=== PATIENT | male | born 1965 | race Caucasian/White ===

== ENCOUNTER → 2017-08-08 12:08 | Outpatient (CLI) | payer MEDICARE, SELFPAY ==
[2017-08-08 13:57] LABS: Absolute Lymphocyte Count 1.13 X10^3/ul (0.83-4.51); Absolute Neutrophil Count 6.6 X10^3/uL (2.0-7.7); Basophil# 0.04 X10^3/uL; Basophil% 0.5 % (0-1); Eosinophil# 0.15 X10^3/uL; Eosinophils% 1.8 % (0-5); Hematocrit 41.2 % (40-54); Hemoglobin 14.3 g/dl (13.0-16.5); Lymphocyte # 1.13 X10^3/ul (4.0); Lymphocyte % 13.3 % (19-41); Mean Corp Hgb Conc 34.7 g/gl (32-36); Mean Corpuscular Hgb 32.6 pg (27.0-32.0); Mean Corpuscular Volume 94.1 fL (80-94); Monocyte# 0.59 X10^3/uL; Monocyte% 6.9 % (0-10); Neutrophil # 6.56 X10^3/uL (2.7-7.7); Neutrophil % 76.9 % (47-70); Platelet Count 251 K/mm3 (150-450); RBC Distribution Width CV 11.9 % (11.6-14.6); RBC Distribution Width SD 40.1 fl (35.1-43.9); Red Blood Count 4.38 M/mm3 (4.6-6.2); White Blood Count 8.5 K/mm3 (4.4-11.0)
[2017-08-08 13:58] LABS: POSITIVE COUNT NO; POSITIVE DIFFERENTIAL NO; POSITIVE MORPHOLOGY NO
[2017-08-08 14:27] LABS: ALB/GLOB Ratio 1.2 RATIO (0.9-2.4); AST(SGOT) 48 U/L (15-37); Alanine Aminotransfer ALT/SGPT 87 U/L (16-61); Albumin, Serum 3.6 g/dL (3.2-5.0); Alkaline Phosphatase 108 U/L (45-117); Anion Gap 8 (5-15); BUN 13 mg/dL (7-18); BUN/Creat Ratio 10.7 RATIO (10-20); Calcium,Total 8.6 mg/dL (8.5-10.1); Chloride 107 mmol/L (98-107); Creatinine, Serum 1.22 mg/dL (0.70-1.30); EST Glomerular Filtration Rate 67 mL/min (>60); Est Glom Filt Rate - Afr Amer 81 mL/min (>60); Glucose 99 mg/dL (74-106); Potassium 3.8 mmol/L (3.5-5.1); Protein, Total 6.6 g/dL (6.4-8.2); Sodium Level 142 mmol/L (136-145); Thyroid Stim Hormone (TSH) 1.78 uIU/mL (0.358-3.74)
== END ==
PROVIDERS: Family Provider Family Medicine Geriatric Medicine; PCP Family Medicine Geriatric Medicine; Visit Provider Family Medicine Geriatric Medicine
DX: I10 Essential (primary) hypertension (principal); E23.6 Other disorders of pituitary gland; R53.83 Other fatigue
CPT/HCPCS: 36415; 80053; 84403; 84443; 85025

== ENCOUNTER → 2017-08-21 15:36 | Outpatient (CLI) | payer BC, SELFPAY ==
[2017-08-21 17:31] LABS: D-Dimer Quantitative (DVT/PE) 0.55 FEU/ug/m (0.27-0.49)
== END ==
PROVIDERS: Family Provider Family Medicine Geriatric Medicine; PCP Family Medicine Geriatric Medicine; Visit Provider Family Medicine Geriatric Medicine
DX: R60.9 Edema, unspecified (principal)
CPT/HCPCS: 36415; 85379

== ENCOUNTER → 2017-11-07 09:23 | Outpatient (CLI) | payer BC, SELFPAY ==
[2017-11-07 12:53] LABS: Absolute Lymphocyte Count 1.27 X10^3/ul (0.83-4.51); Absolute Neutrophil Count 4.7 X10^3/uL (2.0-7.7); Basophil# 0.03 X10^3/uL; Basophil% 0.5 % (0-1); Eosinophil# 0.07 X10^3/uL; Eosinophils% 1.1 % (0-5); Hematocrit 44.2 % (40-54); Hemoglobin 15.2 g/dl (13.0-16.5); Lymphocyte # 1.27 X10^3/ul (4.0); Lymphocyte % 19.4 % (19-41); Mean Corp Hgb Conc 34.4 g/gl (32-36); Mean Corpuscular Volume 93.1 fL (80-94); Mean Platelet Vol. 9.9 fl (6.2-12.0); Monocyte# 0.41 X10^3/uL; Monocyte% 6.3 % (0-10); Neutrophil # 4.73 X10^3/uL (2.7-7.7); Neutrophil % 72.2 % (47-70); POSITIVE COUNT NO; POSITIVE DIFFERENTIAL NO; POSITIVE MORPHOLOGY NO; Platelet Count 274 K/mm3 (150-450); RBC Distribution Width CV 12.1 % (11.6-14.6); RBC Distribution Width SD 40.8 fl (35.1-43.9); Red Blood Count 4.75 M/mm3 (4.6-6.2); White Blood Count 6.5 K/mm3 (4.4-11.0)
[2017-11-07 13:34] LABS: ALB/GLOB Ratio 1.3 RATIO (0.9-2.4); AST(SGOT) 35 U/L (15-37); Alanine Aminotransfer ALT/SGPT 72 U/L (16-61); Albumin, Serum 4.3 g/dL (3.2-5.0); Alkaline Phosphatase 123 U/L (45-117); Anion Gap 7 (5-15); BUN 10 mg/dL (7-18); BUN/Creat Ratio 6.8 RATIO (10-20); Calcium,Total 9.2 mg/dL (8.5-10.1); Chloride 105 mmol/L (98-107); Creatinine, Serum 1.48 mg/dL (0.70-1.30); EST Glomerular Filtration Rate 53 mL/min (>60); Est Glom Filt Rate - Afr Amer 65 mL/min (>60); Globulin 3.2 g/dL (2.2-4.2); Glucose 97 mg/dL (74-106); Protein, Total 7.5 g/dL (6.4-8.2); Sodium Level 138 mmol/L (136-145)
== END ==
PROVIDERS: Family Provider Family Medicine Geriatric Medicine; PCP Family Medicine Geriatric Medicine; Visit Provider Family Medicine Geriatric Medicine
DX: E23.6 Other disorders of pituitary gland (principal); R53.83 Other fatigue
CPT/HCPCS: 36415; 80053; 84403; 84443; 85025

== ENCOUNTER → 2017-11-13 06:34 | Outpatient (CLI) | payer MEDICARE, SELFPAY ==
--- NOTE | 2017-11-13 10:35 | NEURO ---
NCS and/or EMG Patient Report Ordering Doctor: Jim Martinez Chi DATE OF SERVICE: 11/13/17 This is a left upper extremity EMG and nerve conduction study performed on this 52-year-old male with a history of left elbow surgery. 1 week ago he twisted his left elbow and experienced numbness and tingling in his left fingers which has improved. He denies neck pain. Left upper extremity sensory and motor nerve conduction study is performed. The median motor and sensory, ulnar motor and sensory and radial sensory responses are normal. The median and ulnar F-wave latencies are normal. He does have mild reduction in ulnar amplitude across the elbow. Although this falls within the normal range. Left upper extremity needle electromyography is performed. Muscles evaluated included the first dorsal interosseous, abductor pollicis brevis, brachioradialis, biceps, triceps and deltoid muscles. All muscles demonstrated normal insertional activity with absence of pathologic spontaneous activity. Motor unit potential recruitment pattern and amplitude was normal in all muscles tested. Impression: This is a normal EMG and nerve conduction study of the left upper extremity. There is evidence of a very mild ulnar neuropathy at the elbow although this is likely a chronic finding.
== END ==
PROVIDERS: Family Provider Family Medicine Geriatric Medicine; PCP Family Medicine Geriatric Medicine; Visit Provider Family Medicine Geriatric Medicine
DX: R20.0 Anesthesia of skin (principal)
CPT/HCPCS: 95886; 95909

== ENCOUNTER 2017-12-06 08:30 | Outpatient (RCR) | payer MEDICARE, SELFPAY ==
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
--- NOTE | 2018-02-06 12:58 | HP.PT.NRP ---
HP - Discharge Summary (1) - Patient Information DONG JACKSON was seen in my office for initial evaluation on 11/15/17. The following Plan of Care was established for this patient: Initial Frequency: 3x /Week Initial Duration: 4 Weeks - Anticipated Interventions Patient/Client Instruction: Educate patient on: Condition, Plan of Care, Risk Factors, Benefits of Fitness Program For the Purpose of:: To improve self management Therapeutic Exercise to Include: Strength training, Body mechanics, Postural training, Flexibilty training, Active ROM, Scapular Strength/Stabilization For the Purpose of:: To decrease pain, To increase ROM, To improve muscle performance and motor function, To improve ability to perform ADL's, To increase tolerance to activity/condition/position, To improve ability of physical actions for home/community/work/leisure Manual Therapy Techniques to Include: Soft tissue mobilization For the Purpose of:: To decrease pain, To decrease swelling/inflammation, To increase ROM, To improve nutrient delivery to tissue TENS: Yes Cryotherapy (ice pack, ice massage): Yes Thermo therapy (hot pack): Yes Ultrasound (thermal/non thermal): Yes For the Purpose of:: To decrease pain, To increase ROM This patient was last seen in our office . Pertinent comments regarding their Physical therapy will appear below: This patient has not returned to Physical Therapy and is appropriate to return to MD for further follow-up as needed. At this point I will be discontinuing this patient from physical therapy. I would be happy to see this patient again in the future if found appropriate by the physician. Thank you! Alexus Arevalo
== END 2017-12-06 19:00 | disposition home or self-care (01) ==
LOC: PT 08:30
PROVIDERS: Family Provider Family Medicine Geriatric Medicine; PCP Family Medicine Geriatric Medicine; Visit Provider Family Medicine Geriatric Medicine
DX: M77.9 Enthesopathy, unspecified (principal)
CPT/HCPCS: 97110; 97162; 97164

== ENCOUNTER 2017-12-08 11:30 | Emergency (ER) | payer MEDICARE, SELFPAY ==
[2017-12-08 11:31] VITALS: BP 155/62; PULSE 98; RESP 19; TEMP 36.8; O2SAT 99; BMI 26.6
[2017-12-08 11:41] VITALS: BP 145/89; PULSE 81; RESP 18; O2SAT 100
[2017-12-08] MEDS: Ketorolac 30 MG/ML Syringe IV (12:24)
[2017-12-08] MEDS: Ondansetron 4 MG/2 ML Vial IV (12:24)
[2017-12-08] MEDS: 0.9% Normal Saline 1,000 ML 999 ML IV (12:24)
[2017-12-08 12:26] LABS: Absolute Lymphocyte Count 1.16 X10^3/ul (0.83-4.51); Basophil# 0.03 X10^3/uL; Basophil% 0.2 % (0-1); Eosinophil# 0.01 X10^3/uL; Eosinophils% 0.1 % (0-5); Hematocrit 44.7 % (40-54); Hemoglobin 15.9 g/dl (13.0-16.5); Lymphocyte # 1.16 X10^3/ul (4.0); Lymphocyte % 8.8 % (19-41); Mean Corp Hgb Conc 35.6 g/gl (32-36); Mean Corpuscular Hgb 32.6 pg (27.0-32.0); Mean Corpuscular Volume 91.6 fL (80-94); Mean Platelet Vol. 9.7 fl (6.2-12.0); Monocyte# 0.93 X10^3/uL; Neutrophil % 83.2 % (47-70); POSITIVE COUNT NO; POSITIVE DIFFERENTIAL NO; POSITIVE MORPHOLOGY NO; Platelet Count 249 K/mm3 (150-450); RBC Distribution Width SD 39.9 fl (35.1-43.9); Red Blood Count 4.88 M/mm3 (4.6-6.2); White Blood Count 13.2 K/mm3 (4.4-11.0)
[2017-12-08 12:39] LABS: AST(SGOT) 30 U/L (15-37); Alanine Aminotransfer ALT/SGPT 64 U/L (16-61); Albumin, Serum 4.3 g/dL (3.2-5.0); Alkaline Phosphatase 99 U/L (45-117); Anion Gap 10 (5-15); BUN 18 mg/dL (7-18); BUN/Creat Ratio 10.8 RATIO (10-20); Bilirubin, Direct 0.16 mg/dL (0.00-0.30); Calcium,Total 9.8 mg/dL (8.5-10.1); Chloride 103 mmol/L (98-107); Creatinine, Serum 1.67 mg/dL (0.70-1.30); EST Glomerular Filtration Rate 46 mL/min (>60); Est Glom Filt Rate - Afr Amer 56 mL/min (>60); Estimated Creatinine Clearance 47.75 ml/min; Globulin 3.5 g/dL (2.2-4.2); Glucose 100 mg/dL (74-106); Lipase 95 U/L (73-393); Potassium 3.6 mmol/L (3.5-5.1); Protein, Total 7.8 g/dL (6.4-8.2); Sodium Level 137 mmol/L (136-145)
[2017-12-08] MEDS: 0.9% Normal Saline 1,000 ML 250 ML IV (13:00)
[2017-12-08 13:12] LABS: Bacteria 0 SEEN /hpf (None Seen); Mucous, Urine 0 SEEN /hpf (<or=2+)
[2017-12-08 13:17] LABS: Color, Urine Yellow (Yellow); Glucose, Dipstick Normal (Normal); Ketone-Dipstick 5 mg/dl (Negative); Leukocyte Esterase-Dipstick Negative /ul (Negative); Nitrite-Dipstick Negative (Negative); Occult Blood-Urine 250 /ul (Negative); Protein-Dipstick 30 mg/dl (Negative); Specific Gravity, Urine 1.015 (1.002-1.030); Urine Bilirubin Dipstick Negative (Negative); Urine Clarity Clear (Clear); Urine Urobilinogen Normal (Normal)
[2017-12-08 13:22] LABS: Red Blood Cells-Urine 5-10 SEEN /hpf (0-5); White Blood Cells 0-5 SEEN /hpf (0-5)
[2017-12-08 13:23] LABS: Squamous Epithelial Cells - UA 0-5 SEEN /hpf (0-5)
--- NOTE | 2017-12-08 14:11 | ED.VISSUMM ---
- ER Visit Summary Date of Service: 12/08/17 Chief Complaint: Abdominal pain History of Present Illness: The patient is a 52 M who states that around 630 today he developed a left lower abdominal pain. States feels like there is a big ball inside of his abdomen. He states he had a very small bowel movement took a laxative because he felt constipated. He notes decreased urination. He does note some nausea. He states he does not wish to have any narcotics. He states he has had a prior kidney stone that had to have surgery that was with Dr. Pruett. He states that he ended up having urosepsis. Denies any fevers. Physical Examination: Afebrile vital signs are stable Gen: Well-nourished well-developed Head: Normocephalic atraumatic Eyes: Perrl EOMI ENT: TMs clear no rhinorrhea moist mucous membranes Neck: Supple no lymphadenopathy no JVD nontender CVS: Regular rate rhythm no murmurs normal S1-S2 Respiratory: No distress clear to auscultation bilaterally chest nontender Abdomen: Soft nontender nondistended normal bowel sounds no masses Back: Nontender Extremity: Nontender no edema Skin: Normal color no rash Neuro: alert orientated ?3 CN II-XII intact normal strength sensation reflexes gait cerebellar Psych: Normal affect normal mood Test Results: Urinalysis 5-10 red cells. White count 13.[address] of the abdomen pelvis without contrast demonstrated a distal ureteral stone at the level of the pelvic inlet at 5 mm there was associated hydronephrosis Emergency Department Course and Treatment: Patient received Toradol IV fluids and Zofran. He does not wish to have narcotics at home. I will write for Toradol but we did discuss his mild acute kidney injury and the need to monitor that closely. I spoke with Dr. Paulino to help arrange follow-up. He agrees with our plan. Patient to return if worsening or concerns. Impression: 1. Left ureterolithiasis 5 mm with colic 2. Acute kidney injury This note was generated with [employer] dictation software. It may contain incorrect words, spelling, and punctuation that were not noted in review of the chart prior to signing ED Disposition - Plan for ED Patient: Disposition: Home or Assisted Living Chief Complaint: Abd Pain Instructions: ED Stone Renal W Colic Prescriptions: Ketorolac [Toradol] 10 mg PO Q6H 3 Days #12 tab Referrals: Cholo Paulino MD [STAFF PHYSICIAN] - (call to arrange follow up)
== END 2017-12-08 14:29 | disposition home or self-care (01) ==
PROVIDERS: Emergency Provider Emergency Medicine; Family Provider Family Medicine Geriatric Medicine; PCP Family Medicine Geriatric Medicine
DX: N13.2 Hydronephrosis with renal and ureteral calculous obstruction (principal); N17.9 Acute kidney failure, unspecified; K59.00 Constipation, unspecified; F41.9 Anxiety disorder, unspecified; Z79.899 Other long term (current) drug therapy; Z87.442 Personal history of urinary calculi
CPT/HCPCS: 74176; 80048; 80076; 81001; 83690; 85025; 96361; 96374; 96375; 99284; J7030; A4216; J2405

== ENCOUNTER → 2017-12-09 10:58 | Outpatient (CLI) | payer MEDICARE, SELFPAY | PROVIDERS: Family Provider Family Medicine Geriatric Medicine; PCP Family Medicine Geriatric Medicine; Visit Provider Nurse Practitioner Adult Health | DX: Z01.812 Encounter for preprocedural laboratory examination (principal); N20.1 Calculus of ureter | CPT/HCPCS: 74018; 93005 ==

== ENCOUNTER → 2018-02-20 14:26 | Outpatient (CLI) | payer MEDICARE, SELFPAY ==
[2018-02-20 16:43] LABS: Absolute Lymphocyte Count 1.55 X10^3/ul (0.83-4.51); Absolute Neutrophil Count 6.1 X10^3/uL (2.0-7.7); Basophil# 0.03 X10^3/uL; Basophil% 0.4 % (0-1); Eosinophil# 0.08 X10^3/uL; Hematocrit 45.4 % (40-54); Hemoglobin 15.4 g/dl (13.0-16.5); Lymphocyte # 1.55 X10^3/ul (4.0); Lymphocyte % 18.6 % (19-41); Mean Corp Hgb Conc 33.9 g/gl (32-36); Mean Corpuscular Hgb 32.4 pg (27.0-32.0); Mean Corpuscular Volume 95.4 fL (80-94); Mean Platelet Vol. 11.6 fl (6.2-12.0); Monocyte# 0.59 X10^3/uL; Monocyte% 7.1 % (0-10); Neutrophil # 6.06 X10^3/uL (2.7-7.7); Neutrophil % 72.5 % (47-70); Platelet Count 261 K/mm3 (150-450); RBC Distribution Width CV 12.7 % (11.6-14.6); RBC Distribution Width SD 43.1 fl (35.1-43.9); Red Blood Count 4.76 M/mm3 (4.6-6.2); White Blood Count 8.3 K/mm3 (4.4-11.0)
[2018-02-20 16:47] LABS: POSITIVE COUNT NO; POSITIVE DIFFERENTIAL NO; POSITIVE MORPHOLOGY NO
[2018-02-20 17:13] LABS: ALB/GLOB Ratio 1.3 RATIO (0.9-2.4); AST(SGOT) 33 U/L (15-37); Alanine Aminotransfer ALT/SGPT 71 U/L (16-61); Albumin, Serum 4.2 g/dL (3.2-5.0); Alkaline Phosphatase 101 U/L (45-117); Anion Gap 10 (5-15); BUN 11 mg/dL (7-18); BUN/Creat Ratio 7.5 RATIO (10-20); Calcium,Total 9.2 mg/dL (8.5-10.1); Chloride 99 mmol/L (98-107); Creatinine, Serum 1.46 mg/dL (0.70-1.30); EST Glomerular Filtration Rate 54 mL/min (>60); Est Glom Filt Rate - Afr Amer 66 mL/min (>60); Globulin 3.2 g/dL (2.2-4.2); Glucose 91 mg/dL (74-106); Potassium 3.9 mmol/L (3.5-5.1); Protein, Total 7.4 g/dL (6.4-8.2); Sodium Level 136 mmol/L (136-145)
== END ==
PROVIDERS: Family Provider Family Medicine Geriatric Medicine; PCP Family Medicine Geriatric Medicine; Visit Provider Family Medicine Geriatric Medicine
DX: E23.6 Other disorders of pituitary gland (principal)
CPT/HCPCS: 36415; 80053; 84403; 84443; 85025

== ENCOUNTER 2018-07-19 14:59 | Emergency (ER) | payer MEDICARE, SELFPAY ==
[2018-07-19 15:02] VITALS: BP 112/87; PULSE 97; RESP 18; TEMP 36.4; O2SAT 99; BMI 27.3
--- NOTE | 2018-07-19 16:57 | EKG12_ITS ---
Test Reason : EDEMA Blood Pressure : / mmHG Vent. Rate : 083 BPM Atrial Rate : 083 BPM P-R Int : 188 ms QRS Dur : 082 ms QT Int : 358 ms P-R-T Axes : 016 -07 023 degrees QTc Int : 420 ms Normal sinus rhythm Normal ECG Confirmed by BIRGIT VERGARA MD ([id number]), design editor TATIANA PUCKETT ([id number]) on 07/22/2018 1:19:32 PM Referred By: TAE Confirmed By:BIRGIT VERGARA MD
--- NOTE | 2018-07-19 17:01 | ED.DCSUM_ITS ---
- ER Visit Summary Date of Service: 07/19/18 Chief Complaint: Leg and hand swelling History of Present Illness: The patient is a 53 M presents for swelling of his lower legs and his hand, worse since yesterday. Patient states over the last week he has gained 20 pounds and is having uncomfortable swelling of his lower legs and his hands. He says he cannot close his fist because of the swelling. It hurts to stand because his feet are so swollen. Patient denies any chest pain, shortness of breath, fever, abdominal pain, or any other complaints. He does drink alcohol. He denies any medical history other than history of psychotic episodes, for which she is on Lamictal, divalproex and doxepin. Ragini ent denies any recent medication changes. Also states he has eczema chronically on his lower legs. Physical Examination: Vital signs: afebrile, hemodynamically stable, no hypoxia on room air General: well nourished, well developed, in no distress Skin: warm, dry, multiple small areas of excoriation and scratches on the bilateral lower extremities, no pallor HEENT: normocephalic and atraumatic; PERRL, EOMI, moist mucous membranes Cardiovascular: regular rate and rhythm without murmurs, 2+ pitting edema below the knees, 2+ pulses all distal extremities Respiratory: No increased work of breathing, lungs have mild rales in the bases Abdominal: Abdomen is soft, nontender with normoactive bowel sounds, no guarding or rebound, no masses MSK: Moves all extremities, no deformities, normal strength, mild edema of the hands noted when patient tries to make a fist Neuro: Awake and alert, oriented ?4. No facial droop, sensation and motor function intact and symmetric Test Results: Abnormal Lab Results 07/19/18 07/19/18 07/19/18 17:00 17:00 17:00 WBC 5.3 RBC 4.22 L Hgb 13.6 Hct 40.4 MCV 95.7 H MCH 32.2 H MCHC 33.7 RDW 12.7 RDW Differential 43.7 Plt Count 182 MPV 8.8 Immature Gran % (Auto) 0.400 Neut % (Auto) 66.7 Lymph % (Auto) 18.3 L [place] % (Auto) 11.4 H Eos % (Auto) 3.0 Baso % (Auto) 0.2 Absolute Neuts (auto) 3.5 Absolute Lymphs (auto) 0.96 Total Counted Not Reportable Magnesium 2.4 Total Bilirubin 0.30 Direct Bilirubin 0.09 AST 34 ALT 46 Alkaline Phosphatase 95 Troponin I < 0.015 B-Natriuretic Peptide 15.7 Total Protein 6.4 Albumin 3.5 Globulin 2.9 TSH 1.94 Ethyl Alcohol 07/19/18 17:00 WBC RBC Hgb Hct MCV MCH MCHC RDW RDW Differential Plt Count MPV Immature Gran % (Auto) Neut % (Auto) Lymph % (Auto) [place] % (Auto) Eos % (Auto) Baso % (Auto) Absolute Neuts (auto) Absolute Lymphs (auto) Total Counted Magnesium Total Bilirubin Direct Bilirubin AST ALT Alkaline Phosphatase Troponin I B-Natriuretic Peptide Total Protein Albumin Globulin TSH Ethyl Alcohol 6.0 Clinical Impression(s) from Imaging Studies Chest X-Ray 07/19/18 17:10 IMPRESSION: Stable, nonacute x-ray examination of the chest. Electronically Signed: Kendell Tejeda MD at 17:27 EDT , Service support , Medications Given Discontinued Medications Furosemide (Lasix) 20 mg IV X1 ONE Stop: 07/19/18 18:27 Last Admin: 07/19/18 18:35 Dose: 20 mg Emergency Department Course and Treatment: Patient presents for evaluation of 1 week of worsening swelling of the lower legs and his hands. Patient also states he has gained 20 pounds in the last week. He has no shortness of breath, chest pain, dyspnea on exertion, paroxysmal nocturnal dyspnea or other symptoms that would be concerning for acute congestive heart failure with lung involvement. Because patient has the lower extremity edema and the swelling in his hands, this is less likely to be a DVT, and his history and exam is not consistent with the same. He has no risk factors for DVT. Labs were performed showing no significant anemia or leukocytosis, no electrolyte derangements, no hepatic dysfunction. Troponin negative. BNP was normal. Chest x-ray showed no sign of pulmonary edema or other acute process. Alcohol was checked and was negative. EKG showed a sinus rhythm with no ischemic changes. Patient does have the excoriations on his lower extremities and one area that looks concerning for cellulitis. He was started on Keflex for the concern for infection. No obvious underlying cause of patient's edema was found on workup. He was given 1 dose of IV Lasix. He was instructed to follow-up with his primary care doctor as soon as possible for further evaluation if he continues to have the edema. Patient was discharged home. Treatment Plan: [] Disposition: [] Impression: Peripheral edema of all extremities, cellulitis of the right lower extremity This note was generated with [employer] dictation software. It may contain incorrect words, spelling, and punctuation that were not noted in review of the chart prior to signing ED Disposition - Plan for ED Patient: Disposition: Home or Assisted Living Instructions: ED Infec Skin Cellulitis, ED Leg Swelling Bilateral Prescriptions: Cephalexin [Keflex] 500 mg PO Q6 7 Days #28 cap Referrals: Jmi Martinez Chi, MD [Primary Care Provider] - As soon as possible Additional Instructions: Your workup did not show any specific reason why you are having swelling in your legs in your hands. You were given a single dose of Lasix to help make you P off some of the fluid. Please follow-up with your doctor as soon as possible for another evaluation, especially if you continue to have the swelling. Take the antibiotic for the small areas of skin infection on your right lower leg at the ankle. Please apply antibiotic ointment to your legs over the multiple scratches, and use moisturizing cream to help keep the skin healthy. Return immediately to the emergency department if you develop any dizziness, lightheadedness, chest pain, shortness of breath, fever, or any other concerning symptoms.
[2018-07-19 17:10] VITALS: O2SAT 97
--- NOTE | 2018-07-19 17:10 | RAD_ITS ---
STUDY: X-RAY CHEST REASON FOR EXAM: Male, 53 years old. Leg edema for 3 days TECHNIQUE: PA and lateral views of the chest. COMPARISON: August 02, 2014 FINDINGS: EKG leads project over the chest. The lungs are clear and expanded. There is no demonstrated pleural abnormality. Normal size heart. Normal mediastinum and isabel. Normal visualized pulmonary arteries. Normal visualized aortic arch and descending thoracic aorta. Normal visualized thoracic spine. Normal visualized ribs, clavicles, and shoulders. There is no demonstrated abnormality of the visualized soft tissue structures of the upper abdomen. RAD/Chest PA and Lateral IMPRESSION: Stable, nonacute x-ray examination of the chest. Electronically Signed: Kendell Tejeda MD at 17:27 EDT , Service support ,
[2018-07-19 17:19] LABS: Absolute Lymphocyte Count 0.96 X10^3/ul (0.83-4.51); Absolute Neutrophil Count 3.5 X10^3/uL (2.0-7.7); Basophil# 0.01 X10^3/uL; Basophil% 0.2 % (0-1); Eosinophil# 0.16 X10^3/uL; Hematocrit 40.4 % (40-54); Hemoglobin 13.6 g/dl (13.0-16.5); Lymphocyte # 0.96 X10^3/ul (4.0); Lymphocyte % 18.3 % (19-41); Mean Corp Hgb Conc 33.7 g/gl (32-36); Mean Corpuscular Hgb 32.2 pg (27.0-32.0); Mean Corpuscular Volume 95.7 fL (80-94); Mean Platelet Vol. 8.8 fl (6.2-12.0); Monocyte% 11.4 % (0-10); Neutrophil # 3.51 X10^3/uL (2.7-7.7); Neutrophil % 66.7 % (47-70); Platelet Count 182 K/mm3 (150-450); RBC Distribution Width CV 12.7 % (11.6-14.6); RBC Distribution Width SD 43.7 fl (35.1-43.9); Red Blood Count 4.22 M/mm3 (4.6-6.2); White Blood Count 5.3 K/mm3 (4.4-11.0)
[2018-07-19 17:27] LABS: POSITIVE COUNT NO; POSITIVE DIFFERENTIAL NO; POSITIVE MORPHOLOGY NO
[2018-07-19 17:35] LABS: BNP,B-Type NATRIURETIC PEPTIDE 15.7 pg/mL (0-100)
[2018-07-19 17:37] LABS: AST(SGOT) 34 U/L (15-37); Alanine Aminotransfer ALT/SGPT 46 U/L (16-61); Albumin, Serum 3.5 g/dL (3.2-5.0); Alkaline Phosphatase 95 U/L (45-117); Bilirubin, Direct 0.09 mg/dL (0.00-0.30); Globulin 2.9 g/dL (2.2-4.2); Magnesium 2.4 mg/dL (1.6-2.6); Protein, Total 6.4 g/dL (6.4-8.2); Thyroid Stim Hormone (TSH) 1.94 uIU/mL (0.358-3.74)
[2018-07-19] MEDS: Furosemide 20 MG/2 ML VIAL IV (18:35)
[2018-07-19 18:39] VITALS: BP 112/77; PULSE 78; RESP 16; TEMP 36.6; O2SAT 98
[2018-07-19 19:18] VITALS: BP 110/83; PULSE 80; RESP 16; O2SAT 97
== END 2018-07-19 19:19 | disposition home or self-care (01) ==
PROVIDERS: Emergency Provider Emergency Medicine; Family Provider Family Medicine Geriatric Medicine; PCP Family Medicine Geriatric Medicine
DX: M79.89 Other specified soft tissue disorders (principal); L03.115 Cellulitis of right lower limb; R60.0 Localized edema; R63.5 Abnormal weight gain; Z79.899 Other long term (current) drug therapy
CPT/HCPCS: 71046; 80076; 80320; 83735; 83880; 84443; 84484; 85025; 93005; 96374; 99284; A4216; G0480; J1940

== ENCOUNTER → 2018-08-11 10:42 | Outpatient (CLI) | payer MEDICARE, SELFPAY ==
[2018-07-19 15:02] VITALS: BMI 27.3
[2018-08-11 13:32] LABS: HIV - WCH Non-Reactive (Nonreactive)
[2018-08-12 17:16] LABS: Hep C Antibodies <0.1 s/co ratio (0.0-0.9)
== END ==
PROVIDERS: Family Provider Family Medicine Geriatric Medicine; PCP Family Medicine Geriatric Medicine; Visit Provider Family Medicine Geriatric Medicine
DX: Z13.89 Encounter for screening for other disorder (principal)
CPT/HCPCS: 36415; 86703; 86803

== ENCOUNTER → 2018-08-21 16:04 | Outpatient (CLI) | payer MEDICARE, SELFPAY ==
[2018-08-21 17:44] LABS: Absolute Lymphocyte Count 1.35 X10^3/ul (0.83-4.51); Absolute Neutrophil Count 2.8 X10^3/uL (2.0-7.7); Basophil# 0.02 X10^3/uL; Basophil% 0.4 % (0-1); Eosinophil# 0.11 X10^3/uL; Eosinophils% 2.3 % (0-5); Hematocrit 41.1 % (40-54); Hemoglobin 13.8 g/dl (13.0-16.5); Lymphocyte # 1.35 X10^3/ul (4.0); Lymphocyte % 28.1 % (19-41); Mean Corp Hgb Conc 33.6 g/gl (32-36); Mean Corpuscular Hgb 31.8 pg (27.0-32.0); Mean Corpuscular Volume 94.7 fL (80-94); Mean Platelet Vol. 9.5 fl (6.2-12.0); Monocyte# 0.48 X10^3/uL; Neutrophil # 2.81 X10^3/uL (2.7-7.7); Neutrophil % 58.4 % (47-70); Platelet Count 223 K/mm3 (150-450); RBC Distribution Width CV 12.4 % (11.6-14.6); RBC Distribution Width SD 42.5 fl (35.1-43.9); Red Blood Count 4.34 M/mm3 (4.6-6.2); White Blood Count 4.8 K/mm3 (4.4-11.0)
[2018-08-21 18:02] LABS: POSITIVE COUNT NO; POSITIVE DIFFERENTIAL NO; POSITIVE MORPHOLOGY NO
[2018-08-21 18:50] LABS: ALB/GLOB Ratio 1.2 RATIO (0.9-2.4); AST(SGOT) 62 U/L (15-37); Alanine Aminotransfer ALT/SGPT 107 U/L (16-61); Albumin, Serum 3.6 g/dL (3.2-5.0); Alkaline Phosphatase 105 U/L (45-117); Anion Gap 10 (5-15); BUN 17 mg/dL (7-18); BUN/Creat Ratio 13.3 RATIO (10-20); Calcium,Total 8.9 mg/dL (8.5-10.1); Chloride 106 mmol/L (98-107); Cholesterol 246 mg/dL (200); Creatinine, Serum 1.28 mg/dL (0.70-1.30); EST Glomerular Filtration Rate 63 mL/min (>60); Est Glom Filt Rate - Afr Amer 76 mL/min (>60); Glucose 104 mg/dL (74-106); High Density Lipoprotein 51 mg/dL; Protein, Total 6.6 g/dL (6.4-8.2); Sodium Level 140 mmol/L (136-145); Thyroid Stim Hormone (TSH) 2.78 uIU/mL (0.358-3.74); Triglycerides 437 mg/dL
== END ==
LOC: POLAB3 16:05
PROVIDERS: Family Provider Family Medicine Geriatric Medicine; PCP Family Medicine Geriatric Medicine; Visit Provider Family Medicine Geriatric Medicine
DX: E23.6 Other disorders of pituitary gland (principal); E78.5 Hyperlipidemia, unspecified; R53.83 Other fatigue
CPT/HCPCS: 36415; 80053; 80061; 84403; 84443; 85025

== ENCOUNTER 2019-02-09 13:14 | Emergency (ER) | payer MEDICARE, SELFPAY ==
[2019-02-09 13:15] VITALS: BP 130/82; PULSE 107; RESP 16; TEMP 36.6; O2SAT 97; BMI 28.7
[2019-02-09 13:29] VITALS: BP 119/91; PULSE 99; RESP 13; O2SAT 99
--- NOTE | 2019-02-09 15:22 | EKG12_ITS ---
Test Reason : CP/SOB Blood Pressure : / mmHG Vent. Rate : 102 BPM Atrial Rate : 102 BPM P-R Int : 176 ms QRS Dur : 076 ms QT Int : 324 ms P-R-T Axes : 050 -06 029 degrees QTc Int : 422 ms Sinus tachycardia Septal infarct , age undetermined Abnormal ECG Confirmed by JAI VIRK, BIRGIT ([id number]), editor & co founder YISSEL BLAIR ([id number]) on 02/13/2019 10:34:52 AM Referred By: CAMMIE/EDY Confirmed By:BIRGIT VERGARA MD
--- NOTE | 2019-02-09 15:22 | ED.VIS.GEN ---
History of Present Illness Chief Complaint: Chest Pain Informant: Patient, Significant Other Onset: Today Context: Sudden Onset Timing: Continuous Quality: Dull pain Location: Clavicle and neck superior anterior left chest Current Severity: Mild Maximum Severity: Moderate Worsened by: Nothing Relieved by: Nothing Associated Symptoms: No associated symptoms Narrative: Patient is a 53-year-old male presents with chest discomfort upper anterior left chest and neck. This started 8 hours prior to presentation. He denies fever, chills night sweats. Denies runny nose, congestion postnasal drainage. Denies sore throat, difficulty swallowing or breathing. He denies change in voice. He denies history of blood clot in his leg or lung. He denies leg pain, swelling discoloration. He has no known history of coronary disease. He has no risk factors for coronary disease. He does have history anxiety. He is not certain if this is or is not his anxiety. He denies black or maroon stool. He denies history of hiatal hernia or reflux. Prior similar symptoms: No Recent Illness/Hospitalization: No - Past Medical History (1) History of anxiety disorder Status: Acute Past Medical History - Allergies and Home Meds Allergies/Adverse Reactions: Allergies No Known Allergies Allergy (Verified 02/09/19 13:17) Primary Care Physician: Jim Martinez Chi, MD [Primary Care Provider] - Prior records reviewed: Yes Lives: Spouse/ Significant Other Smoking Status: Former smoker - Patient quit smoking at the age of 22 Alcohol: None Drugs: None Review of Systems General: Denies: Chills, Fever, Sweats Eyes: Denies: Visual changes - bilaterally, Diplopia ENT: Denies: Bilateral ear pain, Rhinorrhea, Sore throat Cardiovascular: Reports: Chest pain. Denies: Palpitations, Heart racing Respiratory: Denies: Dyspnea, Cough, Dyspnea on exertion Gastrointestinal: Denies: Abdominal pain, Nausea, Vomiting, Diarrhea, Melena, Hematochezia Genitourinary: Denies: Dysuria, Hematuria, Frequency Musculoskeletal: Denies: Myalgias, Arthralgias, Neck pain, Back pain, Swelling, Extremity Pain, -, - Skin: Denies: Rash, Wounds Neurological: Denies: Headache, Weakness, Numbness Hematologic: Denies: Easy bruising, Easy bleeding Physical Exam Vital Signs/Narrative: Vital Signs Temp Pulse Resp BP Pulse Ox 02/09/19 13:29 99 13 119/91 H 99 02/09/19 13:15 97.8 F 107 H 16 130/82 H 97 Inital Vital Signs reviewed: Yes General: Well nourished, Well developed, No Acute Distress Head: Normocephalic, Atraumatic Eyes: Perrl, EOMI ENT: Moist mucous membranes, No rhinorrhea Neck: Supple, Nontender, No lymphadenopathy, No JVD Cardiovascular: Regular rate, Regular rhythm, No murmurs, Normal S1, Normal S2 Respiratory: No distress, CTA bilaterally, Chest nontender Abdomen: Soft, Nontender, Nondistended, Normal bowel sounds Back: Nontender, Normal Inspection Extremities: Nontender, No edema Skin: Normal color, No rash, No Trauma. Negative for: Cyanosis, Diaphoresis, Jaundice Neurological: Alert, Oriented x3, Cranial nerves II-XII grossly intact, Normal Strength, Normal Sensation Psychological: Normal affect, Normal Mood Diagnostic/Tx/Re-eval Chest X-Ray - ED: 2 View, Read by ED Physician, Normal, Heart, Lungs, Mediastinum, Bony Structures, No Acute Disease Impressions Chest X-Ray 02/09/19 15:30 IMPRESSION: Normal x-ray examination of the chest. Electronically Signed: Sawyer Dorothy, at 15:46 EDT , Service support , 02/09/19 15:30 Chest PA and Lateral [RAD] Stat Laboratory Results 02/09/19 02/09/19 13:40 13:40 WBC 7.0 RBC 4.69 Hgb 15.0 Hct 43.5 MCV 92.8 MCH 32.0 MCHC 34.5 RDW Std Deviation 40.8 RDW Coeff of Igor 12.0 Plt Count 249 MPV 10.4 Sodium 137 Potassium 4.1 Chloride 103 Carbon Dioxide 28.0 Anion Gap 6 BUN 20 H Creatinine 1.42 H Estim Creat Clear Calc 57.54 Est GFR (MDRD) Af Amer 67 Est GFR (MDRD) Non-Af 56 L BUN/Creatinine Ratio 14.1 Glucose 117 H Calcium 9.3 Troponin I < 0.015 - Medical Decision Making Atypical chest pain. EKG, troponin and chest x-ray obtained to evaluate for cardiac versus noncardiac etiology. Chest x-ray, EKG, troponin are normal. This is with greater than 8 hours of pain. Patient was informed the cause of his pain is unknown. ED Disposition - Plan for ED Patient: Disposition: Home or Assisted Living Diagnosis: Left-sided chest pain Instructions: CHEST PAIN, NonCardiac Referrals: Jim Martinez Chi, MD [Primary Care Provider] - 3-5 Days
--- NOTE | 2019-02-09 15:30 | RAD_ITS ---
STUDY: X-RAY CHEST REASON FOR EXAM: Male, 53 years old. Dyspnea. Left upper chest pain. History of anxiety. TECHNIQUE: PA and lateral views of the chest. COMPARISON: Comparison is made with prior examination dated July 19, 2018. FINDINGS: EKG electrodes are seen. The lungs are clear and expanded. There is no demonstrated pleural abnormality. Normal size heart. Normal mediastinum and isabel. Normal visualized pulmonary arteries. Normal visualized aortic arch and descending thoracic aorta. Normal visualized thoracic spine. Normal visualized ribs, clavicles, and shoulders. There is no demonstrated abnormality of the visualized soft tissue structures of the upper abdomen. RAD/Chest PA and Lateral IMPRESSION: Normal x-ray examination of the chest. Electronically Signed: Sawyer De La Cruz, at 15:46 EDT , Service support ,
[2019-02-09 15:31] VITALS: BP 125/75; PULSE 90; RESP 14; O2SAT 95
[2019-02-09 15:33] LABS: Hematocrit 43.5 % (40-54); Mean Corp Hgb Conc 34.5 g/dL (32-36); Mean Corpuscular Volume 92.8 fL (80-94); Mean Platelet Vol. 10.4 fl (6.2-12.0); Platelet Count 249 K/mm3 (150-450); RBC Distribution Width SD 40.8 fl (35.1-43.9); Red Blood Count 4.69 M/mm3 (4.6-6.2)
[2019-02-09 15:51] LABS: Anion Gap 6 (5-15); BUN 20 mg/dL (7-18); BUN/Creat Ratio 14.1 RATIO (10-20); Calcium,Total 9.3 mg/dL (8.5-10.1); Chloride 103 mmol/L (98-107); Creatinine, Serum 1.42 mg/dL (0.70-1.30); EST Glomerular Filtration Rate 56 mL/min (>60); Est Glom Filt Rate - Afr Amer 67 mL/min (>60); Estimated Creatinine Clearance 57.54 ml/min; Glucose 117 mg/dL (74-106); Potassium 4.1 mmol/L (3.5-5.1); Sodium Level 137 mmol/L (136-145)
[2019-02-09 16:06] VITALS: BP 130/78; PULSE 95; RESP 14; O2SAT 98
== END 2019-02-09 16:09 | disposition home or self-care (01) ==
PROVIDERS: Emergency Provider Emergency Medicine; Family Provider Family Medicine Geriatric Medicine; PCP Family Medicine Geriatric Medicine
DX: R07.89 Other chest pain (principal); F41.9 Anxiety disorder, unspecified; Z87.891 Personal history of nicotine dependence; Z79.899 Other long term (current) drug therapy
CPT/HCPCS: 71046; 80048; 84484; 85027; 93005; 99283; A4216

== ENCOUNTER → 2019-02-23 09:38 | Outpatient (CLI) | payer MEDICARE, SELFPAY ==
[2019-02-09 13:15] VITALS: BMI 28.7
[2019-02-23 12:44] LABS: Absolute Neutrophil Count 3.8 X10^3/uL (2.0-7.7); Basophil# 0.05 X10^3/uL; Basophil% 0.8 % (0-1); Eosinophil# 0.21 X10^3/uL; Eosinophils% 3.3 % (0-5); Hematocrit 43.8 % (40-54); Hemoglobin 14.7 g/dL (13.0-16.5); Lymphocyte % 26.7 % (19-41); Mean Corp Hgb Conc 33.6 g/dL (32-36); Mean Corpuscular Hgb 31.7 pg (27.0-32.0); Mean Corpuscular Volume 94.4 fL (80-94); Monocyte# 0.53 X10^3/uL; Monocyte% 8.3 % (0-10); NRBC Flagged by Analyzer 0 % (0-5); Neutrophil # 3.83 X10^3/uL (2.7-7.7); Neutrophil % 60.3 % (47-70); Platelet Count 210 K/mm3 (150-450); RBC Distribution Width CV 11.6 % (11.6-14.6); RBC Distribution Width SD 39.6 fl (35.1-43.9); Red Blood Count 4.64 M/mm3 (4.6-6.2); White Blood Count 6.4 K/mm3 (4.4-11.0)
[2019-02-23 13:08] LABS: ALB/GLOB Ratio 1.2 RATIO (0.9-2.4); AST(SGOT) 34 U/L (15-37); Alanine Aminotransfer ALT/SGPT 99 U/L (16-61); Albumin, Serum 3.8 g/dL (3.2-5.0); Alkaline Phosphatase 98 U/L (45-117); Anion Gap 9 (5-15); BUN 16 mg/dL (7-18); BUN/Creat Ratio 11.3 RATIO (10-20); Chloride 102 mmol/L (98-107); Cholesterol 219 mg/dL (200); Creatinine, Serum 1.42 mg/dL (0.70-1.30); EST Glomerular Filtration Rate 56 mL/min (>60); Est Glom Filt Rate - Afr Amer 67 mL/min (>60); Globulin 3.2 g/dL (2.2-4.2); Glucose 137 mg/dL (74-106); High Density Lipoprotein 35 mg/dL; Sodium Level 138 mmol/L (136-145); Thyroid Stim Hormone (TSH) 3.68 uIU/mL (0.358-3.74); Triglycerides 477 mg/dL
== END ==
LOC: POLAB3 09:39
PROVIDERS: Family Provider Family Medicine Geriatric Medicine; PCP Family Medicine Geriatric Medicine; Visit Provider Family Medicine Geriatric Medicine
DX: E78.5 Hyperlipidemia, unspecified (principal); E23.6 Other disorders of pituitary gland; R53.83 Other fatigue
CPT/HCPCS: 36415; 80053; 80061; 84403; 84443; 85025

== ENCOUNTER 2019-03-25 14:11 | Emergency (ER) | payer MEDICARE, SELFPAY ==
[2019-03-25 14:12] VITALS: BP 130/92; PULSE 81; RESP 25; TEMP 36.9; O2SAT 98; BMI 28.5
[2019-03-25 14:20] LABS: Bedside Glucose 109 mg/dL (70-110)
--- NOTE | 2019-03-25 14:21 | RAD_ITS ---
STUDY: X-RAY CHEST REASON FOR EXAM: Male, 53 years old. Syncopal episode. TECHNIQUE: Single AP portable view of the chest. COMPARISON: Comparison is made with prior examination dated February 09, 2019. FINDINGS: EKG electrodes are seen. The lungs are clear and expanded. There is no demonstrated pleural abnormality. Normal size heart. Normal mediastinum and isabel. Normal visualized pulmonary arteries. Normal visualized aortic arch and descending thoracic aorta. Normal visualized thoracic spine. Normal visualized ribs, clavicles, and shoulders. There is no demonstrated abnormality of the visualized soft tissue structures of the upper abdomen. RAD/Chest 1 View (Portable) IMPRESSION: Normal x-ray examination of the chest. Electronically Signed: Sawyer De La Cruz, at 15:06 EST , Service support ,
--- NOTE | 2019-03-25 14:21 | RAD_ITS ---
STUDY: X-RAY - RIGHT KNEE REASON FOR EXAM: Male, 53 years old. Right knee pain TECHNIQUE: 4 view(s) of the knee. COMPARISON: None. FINDINGS: Normal visualized distal femur. Normal visualized proximal tibia and fibula. Normal proximal tibiofibular articulation. There is no demonstrated fracture. Normal medial femorotibial compartment. Normal lateral femorotibial compartment. Normal patellofemoral articulation. There is no demonstrated joint effusion. The soft tissue structures are unremarkable. RAD/Knee 4 or More Views IMPRESSION: Normal x-ray examination of the knee. Electronically Signed: Chandan Monroy MD at 15:59 EST , Service support ,
--- NOTE | 2019-03-25 14:21 | EKG12_ITS ---
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 Rate : 079 BPM Atrial Rate : 079 BPM P-R Int : 176 ms QRS Dur : 084 ms QT Int : 378 ms P-R-T Axes : 056 019 043 degrees QTc Int : 433 ms Normal sinus rhythm Normal ECG Confirmed by MANUEL VIRK, PATRICIA ([id number]), newspaper managing editor YISSEL BLAIR ([id number]) on 03/29/2019 9:48:10 AM Referred By: BEAN
--- NOTE | 2019-03-25 14:24 | ED.VIS.GEN ---
History of Present Illness Chief Complaint: Syncope Informant: Patient, Family Onset: Today Current Severity: Mild Narrative: The patient did not have syncope Patient reports he basically had an injury to his right knee when his dog jumped on him he has persistent pain he was seen in his doctor's office and had an injection of Kenalog and 1% lidocaine per his physician, he felt that the pain pain was improved but he felt a tingling sensation over his body that persisted. He then felt well enough to be discharged home to come to the hospital for outpatient x-ray while he was waiting to get the x-ray done he felt that again the hot flash sensation he felt slight weakness and he basically was assisted to the ground he did not have syncope he had no premonitory symptoms of any kind no fever no cough chest pain palpitations numbness weakness Rapid response team was called he had normal vital signs he was brought to the emergency department in the ED he has normal vital signs he is awake and alert moving all 4 extremities his right knee pain is better but he feels a sense of tingling that is diffuse Past Medical History - Allergies and Home Meds Allergies/Adverse Reactions: Allergies No Known Allergies Allergy (Verified 03/25/19 14:15) Primary Care Physician: Jim Martinez Chi, MD [Primary Care Provider] - Past Medical History: - - Bipolar disease anxiety and as above Smoking Status: Former smoker Review of Systems General: Reports: - - Sense of generalized tingling otherwise negative. Denies: Chills, Fever, Sweats Eyes: Denies: Visual changes - bilaterally, Diplopia ENT: Denies: Rhinorrhea, Sore throat Cardiovascular: Denies: Chest pain, Palpitations Respiratory: Denies: Dyspnea, Cough, Dyspnea on exertion Gastrointestinal: Denies: Abdominal pain, Nausea, Vomiting, Diarrhea, Melena, Hematochezia Genitourinary: Denies: Dysuria, Hematuria, Frequency Musculoskeletal: Denies: Back pain, Extremity Pain Skin: Denies: Rash, Wounds Neurological: Denies: Headache, Weakness, Numbness Allergy: Denies: Uticaria Physical Exam Vital Signs/Narrative: Vital Signs Temp Pulse Resp BP Pulse Ox 03/25/19 14:12 98.5 F 81 25 H 130/92 H 98 General: Well nourished, Well developed, No Acute Distress, - - He is awake and alert answering questions appropriately moving all 4 extremities cranial nerves motor or sensory cerebellar abdominal exam all negative his NIH is 0 his EKG shows a sinus rhythm no acute injury pattern rate is 79 intervals normal Head: Normocephalic, Atraumatic Eyes: Perrl, EOMI ENT: Moist mucous membranes, No rhinorrhea Neck: Supple, Nontender Cardiovascular: Regular rate, Regular rhythm, No murmurs Respiratory: No distress, CTA bilaterally, Chest nontender Abdomen: Soft, Nontender, Nondistended, Normal bowel sounds Back: Nontender, Normal Inspection Extremities: Nontender, No edema Skin: Normal color, No rash Neurological: Alert, Oriented x3, Cranial nerves II-XII grossly intact, Normal Strength, Normal Sensation Psychological: Normal affect, Normal Mood Diagnostic/Tx/Re-eval - Medical Decision Making Given all of the above screening labs were obtained again his EKG shows a sinus rhythm rate of 79 no injury pattern intervals normal Spoke with his primary care physician reports he injected him with 40 of Kenalog and 1% lidocaine with no difficulties Patient's screening work-up including labs EKG troponin and x-rays of chest and knee were unremarkable he is resting comfortably bed is maintained with normal vital signs indicates his right knee discomfort after the injection is actually better the sense of diffuse tingling sensation is resolved at this time at this time is no signs of acute stroke cardiovascular disturbance, there is no signs of any obvious complication from the knee injection he had, again we did speak with his physicians there, with his discharge home as is the patient will follow up with them return for change in symptoms as a precaution we have asked him to use a walking device such as a cane he will do so Home stable Final impression Weakness and body tingling after right knee injection resolved ED Disposition - Plan for ED Patient: Diagnosis: Paresthesias Instructions: SYNCOPE, Vasovagal, SYNCOPE, Unk Cause Referrals: Jim Martinez Chi, MD [Primary Care Provider] - Additional Instructions: Use a cane or crutches to help you walk
[2019-03-25 14:36] LABS: Absolute Lymphocyte Count 1.66 X10^3/uL (0.83-4.51); Absolute Neutrophil Count 4.1 X10^3/uL (2.0-7.7); Basophil# 0.05 X10^3/uL; Basophil% 0.8 % (0-1); Eosinophil# 0.19 X10^3/uL; Eosinophils% 2.9 % (0-5); Hemoglobin 14.6 g/dL (13.0-16.5); Lymphocyte # 1.66 X10^3/ul (4.0); Lymphocyte % 25.3 % (19-41); Mean Corp Hgb Conc 34.8 g/dL (32-36); Mean Corpuscular Hgb 32.4 pg (27.0-32.0); Mean Corpuscular Volume 93.3 fL (80-94); Mean Platelet Vol. 9.4 fl (6.2-12.0); Monocyte# 0.53 X10^3/uL; Monocyte% 8.1 % (0-10); NRBC Flagged by Analyzer 0 % (0-5); Neutrophil # 4.05 X10^3/uL (2.7-7.7); Neutrophil % 61.8 % (47-70); Platelet Count 184 K/mm3 (150-450); RBC Distribution Width CV 11.8 % (11.6-14.6); RBC Distribution Width SD 40.2 fl (35.1-43.9); White Blood Count 6.6 K/mm3 (4.4-11.0)
[2019-03-25] MEDS: 0.9% Normal Saline 1,000 ML 1000 ML IV (14:36)
[2019-03-25 14:49] LABS: Anion Gap 5 (5-15); BUN 16 mg/dL (7-18); BUN/Creat Ratio 12.3 RATIO (10-20); Calcium,Total 9.1 mg/dL (8.5-10.1); Chloride 104 mmol/L (98-107); EST Glomerular Filtration Rate 62 mL/min (>60); Est Glom Filt Rate - Afr Amer 75 mL/min (>60); Estimated Creatinine Clearance 62.85 ml/min; Glucose 116 mg/dL (74-106); Potassium 4.2 mmol/L (3.5-5.1); Sodium Level 137 mmol/L (136-145)
[2019-03-25 15:11] VITALS: BP 129/96; PULSE 87; RESP 16; O2SAT 98
--- NOTE | 2019-03-25 16:01 | ED.RN ---
pt refusing crutches because he states he has some at home
== END 2019-03-25 16:12 | disposition home or self-care (01) ==
PROVIDERS: Emergency Provider Emergency Medicine; Family Provider Family Medicine Geriatric Medicine; PCP Family Medicine Geriatric Medicine
DX: R20.2 Paresthesia of skin (principal); R53.1 Weakness; R23.2 Flushing; M25.561 Pain in right knee; F31.9 Bipolar disorder, unspecified; F41.9 Anxiety disorder, unspecified; Z79.899 Other long term (current) drug therapy; Z87.891 Personal history of nicotine dependence
CPT/HCPCS: 71045; 73564; 80048; 82962; 84484; 85025; 93005; 96360; 99284; J7030; A4216

== ENCOUNTER 2019-07-11 18:44 | Inpatient (IN) | payer MEDICARE, SELFPAY ==
[2019-07-11 18:45] VITALS: BP 130/70; PULSE 123; RESP 20; TEMP 37.8; O2SAT 98; BMI 28.8
--- NOTE | 2019-07-11 18:54 | CT_ITS ---
STUDY: CT ABDOMEN AND PELVIS WITHOUT CONTRAST REASON FOR EXAM: Male, 54 years old. LLQ PAIN X 2 DAYS,ABDOMINAL BLOATING -- HX:KIDNEY STONES WITH LITHOTRIPSY AND STONE RETRIVAL RADIATION DOSAGE (If Supplied By Facility): CTDIvol = ( 11.83 ) mGy, DLP = ( 614.60 ) mGycm TECHNIQUE: Transaxial images were obtained from the dome of the diaphragm to the symphysis pubis without oral contrast, and without intravenous contrast. Sagittal and coronal images were reconstructed. Individualized dose optimization techniques were used for this CT. COMPARISON: CT abdomen and pelvis 12/08/2017. FINDINGS: The visualized lung bases are unremarkable. The visualized portions of the heart are within normal limits. Normal liver. Normal gallbladder and extrahepatic biliary system. Normal spleen. Normal pancreas. Normal bilateral adrenal glands. Normal right kidney. Normal left kidney. There are no renal or ureteral calculi or hydronephrosis Normal visualized stomach there are a scattered colonic diverticula. There is stranding adjacent to the proximal sigmoid colon with extraluminal air within the adjacent mesenteric fat. The appendix is visualized and appears normal. . There are mild distention of loops of small bowel within the lower abdomen and upper pelvis. There is no transition point. Normal abdominal aorta. Normal inferior vena cava. Normal retroperitoneum. There is mild bladder distention. Normal abdominal wall. Normal osseous structures. CT/Abdomen/Pelvis without Cont IMPRESSION: Limited non-IV and nonoral contrast study Likely acute sigmoid colon diverticulitis with perforation with extraluminal air within the mesenteric fat, the possibility of ischemic bowel is less likely. No renal or ureteral calculi, no hydronephrosis Mild distended bladder Stable multilevel degenerative changes of the lumbar spine Mild distended loops of small bowel without transition point most likely ileus Electronically Signed: Cristobal Ordonez, at 19:59 EDT Tel , Service support ,
--- NOTE | 2019-07-11 18:56 | ED.DCSUM_ITS ---
- ER Visit Summary Date of Service: 07/11/19 Chief Complaint: Left side abdominal pain History of Present Illness: The patient is a 54 M who has left-sided abdominal pain. Started yesterday when he woke up. He is sharp stabbing pains on the left lower quadrant. It does not radiate. Nothing makes it better or worse. He has felt nauseous but denies any vomiting. No diarrhea or constipation. No urinary symptoms. He does a history of kidney stones and he states that this feels similar. He took ibuprofen and Tums at home without any relief. He denies any fevers. He has had lithotripsy but no other abdominal surgeries. Physical Examination: Vital signs reviewed. HEENT exam unremarkable. Heart is tachycardic and regular rhythm without murmurs. Lungs are clear to auscultation. Abdomen is soft with left-sided tenderness to palpation. No guarding or rebound tenderness. he is mildly distended. Extremities reveal no edema. Skin exam normal. Neurologic exam normal. Test Results: White blood cell count normal. Creatinine 1.36. ALT 71. Urina lysis negative for infection or blood. CAT scan of the abdomen and pelvis without contrast reveals sigmoid diverticulitis with perforation. There is extraluminal air in the mesenteric fat Emergency Department Course and Treatment: Patient was given morphine, Zofran and normal saline. I did discuss with Dr. Gupta with surgery. She will follow along with the patient and will monitor the extraluminal air. She does not feel he needs any urgent surgical intervention. I gave the patient IV Zosyn. He will be admitted to the medical service. Treatment Plan: [] Disposition: Admit Impression: Diverticulitis with perforation This note was generated with [employer] dictation software. It may contain incorrect words, spelling, and punctuation that were not noted in review of the chart prior to signing ED Disposition - Plan for ED Patient: Referrals: Jim Martinez Chi, MD [Primary Care Provider] -
[2019-07-11] MEDS: Morphine 4 MG/ML Syringe IV (19:22)
[2019-07-11] MEDS: Ondansetron 4 MG/2 ML Vial IV (19:22)
[2019-07-11] MEDS: 0.9% Normal Saline 1,000 ML 1000 ML IV (19:22)
[2019-07-11 19:38] LABS: Absolute Lymphocyte Count 1.34 X10^3/uL (0.83-4.51); Absolute Neutrophil Count 6.6 X10^3/uL (2.0-7.7); Basophil# 0.03 X10^3/uL; Basophil% 0.3 % (0-1); Eosinophil# 0.12 X10^3/uL; Eosinophils% 1.4 % (0-5); Hematocrit 43.1 % (40-54); Hemoglobin 14.7 g/dL (13.0-16.5); Lymphocyte # 1.34 X10^3/ul (4.0); Lymphocyte % 15.3 % (19-41); Mean Corp Hgb Conc 34.1 g/dL (32-36); Mean Corpuscular Hgb 32.7 pg (27.0-32.0); Mean Corpuscular Volume 95.8 fL (80-94); Monocyte# 0.61 X10^3/uL; NRBC Flagged by Analyzer 0 % (0-5); Neutrophil # 6.58 X10^3/uL (2.7-7.7); Neutrophil % 75.4 % (47-70); Platelet Count 174 K/mm3 (150-450); RBC Distribution Width CV 11.9 % (11.6-14.6); RBC Distribution Width SD 41.6 fl (35.1-43.9); White Blood Count 8.7 K/mm3 (4.4-11.0)
[2019-07-11 19:51] LABS: AST(SGOT) 32 U/L (15-37); Alanine Aminotransfer ALT/SGPT 71 U/L (16-61); Albumin, Serum 3.7 g/dL (3.2-5.0); Alkaline Phosphatase 102 U/L (45-117); Anion Gap 9 (5-15); BUN 7 mg/dL (7-18); BUN/Creat Ratio 5.1 RATIO (10-20); Calcium,Total 9.7 mg/dL (8.5-10.1); Chloride 102 mmol/L (98-107); Creatinine, Serum 1.36 mg/dL (0.70-1.30); EST Glomerular Filtration Rate 58 mL/min (>60); Est Glom Filt Rate - Afr Amer 71 mL/min (>60); Globulin 3.6 g/dL (2.2-4.2); Glucose 121 mg/dL (74-106); Lipase 103 U/L (73-393); Potassium 3.9 mmol/L (3.5-5.1); Protein, Total 7.3 g/dL (6.4-8.2); Sodium Level 138 mmol/L (136-145)
[2019-07-11 19:55] LABS: Bacteria 0 SEEN /hpf (None Seen); Mucous, Urine 0 SEEN /hpf (<or=2+); White Blood Cells 0 SEEN /hpf (0-5)
[2019-07-11 19:57] LABS: Color, Urine Straw (Yellow); Glucose, Dipstick Normal (Normal); Ketone-Dipstick 5 mg/dl (Negative); Leukocyte Esterase-Dipstick Negative /ul (Negative); Nitrite-Dipstick Negative (Negative); Occult Blood-Urine 25 /ul (Negative); Protein-Dipstick Negative (Negative); Urine Bilirubin Dipstick Negative (Negative); Urine Clarity Clear (Clear); Urine Urobilinogen Normal (Normal)
[2019-07-11 20:08] LABS: Squamous Epithelial Cells - UA 0-5 SEEN /hpf (0-5); Transitional Epithelial - Ur 0 SEEN /hpf (0-5)
[2019-07-11 20:10] LABS: Red Blood Cells-Urine 0-5 SEEN /hpf (0-5)
--- NOTE | 2019-07-11 20:24 | HP.PCM_ITS ---
Problem List (1) Diverticulitis of colon with perforation Status: Acute (2) Ileus Status: Acute (3) PTSD (post-traumatic stress disorder) Status: Chronic History of Present Illness Date of Admission: 07/11/19 Chief Complaint: Abdominal pain The patient is a 54 year old M with a significant history of psychosis and PTSD who presented emergency department with severe left lower quadrant abdominal pain that he thought might be due to kidney stones as he has had kidney stones in the past. His symptoms started a day before presentation. His pain is nonradiating. His pain is aggravated with movement of his left leg. His pain was improved with morphine that he received at the emergency department. Associated with his symptoms is nausea with dry heaving and without vomiting. At emergent department patient was found to have a temperature of 100 ?F. The last time his bowels move was on the same day of presentation. CT of the abdomen and pelvis showed likely acute sigmoid diverticulitis with perforation and probable ileus. Patient was seen by General Surgery was at emergency department and conservative therapy with bowel rest was recommended. Past Medical History Past Medical History (Chronic Problems): Chronic Problems (Last Reviewed 07/11/19 @ 22:[address] Carlton Frias MD) PTSD (post-traumatic stress disorder) (Chronic) Medical History: Medical History (Last Reviewed 07/11/19 @ 22:[address] Carlton Frias MD) PTSD (post-traumatic stress disorder) F43.10 Allergies No Known Allergies Allergy (Verified 07/11/19 18:45) Home Medications: Ambulatory Orders Medication Instructions Recorded Divalproex Sodium 500 mg PO BID 07/19/18 Docusate Sodium [Stool Softener] 50 mg PO DAILY PRN 07/19/18 traZODone [Desyrel] 200 mg PO QHS 03/25/19 Surgical History: - - Extraction of kidney stone Lives: Spouse/ Significant Other Smoking Status: Former smoker Tobacco Use: Chew - *Family History Maternal History Items: - - Patient was adopted and does not know biological maternal or paternal medical history. Paternal History Items: - - Patient was adopted and does not know biological maternal or paternal medical history. Review of Systems Constitutional: Denies: Chills, Fever, Weight Change HEENT: Denies: Head Aches, Sinus Congestion, Sinus Drainage Cardiovascular: Denies: Chest Pain, Palpitations Respiratory: Denies: Cough, Shortness of breath at rest, Sputum production Gastrointestinal: Reports: Abdominal Pain, Nausea. Denies: Vomiting Genitourinary: Denies: Dysuria Musculoskeletal: Denies: Joint Pain, Joint Tenderness Skin: Denies: Rash, Wounds Neurological: Denies: Numbness, Tingling, Focal weakness Psychiatric: Reports: Anxiety. Denies: Depression, Homicidal Ideations, Suicidal Ideations Hematologic/ Lymphatic: Denies: Easy Bruising, Easy Bleeding VTE Information - Inpt Only VTE Present on Admission: No VTE Mechan Device Prophylaxis: SCD's VTE Pharm Prophylaxis ordered?: No Patient Problems: Active and Suspected Problems (Last Reviewed 07/11/19 @ 22:[address] Carlton Frias MD) Diverticulitis of colon with perforation (Acute) Ileus (Acute) - Physical Exam Vitals/I&O's: Vital Signs Temp Pulse Resp BP Pulse Ox 100.0 F H 123 H 20 H 130/70 H 98 07/11/19 18:45 07/11/19 18:45 07/11/19 18:45 07/11/19 18:45 07/11/19 18:45 Oxygen Delivery Method Room Air Weight: 83.5 kg Body Mass Index (BMI) 28.8 General: Alert, Oriented x3, Cooperative HEENT: Atraumatic, PERRLA, EOMI, Normocephalic Neck: Supple, No JVD, Negative Carotid Bruits Lungs: Clear to auscultation, Normal air movement, No rhonchi, No wheeze, No rales Cardiovascular: Regular rate, Normal S1, Normal S2, No murmurs, Tachycardic Abdomen: Bowel Sounds Present, Hypoactive Bowel Sounds, Distended - Mild, Tender - Left lower quadrant Extremities: No edema, Capillary Refill Less than 3 Seconds Skin: No rashes, No breakdown Musculoskeletal: No Tenderness to Palpation of Joints or Extremities Neurological: Cranial nerves II-XII grossly intact, - - Patient with tremors (chronic) Psych/Mental Status: Anxious Laboratory Results 07/11/19 19:11: WBC 8.7, RBC 4.50 L, Hgb 14.7, Hct 43.1, MCV 95.8 H, MCH 32.7 H, MCHC 34.1, RDW Std Deviation 41.6, RDW Coeff of Igor 11.9, Plt Count 174, MPV 10.0, Immature Gran % (Auto) 0.600, Neut % (Auto) 75.4 H, Lymph % (Auto) 15.3 L, [place] % (Auto) 7.0, Eos % (Auto) 1.4, Baso % (Auto) 0.3, Absolute Neuts (auto) 6.6, Absolute Lymphs (auto) 1.34, Nucleated RBC % 0 07/11/19 19:11: Sodium 138, Potassium 3.9, Chloride 102, Carbon Dioxide 27.0, Anion Gap 9, BUN 7, Creatinine 1.36 H, Estim Creat Clear Calc 59.40, Est GFR (MDRD) Af Amer 71, Est GFR (MDRD) Non-Af 58 L, BUN/Creatinine Ratio 5.1 L, Glucose 121 H, Calcium 9.7, Total Bilirubin 0.50, AST 32, ALT 71 H, Alkaline Phosphatase 102, Total Protein 7.3, Albumin 3.7, Globulin 3.6, Albumin/Globulin Ratio 1.0, Lipase 103 07/11/19 19:50: Urine Color Straw, Urine Clarity Clear, Urine pH 8.0, Ur Specific [place] 1.010, Urine Protein Negative, Urine Glucose (UA) Normal, Urine Ketones 5 H, Urine Occult Blood 25 H, Urine Nitrite Negative, Urine Bilirubin Negative, Urine Urobilinogen Normal, Ur Leukocyte Esterase Negative, Urine RBC 0-5 SEEN, Urine WBC 0 SEEN, Ur Squamous Epith Cells 0-5 SEEN, Ur Transition Epith Cell 0 SEEN, Urine Bacteria 0 SEEN, Urine Mucus 0 SEEN Assessment/Plan All Active Problems (Last Reviewed 07/11/19 @ 22:[address] Carlton Frias MD) History of anxiety disorder (Acute) Diverticulitis of colon with perforation (Acute) Ileus (Acute) The patient is a 54 year old M with a significant history of psychosis and PTSD who presented emergency department with severe left lower quadrant abdominal pain and found to have a fever and with radiographic evidence of likely acute sigmoid diverticulitis with perforation and probable ileus. Acute sigmoid diverticulitis with perforation and probable ileus. Patient received Zosyn in the emergency department. Will start patient on scheduled ciprofloxacin and Flagyl. Tylenol for fever. Supportive treatment with IV fluids. Antiemetics PRN of Zofran. Trend CBC and BMP. Per general surgery recommendations will do bowel rest. Consult general surgery. History of psychosis and PTSD On home valproic acid p.o. and trazodone po nightly. While n.p.o. we will put patient on IV valproic acid and nightly Ativan. Tobacco abuse Patient chews tobacco. Counseled. Nicotine patch prescribed. DVT prophylaxis SCD ordered. Inpatient E&M: [id number] Init Hosp L3
--- NOTE | 2019-07-11 20:33 | PCM.CONS.B ---
- Consult Date of Consult: 07/11/19 - Reason for Consult Chief Complaint: left lower quadrant abdominal pain History of Present Illness: 54 y/o WM presents with left lower quadrant abdominal pain. He thought at first it was kidney stones, as he has had this in the past. The pain was sudden onset and started about a day ag. He denies nausea/emesis. In the ED, he was noted to have normal WBC with left shift of differential. Temp of 100F CT scan revealed localized perforation of sigmoid colon from diverticulitis. Patient states that he did not known he had diverticulitis. He did have a colonoscopy several years ago Past Medical History: PTSD Past Surgical History: kidney stone extraction Medications: divalproex docusate doxepin lamictal desyrel trintellix Allergies: Has no known drug allergies Social history: TOB use denies Review of Systems: General - has no appetite, has fever - low grade Cardiovascular denies chest pain, denies history of heart attack Pulmonary denies shortness of breath, denies coughing up blood Gastrointestinal as per HPI Neurological has tremors due to medications - patient states, denies seizures Genitourinary history of kidney stones Hematological denies spontaneous/prolonged bleeding Skin denies open non healing wounds Musculoskeletal no major muscle pains Endocrine denies diabetes Psychological has psychoses - treated with medications Physical examination: Vital signs Temp 200F HR 123 BP 130/70 RR 20 General WD/WN WM in no apparent distress, alert and oriented, not septic appearing HEENT Normocephalic. EOM intact with sclera clear and no icterus noted. Neck is supple with no jugular venous distention noted. Trachea is midline. Lungs normal breath sounds in all lung dupree. No rales/rhonchi/wheezing noted. No labored breathing noted, such as retractions. No cough heard. Heart normal S1 and S2 auscultated. No rubs/clicks/murmurs noted. Regular. Abdomen protuberant/rounded, soft but tender in left lower quadrant - but no right sided tenderness to palpation Extremities no calf tenderness noted. No pitting edema noted. Genitourinary/Rectal deferred Skin normal skin integrity. Neurological non focal, intermittent tremors noted. Psychological normal affect, patient is calm and appropriate Impression: perforated diverticulitis - localized Discussion/Plan: I have discussed the above with the patient. I have reviewed the CT scan. This appears as a localized perforation and patient does not exhibit generalized signs of peritonitis. Therefore will plan to treat with IV antibiotics and bowel rest and continued careful observation. If patient's clinical picture deteriorates, will then proceed to surgery. I have answered all questions to the patient?s satisfaction and the patient has no further questions. Patient is admitted to internal medicine service Will follow patient during hospitalization
[2019-07-11] MEDS: LORazepam 2 MG/ML Syringe 1 MG IV (20:38)
[2019-07-11 21:05] VITALS: BP 130/70; PULSE 123; RESP 20; TEMP 37.8; O2SAT 98
[2019-07-11 21:18] VITALS: BP 130/83; PULSE 116; RESP 18; TEMP 37.6; O2SAT 98
[2019-07-11 21:33] VITALS: BMI 30.1
[2019-07-11] MEDS: Morphine 2 MG/ML Syringe IV (21:49)
[2019-07-11] MEDS: 0.9% Normal Saline 1,000 ML 100 ML IV (21:49)
[2019-07-11] MEDS: 0.9% Saline Lock 10 ML Syringe IV (21:49)
[2019-07-12] MEDS: Ciprofloxacin 400 MG/200 ML BAG 200 MG IV ×3 (00:30→23:55)
[2019-07-12] MEDS: Ondansetron 4 MG/2 ML Vial IV ×2 (00:36→11:19)
[2019-07-12] MEDS: 0.9% Saline Lock 10 ML Syringe IV ×5 (00:37→11:19)
[2019-07-12] MEDS: Morphine 2 MG/ML Syringe IV ×5 (00:40→22:55)
[2019-07-12] MEDS: Acetaminophen 650 MG/20 ML UDC PO ×2 (01:20→21:53)
[2019-07-12] MEDS: metroNIDAZOLE 500 MG/100 ML BAG 100 MG IV ×4 (01:38→22:49)
[2019-07-12 03:45] VITALS: BP 112/65; PULSE 123; RESP 18; TEMP 38.3; O2SAT 94
[2019-07-12] MEDS: proCHLORPERazine 10 MG/2 ML Vial 5 MG IV (04:38)
[2019-07-12 06:19] LABS: Absolute Lymphocyte Count 0.88 X10^3/uL (0.83-4.51); Basophil# 0.02 X10^3/uL; Basophil% 0.2 % (0-1); Eosinophil# 0.03 X10^3/uL; Eosinophils% 0.3 % (0-5); Hematocrit 35.7 % (40-54); Hemoglobin 12.3 g/dL (13.0-16.5); Lymphocyte # 0.88 X10^3/ul (4.0); Lymphocyte % 10.1 % (19-41); Mean Corp Hgb Conc 34.5 g/dL (32-36); Mean Corpuscular Hgb 33.3 pg (27.0-32.0); Mean Corpuscular Volume 96.7 fL (80-94); Mean Platelet Vol. 10.2 fl (6.2-12.0); Monocyte# 0.71 X10^3/uL; Monocyte% 8.1 % (0-10); NRBC Flagged by Analyzer 0 % (0-5); Neutrophil # 7.04 X10^3/uL (2.7-7.7); Neutrophil % 80.8 % (47-70); Platelet Count 145 K/mm3 (150-450); RBC Distribution Width CV 12.1 % (11.6-14.6); RBC Distribution Width SD 42.7 fl (35.1-43.9); Red Blood Count 3.69 M/mm3 (4.6-6.2); White Blood Count 8.7 K/mm3 (4.4-11.0)
[2019-07-12 06:54] LABS: Anion Gap 9 (5-15); BUN 7 mg/dL (7-18); BUN/Creat Ratio 5.1 RATIO (10-20); Calcium,Total 8.7 mg/dL (8.5-10.1); Chloride 103 mmol/L (98-107); Creatinine, Serum 1.38 mg/dL (0.70-1.30); EST Glomerular Filtration Rate 57 mL/min (>60); Est Glom Filt Rate - Afr Amer 70 mL/min (>60); Estimated Creatinine Clearance 58.54 ml/min; Glucose 122 mg/dL (74-106); Potassium 3.9 mmol/L (3.5-5.1); Sodium Level 136 mmol/L (136-145)
--- NOTE | 2019-07-12 10:43 | PN.SURG_ITS ---
Patient Problems: Active and Suspected Problems (Last Reviewed 07/11/19 @ 22:[address] Carlton Frias MD) Diverticulitis of colon with perforation (Acute) Ileus (Acute) Subjective: Patient passing flatus, feels slightly improved, but still with pain and guarding - Physical Exam Vitals/I&O's: Vital Signs Temp Pulse Resp BP Pulse Ox 100.9 F H 123 H 18 112/65 94 07/12/19 03:45 07/12/19 03:45 07/12/19 03:45 07/12/19 03:45 07/12/19 03:45 Oxygen Delivery Method Room Air Weight: 87.1 kg Body Mass Index (BMI) 30.0 Intake and Output for Last 24 Hours 07/10/19 07/11/19 07/12/19 23:59 23:59 23:59 Intake Total 1000 / 1000 1193.34 / 1193.34 Output Total 500 / 500 Balance 1000 / 800 693.34 / 693.34 General: Alert, Oriented x3 HEENT: Atraumatic Oral: Moist Mucosa Neck: Supple Lungs: Normal air movement Abdomen: Soft - on right side, however, still with guarding on left side Laboratory Results 07/11/19 19:11: WBC 8.7, RBC 4.50 L, Hgb 14.7, Hct 43.1, MCV 95.8 H, MCH 32.7 H, MCHC 34.1, RDW Std Deviation 41.6, RDW Coeff of Igor 11.9, Plt Count 174, MPV 10.0, Immature Gran % (Auto) 0.600, Neut % (Auto) 75.4 H, Lymph % (Auto) 15.3 L, [place] % (Auto) 7.0, Eos % (Auto) 1.4, Baso % (Auto) 0.3, Absolute Neuts (auto) 6.6, Absolute Lymphs (auto) 1.34, Nucleated RBC % 0 07/11/19 19:11: Sodium 138, Potassium 3.9, Chloride 102, Carbon Dioxide 27.0, Anion Gap 9, BUN 7, Creatinine 1.36 H, Estim Creat Clear Calc 59.40, Est GFR (MDRD) Af Amer 71, Est GFR (MDRD) Non-Af 58 L, BUN/Creatinine Ratio 5.1 L, Glucose 121 H, Calcium 9.7, Total Bilirubin 0.50, AST 32, ALT 71 H, Alkaline Phosphatase 102, Total Protein 7.3, Albumin 3.7, Globulin 3.6, Albumin/Globulin Ratio 1.0, Lipase 103 07/11/19 19:50: Urine Color Straw, Urine Clarity Clear, Urine pH 8.0, Ur Specific [place] 1.010, Urine Protein Negative, Urine Glucose (UA) Normal, Urine Ketones 5 H, Urine Occult Blood 25 H, Urine Nitrite Negative, Urine Bilirubin Negative, Urine Urobilinogen Normal, Ur Leukocyte Esterase Negative, Urine RBC 0-5 SEEN, Urine WBC 0 SEEN, Ur Squamous Epith Cells 0-5 SEEN, Ur Transition Epith Cell 0 SEEN, Urine Bacteria 0 SEEN, Urine Mucus 0 SEEN 07/12/19 05:28: WBC 8.7, RBC 3.69 L, Hgb 12.3 L, Hct 35.7 L, MCV 96.7 H, MCH 33.3 H, MCHC 34.5, RDW Std Deviation 42.7, RDW Coeff of Igor 12.1, Plt Count 145 L, MPV 10.2, Immature Gran % (Auto) 0.500, Neut % (Auto) 80.8 H, Lymph % (Auto) 10.1 L, [place] % (Auto) 8.1, Eos % (Auto) 0.3, Baso % (Auto) 0.2, Absolute Neuts (auto) 7.0, Absolute Lymphs (auto) 0.88, Nucleated RBC % 0 07/12/19 05:28: Sodium 136, Potassium 3.9, Chloride 103, Carbon Dioxide 24.0, Anion Gap 9, BUN 7, Creatinine 1.38 H, Estim Creat Clear Calc 58.54, Est GFR (MDRD) Af Amer 70, Est GFR (MDRD) Non-Af 57 L, BUN/Creatinine Ratio 5.1 L, Glucose 122 H, Calcium 8.7 Current Medications Acetaminophen (Tylenol Liquid) 650 mg PO Q6H PRN PRN PRN Reason: FEVER OF > 100.4F Last Admin: 07/12/19 01:20 Dose: 650 mg Documented by: Glucagon () 1 mg IM .X1 PRN PRN Reason: Hypoglycemia Sodium Chloride () 1,000 mls @ 100 mls/hr IV .Q10H GET Last Infusion: 07/12/19 08:01 Dose: 0 mls/hr Documented by: Valproic Acid 500 mg/ Dextrose 55 mls @ 50 mls/hr IV BID [facility] Last Infusion: 07/12/19 06:59 Dose: Infused Documented by: Dextrose (Dextrose 10%-Water) 250 mls @ 999 mls/hr IV .Q16M PRN; Protocol PRN Reason: HYPOGLYCEMIA Sodium Chloride () 250 mls @ 15 mls/hr IV .[id number] PRN PRN Reason: Saline Flush Sodium Chloride () 250 mls @ 15 mls/hr IV .[id number] PRN PRN Reason: Additional IVPB Infusion Ciprofloxacin (Cipro) 400 mg in 200 mls @ 200 mls/hr IV Q12 [facility] Last Infusion: 07/12/19 01:31 Dose: Infused Documented by: Metronidazole (Flagyl) 500 mg in 100 mls @ 100 mls/hr IV Q8 [facility] Last Admin: 07/12/19 07:58 Dose: 100 mls/hr Documented by: Lorazepam (Ativan) 1 mg IV QHS [facility] Morphine Sulfate () 2 mg IV Q3H PRN PRN PRN Reason: Pain Score 6-10/10 Last Admin: 07/12/19 03:54 Dose: 2 mg Documented by: Nicotine (Nicoderm Cq (Pbkc)) 21 mg TRANSDERM. DAILY [facility] Last Admin: 07/11/19 21:49 Dose: 21 mg Documented by: Ondansetron HCl (Zofran) 4 mg IV Q6H PRN PRN PRN Reason: NAUSEA/VOMITING Last Admin: 07/12/19 00:36 Dose: 4 mg Documented by: Prochlorperazine Edisylate (Compazine Iv) 5 mg IV Q6H PRN PRN PRN Reason: NAUSEA/VOMITING Last Admin: 07/12/19 04:38 Dose: 5 mg Documented by: Sodium Chloride () 10 - 40 ml IV UD PRN PRN Reason: SALINE FLUSH Last Admin: 07/12/19 04:38 Dose: 10 ml Documented by: Medical Necessity - Tobacco Use Smoking Status: Former smoker Tobacco Use: Chew Assessment/Plan All Active Problems (Last Reviewed 07/11/19 @ 22:[address] Carlton Frias MD) History of anxiety disorder (Acute) Diverticulitis of colon with perforation (Acute) Ileus (Acute) Impression: localized perforated sigmoid diverticulitis Plan: continue IV antibiotics will start on sips of water Encouraged ambulation
[2019-07-12 11:15] VITALS: BP 141/78; PULSE 125; RESP 18; TEMP 37; O2SAT 93
[2019-07-12] MEDS: 0.9% Normal Saline 1,000 ML 100 ML IV (11:19)
--- NOTE | 2019-07-12 13:13 | PN_ITS ---
Patient Problems: Active and Suspected Problems (Last Reviewed 07/11/19 @ 22:[address] Carlton Frias MD) Diverticulitis of colon with perforation (Acute) Ileus (Acute) Reason for Visit: Follow-up on perforated sigmoid diverticulitis Subjective: Patient seen and examined. He feels better. Still having abdominal pain. Denies fever or chills. Objective: Physical exam: General: Alert, Oriented x3, Cooperative HEENT: Atraumatic, PERRLA, EOMI, Normocephalic Neck: Supple, No JVD, Negative Carotid Bruits Lungs: Clear to auscultation, Normal air movement, No rhonchi, No wheeze, No rales Cardiovascular: Regular rate, Normal S1, Normal S2, No murmurs, Tachycardic Abdomen: Bowel Sounds Present, Hypoactive Bowel Sounds, Distended - Mild, Tender - Left lower quadrant Extremities: No edema, Capillary Refill Less than 3 Seconds Skin: No rashes, No breakdown Musculoskeletal: No Tenderness to Palpation of Joints or Extremities Neurological: Cranial nerves II-XII grossly intact, - - Patient with tremors (chronic) Psych/Mental Status: Anxious Vitals/I&O's: Vital Signs Temp Pulse Resp BP Pulse Ox 98.6 F 125 H 18 141/78 H 93 07/12/19 11:15 07/12/19 11:15 07/12/19 11:15 07/12/19 11:15 07/12/19 11:15 Oxygen Delivery Method Room Air Weight: 87.1 kg Body Mass Index (BMI) 30.0 Intake and Output for Last 24 Hours 07/10/19 07/11/19 07/12/19 23:59 23:59 23:59 Intake Total 1000 / 1000 1676.67 / 1676.67 Output Total 500 / 500 Balance 1000 / 800 1176.67 / 1176.67 Laboratory Results 07/11/19 19:11: WBC 8.7, RBC 4.50 L, Hgb 14.7, Hct 43.1, MCV 95.8 H, MCH 32.7 H, MCHC 34.1, RDW Std Deviation 41.6, RDW Coeff of Igor 11.9, Plt Count 174, MPV 10.0, Immature Gran % (Auto) 0.600, Neut % (Auto) 75.4 H, Lymph % (Auto) 15.3 L, [place] % (Auto) 7.0, Eos % (Auto) 1.4, Baso % (Auto) 0.3, Absolute Neuts (auto) 6.6, Absolute Lymphs (auto) 1.34, Nucleated RBC % 0 07/11/19 19:11: Sodium 138, Potassium 3.9, Chloride 102, Carbon Dioxide 27.0, Anion Gap 9, BUN 7, Creatinine 1.36 H, Estim Creat Clear Calc 59.40, Est GFR (MDRD) Af Amer 71, Est GFR (MDRD) Non-Af 58 L, BUN/Creatinine Ratio 5.1 L, Glucose 121 H, Calcium 9.7, Total Bilirubin 0.50, AST 32, ALT 71 H, Alkaline Phosphatase 102, Total Protein 7.3, Albumin 3.7, Globulin 3.6, Albumin/Globulin Ratio 1.0, Lipase 103 07/11/19 19:50: Urine Color Straw, Urine Clarity Clear, Urine pH 8.0, Ur Specific [place] 1.010, Urine Protein Negative, Urine Glucose (UA) Normal, Urine Ketones 5 H, Urine Occult Blood 25 H, Urine Nitrite Negative, Urine Bilirubin Negative, Urine Urobilinogen Normal, Ur Leukocyte Esterase Negative, Urine RBC 0-5 SEEN, Urine WBC 0 SEEN, Ur Squamous Epith Cells 0-5 SEEN, Ur Transition Epith Cell 0 SEEN, Urine Bacteria 0 SEEN, Urine Mucus 0 SEEN 07/12/19 05:28: WBC 8.7, RBC 3.69 L, Hgb 12.3 L, Hct 35.7 L, MCV 96.7 H, MCH 33.3 H, MCHC 34.5, RDW Std Deviation 42.7, RDW Coeff of Igor 12.1, Plt Count 145 L, MPV 10.2, Immature Gran % (Auto) 0.500, Neut % (Auto) 80.8 H, Lymph % (Auto) 10.1 L, [place] % (Auto) 8.1, Eos % (Auto) 0.3, Baso % (Auto) 0.2, Absolute Neuts (auto) 7.0, Absolute Lymphs (auto) 0.88, Nucleated RBC % 0 07/12/19 05:28: Sodium 136, Potassium 3.9, Chloride 103, Carbon Dioxide 24.0, Anion Gap 9, BUN 7, Creatinine 1.38 H, Estim Creat Clear Calc 58.54, Est GFR (MDRD) Af Amer 70, Est GFR (MDRD) Non-Af 57 L, BUN/Creatinine Ratio 5.1 L, Glucose 122 H, Calcium 8.7 Current Medications Acetaminophen (Tylenol Liquid) 650 mg PO Q6H PRN PRN PRN Reason: FEVER OF > 100.4F Last Admin: 07/12/19 01:20 Dose: 650 mg Documented by: Glucagon () 1 mg IM .X1 PRN PRN Reason: Hypoglycemia Sodium Chloride () 1,000 mls @ 100 mls/hr IV .Q10H [facility] Last Infusion: 07/12/19 12:20 Dose: 100 mls/hr Documented by: Valproic Acid 500 mg/ Dextrose 55 mls @ 50 mls/hr IV BID [facility] Last Infusion: 07/12/19 06:59 Dose: Infused Documented by: Dextrose (Dextrose 10%-Water) 250 mls @ 999 mls/hr IV .Q16M PRN; Protocol PRN Reason: HYPOGLYCEMIA Sodium Chloride () 250 mls @ 15 mls/hr IV .[id number] PRN PRN Reason: Saline Flush Sodium Chloride () 250 mls @ 15 mls/hr IV .[id number] PRN PRN Reason: Additional IVPB Infusion Ciprofloxacin (Cipro) 400 mg in 200 mls @ 200 mls/hr IV Q12 [facility] Last Infusion: 07/12/19 12:20 Dose: Infused Documented by: Metronidazole (Flagyl) 500 mg in 100 mls @ 100 mls/hr IV Q8 [facility] Last Admin: 07/12/19 13:06 Dose: 100 mls/hr Documented by: Lorazepam (Ativan) 1 mg IV QHS [facility] Morphine Sulfate () 2 mg IV Q3H PRN PRN PRN Reason: Pain Score 6-10/10 Last Admin: 07/12/19 11:19 Dose: 2 mg Documented by: Nicotine (Nicoderm Cq (Pbkc)) 21 mg TRANSDERM. DAILY [facility] Last Admin: 07/12/19 11:18 Dose: 21 mg Documented by: Ondansetron HCl (Zofran) 4 mg IV Q6H PRN PRN PRN Reason: NAUSEA/VOMITING Last Admin: 07/12/19 11:19 Dose: 4 mg Documented by: Prochlorperazine Edisylate (Compazine Iv) 5 mg IV Q6H PRN PRN PRN Reason: NAUSEA/VOMITING Last Admin: 07/12/19 04:38 Dose: 5 mg Documented by: Sodium Chloride () 10 - 40 ml IV UD PRN PRN Reason: SALINE FLUSH Last Admin: 07/12/19 11:19 Dose: 10 ml Documented by: STROKE Vital Signs/Narrative: Vital Signs Temp Pulse Resp BP Pulse Ox 07/12/19 11:15 98.6 F 125 H 18 141/78 H 93 Medical Necessity - Tobacco Use Smoking Status: Former smoker Tobacco Use: Chew Assessment/Plan All Active Problems (Last Reviewed 07/11/19 @ 22:[address] Carlton Frias MD) History of anxiety disorder (Acute) Diverticulitis of colon with perforation (Acute) Ileus (Acute) 1. Acute sigmoid diverticulitis with perforation, stable vitals, Patient has low-grade fever, no leukocytosis Continue on IV Cipro and metronidazole Managed conservatively by general surgery Continue on IV fluids, IV antibiotics, follow-up on general surgery recommendations 2. Nicotine dependence, on replacement 3. PTSD, on valproic acid and trazodone 4. CKD stage III, creatinine stable 5. DVT PPx- Heparin SC Inpatient E&M: 41268 Subs Hosp L2
[2019-07-12 14:09] LABS: Valproic Acid (Depakene) Level 54 ug/mL (50-100)
[2019-07-12] MEDS: Heparin Injection (Vial) 5,000 UNIT/ML VIAL 5000 UNIT SC ×2 (14:39→21:53)
[2019-07-12 17:15] VITALS: BP 130/72; PULSE 118; RESP 16; TEMP 37.7; O2SAT 96
[2019-07-12] MEDS: LORazepam 2 MG/ML Syringe 1 MG IV (21:43)
[2019-07-12 21:57] VITALS: BP 135/69; PULSE 114; RESP 18; TEMP 38.7; O2SAT 97
[2019-07-12 22:50] VITALS: TEMP 37.1
[2019-07-13] VITALS (21 sets, daily range): BP systolic 101–133; BP diastolic 62–91; PULSE 109–134; RESP 10–24; TEMP 37.2–40.1; O2SAT 93–99
--- NOTE | 2019-07-13 | COLBX_PTH ---
PATIENT: DONG JACKSON LOC: [facility] U#:[id number] AGE/SX: 54/M ROOM: [facility] RE07/11/[address]: Dr. Isra Roca MD : 1965 BED: 1 DIS: 07/18/2019 SPEC #: [id number] RECD: 07/13/19 12:41 STATUS: ALVA REQ #: [id number] JORDY: 07/13/19 00:[address]: Doug Soto DEPT: SURGICAL PATHOLOGY RECD BY: Candy Gallegos ENTERED: 07/13/19 13:14 SP TYPE: COLON BX OTHR DR: MD Dr. Carlton Beatty MD Dr. Linda Wang, MD Dr. Tai Chi Kwok, MD Tissues: A - Sigmoid colon biopsy B - Appendix, NOS Procedures: Surgery Specimen Level III Surgery Specimen Level V Comments: @ Ordering doctor for SUIV edited from to @ anne SINGLETON at 07/13/19 1518 @ Submitting doctor edited from to @ by ARELI at 07/13/19 1518 HEADER OPERATION: Sigmoid colectomy, incidental appendectomy PRE-OP DIAGNOSIS: Diverticulitis of colon with perforation TISSUE SUBMITTED: A - Sigmoid colon, sent to path for gross at 1230, B - Appendix MICROSCOPIC DIAGNOSIS A. Sigmoid colon, segmental colectomy: Nonruptured diverticular disease of colon. Focal pericolic abscess and associated acute serositis. B. Appendix, appendectomy: Fecal impaction. No evidence of appendicitis. Fibrofatty obliteration of distal appendiceal lumen. AM:yakelin 07/15/19 MICROSCOPIC DESCRIPTION Slides are reviewed. GROSS DESCRIPTION A - Received fresh for intraoperative consultation labeled with the patient's name is a specimen designated sigmoid colon. The specimen consists of a segment of colon with attached pericolonic adipose tissue measuring 10.5 cm in length. Both resection margins are stapled. The lumen is filled with fecal material. No mucosal lesion is identified. No diverticula are noted. The pericolonic adipose tissue shows focal area of fibrinopurulent exudate. This information is conveyed to the surgeon intraoperatively. Sectioning reveals an area of pericolonic adipose tissue with fibrinopurulent exudate, possible diverticula with rupture. Further sectioning also reveals a few diverticula. Sections of pericolonic adipose tissue do not reveal any obviously enlarged lymph node. Panel Raiser Operator sections are submitted in eight cassettes as follows: 1 - resection margin, 2 & 3 - diverticula, 4-6 - diverticula with possible area of rupture, 7 & 8 - pericolonic adipose tissue. B - Received is one container labeled with the patient's name and designated appendix. The specimen consists of an appendix measuring 7 cm in length and up to 0.7 cm in diameter. The attached periappendiceal adipose tissue measures up to 2 cm in width. No obvious perforation is identified. The lumen is filled with fecal material. No fecalith is identified. The periappendiceal adipose tissue at the tip shows an open, congested and hemorrhagic area. Panel Raiser Operator sections are submitted in one cassette. / SJ:yakelin 07/14/19 TC:2 CPT: 23317, 09539
[2019-07-13] MEDS: 0.9% Normal Saline 1,000 ML 100 ML IV (04:57)
[2019-07-13] MEDS: Heparin Injection (Vial) 5,000 UNIT/ML VIAL 5000 UNIT SC (04:57)
[2019-07-13] MEDS: Acetaminophen 650 MG/20 ML UDC PO ×2 (04:57→14:48)
[2019-07-13] MEDS: metroNIDAZOLE 500 MG/100 ML BAG 100 MG IV ×3 (04:58→21:28)
[2019-07-13] MEDS: Morphine 2 MG/ML Syringe IV ×4 (05:07→17:40)
--- NOTE | 2019-07-13 07:45 | PCM.PN.SRG ---
Patient Problems: Active and Suspected Problems (Last Reviewed 07/11/19 @ 22:[address] Carlton Frias MD) Diverticulitis of colon with perforation (Acute) Ileus (Acute) Subjective: Patient states that he has more pain and he appears clinically worsened - Physical Exam Vitals/I&O's: Vital Signs Temp Pulse Resp BP Pulse Ox 100 F H 116 H 18 133/75 H 96 07/13/19 05:52 07/13/19 05:09 07/13/19 05:09 07/13/19 05:09 07/13/19 05:09 Oxygen Delivery Method Room Air Weight: 87.1 kg Body Mass Index (BMI) 30.0 Intake and Output for Last 24 Hours 07/11/19 07/12/19 07/13/19 23:59 23:59 23:59 Intake Total 1000 / 1000 2791.67 / 2791.67 441.66 / 441.66 Output Total 500 / 500 450 / 450 Balance 1000 / 800 2291.67 / 2291.67 -8.34 / -8.34 General: Alert, Oriented x3 Oral: Moist Mucosa Neck: Supple Lungs: Normal air movement Abdomen: - - now with pain and guarding on both sides of abdmen Laboratory Results 07/12/19 13:35: Valproic Acid 54 Current Medications Acetaminophen (Tylenol Liquid) 650 mg PO Q6H PRN PRN PRN Reason: FEVER OF > 100.4F Last Admin: 07/13/19 04:57 Dose: 650 mg Documented by: Glucagon () 1 mg IM .X1 PRN PRN Reason: Hypoglycemia Heparin Sodium (Porcine) (Heparin Na) 5,000 unit SC Q8 GET Last Admin: 07/13/19 04:57 Dose: 5,000 unit Documented by: Sodium Chloride () 1,000 mls @ 100 mls/hr IV .Q10H [facility] Last Infusion: 07/13/19 06:29 Dose: 100 mls/hr Documented by: Valproic Acid 500 mg/ Dextrose 55 mls @ 50 mls/hr IV BID [facility] Last Infusion: 07/12/19 22:50 Dose: Infused Documented by: Dextrose (Dextrose 10%-Water) 250 mls @ 999 mls/hr IV .Q16M PRN; Protocol PRN Reason: HYPOGLYCEMIA Sodium Chloride () 250 mls @ 15 mls/hr IV .[id number] PRN PRN Reason: Saline Flush Sodium Chloride () 250 mls @ 15 mls/hr IV .[id number] PRN PRN Reason: Additional IVPB Infusion Ciprofloxacin (Cipro) 400 mg in 200 mls @ 200 mls/hr IV Q12 [facility] Last Infusion: 07/13/19 01:01 Dose: Infused Documented by: Metronidazole (Flagyl) 500 mg in 100 mls @ 100 mls/hr IV Q8 [facility] Last Infusion: 07/13/19 06:28 Dose: Infused Documented by: Lorazepam (Ativan) 1 mg IV QHS [facility] Last Admin: 07/12/19 21:43 Dose: 1 mg Documented by: Morphine Sulfate () 2 mg IV Q3H PRN PRN PRN Reason: Pain Score 6-10/10 Last Admin: 07/13/19 05:07 Dose: 2 mg Documented by: Nicotine (Nicoderm Cq (Pbkc)) 21 mg TRANSDERM. DAILY [facility] Last Admin: 07/12/19 11:18 Dose: 21 mg Documented by: Nutritional Formula (Lactose Free) (Ensure Clear) 120 ml PO 4X/DAY [facility] Ondansetron HCl (Zofran) 4 mg IV Q6H PRN PRN PRN Reason: NAUSEA/VOMITING Last Admin: 07/12/19 11:19 Dose: 4 mg Documented by: Prochlorperazine Edisylate (Compazine Iv) 5 mg IV Q6H PRN PRN PRN Reason: NAUSEA/VOMITING Last Admin: 07/12/19 04:38 Dose: 5 mg Documented by: Sodium Chloride () 10 - 40 ml IV UD PRN PRN Reason: SALINE FLUSH Last Admin: 07/12/19 11:19 Dose: 10 ml Documented by: Medical Necessity - Tobacco Use Smoking Status: Former smoker Tobacco Use: Chew Assessment/Plan All Active Problems (Last Reviewed 07/11/19 @ 22:[address] Carlton Frias MD) History of anxiety disorder (Acute) Diverticulitis of colon with perforation (Acute) Ileus (Acute) Impression: localized perforated sigmoid diverticulitis - clinically worsened Plan: Proceed to surgery - sigmoid resection, creation of colostomy I have explained risks of surgery to patient, including but not limited to: infection, bleeding, injury to any blood vessels/nerves, injury to any intraabdominal organs such as liver/spleen/etc, injury to bowel/bladder, scar tissue, intraabdominal bleeding/abscess, complications of anesthesia, etc - he understands and agrees to proceed. continue IV antibiotics make NPO
[2019-07-13 08:42] LABS: Absolute Neutrophil Count 9.5 X10^3/uL (2.0-7.7); Basophil# 0.03 X10^3/uL; Basophil% 0.2 % (0-1); Eosinophil# 0.07 X10^3/uL; Eosinophils% 0.6 % (0-5); Hematocrit 37.6 % (40-54); Hemoglobin 12.6 g/dL (13.0-16.5); Lymphocyte % 12.4 % (19-41); Mean Corp Hgb Conc 33.5 g/dL (32-36); Mean Corpuscular Hgb 32.8 pg (27.0-32.0); Mean Corpuscular Volume 97.9 fL (80-94); Monocyte% 8.2 % (0-10); NRBC Flagged by Analyzer 0 % (0-5); Neutrophil # 9.46 X10^3/uL (2.7-7.7); Neutrophil % 77.9 % (47-70); Platelet Count 145 K/mm3 (150-450); RBC Distribution Width CV 12.1 % (11.6-14.6); RBC Distribution Width SD 43.8 fl (35.1-43.9); Red Blood Count 3.84 M/mm3 (4.6-6.2); White Blood Count 12.1 K/mm3 (4.4-11.0)
[2019-07-13] MEDS: 0.9% Saline Lock 10 ML Syringe IV ×3 (08:58→22:54)
--- NOTE | 2019-07-13 09:15 | RAD_ITS ---
STUDY: X-RAY CHEST REASON FOR EXAM: Male, 54 years old. PRE OP, NO CHEST COMPLAINTS, HX ASTHMA AND COPD TECHNIQUE: Single AP portable view of the chest. COMPARISON: Comparison is made with prior study dated March 25, 2019. FINDINGS: Questionable density overlying the right first costochondral junction. Otherwise, the lungs are clear. There is no demonstrated pleural abnormality. Normal size heart. Normal mediastinum and isabel. Normal visualized pulmonary arteries. Normal visualized aortic arch and descending thoracic aorta. Normal visualized thoracic spine. Normal visualized ribs, clavicles, and shoulders. There is no demonstrated abnormality of the visualized soft tissue structures of the upper abdomen. RAD/Chest 1 View (Portable) IMPRESSION: Questionable density overlying the right first costochondral junction. A lordotic view is recommended for further evaluation. Electronically Signed: Sawyer De La Cruz, at 9:36 EDT , Service support ,
--- NOTE | 2019-07-13 09:50 | CASEMGMT ---
RN JOB Face to Face with patient for initial transition planning/care coordination assessment. RN CM introduced self and role at [facility]. Patient lying in bed, alert and oriented. Patient willing to participate in assessment and is able to answer all questions appropriately. Care providers, pharmacy, and demographics verified. Patient wishes to discharge home, denies need for home health at this time. Patient states he has no further needs or concerns at this time. CM to follow for discharge planning needs that may arise. PCP: Juan Specialists: none Preferred Pharmacy: [facility] Insurance: [employer] [facility] Prescription Benefit: yes Living Will/HPOA: none LNOK: Living Arrangements: Patient lives with in 2 story home with bed and bath on first floor. Patient is independent at home. Transportation: self, DME/HHC: Patient denies any DME or any previous HHC Disposition Plan: Patient to discharge home with family support and follow-up plans in place. Sarah ANGELES, RN, CM
[2019-07-13] MEDS: Ciprofloxacin 400 MG/200 ML BAG 200 MG IV (10:00)
[2019-07-13] MEDS: Lactated Ringers 1,000 ML 100 ML IV ×2 (10:30→19:18)
--- NOTE | 2019-07-13 10:58 | PN_ITS ---
Patient Problems: Active and Suspected Problems (Last Reviewed 07/11/19 @ 22:[address] Carlton Frias MD) Diverticulitis of colon with perforation (Acute) Ileus (Acute) Reason for Visit: Acute sigmoid diverticulitis with perforation Subjective: Patient is a 55-year-old gentleman admitted with abdominal pain diagnosed with acute sigmoid diverticulitis with perforation Objective: GENERAL: cooperative HEENT: Atraumatic; EYES; Anicteric, Normal Conjunctiva NECK; supple, normal thyroid, RESPIRATORY: Diminished to auscultation CARDIOVASCULAR: Regular S1 S2, GI: Left lower quadrant abdominal tenderness : No Renal angle tenderness; EXTREMITIES: No edema, no clubbing, MUSCULOSKELETAL: no muscle waisting NEURO: Awake; no lateralizing signs. SKIN: No Rash PSYCH; Flat affect Vitals/I&O's: Vital Signs Temp Pulse Resp BP Pulse Ox 99.0 F 109 H 18 113/76 94 07/13/19 08:59 07/13/19 08:59 07/13/19 08:59 07/13/19 08:59 07/13/19 08:59 Oxygen Delivery Method Room Air Weight: 87.1 kg Body Mass Index (BMI) 30.0 Intake and Output for Last 24 Hours 07/11/19 07/12/19 07/13/19 23:59 23:59 23:59 Intake Total 1000 / 1000 2791.67 / 2791.67 441.66 / 441.66 Output Total 500 / 500 450 / 450 Balance 1000 / 800 2291.67 / 2291.67 -8.34 / -8.34 Laboratory Results 07/12/19 13:35: Valproic Acid 54 07/13/19 08:10: WBC 12.1 H, RBC 3.84 L, Hgb 12.6 L, Hct 37.6 L, MCV 97.9 H, MCH 32.8 H, MCHC 33.5, RDW Std Deviation 43.8, RDW Coeff of Igor 12.1, Plt Count 145 L, MPV 10.0, Immature Gran % (Auto) 0.700, Neut % (Auto) 77.9 H, Lymph % (Auto) 12.4 L, [place] % (Auto) 8.2, Eos % (Auto) 0.6, Baso % (Auto) 0.2, Absolute Neuts (auto) 9.5 H, Absolute Lymphs (auto) 1.50, Nucleated RBC % 0 Current Medications Acetaminophen (Tylenol Liquid) 650 mg PO Q6H PRN PRN PRN Reason: FEVER OF > 100.4F Last Admin: 07/13/19 04:57 Dose: 650 mg Documented by: Glucagon () 1 mg IM .X1 PRN PRN Reason: Hypoglycemia Heparin Sodium (Porcine) (Heparin Na) 5,000 unit SC Q8 [facility] Last Admin: 07/13/19 04:57 Dose: 5,000 unit Documented by: Sodium Chloride () 1,000 mls @ 100 mls/hr IV .Q10H [facility] Last Infusion: 07/13/19 06:29 Dose: 100 mls/hr Documented by: Valproic Acid 500 mg/ Dextrose 55 mls @ 50 mls/hr IV BID [facility] Last Admin: 07/13/19 10:05 Dose: 50 mls/hr Documented by: Dextrose (Dextrose 10%-Water) 250 mls @ 999 mls/hr IV .Q16M PRN; Protocol PRN Reason: HYPOGLYCEMIA Sodium Chloride () 250 mls @ 15 mls/hr IV .[id number] PRN PRN Reason: Saline Flush Sodium Chloride () 250 mls @ 15 mls/hr IV .[id number] PRN PRN Reason: Additional IVPB Infusion Ciprofloxacin (Cipro) 400 mg in 200 mls @ 200 mls/hr IV Q12 [facility] Last Admin: 07/13/19 10:00 Dose: 200 mls/hr Documented by: Metronidazole (Flagyl) 500 mg in 100 mls @ 100 mls/hr IV Q8 [facility] Last Infusion: 07/13/19 06:28 Dose: Infused Documented by: Lactated Ringer's () 1,000 mls @ 100 mls/hr IV .Q10H [facility] Last Admin: 07/13/19 10:30 Dose: 100 mls/hr Documented by: Lorazepam (Ativan) 1 mg IV QHS [facility] Last Admin: 07/12/19 21:43 Dose: 1 mg Documented by: Morphine Sulfate () 2 mg IV Q3H PRN PRN PRN Reason: Pain Score 6-10/10 Last Admin: 07/13/19 08:58 Dose: 2 mg Documented by: Nicotine (Nicoderm Cq (Pbkc)) 21 mg TRANSDERM. DAILY [facility] Last Admin: 07/12/19 11:18 Dose: 21 mg Documented by: Nutritional Formula (Lactose Free) (Ensure Clear) 120 ml PO 4X/DAY GET Ondansetron HCl (Zofran) 4 mg IV Q6H PRN PRN PRN Reason: NAUSEA/VOMITING Last Admin: 07/12/19 11:19 Dose: 4 mg Documented by: Prochlorperazine Edisylate (Compazine Iv) 5 mg IV Q6H PRN PRN PRN Reason: NAUSEA/VOMITING Last Admin: 07/12/19 04:38 Dose: 5 mg Documented by: Sodium Chloride () 10 - 40 ml IV UD PRN PRN Reason: SALINE FLUSH Last Admin: 07/13/19 08:58 Dose: 10 ml Documented by: STROKE Vital Signs/Narrative: Vital Signs Temp Pulse Resp BP Pulse Ox 07/13/19 08:59 99.0 F 109 H 18 113/76 94 Medical Necessity - Tobacco Use Smoking Status: Former smoker Tobacco Use: Chew Assessment/Plan All Active Problems (Last Reviewed 07/11/19 @ 22:[address] Carlton Frias MD) History of anxiety disorder (Acute) Diverticulitis of colon with perforation (Acute) Ileus (Acute) Patient is a 55-year-old gentleman admitted with abdominal pain diagnosed with acute sigmoid diverticulitis with perforation 1. Acute sigmoid diverticulitis with perforation, ?Patient admitted to regular nursing floor managed conservatively with consultation placed to general surgery. Patient has so far been on ciprofloxacin as well as metronidazole however condition is not improving. Plan therefore is for patient to undergo sigmoid resection, creation of colostomy on 07/13/[address] Atkins 2. PTSD ?Treated with valproic acid as well as trazodone 3. Tobacco dependence counseled on cessation, offered nicotine patch for tobacco cravings 4. Chronic kidney disease stage III ?Kidney function at baseline 5. DVT prophylaxis ?SC heparin Inpatient E&M: 19685 Subs Hosp L2
[2019-07-13] MEDS: Lubricating Jelly 60 GM Tube 30 GM TOPICAL (13:00)
--- NOTE | 2019-07-13 13:23 | OP.PCM_ITS ---
Problem List (1) Diverticulitis of colon with perforation Status: Acute Qualifiers: Diverticulitis bleeding: without bleeding Qualified Code(s): K57.20 - Diverticulitis of large intestine with perforation and abscess without bleeding Report of Operation Date of Procedure: 07/13/19 Pre-Operative Diagnosis: Perforated sigmoid diverticulitis Post-Operative Diagnosis: Same Surgery/Procedure Performed:: 1. Sigmoid colectomy. 2. Incidental appendectomy Anesthesiologist: Kuldip Pulido Specimen's removed: 1. Sigmoid colon. 2. Appendix Drains: 15 round Niranjan-Burgos Estimated Blood Loss (mL): 150 cc Fluids Replaced: 1500 cc LR Description of Procedure: Patient was brought into the operating room. Placed in the supine position. Under excellent general trach intubation De La Rosa catheter was placed the abdomen was sterilely prepped draped in usual fashion. Midline incision was made going around the right side of the umbilicus. I entered the abdominal cavity without difficulty or injury to underlying structures. Immediately found purulent fluid which I obtained cultures and sensitivity on for both aerobic and anaerobic. I put a large wound protector into the wound. I palpated the sigmoid colon it was significantly swollen and edematous and was clearly the source of the perforation and rupture. I went distal to this transected the juncture of the sigmoid colon and rectum. This was done with a 75 linear cutter. I went proximal to this and transected it as well with a 75 linear cutter I then came through the mesentery with the Enseal device and got good hemostasis. I then mobilized the white line of Toldt going up to the splenic flexure so that I could get extra distance in my remaining descending and partial sigmoid colon I made a determination since there was not gross purulence in the abdomen and both my ends looked viable the cyst was a candidate that I could do a handsewn anastomosis. I transected both staple lines. I used 3-0 GI silks on corner stitches and did a 2 layer closure of 3-0 GI silk seromuscular on the posterior then intraluminal in between this. And then on the anterior layer doing seromuscular and then going through this again with 3-0 GI silks interrupted once this was completed my group fitness assistant department head placed a sigmoidoscope into the rectum and insufflated air I had water in the pelvis and I had a airtight anastomosis. I then went in and found the appendix and transected the base the appendix with a 75 linear cutter came across the mesentery with the Enseal device. The appendix was sent to pathology. I got an accurate needle and sponge count. I irrigated the abdomen with over a liter of irrigation. I placed a 15 round Niranjan-Burgos drain through a stab wound laterally going down the lateral gutter into the pelvis. I sutured to the skin with a 3-0 nylon. After an accurate needle sponge count fascia was closed with #1 PDS. Subcu was irrigated local was injected deep dermal stitches of 3-0 Vicryl then a running 4-0 Monocryl in the skin Steri-Strips were applied sterile dressings were applied. The patient tolerated the procedure well. - Admit VTE Documentation VTE Present on Admission: No VTE Mechan Device Prophylaxis: SCD's VTE Pharm Prophylaxis ordered?: No Reason prophylaxis not ordered:: Treatment Not Indicated
[2019-07-13] MEDS: Bupivacaine Mpf 0.5% 30 ML VIAL (13:30)
[2019-07-13] MEDS: proCHLORPERazine 10 MG/2 ML Vial 5 MG IV ×2 (14:43→22:54)
--- NOTE | 2019-07-13 16:34 | NURSING ---
Joann's home phone number [phone]
[2019-07-13] MEDS: Acetaminophen 650 MG Suppository RECTAL (19:34)
[2019-07-13] MEDS: HYDROmorphone PCA 0.2 MG/ML 100 ML BAG 20 MG IV (20:03)
--- NOTE | 2019-07-13 20:35 | PCM.RX.CS ---
Consult Pharmacy has been consulted to manage selected antiobiotic: Vancomycin Type of Consult: New start Labs: Sodium 136 mmol/L (136-145) 07/12/19 05:28 Potassium 3.9 mmol/L (3.5-5.1) 07/12/19 05:28 Chloride 103 mmol/L (98-107) 07/12/19 05:28 Carbon Dioxide 24.0 mmol/L (21.0-32.0) 07/12/19 05:28 Anion Gap 9 (5-15) 07/12/19 05:28 BUN 7 mg/dL (7-18) 07/12/19 05:28 Creatinine 1.38 mg/dL (0.70-1.30) H 07/12/19 05:28 Est GFR (MDRD) Af Amer 70 mL/min (>60) 07/12/19 05:28 Est GFR (MDRD) Non-Af 57 mL/min (>60) L 07/12/19 05:28 BUN/Creatinine Ratio 5.1 RATIO (10-20) L 07/12/19 05:28 Glucose 122 mg/dL (74-106) H 07/12/19 05:28 Microbiology: Microbiology 07/13/19 13:48 Incision/Surgical Site Gram Stain - Final Weight used for dosin kg Estimated Creatinine Clearance: 60 ml/min Goal Trough: 15-20 mcg/mL Pharmacy Plan for Drug Dosinmg IV x1, 1000mg IV q12h after with trough prior to 4th dose. Pharmacy Service will continue to monitor and adjust dosing as required. Follow-Up Labs: Trough Vancomycin - 07/14 @ 0730
[2019-07-13 21:20] LABS: M R Staph aureus DNA By PCR Negative (Negative); Probe Check PASS; Specimen Processing Control PASS
[2019-07-13] MEDS: HYDROmorphone 1 MG/ML Syringe IV (23:20)
[2019-07-13] MEDS: Ondansetron 4 MG/2 ML Vial IV (23:57)
[2019-07-14] VITALS (31 sets, daily range): BP systolic 102–144; BP diastolic 56–104; PULSE 107–132; RESP 11–22; TEMP 37.8–40.2; O2SAT 92–100
--- NOTE | 2019-07-14 00:10 | NURSING ---
Upon entering room pt holding emesis bag and spitting into bag, pt states his stomach is upset and states he has vomited. No emesis in bag however chewing tobacco observed in emesis bag. Pt states he was chewing. Pt's belonging bags were tobacco is, is placed in closet. Zofran given and pt instructed to remove all tobacco from mouth and not to do that again.
[2019-07-14] MEDS: Acetaminophen 650 MG Suppository RECTAL ×2 (02:11→08:21)
[2019-07-14 04:47] LABS: Absolute Lymphocyte Count 0.74 X10^3/uL (0.83-4.51); Absolute Neutrophil Count 9.1 X10^3/uL (2.0-7.7); Basophil# 0.02 X10^3/uL; Basophil% 0.2 % (0-1); Eosinophil# 0.18 X10^3/uL; Eosinophils% 1.6 % (0-5); Hematocrit 35.4 % (40-54); Hemoglobin 11.9 g/dL (13.0-16.5); Lymphocyte # 0.74 X10^3/ul (4.0); Lymphocyte % 6.6 % (19-41); Mean Corp Hgb Conc 33.6 g/dL (32-36); Mean Corpuscular Hgb 33.1 pg (27.0-32.0); Mean Corpuscular Volume 98.3 fL (80-94); Mean Platelet Vol. 9.7 fl (6.2-12.0); Monocyte# 1.14 X10^3/uL; Monocyte% 10.2 % (0-10); NRBC Flagged by Analyzer 0 % (0-5); Neutrophil # 9.07 X10^3/uL (2.7-7.7); Neutrophil % 80.7 % (47-70); POSITIVE MORPHOLOGY YES; Platelet Count 132 K/mm3 (150-450); RBC Distribution Width CV 12.1 % (11.6-14.6); RBC Distribution Width SD 43.8 fl (35.1-43.9); White Blood Count 11.2 K/mm3 (4.4-11.0)
[2019-07-14 04:48] LABS: Differential Indicated SCAN CRITERIA MET
[2019-07-14 04:55] LABS: International Normalized Ratio 1.2; Prothrombin Time (Protime)PT. 14.6 SECONDS (11.7-14.9)
[2019-07-14 04:56] LABS: Partial Thromboplast Time 23.4 Seconds (24.1-36.2)
--- NOTE | 2019-07-14 04:58 | CON.PCM_ITS ---
Reason for Consult Date of Consultation: 07/14/19 Reason for Consultation: Intra-abdominal sepsis History of Present Illness: The patient is a 54-year-old male, with a history as outlined below, who initially presented to the emergency department on July 10 with complaints of left-sided abdominal pain. Work-up including CT scan of the abdomen revealed a localized perforation of the sigmoid colon secondary to diverticulitis. The patient was initially treated conservatively with IV antibiotics, bowel rest and supplemental IV fluids. Despite the aforementioned management, the patient did not improve clinically. Therefore, on July 12, the patient was taken to the OR where he underwent a sigmoid colectomy and incidental appendectomy. There was 150 cc of estimated blood loss with 1.5 L of LR given intraoperatively. The patient did have intra-abdominal purulent fluid noted. Cultures were obtained. Postoperatively, the patient was transferred to the medical intensive care unit for further management. Due to the presence of a persistent high-grade fever, tachycardia and tachypnea, the patient was transitioned to Zosyn, vancomycin and Flagyl. This morning, the patient does report the continued presence of abdominal pain. He has been experiencing a great deal of rigors and remains on a cooling blanket. Despite this, the patient does have a high-grade fever of 103.3 ?F this morning. He does also report the presence of indigestion and is requesting in an acid. Past Medical History Past Medical History (Chronic Problems): Chronic Problems (Last Reviewed 07/11/19 @ 22:[address] Carlton Frias MD) PTSD (post-traumatic stress disorder) (Chronic) Medical History: Medical History (Last Reviewed 07/11/19 @ 22:[address] Carlton Frias MD) PTSD (post-traumatic stress disorder) F43.10 Allergies No Known Allergies Allergy (Verified 07/11/19 18:45) Home Medications: Ambulatory Orders Medication Instructions Recorded Divalproex Sodium 500 mg PO BID 07/19/18 Docusate Sodium [Stool Softener] 50 mg PO DAILY PRN 07/19/18 traZODone [Desyrel] 200 mg PO QHS 03/25/19 Surgical History: - - Extraction of kidney stone Lives: Spouse/ Significant Other Smoking Status: Former smoker Tobacco Use: Chew - *Family History Maternal History Items: - - Patient was adopted and does not know biological maternal or paternal medical history. Paternal History Items: - - Patient was adopted and does not know biological maternal or paternal medical history. Review of Systems Constitutional: Reports: Chills, Fever Eyes: Denies: Blurred vision, Double vision HEENT: Denies: Head Aches, Sinus Congestion, Sinus Drainage Cardiovascular: Denies: Chest Pain, Palpitations Respiratory: Denies: Cough, Shortness of Breath Gastrointestinal: Reports: Abdominal Pain, Dyspepsia. Denies: Nausea, Vomiting Genitourinary: Denies: Dysuria Musculoskeletal: Denies: Joint Pain, Joint Tenderness Skin: Denies: Rash, Wounds Neurological: Denies: Numbness, Tingling, Focal weakness Psychiatric: Reports: - - PTSD Hematologic/ Lymphatic: Denies: Easy Bruising, Easy Bleeding Patient Problems: Active and Suspected Problems (Last Reviewed 07/11/19 @ 22:[address] Carlton Frias MD) Diverticulitis of colon with perforation (Acute) Ileus (Acute) Objective: The patient's most recent lab work, culture data and imaging studies have all been personally reviewed. - Physical Exam Vitals/I&O's: Vital Signs Temp Pulse Resp BP Pulse Ox 102.3 F H 118 H 16 130/101 H 96 07/14/19 04:00 07/14/19 04:00 07/14/19 04:00 07/14/19 04:00 07/14/19 04:00 Oxygen Flow Rate (L/min) 2 Oxygen Delivery Method Nasal Cannula Weight: 192 lb 0.362 oz Body Mass Index (BMI) 30.0 Intake and Output for Last 24 Hours 07/12/19 07/13/19 07/14/19 23:59 23:59 23:59 Intake Total 2791.67 / 2791.67 3688.33 / 3688.33 Output Total 500 / 500 2185 / 2185 Balance 2291.67 / 2291.67 1503.33 / 1503.33 General: Alert, Cooperative, - - + Rigors. Appears quite ill and uncomfortable. HEENT: Atraumatic, PERRLA, Normocephalic Oral: No Gingival or Mucosal Lesions/ Ulcerations Neck: Supple, No Nodes, Trachea Midline Lungs: No rhonchi, No wheeze, No rales, Diminished, Tachypneic Cardiovascular: Normal S1, Normal S2, No murmurs, Tachycardic Abdomen: Soft, Tender, - - + ISABELLE drain Extremities: No clubbing, No cyanosis, No edema Skin: Incision Musculoskeletal: No Tenderness to Palpation of Joints or Extremities Lymphatic: No Cervical, Supraclavicular, or Inguinal Adenopathy Neurological: Cranial nerves II-XII grossly intact, Neuro grossly intact Psych/Mental Status: Normal Affect, Appropriate Labs (Last 48 Hours) 07/12/19 07/12/19 07/12/19 05:28 05:28 13:35 WBC 8.7 RBC 3.69 L Hgb 12.3 L Hct 35.7 L MCV 96.7 H MCH 33.3 H MCHC 34.5 RDW Std Deviation 42.7 RDW Coeff of Igor 12.1 Plt Count 145 L MPV 10.2 Immature Gran % (Auto) 0.500 Neut % (Auto) 80.8 H Lymph % (Auto) 10.1 L [place] % (Auto) 8.1 Eos % (Auto) 0.3 Baso % (Auto) 0.2 Absolute Neuts (auto) 7.0 Absolute Lymphs (auto) 0.88 Nucleated RBC % 0 PT INR APTT Sodium 136 Potassium 3.9 Chloride 103 Carbon Dioxide 24.0 Anion Gap 9 BUN 7 Creatinine 1.38 H Estim Creat Clear Calc 58.54 Est GFR (MDRD) Af Amer 70 Est GFR (MDRD) Non-Af 57 L BUN/Creatinine Ratio 5.1 L Glucose 122 H Calcium 8.7 Total Bilirubin AST ALT Alkaline Phosphatase Total Protein Albumin Valproic Acid 54 MRSA (PCR) 07/13/19 07/13/19 07/14/19 08:10 19:05 04:40 WBC 12.1 H 11.2 H RBC 3.84 L 3.60 L Hgb 12.6 L 11.9 L Hct 37.6 L 35.4 L MCV 97.9 H 98.3 H MCH 32.8 H 33.1 H MCHC 33.5 33.6 RDW Std Deviation 43.8 43.8 RDW Coeff of Igor 12.1 12.1 Plt Count 145 L 132 L MPV 10.0 9.7 Immature Gran % (Auto) 0.700 0.700 Neut % (Auto) 77.9 H 80.7 H Lymph % (Auto) 12.4 L 6.6 L [place] % (Auto) 8.2 10.2 H Eos % (Auto) 0.6 1.6 Baso % (Auto) 0.2 0.2 Absolute Neuts (auto) 9.5 H 9.1 H Absolute Lymphs (auto) 1.50 0.74 L Nucleated RBC % 0 0 PT INR APTT Sodium Potassium Chloride Carbon Dioxide Anion Gap BUN Creatinine Estim Creat Clear Calc Est GFR (MDRD) Af Amer Est GFR (MDRD) Non-Af BUN/Creatinine Ratio Glucose Calcium Total Bilirubin AST ALT Alkaline Phosphatase Total Protein Albumin Valproic Acid MRSA (PCR) Negative 07/14/19 07/14/19 04:40 04:40 WBC RBC Hgb Hct MCV MCH MCHC RDW Std Deviation RDW Coeff of Igor Plt Count MPV Immature Gran % (Auto) Neut % (Auto) Lymph % (Auto) [place] % (Auto) Eos % (Auto) Baso % (Auto) Absolute Neuts (auto) Absolute Lymphs (auto) Nucleated RBC % PT 14.6 INR 1.2 APTT 23.4 L Sodium Pending Potassium Pending Chloride Pending Carbon Dioxide Pending Anion Gap Pending BUN Pending Creatinine Pending Estim Creat Clear Calc Est GFR (MDRD) Af Amer Pending Est GFR (MDRD) Non-Af Pending BUN/Creatinine Ratio Pending Glucose Pending Calcium Pending Total Bilirubin Pending AST Pending ALT Pending Alkaline Phosphatase Pending Total Protein Pending Albumin Pending Valproic Acid MRSA (PCR) Microbiology 07/13/19 13:48 Incision/Surgical Site Gram Stain - Final Clinical Impression(s) from Imaging Studies Abdomen/Pelvis CT 07/11/19 18:54 IMPRESSION: Limited non-IV and nonoral contrast study Likely acute sigmoid colon diverticulitis with perforation with extraluminal air within the mesenteric fat, the possibility of ischemic bowel is less likely. No renal or ureteral calculi, no hydronephrosis Mild distended bladder Stable multilevel degenerative changes of the lumbar spine Mild distended loops of small bowel without transition point most likely ileus Electronically Signed: Cristobal Ordonez, at 19:59 EDT Tel , Service support , Chest X-Ray 07/13/19 09:15 IMPRESSION: Questionable density overlying the right first costochondral junction. A lordotic view is recommended for further evaluation. Electronically Signed: Sawyer De La Cruz, at 9:36 EDT , Service support , Current Medications Acetaminophen (Tylenol) 650 mg RECTAL Q6H PRN PRN PRN Reason: TEMP > 102 Last Admin: 07/14/19 02:11 Dose: 650 mg Documented by: Diphenhydramine HCl (Benadryl) 12.5 - 25 mg IV Q6H PRN PRN PRN Reason: ITCHING Diphenhydramine HCl (Benadryl) 12.5 - 25 mg PO Q6H PRN PRN PRN Reason: Pruritis Glucagon () 1 mg IM .X1 PRN PRN Reason: Hypoglycemia Heparin Sodium (Porcine) (Heparin Na) 5,000 unit SC Q8 [facility] Last Admin: 07/13/19 21:23 Dose: Not Given Documented by: Hydromorphone HCl (Dilaudid Counter Hop) 20 mg IV UD [facility]; Protocol Last Admin: 07/13/19 20:03 Dose: 20 mg Documented by: Valproic Acid 500 mg/ Dextrose 55 mls @ 50 mls/hr IV BID GET Last Infusion: 07/13/19 22:50 Dose: 50 mls/hr Documented by: Dextrose (Dextrose 10%-Water) 250 mls @ 999 mls/hr IV .Q16M PRN; Protocol PRN Reason: HYPOGLYCEMIA Sodium Chloride () 250 mls @ 15 mls/hr IV .[id number] PRN PRN Reason: Saline Flush Last Admin: 07/13/19 20:19 Dose: 15 mls/hr Documented by: Sodium Chloride () 250 mls @ 15 mls/hr IV .[id number] PRN PRN Reason: Additional IVPB Infusion Metronidazole (Flagyl) 500 mg in 100 mls @ 100 mls/hr IV Q8 [facility] Last Infusion: 07/13/19 23:22 Dose: Infused Documented by: Naloxone HCl 4 mg/ Dextrose 504 mls @ 0 mls/hr IV .Q0M PRN; Protocol PRN Reason: To maintain Resp. rate >10 Vancomycin IV Pharmacy to Dose (1 ea/ Sodium Chloride) 500 mls @ 250 mls/hr IV X1 PRN; Protocol PRN Reason: Rx to Dose Piperacillin Sod/Tazobactam (Sod 3.375 gm/ Sodium Chloride) 50 mls @ 12.5 mls/hr IV Q8 GET Last Admin: 07/13/19 20:17 Dose: 12.5 mls/hr Documented by: Lactated Ringer's () 1,000 mls @ 100 mls/hr IV .Q10H GET Last Admin: 07/13/19 19:18 Dose: 100 mls/hr Documented by: Vancomycin HCl (Vancomycin) 1,000 mg in 200 mls @ 200 mls/hr IV Q12H GET Lorazepam (Ativan) 1 mg IV QHS GET Last Admin: 07/13/19 21:24 Dose: Not Given Documented by: Morphine Sulfate () 2 mg IV Q3H PRN PRN PRN Reason: Pain Score 6-10/10 Last Admin: 07/13/19 17:40 Dose: 2 mg Documented by: Naloxone HCl (Narcan) 0.02 mg IV Q1M PRN PRN Reason: RR <10 and pt unresponsive Nicotine (Nicoderm Cq (Pbkc)) 21 mg TRANSDERM. DAILY GET Last Admin: 07/13/19 15:11 Dose: 21 mg Documented by: Nutritional Formula (Lactose Free) (Ensure Clear) 120 ml PO 4X/DAY GET Ondansetron HCl (Zofran) 4 mg IV Q6H PRN PRN PRN Reason: NAUSEA/VOMITING Last Admin: 07/13/19 23:57 Dose: 4 mg Documented by: Prochlorperazine Edisylate (Compazine Iv) 5 mg IV Q6H PRN PRN PRN Reason: NAUSEA/VOMITING Last Admin: 07/13/19 22:54 Dose: 5 mg Documented by: Sodium Chloride () 10 - 40 ml IV UD PRN PRN Reason: SALINE FLUSH Last Admin: 07/13/19 22:54 Dose: 10 ml Documented by: Assessment/Plan Active and Suspected Problems (Last Reviewed 07/11/19 @ 22:[address] Carlton Frias MD) Diverticulitis of colon with perforation (Acute) Ileus (Acute) RECOMMENDATIONS: 1. Continue broad-spectrum antimicrobial coverage, pending infectious work-up. 2. Continue supplemental IV fluid hydration to offset insensible losses, given persistent fevers. 3. Start daily PPI therapy. 4. Obtain blood cultures. IMPRESSIONS: 1. Intra-abdominal sepsis secondary to perforated sigmoid diverticulitis Plan to continue current supportive measures with supplemental IV fluid resuscitation to offset insensible losses and broad-spectrum antimicrobial coverage, pending infectious work-up. Continue routine postoperative management with dietary advancement per general surgery recommendations. We will plan to obtain blood cultures today as well. 2. Dyspepsia/GERD Start daily PPI therapy. 3. PTSD/chronic kidney disease/smokeless tobacco dependency Complicates care, management, recovery and prognosis. Continue nicotine replacement therapy. Continue to monitor urine output. This note was generated with [employer] dictation software. It may contain incorrect words, spelling, and punctuation that were not noted in checking the note before signing. Inpatient E&M: 54210 Init Hosp L3
[2019-07-14 05:03] LABS: Differential Comment SCANNED; Platelet Estimate SLT DEC (ADEQ)
[2019-07-14 05:20] LABS: ALB/GLOB Ratio 0.6 RATIO (0.9-2.4); AST(SGOT) 39 U/L (15-37); Alanine Aminotransfer ALT/SGPT 26 U/L (16-61); Albumin, Serum 2.2 g/dL (3.2-5.0); Alkaline Phosphatase 54 U/L (45-117); Anion Gap 9 (5-15); BUN 10 mg/dL (7-18); Calcium,Total 8.1 mg/dL (8.5-10.1); Chloride 101 mmol/L (98-107); Creatinine, Serum 1.25 mg/dL (0.70-1.30); EST Glomerular Filtration Rate 64 mL/min (>60); Est Glom Filt Rate - Afr Amer 78 mL/min (>60); Estimated Creatinine Clearance 64.63 ml/min; Globulin 3.8 g/dL (2.2-4.2); Glucose 129 mg/dL (74-106); Potassium 4.8 mmol/L (3.5-5.1); Sodium Level 133 mmol/L (136-145)
[2019-07-14] MEDS: Lactated Ringers 1,000 ML 100 ML IV (05:38)
[2019-07-14] MEDS: metroNIDAZOLE 500 MG/100 ML BAG 100 MG IV ×3 (05:38→21:02)
[2019-07-14] MEDS: Heparin Injection (Vial) 5,000 UNIT/ML VIAL 5000 UNIT SC ×3 (06:40→21:06)
--- NOTE | 2019-07-14 07:30 | PCM.PN.HOSP ---
Patient Problems: Active and Suspected Problems (Last Reviewed 07/11/19 @ 22:[address] Carlton Frias MD) Diverticulitis of colon with perforation (Acute) Ileus (Acute) Reason for Visit: Perforated diverticulitis Subjective: Post operative day 1 Objective: GENERAL: cooperative HEENT: Atraumatic; EYES; Anicteric, Normal Conjunctiva NECK; supple, normal thyroid, RESPIRATORY: Diminished to auscultation CARDIOVASCULAR: Regular S1 S2, GI: ISABELLE drain left flank : No Renal angle tenderness; EXTREMITIES: No edema, no clubbing, MUSCULOSKELETAL: no muscle waisting NEURO: Awake; no lateralizing signs. SKIN: No Rash PSYCH; Flat affect Vitals/I&O's: Vital Signs Temp Pulse Resp BP Pulse Ox 103.3 F H 123 H 19 H 136/88 H 99 07/14/19 07:00 07/14/19 07:00 07/14/19 07:23 07/14/19 07:00 07/14/19 07:23 Oxygen Flow Rate (L/min) 2 Oxygen Delivery Method Nasal Cannula Weight: 86.4 kg Body Mass Index (BMI) 30.0 Intake and Output for Last 24 Hours 07/12/19 07/13/19 07/14/19 23:59 23:59 23:59 Intake Total 2791.67 / 2791.67 3688.33 / 3688.33 1205 / 1205 Output Total 500 / 500 2185 / 2185 360 / 360 Balance 2291.67 / 2291.67 1503.33 / 1503.33 845 / 845 Microbiology Past 72 Hours 07/13/19 13:48 Incision/Surgical Site Gram Stain - Final Laboratory Results 07/13/19 08:10: WBC 12.1 H, RBC 3.84 L, Hgb 12.6 L, Hct 37.6 L, MCV 97.9 H, MCH 32.8 H, MCHC 33.5, RDW Std Deviation 43.8, RDW Coeff of Igor 12.1, Plt Count 145 L, MPV 10.0, Immature Gran % (Auto) 0.700, Neut % (Auto) 77.9 H, Lymph % (Auto) 12.4 L, [place] % (Auto) 8.2, Eos % (Auto) 0.6, Baso % (Auto) 0.2, Absolute Neuts (auto) 9.5 H, Absolute Lymphs (auto) 1.50, Nucleated RBC % 0 07/13/19 19:05: MRSA (PCR) Negative 07/14/19 04:40: WBC 11.2 H, RBC 3.60 L, Hgb 11.9 L, Hct 35.4 L, MCV 98.3 H, MCH 33.1 H, MCHC 33.6, RDW Std Deviation 43.8, RDW Coeff of Igor 12.1, Plt Count 132 L, MPV 9.7, Immature Gran % (Auto) 0.700, Neut % (Auto) 80.7 H, Lymph % (Auto) 6.6 L, [place] % (Auto) 10.2 H, Eos % (Auto) 1.6, Baso % (Auto) 0.2, Absolute Neuts (auto) 9.1 H, Absolute Lymphs (auto) 0.74 L, Nucleated RBC % 0, Differential Comment SCANNED, Platelet Estimate SLT 07/14/19 04:40: PT 14.6, INR 1.2, APTT 23.4 L 07/14/19 04:40: Sodium 133 L, Potassium 4.8, Chloride 101, Carbon Dioxide 23.0, Anion Gap 9, BUN 10, Creatinine 1.25, Estim Creat Clear Calc 64.63, Est GFR (MDRD) Af Amer 78, Est GFR (MDRD) Non-Af 64, BUN/Creatinine Ratio 8.0 L, Glucose 129 H, Calcium 8.1 L, Total Bilirubin 0.80, AST 39 H, ALT 26, Alkaline Phosphatase 54, Total Protein 6.0 L, Albumin 2.2 L, Globulin 3.8, Albumin/Globulin Ratio 0.6 L Current Medications Acetaminophen (Tylenol) 650 mg RECTAL Q6H PRN PRN PRN Reason: TEMP > 102 Last Admin: 07/14/19 02:11 Dose: 650 mg Documented by: Diphenhydramine HCl (Benadryl) 12.5 - 25 mg IV Q6H PRN PRN PRN Reason: ITCHING Diphenhydramine HCl (Benadryl) 12.5 - 25 mg PO Q6H PRN PRN PRN Reason: Pruritis Glucagon () 1 mg IM .X1 PRN PRN Reason: Hypoglycemia Heparin Sodium (Porcine) (Heparin Na) 5,000 unit SC Q8 [facility] Last Admin: 07/14/19 06:40 Dose: 5,000 unit Documented by: Hydromorphone HCl (Dilaudid Shipping Team Leader) 20 mg IV UD [facility]; Protocol Last Admin: 07/13/19 20:03 Dose: 20 mg Documented by: Valproic Acid 500 mg/ Dextrose 55 mls @ 50 mls/hr IV BID [facility] Last Infusion: 07/14/19 06:18 Dose: Infused Documented by: Dextrose (Dextrose 10%-Water) 250 mls @ 999 mls/hr IV .Q16M PRN; Protocol PRN Reason: HYPOGLYCEMIA Sodium Chloride () 250 mls @ 15 mls/hr IV .[id number] PRN PRN Reason: Saline Flush Last Admin: 07/13/19 20:19 Dose: 15 mls/hr Documented by: Sodium Chloride () 250 mls @ 15 mls/hr IV .[id number] PRN PRN Reason: Additional IVPB Infusion Metronidazole (Flagyl) 500 mg in 100 mls @ 100 mls/hr IV Q8 [facility] Last Infusion: 07/14/19 07:11 Dose: Infused Documented by: Naloxone HCl 4 mg/ Dextrose 504 mls @ 0 mls/hr IV .Q0M PRN; Protocol PRN Reason: To maintain Resp. rate >10 Vancomycin IV Pharmacy to Dose (1 ea/ Sodium Chloride) 500 mls @ 250 mls/hr IV X1 PRN; Protocol PRN Reason: Rx to Dose Piperacillin Sod/Tazobactam (Sod 3.375 gm/ Sodium Chloride) 50 mls @ 12.5 mls/hr IV Q8 [facility] Last Admin: 07/14/19 05:38 Dose: 12.5 mls/hr Documented by: Vancomycin HCl (Vancomycin) 1,000 mg in 200 mls @ 200 mls/hr IV Q12H GET Pantoprazole Sodium 40 mg/ (Sodium Chloride) 110 mls @ 330 mls/hr IV Q24 [facility] Dextrose/Sodium Chloride (Dextrose 5%/0.9% Nacl) 1,000 mls @ 150 mls/hr IV .Q6H40M GET Lorazepam (Ativan) 1 mg IV QHS [facility] Last Admin: 07/13/19 21:24 Dose: Not Given Documented by: Morphine Sulfate () 2 mg IV Q3H PRN PRN PRN Reason: Pain Score 6-10/10 Last Admin: 07/13/19 17:40 Dose: 2 mg Documented by: Naloxone HCl (Narcan) 0.02 mg IV Q1M PRN PRN Reason: RR <10 and pt unresponsive Nicotine (Nicoderm Cq (Pbkc)) 21 mg TRANSDERM. DAILY GET Last Admin: 07/13/19 15:11 Dose: 21 mg Documented by: Nutritional Formula (Lactose Free) (Ensure Clear) 120 ml PO 4X/DAY GET Ondansetron HCl (Zofran) 4 mg IV Q6H PRN PRN PRN Reason: NAUSEA/VOMITING Last Admin: 07/13/19 23:57 Dose: 4 mg Documented by: Prochlorperazine Edisylate (Compazine Iv) 5 mg IV Q6H PRN PRN PRN Reason: NAUSEA/VOMITING Last Admin: 07/13/19 22:54 Dose: 5 mg Documented by: Sodium Chloride () 10 - 40 ml IV UD PRN PRN Reason: SALINE FLUSH Last Admin: 07/13/19 22:54 Dose: 10 ml Documented by: STROKE Vital Signs/Narrative: Vital Signs Temp Pulse Resp BP Pulse Ox 07/14/19 07:23 19 H 99 07/14/19 07:00 103.3 F H 123 H 16 136/88 H 97 07/14/19 06:00 103.3 F H 117 H 16 138/93 H 98 07/14/19 05:00 102.6 F H 107 H 16 140/75 H 97 07/14/19 04:00 102.3 F H 118 H 16 130/101 H 96 Medical Necessity - Tobacco Use Smoking Status: Former smoker Tobacco Use: Chew Assessment/Plan All Active Problems (Last Reviewed 07/11/19 @ 22:[address] Carlton Frias MD) History of anxiety disorder (Acute) Diverticulitis of colon with perforation (Acute) Ileus (Acute) Patient is a 55-year-old gentleman admitted with abdominal pain diagnosed with acute sigmoid diverticulitis with perforation 1. Acute sigmoid diverticulitis with perforation, ?Patient admitted to regular nursing floor managed conservatively with consultation placed to general surgery. Patient has so far been on ciprofloxacin as well as metronidazole however condition is not improving. Plan therefore is for patient to undergo sigmoid resection, creation of colostomy on 07/13/2019 -Patient underwent sigmoid colectomy and Incidental appendectomy on 07/13/[address] Soto. Patient was found to have intra-abdominal purulent fluid 2. Sepsis ?Secondary to severe peritonitis following patient sigmoid diverticulitis with perforation. Patient underwent above procedure. Was subsequently transferred to the intensive care unit managed with aggressive IV fluids broad-spectrum antibiotic therapy after cultures have been drawn. 3. PTSD ?Treated with valproic acid as well as trazodone 4. Chronic kidney disease stage III ?Kidney function at baseline 5. Tobacco dependence - counseled on cessation, offered nicotine patch for tobacco cravings 6. DVT prophylaxis ?SC heparin Inpatient E&M: 55014 [facility] Hosp L3
[2019-07-14] MEDS: Dextrose 5%/0.9% NaCl 1,000 ML 150 ML IV ×3 (08:20→21:02)
[2019-07-14] MEDS: Vancomycin IV 1,000 MG/200 ML BAG 200 MG IV ×2 (08:21→19:17)
--- NOTE | 2019-07-14 11:09 | PCM.PN.SRG ---
Patient Problems: Active and Suspected Problems (Last Reviewed 07/11/19 @ 22:[address] Carlton Frias MD) Diverticulitis of colon with perforation (Acute) Ileus (Acute) Subjective: Significant fevers overnight. Having shakes and chills. No active bowel activity. Patient did have some emesis last night. Objective: Incision is dry pain is appropriate ISABELLE drain still serosanguineous fluid only. - Physical Exam Vitals/I&O's: Vital Signs Temp Pulse Resp BP Pulse Ox 102.6 F H 111 H 15 123/56 H 97 07/14/19 11:00 07/14/19 11:04 07/14/19 11:00 07/14/19 11:00 07/14/19 11:00 Oxygen Flow Rate (L/min) 2 Oxygen Delivery Method Nasal Cannula Weight: 190 lb 7.67 oz Body Mass Index (BMI) 30.0 Intake and Output for Last 24 Hours 07/12/19 07/13/19 07/14/19 23:59 23:59 23:59 Intake Total 2791.67 / 2791.67 3688.33 / 3688.33 1835 / 1835 Output Total 500 / 500 2185 / 2185 360 / 360 Balance 2291.67 / 2291.67 1503.33 / 1503.33 1475 / 1475 Microbiology Past 72 Hours 07/13/19 13:48 Incision/Surgical Site Gram Stain - Final Laboratory Results 07/13/19 19:05: MRSA (PCR) Negative 07/14/19 04:40: WBC 11.2 H, RBC 3.60 L, Hgb 11.9 L, Hct 35.4 L, MCV 98.3 H, MCH 33.1 H, MCHC 33.6, RDW Std Deviation 43.8, RDW Coeff of Igor 12.1, Plt Count 132 L, MPV 9.7, Immature Gran % (Auto) 0.700, Neut % (Auto) 80.7 H, Lymph % (Auto) 6.6 L, [place] % (Auto) 10.2 H, Eos % (Auto) 1.6, Baso % (Auto) 0.2, Absolute Neuts (auto) 9.1 H, Absolute Lymphs (auto) 0.74 L, Nucleated RBC % 0, Differential Comment SCANNED, Platelet Estimate SLT 07/14/19 04:40: PT 14.6, INR 1.2, APTT 23.4 L 07/14/19 04:40: Sodium 133 L, Potassium 4.8, Chloride 101, Carbon Dioxide 23.0, Anion Gap 9, BUN 10, Creatinine 1.25, Estim Creat Clear Calc 64.63, Est GFR (MDRD) Af Amer 78, Est GFR (MDRD) Non-Af 64, BUN/Creatinine Ratio 8.0 L, Glucose 129 H, Calcium 8.1 L, Total Bilirubin 0.80, AST 39 H, ALT 26, Alkaline Phosphatase 54, Total Protein 6.0 L, Albumin 2.2 L, Globulin 3.8, Albumin/Globulin Ratio 0.6 L Current Medications Acetaminophen (Tylenol) 650 mg RECTAL Q6H PRN PRN PRN Reason: TEMP > 102 Last Admin: 07/14/19 08:21 Dose: 650 mg Documented by: Al Hydroxide/Mg Hydroxide (Mylanta Ii) 30 ml PO Q6H PRN PRN PRN Reason: NAUSEA Diphenhydramine HCl (Benadryl) 12.5 - 25 mg IV Q6H PRN PRN PRN Reason: ITCHING Diphenhydramine HCl (Benadryl) 12.5 - 25 mg PO Q6H PRN PRN PRN Reason: Pruritis Glucagon () 1 mg IM .X1 PRN PRN Reason: Hypoglycemia Heparin Sodium (Porcine) (Heparin Na) 5,000 unit SC Q8 GET Last Admin: 07/14/19 06:40 Dose: 5,000 unit Documented by: Hydromorphone HCl (Dilaudid Business Development Assistant) 20 mg IV UD GET; Protocol Last Admin: 07/13/19 20:03 Dose: 20 mg Documented by: Valproic Acid 500 mg/ Dextrose 55 mls @ 50 mls/hr IV BID GET Last Admin: 07/14/19 10:04 Dose: 50 mls/hr Documented by: Dextrose (Dextrose 10%-Water) 250 mls @ 999 mls/hr IV .Q16M PRN; Protocol PRN Reason: HYPOGLYCEMIA Sodium Chloride () 250 mls @ 15 mls/hr IV .[id number] PRN PRN Reason: Saline Flush Last Admin: 07/13/19 20:19 Dose: 15 mls/hr Documented by: Sodium Chloride () 250 mls @ 15 mls/hr IV .[id number] PRN PRN Reason: Additional IVPB Infusion Metronidazole (Flagyl) 500 mg in 100 mls @ 100 mls/hr IV Q8 [facility] Last Infusion: 07/14/19 07:11 Dose: Infused Documented by: Naloxone HCl 4 mg/ Dextrose 504 mls @ 0 mls/hr IV .Q0M PRN; Protocol PRN Reason: To maintain Resp. rate >10 Vancomycin IV Pharmacy to Dose (1 ea/ Sodium Chloride) 500 mls @ 250 mls/hr IV X1 PRN; Protocol PRN Reason: Rx to Dose Piperacillin Sod/Tazobactam (Sod 3.375 gm/ Sodium Chloride) 50 mls @ 12.5 mls/hr IV Q8 [facility] Last Infusion: 07/14/19 09:38 Dose: Infused Documented by: Vancomycin HCl (Vancomycin) 1,000 mg in 200 mls @ 200 mls/hr IV Q12H [facility] Last Infusion: 07/14/19 09:21 Dose: Infused Documented by: Pantoprazole Sodium 40 mg/ (Sodium Chloride) 110 mls @ 330 mls/hr IV Q24 [facility] Last Infusion: 07/14/19 10:23 Dose: Infused Documented by: Dextrose/Sodium Chloride (Dextrose 5%/0.9% Nacl) 1,000 mls @ 150 mls/hr IV .Q6H40M [facility] Last Admin: 07/14/19 08:20 Dose: 150 mls/hr Documented by: Lorazepam (Ativan) 1 mg IV QHS [facility] Last Admin: 07/13/19 21:24 Dose: Not Given Documented by: Naloxone HCl (Narcan) 0.02 mg IV Q1M PRN PRN Reason: RR <10 and pt unresponsive Nicotine (Nicoderm Cq (Pbkc)) 21 mg TRANSDERM. DAILY [facility] Last Admin: 07/14/19 10:03 Dose: 21 mg Documented by: Nutritional Formula (Lactose Free) (Ensure Clear) 120 ml PO 4X/DAY [facility] Last Admin: 07/14/19 10:04 Dose: Not Given Documented by: Ondansetron HCl (Zofran) 4 mg IV Q6H PRN PRN PRN Reason: NAUSEA/VOMITING Last Admin: 07/13/19 23:57 Dose: 4 mg Documented by: Prochlorperazine Edisylate (Compazine Iv) 5 mg IV Q6H PRN PRN PRN Reason: NAUSEA/VOMITING Last Admin: 07/13/19 22:54 Dose: 5 mg Documented by: Sodium Chloride () 10 - 40 ml IV UD PRN PRN Reason: SALINE FLUSH Last Admin: 07/13/19 22:54 Dose: 10 ml Documented by: Medical Necessity - Tobacco Use Smoking Status: Former smoker Tobacco Use: Chew Assessment/Plan All Active Problems (Last Reviewed 07/11/19 @ 22:[address] Carlton Frias MD) History of anxiety disorder (Acute) Diverticulitis of colon with perforation (Acute) Ileus (Acute) Postoperative day #1. Unlikely will be discharged from ICU to the floor Gram stain shows gram-positive cocci. Await cultures and sensitivity. Going to hold off on any p.o. intake as of yet.
--- NOTE | 2019-07-14 14:57 | CHAPLAIN ---
Type of Pastoral Visit _x__ Initial Visit ___ Follow-up Visit ___ On-call Visit ___ General Patient Visit ___ Spiritual Assessment ___ Family Conference ___ Bereavement ___ Rapid Response ___ Code Blue ___ Other (describe below) Pastoral Care Referral From _x__ Patient ___ Family ___ Nurse ___ Physician ___ It Security Administrator ___ Ui Software Engineer ___ Other (describe below) Sacrament/Intervention _x__ Active listening ___ Anointing ___ Taoism ___ Bereavement ___ Communion _x__ Lucy exploration ___ _x__ Life review _x__ Prayer ___ Reconciliation ___ Sacrament of Sick _x__ Supportive presence ___ Wedding ___ Other (describe below) Pastoral Comments
[2019-07-15] VITALS (24 sets, daily range): BP systolic 102–134; BP diastolic 53–80; PULSE 95–115; RESP 12–21; TEMP 36.9–37.8; O2SAT 91–98
[2019-07-15] MEDS: Dextrose 5%/0.9% NaCl 1,000 ML 150 ML IV (03:40)
[2019-07-15] MEDS: metroNIDAZOLE 500 MG/100 ML BAG 100 MG IV (04:58)
[2019-07-15] MEDS: Heparin Injection (Vial) 5,000 UNIT/ML VIAL 5000 UNIT SC ×3 (04:59→22:04)
--- NOTE | 2019-07-15 06:43 | PCM.PN.INT ---
Subjective: The patient was seen and examined at the bedside this morning. Events from the last 24 hours have been reviewed. The patient is currently afebrile, hemodynamically stable and maintaining appropriate oxygen saturations on room air. The patient appears to have defervesced over the last 24 hours, with overall improvement in his fever curve. The patient does report that he feels much better this morning. He does report the continued presence of abdominal pain, which has been controlled by his BOARDER STEAM. Objective: The patient's most recent lab work, culture data and imaging studies have all been personally reviewed. Blood and wound cultures are pending. General: Alert, Cooperative, No apparent distress HEENT: Atraumatic, PERRLA, Normocephalic Oral: Dry Mucosa Neck: Supple, No Nodes, Trachea Midline Lungs: No rhonchi, No wheeze, No rales, Diminished Cardiovascular: Regular rate, Regular Rhythm, Normal S1, Normal S2, No murmurs Abdomen: Bowel Sounds Present, Soft, Hypoactive Bowel Sounds Extremities: No clubbing, No cyanosis, No edema Skin: No breakdown, Incision - C/D/I Musculoskeletal: No Tenderness to Palpation of Joints or Extremities Lymphatic: No Cervical, Supraclavicular, or Inguinal Adenopathy Neurological: Cranial nerves II-XII grossly intact, Neuro grossly intact Psych/Mental Status: Alert and oriented to time, place, person, mood and affect Vital Signs Temp Pulse Resp BP Pulse Ox 99.0 F 103 H 16 107/79 96 07/15/19 06:00 07/15/19 06:00 07/15/19 06:00 07/15/19 06:00 07/15/19 06:00 Oxygen Flow Rate (L/min) 2 Oxygen Delivery Method Room Air Weight: 199 lb 8.293 oz Body Mass Index (BMI) 30.0 Intake and Output for Last 24 Hours 07/13/19 07/14/19 07/15/19 23:59 23:59 23:59 Intake Total 3688.33 / 3688.33 4950.0 / 4950.0 1347.50 / 1347.50 Output Total 2185 / 2185 3935 / 3935 750 / 750 Balance 1503.33 / 1503.33 1015.0 / 1015.0 597.50 / 597.50 Labs (Last 48 Hours) 07/13/19 07/13/1907/13/20 08:10 19:05 04:40 WBC 12.1 H 11.2 H RBC 3.84 L 3.60 L Hgb 12.6 L 11.9 L Hct 37.6 L 35.4 L MCV 97.9 H 98.3 H MCH 32.8 H 33.1 H MCHC 33.5 33.6 RDW Std Deviation 43.8 43.8 RDW Coeff of Igor 12.1 12.1 Plt Count 145 L 132 L MPV 10.0 9.7 Immature Gran % (Auto) 0.700 0.700 Neut % (Auto) 77.9 H 80.7 H Lymph % (Auto) 12.4 L 6.6 L [place] % (Auto) 8.2 10.2 H Eos % (Auto) 0.6 1.6 Baso % (Auto) 0.2 0.2 Absolute Neuts (auto) 9.5 H 9.1 H Absolute Lymphs (auto) 1.50 0.74 L Nucleated RBC % 0 0 Differential Comment SCANNED Platelet Estimate SLT DEC PT INR APTT Sodium Potassium Chloride Carbon Dioxide Anion Gap BUN Creatinine Estim Creat Clear Calc Est GFR (MDRD) Af Amer Est GFR (MDRD) Non-Af BUN/Creatinine Ratio Glucose Calcium Total Bilirubin AST ALT Alkaline Phosphatase Total Protein Albumin Globulin Albumin/Globulin Ratio MRSA (PCR) Negative 07/14/19 07/14/19 04:40 04:40 WBC RBC Hgb Hct MCV MCH MCHC RDW Std Deviation RDW Coeff of Igor Plt Count MPV Immature Gran % (Auto) Neut % (Auto) Lymph % (Auto) [place] % (Auto) Eos % (Auto) Baso % (Auto) Absolute Neuts (auto) Absolute Lymphs (auto) Nucleated RBC % Differential Comment Platelet Estimate PT 14.6 INR 1.2 APTT 23.4 L Sodium 133 L Potassium 4.8 Chloride 101 Carbon Dioxide 23.0 Anion Gap 9 BUN 10 Creatinine 1.25 Estim Creat Clear Calc 64.63 Est GFR (MDRD) Af Amer 78 Est GFR (MDRD) Non-Af 64 BUN/Creatinine Ratio 8.0 L Glucose 129 H Calcium 8.1 L Total Bilirubin 0.80 AST 39 H ALT 26 Alkaline Phosphatase 54 Total Protein 6.0 L Albumin 2.2 L Globulin 3.8 Albumin/Globulin Ratio 0.6 L MRSA (PCR) Microbiology 07/13/19 13:48 Incision/Surgical Site Gram Stain - Final 07/13/19 13:48 Incision/Surgical Site Wound Culture - Preliminary No growth-Final to follow Clinical Impression(s) from Imaging Studies Abdomen/Pelvis CT 07/11/19 18:54 IMPRESSION: Limited non-IV and nonoral contrast study Likely acute sigmoid colon diverticulitis with perforation with extraluminal air within the mesenteric fat, the possibility of ischemic bowel is less likely. No renal or ureteral calculi, no hydronephrosis Mild distended bladder Stable multilevel degenerative changes of the lumbar spine Mild distended loops of small bowel without transition point most likely ileus Electronically Signed: Cristobal Ordonez, at 19:59 EDT Tel , Service support , Chest X-Ray 07/13/19 09:15 IMPRESSION: Questionable density overlying the right first costochondral junction. A lordotic view is recommended for further evaluation. Electronically Signed: Sawyer De La Cruz, at 9:36 EDT , Service support , Medical Necessity - Tobacco Use Smoking Status: Former smoker Tobacco Use: Chew Assessment/Plan All Active Problems (Last Reviewed 07/11/19 @ 22:[address] Carlton Frias MD) History of anxiety disorder (Acute) Diverticulitis of colon with perforation (Acute) Ileus (Acute) RECOMMENDATIONS: 1. Okay to discontinue supplemental IV fluids from my perspective. 2. Discontinue Flagyl and vancomycin. Continue Zosyn as ordered. 3. Continue daily PPI therapy. 4. Routine postoperative surgical care with dietary advancement per general surgery recommendations. 5. The patient is medically stable for transfer out of the intensive care unit. Will sign off from a critical care perspective. IMPRESSIONS: 1. Intra-abdominal sepsis secondary to perforated sigmoid diverticulitis Improving clinically. Fever curve has significantly improved over the last 24 hours. Cultures are still pending. At this time, Flagyl and vancomycin can likely be discontinued. I would plan to continue Zosyn for now. Continue routine pain control and dietary advancement per general surgery recommendations. Encourage incentive spirometer use and mobilize patient as tolerated. 2. Dyspepsia/GERD Continue daily PPI therapy. 3. PTSD/chronic kidney disease/smokeless tobacco dependency Complicates care, management, recovery and prognosis. Continue nicotine replacement therapy. Continue to monitor urine output. This note was generated with [employer] dictation software. It may contain incorrect words, spelling, and punctuation that were not noted in checking the note before signing. Inpatient E&M: 68401 Subs Hosp L3
--- NOTE | 2019-07-15 07:25 | PCM.PN.HOSP ---
Patient Problems: Active and Suspected Problems (Last Reviewed 07/11/19 @ 22:[address] Carlton Frias MD) Diverticulitis of colon with perforation (Acute) Ileus (Acute) Reason for Visit: Acute sigmoid diverticulitis Subjective: Post operative day 2 Objective: GENERAL: cooperative HEENT: Atraumatic; EYES; Anicteric, Normal Conjunctiva NECK; supple, normal thyroid, RESPIRATORY: Diminished to auscultation CARDIOVASCULAR: Regular S1 S2, GI: ISABELLE drain left flank abdomen slightly distended : No Renal angle tenderness; EXTREMITIES: No edema, no clubbing, MUSCULOSKELETAL: no muscle waisting NEURO: Awake; no lateralizing signs. SKIN: No Rash PSYCH; Flat affect Vitals/I&O's: Vital Signs Temp Pulse Resp BP Pulse Ox 99.0 F 100 17 113/80 95 07/15/19 06:00 07/15/19 07:00 07/15/19 07:00 07/15/19 07:00 07/15/19 07:00 Oxygen Flow Rate (L/min) 2 Oxygen Delivery Method Room Air Weight: 90.5 kg Body Mass Index (BMI) 30.0 Intake and Output for Last 24 Hours 07/13/19 07/14/19 07/15/19 23:59 23:59 23:59 Intake Total 3688.33 / 3688.33 4950.0 / 4950.0 1347.50 / 1347.50 Output Total 2185 / 2185 3935 / 3935 750 / 750 Balance 1503.33 / 1503.33 1015.0 / 1015.0 597.50 / 597.50 Microbiology Past 72 Hours 07/13/19 13:48 Incision/Surgical Site Gram Stain - Final 07/13/19 13:48 Incision/Surgical Site Wound Culture - Preliminary No growth-Final to follow Current Medications Acetaminophen (Tylenol) 650 mg RECTAL Q6H PRN PRN PRN Reason: TEMP > 102 Last Admin: 07/14/19 08:21 Dose: 650 mg Documented by: Al Hydroxide/Mg Hydroxide (Mylanta Ii) 30 ml PO Q6H PRN PRN PRN Reason: NAUSEA Diphenhydramine HCl (Benadryl) 12.5 - 25 mg IV Q6H PRN PRN PRN Reason: ITCHING Diphenhydramine HCl (Benadryl) 12.5 - 25 mg PO Q6H PRN PRN PRN Reason: Pruritis Glucagon () 1 mg IM .X1 PRN PRN Reason: Hypoglycemia Heparin Sodium (Porcine) (Heparin Na) 5,000 unit SC Q8 [facility] Last Admin: 07/15/19 04:59 Dose: 5,000 unit Documented by: Hydromorphone HCl (Dilaudid Rib Stiffener And Heel Dipper) 20 mg IV UD [facility]; Protocol Last Admin: 07/14/19 19:15 Dose: Not Given Documented by: Valproic Acid 500 mg/ Dextrose 55 mls @ 50 mls/hr IV BID [facility] Last Infusion: 07/14/19 23:31 Dose: Infused Documented by: Dextrose (Dextrose 10%-Water) 250 mls @ 999 mls/hr IV .Q16M PRN; Protocol PRN Reason: HYPOGLYCEMIA Sodium Chloride () 250 mls @ 15 mls/hr IV .[id number] PRN PRN Reason: Saline Flush Last Admin: 07/15/19 06:01 Dose: 15 mls/hr Documented by: Sodium Chloride () 250 mls @ 15 mls/hr IV .[id number] PRN PRN Reason: Additional IVPB Infusion Naloxone HCl 4 mg/ Dextrose 504 mls @ 0 mls/hr IV .Q0M PRN; Protocol PRN Reason: To maintain Resp. rate >10 Piperacillin Sod/Tazobactam (Sod 3.375 gm/ Sodium Chloride) 50 mls @ 12.5 mls/hr IV Q8 [facility] Last Admin: 07/15/19 04:59 Dose: 12.5 mls/hr Documented by: Pantoprazole Sodium 40 mg/ (Sodium Chloride) 110 mls @ 330 mls/hr IV Q24 [facility] Last Infusion: 07/14/19 10:23 Dose: Infused Documented by: Lorazepam (Ativan) 1 mg IV QHS [facility] Last Admin: 07/14/19 21:08 Dose: Not Given Documented by: Naloxone HCl (Narcan) 0.02 mg IV Q1M PRN PRN Reason: RR <10 and pt unresponsive Nicotine (Nicoderm Cq (Pbkc)) 21 mg TRANSDERM. DAILY [facility] Last Admin: 07/14/19 10:03 Dose: 21 mg Documented by: Nutritional Formula (Lactose Free) (Ensure Clear) 120 ml PO 4X/DAY [facility] Last Admin: 07/14/19 20:20 Dose: Not Given Documented by: Ondansetron HCl (Zofran) 4 mg IV Q6H PRN PRN PRN Reason: NAUSEA/VOMITING Last Admin: 07/13/19 23:57 Dose: 4 mg Documented by: Prochlorperazine Edisylate (Compazine Iv) 5 mg IV Q6H PRN PRN PRN Reason: NAUSEA/VOMITING Last Admin: 07/13/19 22:54 Dose: 5 mg Documented by: Sodium Chloride () 10 - 40 ml IV UD PRN PRN Reason: SALINE FLUSH Last Admin: 07/13/19 22:54 Dose: 10 ml Documented by: STROKE Vital Signs/Narrative: Vital Signs Temp Pulse Resp BP Pulse Ox 07/15/19 07:00 100 17 113/80 95 07/15/19 06:00 99.0 F 103 H 16 107/79 96 07/15/19 05:59 13 94 07/15/19 05:00 99.0 F 107 H 17 114/72 96 07/15/19 04:00 107 H 16 129/73 H 94 Medical Necessity - Tobacco Use Smoking Status: Former smoker Tobacco Use: Chew Assessment/Plan All Active Problems (Last Reviewed 07/11/19 @ 22:[address] Carlton Frias MD) History of anxiety disorder (Acute) Diverticulitis of colon with perforation (Acute) Ileus (Acute) Patient is a 55-year-old gentleman admitted with abdominal pain diagnosed with acute sigmoid diverticulitis with perforation 1. Acute sigmoid diverticulitis with perforation, ?Patient admitted to regular nursing floor managed conservatively with consultation placed to general surgery. Patient has so far been on ciprofloxacin as well as metronidazole however condition is not improving. Plan therefore is for patient to undergo sigmoid resection, creation of colostomy on 07/13/2019 -Patient underwent sigmoid colectomy and Incidental appendectomy on 07/13/[address] Soto. Patient was found to have intra-abdominal purulent fluid ?07/15/2019; postoperative day 2 patient abdomen remains slightly distended. Patient admitted to passing some gas. 2. Sepsis ?Secondary to severe peritonitis following patient sigmoid diverticulitis with perforation. Patient underwent above procedure. Was subsequently transferred to the intensive care unit managed with aggressive IV fluids broad-spectrum antibiotic therapy after cultures have been drawn. ?07/15/2019: T-max of approximately 4 hours 104.2. Results of cultures obtained still pending. Patient remains on broad-spectrum antibiotic therapy. 3. PTSD ?Treated with valproic acid as well as trazodone 4. Chronic kidney disease stage III ?Kidney function at baseline 5. Tobacco dependence - counseled on cessation, offered nicotine patch for tobacco cravings 6. DVT prophylaxis ?SC heparin Inpatient E&M: 25995 Subs Hosp L2
[2019-07-15] MEDS: Ensure Clear 120 ML Liquid PO ×2 (09:31→22:04)
--- NOTE | 2019-07-15 13:44 | PCM.PN.SRG ---
Patient Problems: Active and Suspected Problems (Last Reviewed 07/11/19 @ 22:[address] Carlton Frias MD) Diverticulitis of colon with perforation (Acute) Ileus (Acute) Subjective: Patient has positive flatus no BM as of yet. Objective: Dressing is dry serosanguineous fluid from ISABELLE. - Physical Exam Vitals/I&O's: Vital Signs Temp Pulse Resp BP Pulse Ox 99.1 F 103 H 16 114/74 98 07/15/19 08:00 07/15/19 11:00 07/15/19 12:37 07/15/19 11:00 07/15/19 12:37 Oxygen Flow Rate (L/min) 2 Oxygen Delivery Method Room Air Weight: 199 lb 8.293 oz Body Mass Index (BMI) 30.0 Intake and Output for Last 24 Hours 07/13/19 07/14/19 07/15/19 23:59 23:59 23:59 Intake Total 3688.33 / 3688.33 4950.0 / 4950.0 2760.00 / 2760.00 Output Total 2185 / 2185 3935 / 3935 1850 / 1850 Balance 1503.33 / 1503.33 1015.0 / 1015.0 910.00 / 910.00 Microbiology Past 72 Hours 07/13/19 13:48 Incision/Surgical Site Gram Stain - Final 07/13/19 13:48 Incision/Surgical Site Wound Culture - Preliminary No growth-Final to follow 07/13/19 13:48 Incision/Surgical Site Anaerobic Culture - Preliminary No growth in 48 hours. Current Medications Acetaminophen (Tylenol) 650 mg RECTAL Q6H PRN PRN PRN Reason: TEMP > 102 Last Admin: 07/14/19 08:21 Dose: 650 mg Documented by: Al Hydroxide/Mg Hydroxide (Mylanta Ii) 30 ml PO Q6H PRN PRN PRN Reason: NAUSEA Diphenhydramine HCl (Benadryl) 12.5 - 25 mg IV Q6H PRN PRN PRN Reason: ITCHING Diphenhydramine HCl (Benadryl) 12.5 - 25 mg PO Q6H PRN PRN PRN Reason: Pruritis Glucagon () 1 mg IM .X1 PRN PRN Reason: Hypoglycemia Heparin Sodium (Porcine) (Heparin Na) 5,000 unit SC Q8 GET Last Admin: 07/15/19 04:59 Dose: 5,000 unit Documented by: Hydromorphone HCl (Dilaudid Sonography Technologist) 20 mg IV UD [facility]; Protocol Last Admin: 07/14/19 19:15 Dose: Not Given Documented by: Valproic Acid 500 mg/ Dextrose 55 mls @ 50 mls/hr IV BID [facility] Last Infusion: 07/15/19 12:37 Dose: Infused Documented by: Dextrose (Dextrose 10%-Water) 250 mls @ 999 mls/hr IV .Q16M PRN; Protocol PRN Reason: HYPOGLYCEMIA Sodium Chloride () 250 mls @ 15 mls/hr IV .[id number] PRN PRN Reason: Saline Flush Last Admin: 07/15/19 06:01 Dose: 15 mls/hr Documented by: Sodium Chloride () 250 mls @ 15 mls/hr IV .[id number] PRN PRN Reason: Additional IVPB Infusion Naloxone HCl 4 mg/ Dextrose 504 mls @ 0 mls/hr IV .Q0M PRN; Protocol PRN Reason: To maintain Resp. rate >10 Piperacillin Sod/Tazobactam (Sod 3.375 gm/ Sodium Chloride) 50 mls @ 12.5 mls/hr IV Q8 [facility] Last Infusion: 07/15/19 09:09 Dose: Infused Documented by: Pantoprazole Sodium 40 mg/ (Sodium Chloride) 110 mls @ 330 mls/hr IV Q24 [facility] Last Infusion: 07/15/19 12:36 Dose: Infused Documented by: Lorazepam (Ativan) 1 mg IV QHS [facility] Last Admin: 07/14/19 21:08 Dose: Not Given Documented by: Naloxone HCl (Narcan) 0.02 mg IV Q1M PRN PRN Reason: RR <10 and pt unresponsive Nicotine (Nicoderm Cq (Pbkc)) 21 mg TRANSDERM. DAILY [facility] Last Admin: 07/15/19 09:30 Dose: 21 mg Documented by: Nutritional Formula (Lactose Free) (Ensure Clear) 120 ml PO 4X/DAY [facility] Last Admin: 07/15/19 09:31 Dose: 120 ml Documented by: Ondansetron HCl (Zofran) 4 mg IV Q6H PRN PRN PRN Reason: NAUSEA/VOMITING Last Admin: 03/23/20 23:57 Dose: 4 mg Documented by: Prochlorperazine Edisylate (Compazine Iv) 5 mg IV Q6H PRN PRN PRN Reason: NAUSEA/VOMITING Last Admin: 07/13/19 22:54 Dose: 5 mg Documented by: Sodium Chloride () 10 - 40 ml IV UD PRN PRN Reason: SALINE FLUSH Last Admin: 07/13/19 22:54 Dose: 10 ml Documented by: Medical Necessity - Tobacco Use Smoking Status: Former smoker Tobacco Use: Chew Assessment/Plan All Active Problems (Last Reviewed 07/11/19 @ 22:[address] Carlton Frias MD) History of anxiety disorder (Acute) Diverticulitis of colon with perforation (Acute) Ileus (Acute) Postoperative day #2 Patient will be sent to the floor. We will advance him to clear liquids and ice chips today.
[2019-07-15 14:32] LABS: Absolute Lymphocyte Count 0.84 X10^3/uL (0.83-4.51); Absolute Neutrophil Count 5.9 X10^3/uL (2.0-7.7); Basophil# 0.04 X10^3/uL; Basophil% 0.5 % (0-1); Eosinophil# 0.31 X10^3/uL; Eosinophils% 3.9 % (0-5); Hematocrit 30.6 % (40-54); Hemoglobin 10.1 g/dL (13.0-16.5); Lymphocyte # 0.84 X10^3/ul (4.0); Lymphocyte % 10.6 % (19-41); Mean Corpuscular Hgb 32.5 pg (27.0-32.0); Mean Corpuscular Volume 98.4 fL (80-94); Mean Platelet Vol. 9.3 fl (6.2-12.0); Monocyte# 0.73 X10^3/uL; Monocyte% 9.2 % (0-10); NRBC Flagged by Analyzer 0 % (0-5); Neutrophil # 5.91 X10^3/uL (2.7-7.7); Neutrophil % 74.4 % (47-70); Platelet Count 148 K/mm3 (150-450); RBC Distribution Width CV 12.2 % (11.6-14.6); RBC Distribution Width SD 43.9 fl (35.1-43.9); Red Blood Count 3.11 M/mm3 (4.6-6.2); White Blood Count 7.9 K/mm3 (4.4-11.0)
[2019-07-15 14:47] LABS: ALB/GLOB Ratio 0.6 RATIO (0.9-2.4); AST(SGOT) 30 U/L (15-37); Alanine Aminotransfer ALT/SGPT 26 U/L (16-61); Albumin, Serum 2.1 g/dL (3.2-5.0); Alkaline Phosphatase 53 U/L (45-117); Anion Gap 8 (5-15); BUN 6 mg/dL (7-18); BUN/Creat Ratio 5.2 RATIO (10-20); Calcium,Total 8.4 mg/dL (8.5-10.1); Chloride 108 mmol/L (98-107); Creatinine, Serum 1.15 mg/dL (0.70-1.30); EST Glomerular Filtration Rate 71 mL/min (>60); Est Glom Filt Rate - Afr Amer 86 mL/min (>60); Estimated Creatinine Clearance 70.25 ml/min; Globulin 3.4 g/dL (2.2-4.2); Glucose 139 mg/dL (74-106); Protein, Total 5.5 g/dL (6.4-8.2); Sodium Level 142 mmol/L (136-145)
--- NOTE | 2019-07-15 15:26 | CASEMGMT ---
RN CM Note: pt transferred to [facility]. Per ICU nurse, pt did well ambulating in domínguez, a little dizzy but was still on Dilaudid pump. Ambulated holding on to IV pole. Advanced to clear liquids today. CM will continue to follow and address any dc needs. Bob CASTELLONN RN ACM
--- NOTE | 2019-07-15 16:30 | CHAPLAIN ---
Type of Pastoral Visit ___ Initial Visit _x__ Follow-up Visit ___ On-call Visit ___ General Patient Visit ___ Spiritual Assessment ___ Family Conference ___ Bereavement ___ Rapid Response ___ Code Blue ___ Other (describe below) Pastoral Care Referral From _x__ Patient ___ Family ___ Nurse ___ Physician ___ Bill Of Lading Clerk ___ Anesthesiology Fellow ___ Other (describe below) Sacrament/Intervention _x__ Active listening ___ Anointing ___ Buddhist ___ Bereavement ___ Communion ___ Lucy exploration ___ ___ Life review _x__ Prayer ___ Reconciliation ___ Sacrament of Sick _x__ Supportive presence ___ Wedding ___ Other (describe below) Pastoral Comments
[2019-07-15] MEDS: 0.9% Saline Lock 10 ML Syringe IV (22:03)
[2019-07-16] VITALS (9 sets, daily range): BP systolic 107–121; BP diastolic 67–77; PULSE 88–100; RESP 16–18; TEMP 36.7–36.9; O2SAT 95–98
[2019-07-16] MEDS: Heparin Injection (Vial) 5,000 UNIT/ML VIAL 5000 UNIT SC ×3 (05:16→21:28)
--- NOTE | 2019-07-16 08:01 | PN_ITS ---
Patient Problems: Active and Suspected Problems (Last Reviewed 07/11/19 @ 22:[address] Carlton Frias MD) Diverticulitis of colon with perforation (Acute) Ileus (Acute) Reason for Visit: Follow-up sigmoid diabetic colitis Subjective: Postoperative day 3 following patient's surgery. Yet to have a bowel movement abdomen remains distended. Plan is to encourage ambulation and continue with current conservative management Case discussed with Dr. Soto. Objective: GENERAL: cooperative HEENT: Atraumatic; EYES; Anicteric, Normal Conjunctiva NECK; supple, normal thyroid, RESPIRATORY: Diminished to auscultation CARDIOVASCULAR: Regular S1 S2, GI: ISABELLE drain left flank abdomen slightly distended : No Renal angle tenderness; EXTREMITIES: No edema, no clubbing, MUSCULOSKELETAL: no muscle waisting NEURO: Awake; no lateralizing signs. SKIN: No Rash PSYCH; Flat affect Vitals/I&O's: Vital Signs Temp Pulse Resp BP Pulse Ox 98.5 F 88 16 121/77 H 97 07/16/19 06:48 07/16/19 06:48 07/16/19 06:48 07/16/19 06:48 07/16/19 06:48 Oxygen Flow Rate (L/min) 2 Oxygen Delivery Method Room Air Weight: 90 kg Body Mass Index (BMI) 30.0 Intake and Output for Last 24 Hours 07/14/19 07/15/19 07/16/19 23:59 23:59 23:59 Intake Total 4950.0 / 4950.0 3625.75 / 3625.75 1159.25 / 1159.25 Output Total 3935 / 3935 3975 / 3975 1305 / 1305 Balance 1015.0 / 1015.0 -349.25 / -349.25 -145.75 / -145.75 Microbiology Past 72 Hours 07/14/19 05:27 Blood Culture (Wb) - Right Forearm Blood Culture - Preliminary No growth in 48 hours. 07/14/19 05:20 Blood Culture (Wb) - Anticubital Right Blood Culture - Preliminary No growth in 48 hours. 07/13/19 13:48 Incision/Surgical Site Gram Stain - Final 07/13/19 13:48 Incision/Surgical Site Wound Culture - Preliminary No growth-Final to follow 07/13/19 13:48 Incision/Surgical Site Anaerobic Culture - Preliminary No growth in 48 hours. Laboratory Results 07/15/19 14:20: WBC 7.9, RBC 3.11 L, Hgb 10.1 L, Hct 30.6 L, MCV 98.4 H, MCH 32.5 H, MCHC 33.0, RDW Std Deviation 43.9, RDW Coeff of Igor 12.2, Plt Count 148 L, MPV 9.3, Immature Gran % (Auto) 1.400 H, Neut % (Auto) 74.4 H, Lymph % (Auto) 10.6 L, [place] % (Auto) 9.2, Eos % (Auto) 3.9, Baso % (Auto) 0.5, Absolute Neuts (auto) 5.9, Absolute Lymphs (auto) 0.84, Nucleated RBC % 0 07/15/19 14:20: Sodium 142, Potassium 3.0 L, Chloride 108 H, Carbon Dioxide 26.0, Anion Gap 8, BUN 6 L, Creatinine 1.15, Estim Creat Clear Calc 70.25, Est GFR (MDRD) Af Amer 86, Est GFR (MDRD) Non-Af 71, BUN/Creatinine Ratio 5.2 L, Glucose 139 H, Calcium 8.4 L, Total Bilirubin 0.30, AST 30, ALT 26, Alkaline Phosphatase 53, Total Protein 5.5 L, Albumin 2.1 L, Globulin 3.4, Albumin/Globulin Ratio 0.6 L Current Medications Acetaminophen (Tylenol) 650 mg RECTAL Q6H PRN PRN PRN Reason: TEMP > 102 Last Admin: 07/14/19 08:21 Dose: 650 mg Documented by: Al Hydroxide/Mg Hydroxide (Mylanta Ii) 30 ml PO Q6H PRN PRN PRN Reason: NAUSEA Diphenhydramine HCl (Benadryl) 12.5 - 25 mg IV Q6H PRN PRN PRN Reason: ITCHING Diphenhydramine HCl (Benadryl) 12.5 - 25 mg PO Q6H PRN PRN PRN Reason: Pruritis Glucagon () 1 mg IM .X1 PRN PRN Reason: Hypoglycemia Heparin Sodium (Porcine) (Heparin Na) 5,000 unit SC Q8 GET Last Admin: 07/16/19 05:16 Dose: 5,000 unit Documented by: Hydromorphone HCl (Dilaudid Sensor Operator) 20 mg IV UD [facility]; Protocol Last Admin: 07/15/19 18:35 Dose: Not Given Documented by: Valproic Acid 500 mg/ Dextrose 55 mls @ 50 mls/hr IV BID GET Last Infusion: 07/15/19 23:09 Dose: Infused Documented by: Dextrose (Dextrose 10%-Water) 250 mls @ 999 mls/hr IV .Q16M PRN; Protocol PRN Reason: HYPOGLYCEMIA Sodium Chloride () 250 mls @ 15 mls/hr IV .[id number] PRN PRN Reason: Saline Flush Last Infusion: 07/16/19 05:17 Dose: Infused Documented by: Sodium Chloride () 250 mls @ 15 mls/hr IV .[id number] PRN PRN Reason: Additional IVPB Infusion Last Infusion: 07/16/19 02:04 Dose: 15 mls/hr Documented by: Naloxone HCl 4 mg/ Dextrose 504 mls @ 0 mls/hr IV .Q0M PRN; Protocol PRN Reason: To maintain Resp. rate >10 Piperacillin Sod/Tazobactam (Sod 3.375 gm/ Sodium Chloride) 50 mls @ 12.5 mls/hr IV Q8 [facility] Last Admin: 07/16/19 05:17 Dose: 12.5 mls/hr Documented by: Pantoprazole Sodium 40 mg/ (Sodium Chloride) 110 mls @ 330 mls/hr IV Q24 [facility] Last Infusion: 07/15/19 12:36 Dose: Infused Documented by: Lorazepam (Ativan) 1 mg IV QHS [facility] Last Admin: 07/15/19 22:40 Dose: Not Given Documented by: Naloxone HCl (Narcan) 0.02 mg IV Q1M PRN PRN Reason: RR <10 and pt unresponsive Nicotine (Nicoderm Cq (Pbkc)) 21 mg TRANSDERM. DAILY [facility] Last Admin: 07/15/19 09:30 Dose: 21 mg Documented by: Nutritional Formula (Lactose Free) (Ensure Clear) 120 ml PO 4X/DAY [facility] Last Admin: 07/15/19 22:04 Dose: 120 ml Documented by: Ondansetron HCl (Zofran) 4 mg IV Q6H PRN PRN PRN Reason: NAUSEA/VOMITING Last Admin: 07/13/19 23:57 Dose: 4 mg Documented by: Potassium Chloride (K-Dur) 40 meq PO X1 ONE Stop: 07/16/19 08:01 Potassium Chloride (K-Dur) 20 meq PO BIDCM GET Prochlorperazine Edisylate (Compazine Iv) 5 mg IV Q6H PRN PRN PRN Reason: NAUSEA/VOMITING Last Admin: 07/13/19 22:54 Dose: 5 mg Documented by: Sodium Chloride () 10 - 40 ml IV UD PRN PRN Reason: SALINE FLUSH Last Admin: 07/15/19 22:03 Dose: 10 ml Documented by: STROKE Vital Signs/Narrative: Vital Signs Temp Pulse Resp BP Pulse Ox 07/16/19 06:48 98.5 F 88 16 121/77 H 97 07/16/19 06:47 96 Medical Necessity - Tobacco Use Smoking Status: Former smoker Tobacco Use: Chew Assessment/Plan All Active Problems (Last Reviewed 07/11/19 @ 22:[address] Carlton Frias MD) History of anxiety disorder (Acute) Diverticulitis of colon with perforation (Acute) Ileus (Acute) Patient is a 55-year-old gentleman admitted with abdominal pain diagnosed with acute sigmoid diverticulitis with perforation 1. Acute sigmoid diverticulitis with perforation, ?Patient admitted to regular nursing floor managed conservatively with consu ltation placed to general surgery. Patient has so far been on ciprofloxacin as well as metronidazole however condition is not improving. Plan therefore is for patient to undergo sigmoid resection, creation of colostomy on 07/13/2019 -Patient underwent sigmoid colectomy and Incidental appendectomy on 07/13/[address] Soto. Patient was found to have intra-abdominal purulent fluid ?07/15/2019; postoperative day 2 patient abdomen remains slightly distended. Patient admitted to passing some gas. ?07/16/2019 Postoperative day 3 following patient's surgery. Yet to have a bowel movement abdomen remains distended. Plan is to encourage ambulation and continue with current conservative management Case discussed with Dr. Soto. 2. Sepsis ?Secondary to severe peritonitis following patient sigmoid diverticulitis with perforation. Patient underwent above procedure. Was subsequently transferred to the intensive care unit managed with aggressive IV fluids broad-spectrum antibiotic therapy after cultures have been drawn. ?07/15/2019: T-max of approximately 4 hours 104.2. Results of cultures obtained still pending. Patient remains on broad-spectrum antibiotic therapy. 3. PTSD ?Treated with valproic acid as well as trazodone 4. Chronic kidney disease stage III ?Kidney function at baseline 5. Tobacco dependence - counseled on cessation, offered nicotine patch for tobacco cravings 6. DVT prophylaxis ?SC heparin 7. Hypokalemia -corrected per protocol Inpatient E&M: 12967 Subs Hosp L2
--- NOTE | 2019-07-16 08:29 | PN.SURG_ITS ---
Patient Problems: Active and Suspected Problems (Last Reviewed 07/11/19 @ 22:[address] Carlton Frias MD) Diverticulitis of colon with perforation (Acute) Ileus (Acute) Subjective: Patient still having some flatus. No bowel movements as of yet. Pain is better than it was yesterday. ISABELLE drain still having serous drainage only. Objective: Abdomen is very protuberant today. No rebound guarding or peritoneal signs are identified. - Physical Exam Vitals/I&O's: Vital Signs Temp Pulse Resp BP Pulse Ox 98.5 F 88 16 121/77 H 97 07/16/19 06:48 07/16/19 06:48 07/16/19 06:48 07/16/19 06:48 07/16/19 06:48 Oxygen Flow Rate (L/min) 2 Oxygen Delivery Method Room Air Weight: 198 lb 6.656 oz Body Mass Index (BMI) 30.0 Intake and Output for Last 24 Hours 07/14/19 07/15/19 07/16/19 23:59 23:59 23:59 Intake Total 4950.0 / 4950.0 3625.75 / 3625.75 1159.25 / 1159.25 Output Total 3935 / 3935 3975 / 3975 1305 / 1305 Balance 1015.0 / 1015.0 -349.25 / -349.25 -145.75 / -145.75 Microbiology Past 72 Hours 07/13/19 13:48 Incision/Surgical Site Gram Stain - Final 07/13/19 13:48 Incision/Surgical Site Wound Culture - Final No growth aerobically. 07/13/19 13:48 Incision/Surgical Site Anaerobic Culture - Preliminary No growth in 48 hours. 07/14/19 05:27 Blood Culture (Wb) - Right Forearm Blood Culture - Preliminary No growth in 48 hours. 07/14/19 05:20 Blood Culture (Wb) - Anticubital Right Blood Culture - Preliminary No growth in 48 hours. Laboratory Results 07/15/19 14:20: WBC 7.9, RBC 3.11 L, Hgb 10.1 L, Hct 30.6 L, MCV 98.4 H, MCH 32.5 H, MCHC 33.0, RDW Std Deviation 43.9, RDW Coeff of Igor 12.2, Plt Count 148 L, MPV 9.3, Immature Gran % (Auto) 1.400 H, Neut % (Auto) 74.4 H, Lymph % (Auto) 10.6 L, [place] % (Auto) 9.2, Eos % (Auto) 3.9, Baso % (Auto) 0.5, Absolute Neuts (auto) 5.9, Absolute Lymphs (auto) 0.84, Nucleated RBC % 0 07/15/19 14:20: Sodium 142, Potassium 3.0 L, Chloride 108 H, Carbon Dioxide 26.0, Anion Gap 8, BUN 6 L, Creatinine 1.15, Estim Creat Clear Calc 70.25, Est GFR (MDRD) Af Amer 86, Est GFR (MDRD) Non-Af 71, BUN/Creatinine Ratio 5.2 L, Glucose 139 H, Calcium 8.4 L, Total Bilirubin 0.30, AST 30, ALT 26, Alkaline Phosphatase 53, Total Protein 5.5 L, Albumin 2.1 L, Globulin 3.4, Albumin/Globulin Ratio 0.6 L Current Medications Acetaminophen (Tylenol) 650 mg RECTAL Q6H PRN PRN PRN Reason: TEMP > 102 Last Admin: 07/14/19 08:21 Dose: 650 mg Documented by: Al Hydroxide/Mg Hydroxide (Mylanta Ii) 30 ml PO Q6H PRN PRN PRN Reason: NAUSEA Diphenhydramine HCl (Benadryl) 12.5 - 25 mg IV Q6H PRN PRN PRN Reason: ITCHING Diphenhydramine HCl (Benadryl) 12.5 - 25 mg PO Q6H PRN PRN PRN Reason: Pruritis Glucagon () 1 mg IM .X1 PRN PRN Reason: Hypoglycemia Heparin Sodium (Porcine) (Heparin Na) 5,000 unit SC Q8 EGT Last Admin: 07/16/19 05:16 Dose: 5,000 unit Documented by: Hydromorphone HCl (Dilaudid Medical Communication Specialist) 20 mg IV UD GET; Protocol Last Admin: 07/15/19 18:35 Dose: Not Given Documented by: Valproic Acid 500 mg/ Dextrose 55 mls @ 50 mls/hr IV BID GET Last Infusion: 07/15/19 23:09 Dose: Infused Documented by: Dextrose (Dextrose 10%-Water) 250 mls @ 999 mls/hr IV .Q16M PRN; Protocol PRN Reason: HYPOGLYCEMIA Sodium Chloride () 250 mls @ 15 mls/hr IV .[id number] PRN PRN Reason: Saline Flush Last Infusion: 07/16/19 05:17 Dose: Infused Documented by: Sodium Chloride () 250 mls @ 15 mls/hr IV .[id number] PRN PRN Reason: Additional IVPB Infusion Last Infusion: 07/16/19 02:04 Dose: 15 mls/hr Documented by: Naloxone HCl 4 mg/ Dextrose 504 mls @ 0 mls/hr IV .Q0M PRN; Protocol PRN Reason: To maintain Resp. rate >10 Piperacillin Sod/Tazobactam (Sod 3.375 gm/ Sodium Chloride) 50 mls @ 12.5 mls/hr IV Q8 GET Last Admin: 07/16/19 05:17 Dose: 12.5 mls/hr Documented by: Pantoprazole Sodium 40 mg/ (Sodium Chloride) 110 mls @ 330 mls/hr IV Q24 GET Last Infusion: 07/15/19 12:36 Dose: Infused Documented by: Lorazepam (Ativan) 1 mg IV QHS [facility] Last Admin: 07/15/19 22:40 Dose: Not Given Documented by: Naloxone HCl (Narcan) 0.02 mg IV Q1M PRN PRN Reason: RR <10 and pt unresponsive Nicotine (Nicoderm Cq (Pbkc)) 21 mg TRANSDERM. DAILY GET Last Admin: 07/15/19 09:30 Dose: 21 mg Documented by: Nutritional Formula (Lactose Free) (Ensure Clear) 120 ml PO 4X/DAY [facility] Last Admin: 07/15/19 22:04 Dose: 120 ml Documented by: Ondansetron HCl (Zofran) 4 mg IV Q6H PRN PRN PRN Reason: NAUSEA/VOMITING Last Admin: 07/13/19 23:57 Dose: 4 mg Documented by: Potassium Chloride (K-Dur) 20 meq PO BIDCM [facility] Prochlorperazine Edisylate (Compazine Iv) 5 mg IV Q6H PRN PRN PRN Reason: NAUSEA/VOMITING Last Admin: 07/13/19 22:54 Dose: 5 mg Documented by: Sodium Chloride () 10 - 40 ml IV UD PRN PRN Reason: SALINE FLUSH Last Admin: 07/15/19 22:03 Dose: 10 ml Documented by: Medical Necessity - Tobacco Use Smoking Status: Former smoker Tobacco Use: Chew Assessment/Plan All Active Problems (Last Reviewed 07/11/19 @ 22:[address] Carlton Frias MD) History of anxiety disorder (Acute) Diverticulitis of colon with perforation (Acute) Ileus (Acute) Postop day #3 A lot of the same today. Up walking chewing ice. We will not advance his diet until we have more GI function noted.
[2019-07-16] MEDS: Ensure Clear 120 ML Liquid PO ×3 (13:29→21:26)
[2019-07-16 15:54] LABS: Anion Gap 7 (5-15); BUN 6 mg/dL (7-18); BUN/Creat Ratio 5.7 RATIO (10-20); Calcium,Total 8.5 mg/dL (8.5-10.1); Chloride 107 mmol/L (98-107); Creatinine, Serum 1.05 mg/dL (0.70-1.30); EST Glomerular Filtration Rate 79 mL/min (>60); Est Glom Filt Rate - Afr Amer 95 mL/min (>60); Estimated Creatinine Clearance 76.94 ml/min; Glucose 124 mg/dL (74-106); Magnesium 2.2 mg/dL (1.6-2.6); Potassium 3.6 mmol/L (3.5-5.1); Sodium Level 140 mmol/L (136-145)
[2019-07-16 17:00] LABS: Absolute Lymphocyte Count 1.17 X10^3/uL (0.83-4.51); Absolute Neutrophil Count 4.1 X10^3/uL (2.0-7.7); Basophil# 0.06 X10^3/uL; Basophil% 0.9 % (0-1); Eosinophil# 0.46 X10^3/uL; Eosinophils% 6.9 % (0-5); Hematocrit 32.2 % (40-54); Hemoglobin 10.8 g/dL (13.0-16.5); Lymphocyte # 1.17 X10^3/ul (4.0); Lymphocyte % 17.5 % (19-41); Mean Corp Hgb Conc 33.5 g/dL (32-36); Mean Corpuscular Hgb 32.9 pg (27.0-32.0); Mean Corpuscular Volume 98.2 fL (80-94); Mean Platelet Vol. 8.9 fl (6.2-12.0); Monocyte# 0.71 X10^3/uL; Monocyte% 10.6 % (0-10); NRBC Flagged by Analyzer 0 % (0-5); Neutrophil # 4.07 X10^3/uL (2.7-7.7); Neutrophil % 61.1 % (47-70); Platelet Count 193 K/mm3 (150-450); RBC Distribution Width CV 12.2 % (11.6-14.6); RBC Distribution Width SD 44.2 fl (35.1-43.9); Red Blood Count 3.28 M/mm3 (4.6-6.2); White Blood Count 6.7 K/mm3 (4.4-11.0)
[2019-07-16] MEDS: Divalproex Sodium 250 MG Tablet 500 MG PO (17:41)
[2019-07-16] MEDS: LORazepam 2 MG/ML Syringe 1 MG IV (21:25)
[2019-07-16] MEDS: 0.9% Saline Lock 10 ML Syringe IV (21:28)
[2019-07-17] VITALS (8 sets, daily range): BP systolic 102–118; BP diastolic 65–80; PULSE 87–100; RESP 16–20; TEMP 36.4–36.8; O2SAT 93–100
[2019-07-17] MEDS: Heparin Injection (Vial) 5,000 UNIT/ML VIAL 5000 UNIT SC ×3 (06:00→21:29)
[2019-07-17 06:37] LABS: Absolute Lymphocyte Count 0.97 X10^3/uL (0.83-4.51); Basophil# 0.05 X10^3/uL; Basophil% 0.8 % (0-1); Eosinophil# 0.43 X10^3/uL; Eosinophils% 6.6 % (0-5); Hemoglobin 9.7 g/dL (13.0-16.5); Lymphocyte # 0.97 X10^3/ul (4.0); Lymphocyte % 14.9 % (19-41); Mean Corp Hgb Conc 33.4 g/dL (32-36); Mean Corpuscular Hgb 32.9 pg (27.0-32.0); Mean Corpuscular Volume 98.3 fL (80-94); Mean Platelet Vol. 8.6 fl (6.2-12.0); Monocyte# 0.72 X10^3/uL; Monocyte% 11.1 % (0-10); NRBC Flagged by Analyzer 0 % (0-5); Neutrophil # 4.04 X10^3/uL (2.7-7.7); Platelet Count 178 K/mm3 (150-450); RBC Distribution Width CV 12.2 % (11.6-14.6); RBC Distribution Width SD 43.8 fl (35.1-43.9); Red Blood Count 2.95 M/mm3 (4.6-6.2); White Blood Count 6.5 K/mm3 (4.4-11.0)
[2019-07-17 07:00] LABS: Anion Gap 7 (5-15); BUN 9 mg/dL (7-18); BUN/Creat Ratio 8.7 RATIO (10-20); Calcium,Total 8.5 mg/dL (8.5-10.1); Chloride 105 mmol/L (98-107); Creatinine, Serum 1.03 mg/dL (0.70-1.30); EST Glomerular Filtration Rate 81 mL/min (>60); Est Glom Filt Rate - Afr Amer 97 mL/min (>60); Estimated Creatinine Clearance 78.44 ml/min; Glucose 113 mg/dL (74-106); Magnesium 2.3 mg/dL (1.6-2.6); Potassium 3.5 mmol/L (3.5-5.1); Sodium Level 141 mmol/L (136-145)
--- NOTE | 2019-07-17 07:45 | PN_ITS ---
Patient Problems: Active and Suspected Problems (Last Reviewed 07/11/19 @ 22:[address] Carlton Frias MD) Diverticulitis of colon with perforation (Acute) Ileus (Acute) Reason for Visit: sigmoid resection for acute sigmoid diverticulitis Subjective: Postoperative day 4 following sigmoid resection for acute sigmoid diverticulitis. Patient did have some bowel movement started on clear liquids which is currently been advanced. Objective: GENERAL: cooperative HEENT: Atraumatic; EYES; Anicteric, Normal Conjunctiva NECK; supple, normal thyroid, RESPIRATORY: Diminished to auscultation CARDIOVASCULAR: Regular S1 S2, GI: ISABELLE drain left flank abdomen slightly distended : No Renal angle tenderness; EXTREMITIES: No edema, no clubbing, MUSCULOSKELETAL: no muscle waisting NEURO: Awake; no lateralizing signs. SKIN: No Rash PSYCH; Flat affect Vitals/I&O's: Vital Signs Temp Pulse Resp BP Pulse Ox 98.1 F 92 17 111/66 94 07/17/19 04:25 07/17/19 04:25 07/17/19 05:56 07/17/19 04:25 07/17/19 05:56 Oxygen Flow Rate (L/min) 2 Oxygen Delivery Method Room Air Weight: 90.628 kg Body Mass Index (BMI) 30.0 Intake and Output for Last 24 Hours 07/15/19 07/16/19 07/17/19 23:59 23:59 23:59 Intake Total 3625.75 / 3625.75 2154.25 / 2154.25 850 / 850 Output Total 3975 / 3975 2565 / 2565 490 / 490 Balance -349.25 / -349.25 -410.75 / -410.75 360 / 360 Microbiology Past 72 Hours 07/13/19 13:48 Incision/Surgical Site Gram Stain - Final 07/13/19 13:48 Incision/Surgical Site Wound Culture - Final No growth aerobically. 07/13/19 13:48 Incision/Surgical Site Anaerobic Culture - Preliminary No growth in 48 hours. 07/14/19 05:27 Blood Culture (Wb) - Right Forearm Blood Culture - Preliminary No growth in 48 hours. 07/14/19 05:20 Blood Culture (Wb) - Anticubital Right Blood Culture - Preliminary No growth in 48 hours. Laboratory Results 07/16/19 15:13: WBC Cancelled, Corrected WBC Cancelled, RBC Cancelled, Hgb Cancelled, Hct Cancelled, MCV Cancelled, MCH Cancelled, MCHC Cancelled, RDW Std Deviation Cancelled, RDW Coeff of Igor Cancelled, Plt Count Cancelled, MPV Cancelled, Immature Gran % (Auto) Cancelled, Neut % (Auto) Cancelled, Lymph % (Auto) Cancelled, [place] % (Auto) Cancelled, Eos % (Auto) Cancelled, Baso % (Auto) Cancelled, Absolute Neuts (auto) Cancelled, Absolute Lymphs (auto) Cancelled, Total Counted Cancelled, Neutrophils % (Manual) Cancelled, Band Neutrophils % Cancelled, Lymphocytes % (Manual) Cancelled, Monocytes % (Manual) Cancelled, Eosinophils % (Manual) Cancelled, Basophils % (Manual) Cancelled, Metamyelocytes % Cancelled, Myelocytes % Cancelled, Promyelocytes % Cancelled, Blast Cells % Cancelled, Plasma Cell % (Manual) Cancelled, Other Cells % Cancelled, Nucleated RBC % Cancelled, Nucleated RBCs/100 WBC Cancelled, Differential Comment Cancelled, Diff Path Review Cancelled, Hypersegmented Neuts Cancelled, Atypical Lymphocytes Cancelled, Reactive Lymphocytes Cancelled, Smudge Cells Cancelled, Toxic Granulation Cancelled, Toxic Vacuolation Cancelled, Dohle Bodies Cancelled , Tre Rods Cancelled, Platelet Estimate Cancelled, Plt Morphology Comment Cancelled, RBC Morphology Cancelled, Polychromasia Cancelled, Hypochromasia Cancelled, Poikilocytosis Cancelled, Basophilic Stippling Cancelled, Anisocytosis Cancelled, Microcytosis Cancelled, Macrocytosis Cancelled, Spherocytes Cancelled, Sickle Cells Cancelled, Target Cells Cancelled, Tear Drop Cells Cancelled, Ovalocytes Cancelled, Stomatocytes Cancelled, [place] Bodies Cancelled, [place] Cells Cancelled, Bite Cells Cancelled, Crenated Cell Cancelled, Acanthocytes (Spur) Cancelled, Rouleaux Cancelled, Schistocytes Cancelled 07/16/19 15:13: Sodium 140, Potassium 3.6, Chloride 107, Carbon Dioxide 26.0, Anion Gap 7, BUN 6 L, Creatinine 1.05, Estim Creat Clear Calc 76.94, Est GFR (MDRD) Af Amer 95, Est GFR (MDRD) Non-Af 79, BUN/Creatinine Ratio 5.7 L, Glucose 124 H, Calcium 8.5, Magnesium 2.2 07/16/19 16:48: WBC 6.7, RBC 3.28 L, Hgb 10.8 L, Hct 32.2 L, MCV 98.2 H, MCH 32.9 H, MCHC 33.5, RDW Std Deviation 44.2 H, RDW Coeff of Igor 12.2, Plt Count 193, MPV 8.9, Immature Gran % (Auto) 3.000 H, Neut % (Auto) 61.1, Lymph % (Auto) 17.5 L, [place] % (Auto) 10.6 H, Eos % (Auto) 6.9 H, Baso % (Auto) 0.9, Absolute Neuts (auto) 4.1, Absolute Lymphs (auto) 1.17, Nucleated RBC % 0 07/17/19 06:30: WBC 6.5, RBC 2.95 L, Hgb 9.7 L, Hct 29.0 L, MCV 98.3 H, MCH 32.9 H, MCHC 33.4, RDW Std Deviation 43.8, RDW Coeff of Igor 12.2, Plt Count 178, MPV 8.6, Immature Gran % (Auto) 4.600 H, Neut % (Auto) 62.0, Lymph % (Auto) 14.9 L, [place] % (Auto) 11.1 H, Eos % (Auto) 6.6 H, Baso % (Auto) 0.8, Absolute Neuts (auto) 4.0, Absolute Lymphs (auto) 0.97, Nucleated RBC % 0 07/17/19 06:30: Sodium 141, Potassium 3.5, Chloride 105, Carbon Dioxide 29.0, Anion Gap 7, BUN 9, Creatinine 1.03, Estim Creat Clear Calc 78.44, Est GFR (MDRD) Af Amer 97, Est GFR (MDRD) Non-Af 81, BUN/Creatinine Ratio 8.7 L, Glucose 113 H, Calcium 8.5, Magnesium 2.3 Current Medications Acetaminophen (Tylenol) 650 mg RECTAL Q6H PRN PRN PRN Reason: TEMP > 102 Last Admin: 07/14/19 08:21 Dose: 650 mg Documented by: Al Hydroxide/Mg Hydroxide (Mylanta Ii) 30 ml PO Q6H PRN PRN PRN Reason: NAUSEA Diphenhydramine HCl (Benadryl) 12.5 - 25 mg IV Q6H PRN PRN PRN Reason: ITCHING Diphenhydramine HCl (Benadryl) 12.5 - 25 mg PO Q6H PRN PRN PRN Reason: Pruritis Divalproex Sodium (Depakote) 500 mg PO BIDCM [facility] Last Admin: 07/16/19 17:41 Dose: 500 mg Documented by: Glucagon () 1 mg IM .X1 PRN PRN Reason: Hypoglycemia Heparin Sodium (Porcine) (Heparin Na) 5,000 unit SC Q8 [facility] Last Admin: 07/17/19 06:00 Dose: 5,000 unit Documented by: Hydromorphone HCl (Dilaudid Traffic Enumerator) 20 mg IV UD [facility]; Protocol Last Admin: 07/16/19 17:23 Dose: Not Given Documented by: Dextrose (Dextrose 10%-Water) 250 mls @ 999 mls/hr IV .Q16M PRN; Protocol PRN Reason: HYPOGLYCEMIA Sodium Chloride () 250 mls @ 15 mls/hr IV .[id number] PRN PRN Reason: Saline Flush Last Infusion: 07/16/19 05:17 Dose: Infused Documented by: Sodium Chloride () 250 mls @ 15 mls/hr IV .[id number] PRN PRN Reason: Additional IVPB Infusion Last Infusion: 07/16/19 18:56 Dose: Infused Documented by: Naloxone HCl 4 mg/ Dextrose 504 mls @ 0 mls/hr IV .Q0M PRN; Protocol PRN Reason: To maintain Resp. rate >10 Piperacillin Sod/Tazobactam (Sod 3.375 gm/ Sodium Chloride) 50 mls @ 12.5 mls/hr IV Q8 [facility] Last Admin: 07/17/19 05:59 Dose: 12.5 mls/hr Documented by: Pantoprazole Sodium 40 mg/ (Sodium Chloride) 110 mls @ 330 mls/hr IV Q24 [facility] Last Infusion: 07/16/19 12:49 Dose: Infused Documented by: Lorazepam (Ativan) 1 mg IV QHS [facility] Last Admin: 07/16/19 21:25 Dose: 1 mg Documented by: Naloxone HCl (Narcan) 0.02 mg IV Q1M PRN PRN Reason: RR <10 and pt unresponsive Nicotine Polacrilex ([place] Nicotine (Pbkc)) 4 mg PO Q2H PRN PRN PRN Reason: SMOKING CESSATION Last Admin: 07/17/19 04:21 Dose: 4 mg Documented by: Nutritional Formula (Lactose Free) (Ensure Clear) 120 ml PO 4X/DAY [facility] Last Admin: 07/16/19 21:26 Dose: 120 ml Documented by: Ondansetron HCl (Zofran) 4 mg IV Q6H PRN PRN PRN Reason: NAUSEA/VOMITING Last Admin: 07/13/19 23:57 Dose: 4 mg Documented by: Potassium Chloride (K-Dur) 20 meq PO BIDCM GET Last Admin: 07/16/19 16:44 Dose: 20 meq Documented by: Prochlorperazine Edisylate (Compazine Iv) 5 mg IV Q6H PRN PRN PRN Reason: NAUSEA/VOMITING Last Admin: 07/13/19 22:54 Dose: 5 mg Documented by: Sodium Chloride () 10 - 40 ml IV UD PRN PRN Reason: SALINE FLUSH Last Admin: 07/16/19 21:28 Dose: 10 ml Documented by: STROKE Vital Signs/Narrative: Vital Signs Temp Pulse Resp BP Pulse Ox 07/17/19 05:56 17 94 07/17/19 04:25 98.1 F 92 17 111/66 96 Medical Necessity - Tobacco Use Smoking Status: Former smoker Tobacco Use: Chew Assessment/Plan All Active Problems (Last Reviewed 07/11/19 @ 22:[address] Carlton Frias MD) History of anxiety disorder (Acute) Diverticulitis of colon with perforation (Acute) Ileus (Acute) Patient is a 55-year-old gentleman admitted with abdominal pain diagnosed with acute sigmoid diverticulitis with perforation 1. Acute sigmoid diverticulitis with perforation, ?Patient admitted to regular nursing floor managed conservatively with consultation placed to general surgery. Patient has so far been on ciprofloxacin as well as metronidazole however condition is not improving. Plan therefore is for patient to undergo sigmoid resection, creation of colostomy on 07/13/2019 -Patient underwent sigmoid colectomy and Incidental appendectomy on 07/13/[address] Soto. Patient was found to have intra-abdominal purulent fluid ?07/15/2019; postoperative day 2 patient abdomen remains slightly distended. Patient admitted to passing some gas. ?07/16/2019 Postoperative day 3 following patient's surgery. Yet to have a bowel movement abdomen remains distended. Plan is to encourage ambulation and continue with current conservative management Case discussed with Dr. Soto. ?07/17/2019 postoperative day 4 following sigmoid resection for acute sigmoid diverticulitis. Patient did have some bowel movement started on clear liquids which is currently been advanced. 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 Sepsis ?Secondary to severe peritonitis following patient sigmoid diverticulitis with perforation. Patient underwent above procedure. Was subsequently transferred to the intensive care unit managed with aggressive IV fluids broad-spectrum antibiotic therapy after cultures have been drawn. ?07/15/2019: T-max of approximately 4 hours 104.2. Results of cultures obtained still pending. Patient remains on broad-spectrum antibiotic therapy. ?07/17/2019; cultures have remained negative to date. 3. PTSD ?Treated with valproic acid as well as trazodone 4. Chronic kidney disease stage III ?Kidney function at baseline 5. Tobacco dependence - counseled on cessation, offered nicotine patch for tobacco cravings 6. DVT prophylaxis ?SC heparin 7. Hypokalemia -corrected per protocol Inpatient E&M: 22089 Subs Hosp L2
[2019-07-17] MEDS: Divalproex Sodium 250 MG Tablet 500 MG PO ×2 (08:19→17:39)
[2019-07-17] MEDS: Ensure Clear 120 ML Liquid PO ×4 (11:02→21:30)
--- NOTE | 2019-07-17 12:04 | NURSING ---
medication wasted with Basilia Page Rn
--- NOTE | 2019-07-17 12:15 | NURSING ---
moved to [facility] 126 d/t [facility] closing
[2019-07-17] MEDS: oxyCODONE 5 MG Tablet 10 MG PO ×2 (13:07→20:16)
--- NOTE | 2019-07-17 13:28 | PCM.PN.SRG ---
Patient Problems: Active and Suspected Problems (Last Reviewed 07/11/19 @ 22:[address] Carlton Frias MD) Diverticulitis of colon with perforation (Acute) Ileus (Acute) Subjective: Patient is only really had one small bowel movement. Still feels slightly distended. His pain is better and I think will be able to get him off his [employer] pump today. Objective: Abdomen is distended but less so than yesterday. Dressing is still dry ISABELLE drain is still in place but the drainage amount has been significantly less it still remains serous only - Physical Exam Vitals/I&O's: Vital Signs Temp Pulse Resp BP Pulse Ox 98.3 F 100 18 118/65 98 07/17/19 12:34 07/17/19 12:34 07/17/19 12:34 07/17/19 12:34 07/17/19 12:34 Oxygen Flow Rate (L/min) 2 Oxygen Delivery Method Room Air Weight: 199 lb 12.808 oz Body Mass Index (BMI) 30.0 Intake and Output for Last 24 Hours 07/15/19 07/16/19 07/17/19 23:59 23:59 23:59 Intake Total 3625.75 / 3625.75 2154.25 / 2154.25 1490.0 / 1490.0 Output Total 3975 / 3975 2565 / 2565 490 / 490 Balance -349.25 / -349.25 -410.75 / -410.75 1000.0 / 1000.0 Microbiology Past 72 Hours 07/13/19 13:48 Incision/Surgical Site Gram Stain - Final 07/13/19 13:48 Incision/Surgical Site Wound Culture - Final No growth aerobically. 07/13/19 13:48 Incision/Surgical Site Anaerobic Culture - Preliminary No growth in 48 hours. 07/14/19 05:27 Blood Culture (Wb) - Right Forearm Blood Culture - Preliminary No growth in 48 hours. 07/14/19 05:20 Blood Culture (Wb) - Anticubital Right Blood Culture - Preliminary No growth in 48 hours. Laboratory Results 07/16/19 15:13: WBC Cancelled, Corrected WBC Cancelled, RBC Cancelled, Hgb Cancelled, Hct Cancelled, MCV Cancelled, MCH Cancelled, MCHC Cancelled, RDW Std Deviation Cancelled, RDW Coeff of Igor Cancelled, Plt Count Cancelled, MPV Cancelled, Immature Gran % (Auto) Cancelled, Neut % (Auto) Cancelled, Lymph % (Auto) Cancelled, Simpson % (Auto) Cancelled, Eos % (Auto) Cancelled, Baso % (Auto) Cancelled, Absolute Neuts (auto) Cancelled, Absolute Lymphs (auto) Cancelled, Total Counted Cancelled, Neutrophils % (Manual) Cancelled, Band Neutrophils % Cancelled, Lymphocytes % (Manual) Cancelled, Monocytes % (Manual) Cancelled, Eosinophils % (Manual) Cancelled, Basophils % (Manual) Cancelled, Metamyelocytes % Cancelled, Myelocytes % Cancelled, Promyelocytes % Cancelled, Blast Cells % Cancelled, Plasma Cell % (Manual) Cancelled, Other Cells % Cancelled, Nucleated RBC % Cancelled, Nucleated RBCs/100 WBC Cancelled, Differential Comment Cancelled, Diff Path Review Cancelled, Hypersegmented Neuts Cancelled, Atypical Lymphocytes Cancelled, Reactive Lymphocytes Cancelled, Smudge Cells Cancelled, Toxic Granulation Cancelled, Toxic Vacuolation Cancelled, Dohle Bodies Cancelled, Tre Rods Cancelled, Platelet Estimate Cancelled, Plt Morphology Comment Cancelled, RBC Morphology Cancelled, Polychromasia Cancelled, Hypochromasia Cancelled, Poikilocytosis Cancelled, Basophilic Stippling Cancelled, Anisocytosis Cancelled, Microcytosis Cancelled, Macrocytosis Cancelled, Spherocytes Cancelled, Sickle Cells Cancelled, Target Cells Cancelled, Tear Drop Cells Cancelled, Ovalocytes Cancelled, Stomatocytes Cancelled, [place] Bodies Cancelled, Bill Cells Cancelled, Bite Cells Cancelled, Crenated Cell Cancelled, Acanthocytes (Spur) Cancelled, Rouleaux Cancelled, Schistocytes Cancelled 07/16/19 15:13: Sodium 140, Potassium 3.6, Chloride 107, Carbon Dioxide 26.0, Anion Gap 7, BUN 6 L, Creatinine 1.05, Estim Creat Clear Calc 76.94, Est GFR (MDRD) Af Amer 95, Est GFR (MDRD) Non-Af 79, BUN/Creatinine Ratio 5.7 L, Glucose 124 H, Calcium 8.5, Magnesium 2.2 07/16/19 16:48: WBC 6.7, RBC 3.28 L, Hgb 10.8 L, Hct 32.2 L, MCV 98.2 H, MCH 32.9 H, MCHC 33.5, RDW Std Deviation 44.2 H, RDW Coeff of Igor 12.2, Plt Count 193, MPV 8.9, Immature Gran % (Auto) 3.000 H, Neut % (Auto) 61.1, Lymph % (Auto) 17.5 L, Simpson % (Auto) 10.6 H, Eos % (Auto) 6.9 H, Baso % (Auto) 0.9, Absolute Neuts (auto) 4.1, Absolute Lymphs (auto) 1.17, Nucleated RBC % 0 07/17/19 06:30: WBC 6.5, RBC 2.95 L, Hgb 9.7 L, Hct 29.0 L, MCV 98.3 H, MCH 32.9 H, MCHC 33.4, RDW Std Deviation 43.8, RDW Coeff of Igor 12.2, Plt Count 178, MPV 8.6, Immature Gran % (Auto) 4.600 H, Neut % (Auto) 62.0, Lymph % (Auto) 14.9 L, Simpson % (Auto) 11.1 H, Eos % (Auto) 6.6 H, Baso % (Auto) 0.8, Absolute Neuts (auto) 4.0, Absolute Lymphs (auto) 0.97, Nucleated RBC % 0 07/17/19 06:30: Sodium 141, Potassium 3.5, Chloride 105, Carbon Dioxide 29.0, Anion Gap 7, BUN 9, Creatinine 1.03, Estim Creat Clear Calc 78.44, Est GFR (MDRD) Af Amer 97, Est GFR (MDRD) Non-Af 81, BUN/Creatinine Ratio 8.7 L, Glucose 113 H, Calcium 8.5, Magnesium 2.3 Current Medications Acetaminophen (Tylenol) 650 mg RECTAL Q6H PRN PRN PRN Reason: TEMP > 102 Last Admin: 07/14/19 08:21 Dose: 650 mg Documented by: Al Hydroxide/Mg Hydroxide (Mylanta Ii) 30 ml PO Q6H PRN PRN PRN Reason: NAUSEA Diphenhydramine HCl (Benadryl) 12.5 - 25 mg IV Q6H PRN PRN PRN Reason: ITCHING Diphenhydramine HCl (Benadryl) 12.5 - 25 mg PO Q6H PRN PRN PRN Reason: Pruritis Divalproex Sodium (Depakote) 500 mg PO BIDCM COUNT INCLUDES THE [facility] Last Admin: 07/17/19 08:19 Dose: 500 mg Documented by: Glucagon () 1 mg IM .X1 PRN PRN Reason: Hypoglycemia Heparin Sodium (Porcine) (Heparin Na) 5,000 unit SC Q8 COUNT INCLUDES THE [facility] Last Admin: 07/17/19 13:07 Dose: 5,000 unit Documented by: Dextrose (Dextrose 10%-Water) 250 mls @ 999 mls/hr IV .Q16M PRN; Protocol PRN Reason: HYPOGLYCEMIA Sodium Chloride () 250 mls @ 15 mls/hr IV .[id number] PRN PRN Reason: Saline Flush Last Infusion: 07/16/19 05:17 Dose: Infused Documented by: Sodium Chloride () 250 mls @ 15 mls/hr IV .[id number] PRN PRN Reason: Additional IVPB Infusion Last Infusion: 07/16/19 18:56 Dose: Infused Documented by: Naloxone HCl 4 mg/ Dextrose 504 mls @ 0 mls/hr IV .Q0M PRN; Protocol PRN Reason: To maintain Resp. rate >10 Piperacillin Sod/Tazobactam (Sod 3.375 gm/ Sodium Chloride) 50 mls @ 12.5 mls/hr IV Q8 COUNT INCLUDES THE [facility] Last Admin: 07/17/19 13:18 Dose: 12.5 mls/hr Documented by: Ibuprofen (Motrin) 800 mg PO Q8H PRN PRN PRN Reason: Pain Score 1-10/10 Lorazepam (Ativan) 1 mg IV QHS COUNT INCLUDES THE [facility] Last Admin: 07/16/19 21:25 Dose: 1 mg Documented by: Naloxone HCl (Narcan) 0.02 mg IV Q1M PRN PRN Reason: RR <10 and pt unresponsive Nicotine Polacrilex (Rugby Nicotine (Pbkc)) 4 mg PO Q2H PRN PRN PRN Reason: SMOKING CESSATION Last Admin: 07/17/19 13:24 Dose: 4 mg Documented by: Nutritional Formula (Lactose Free) (Ensure Clear) 120 ml PO 4X/DAY COUNT INCLUDES THE [facility] Last Admin: 07/17/19 13:07 Dose: 120 ml Documented by: Ondansetron HCl (Zofran) 4 mg IV Q6H PRN PRN PRN Reason: NAUSEA/VOMITING Last Admin: 07/13/19 23:57 Dose: 4 mg Documented by: Oxycodone HCl (Oxyir) 10 mg PO Q6H PRN PRN PRN Reason: Pain Score 6-10/10 Last Admin: 07/17/19 13:07 Dose: 10 mg Documented by: Pantoprazole Sodium (Protonix) 40 mg PO DAILY GET Potassium Chloride (K-Dur) 20 meq PO BIDCM GET Last Admin: 07/17/19 08:19 Dose: 20 meq Documented by: Prochlorperazine Edisylate (Compazine Iv) 5 mg IV Q6H PRN PRN PRN Reason: NAUSEA/VOMITING Last Admin: 07/13/19 22:54 Dose: 5 mg Documented by: Sodium Chloride () 10 - 40 ml IV UD PRN PRN Reason: SALINE FLUSH Last Admin: 07/16/19 21:28 Dose: 10 ml Documented by: Medical Necessity - Tobacco Use Smoking Status: Former smoker Tobacco Use: Chew Assessment/Plan All Active Problems (Last Reviewed 07/11/19 @ 22:[address] Carlton Frias MD) History of anxiety disorder (Acute) Diverticulitis of colon with perforation (Acute) Ileus (Acute) Postop day #4 We will switch him over to p.o. pain medication. Tomorrow I will remove the drain and most likely discharge him. Hopefully he will not need to go home on antibiotics.
[2019-07-17] MEDS: Ibuprofen 400 MG Tablet 800 MG PO (14:41)
[2019-07-17] MEDS: LORazepam 2 MG/ML Syringe 1 MG IV (21:30)
[2019-07-17] MEDS: Ondansetron 4 MG/2 ML Vial IV (21:38)
[2019-07-18 00:30] VITALS: BP 112/68; PULSE 87; RESP 16; TEMP 36.5; O2SAT 96
[2019-07-18] MEDS: Ibuprofen 400 MG Tablet 800 MG PO (00:47)
[2019-07-18] MEDS: Heparin Injection (Vial) 5,000 UNIT/ML VIAL 5000 UNIT SC (05:12)
[2019-07-18] MEDS: oxyCODONE 5 MG Tablet 10 MG PO ×2 (05:18→09:26)
[2019-07-18 06:18] VITALS: BP 104/67; PULSE 86; RESP 18; TEMP 36.4; O2SAT 97
[2019-07-18 07:04] LABS: Absolute Lymphocyte Count 1.49 X10^3/uL (0.83-4.51); Absolute Neutrophil Count 3.8 X10^3/uL (2.0-7.7); Basophil# 0.04 X10^3/uL; Basophil% 0.6 % (0-1); Eosinophil# 0.39 X10^3/uL; Eosinophils% 5.8 % (0-5); Hematocrit 31.3 % (40-54); Hemoglobin 10.5 g/dL (13.0-16.5); Lymphocyte # 1.49 X10^3/ul (4.0); Lymphocyte % 22.3 % (19-41); Mean Corp Hgb Conc 33.5 g/dL (32-36); Mean Corpuscular Hgb 32.6 pg (27.0-32.0); Mean Corpuscular Volume 97.2 fL (80-94); Mean Platelet Vol. 8.8 fl (6.2-12.0); Monocyte# 0.69 X10^3/uL; Monocyte% 10.3 % (0-10); NRBC Flagged by Analyzer 0 % (0-5); Neutrophil # 3.75 X10^3/uL (2.7-7.7); Neutrophil % 56.1 % (47-70); Platelet Count 232 K/mm3 (150-450); RBC Distribution Width CV 12.1 % (11.6-14.6); RBC Distribution Width SD 42.5 fl (35.1-43.9); Red Blood Count 3.22 M/mm3 (4.6-6.2); White Blood Count 6.7 K/mm3 (4.4-11.0)
[2019-07-18 07:24] LABS: Anion Gap 8 (5-15); BUN 10 mg/dL (7-18); BUN/Creat Ratio 9.3 RATIO (10-20); Calcium,Total 8.5 mg/dL (8.5-10.1); Chloride 106 mmol/L (98-107); Creatinine, Serum 1.07 mg/dL (0.70-1.30); EST Glomerular Filtration Rate 77 mL/min (>60); Est Glom Filt Rate - Afr Amer 93 mL/min (>60); Glucose 98 mg/dL (74-106); Magnesium 2.4 mg/dL (1.6-2.6); Sodium Level 140 mmol/L (136-145)
--- NOTE | 2019-07-18 07:25 | PN_ITS ---
Patient Problems: Active and Suspected Problems (Last Reviewed 07/11/19 @ 22:[address] Carlton Frias MD) Diverticulitis of colon with perforation (Acute) Ileus (Acute) Objective: GENERAL: cooperative HEENT: Atraumatic; EYES; Anicteric, Normal Conjunctiva NECK; supple, normal thyroid, RESPIRATORY: Diminished to auscultation CARDIOVASCULAR: Regular S1 S2, GI: ISABELLE drain left flank abdomen slightly distended : No Renal angle tenderness; EXTREMITIES: No edema, no clubbing, MUSCULOSKELETAL: no muscle waisting NEURO: Awake; no lateralizing signs. SKIN: No Rash PSYCH; Flat affect Vitals/I&O's: Vital Signs Temp Pulse Resp BP Pulse Ox 97.5 F L 86 18 104/67 97 07/18/19 06:18 07/18/19 06:18 07/18/19 06:18 07/18/19 06:18 07/18/19 06:18 Oxygen Flow Rate (L/min) 2 Oxygen Delivery Method Room Air Weight: 90.8 kg Body Mass Index (BMI) 30.0 Intake and Output for Last 24 Hours 07/16/19 07/17/19 07/18/19 23:59 23:59 23:59 Intake Total 2154.25 / 2154.25 1540.0 / 1540.0 50 / 50 Output Total 2565 / 2565 520 / 520 50 / 50 Balance -410.75 / -410.75 1020.0 / 1020.0 0 / 0 Microbiology Past 72 Hours 07/13/19 13:48 Incision/Surgical Site Gram Stain - Final 07/13/19 13:48 Incision/Surgical Site Wound Culture - Final No growth aerobically. 07/13/19 13:48 Incision/Surgical Site Anaerobic Culture - Preliminary No growth in 48 hours. 07/14/19 05:27 Blood Culture (Wb) - Right Forearm Blood Culture - Preliminary No growth in 48 hours. 07/14/19 05:20 Blood Culture (Wb) - Anticubital Right Blood Culture - Preliminary No growth in 48 hours. Laboratory Results 07/18/19 06:50: WBC 6.7, RBC 3.22 L, Hgb 10.5 L, Hct 31.3 L, MCV 97.2 H, MCH 32.6 H, MCHC 33.5, RDW Std Deviation 42.5, RDW Coeff of Igor 12.1, Plt Count 232, MPV 8.8, Immature Gran % (Auto) 4.900 H, Neut % (Auto) 56.1, Lymph % (Auto) 22.3, [place] % (Auto) 10.3 H, Eos % (Auto) 5.8 H, Baso % (Auto) 0.6, Absolute Neuts (auto) 3.8, Absolute Lymphs (auto) 1.49, Nucleated RBC % 0 07/18/19 06:50: Sodium 140, Potassium 4.0, Chloride 106, Carbon Dioxide 26.0, Anion Gap 8, BUN 10, Creatinine 1.07, Estim Creat Clear Calc 75.50, Est GFR (MDRD) Af Amer 93, Est GFR (MDRD) Non-Af 77, BUN/Creatinine Ratio 9.3 L, Glucose 98, Calcium 8.5, Magnesium 2.4 Current Medications Acetaminophen (Tylenol) 650 mg RECTAL Q6H PRN PRN PRN Reason: TEMP > 102 Last Admin: 07/14/19 08:21 Dose: 650 mg Documented by: Al Hydroxide/Mg Hydroxide (Mylanta Ii) 30 ml PO Q6H PRN PRN PRN Reason: NAUSEA Diphenhydramine HCl (Benadryl) 12.5 - 25 mg IV Q6H PRN PRN PRN Reason: ITCHING Diphenhydramine HCl (Benadryl) 12.5 - 25 mg PO Q6H PRN PRN PRN Reason: Pruritis Divalproex Sodium (Depakote) 500 mg PO BIDCM [facility] Last Admin: 07/17/19 17:39 Dose: 500 mg Documented by: Glucagon () 1 mg IM .X1 PRN PRN Reason: Hypoglycemia Heparin Sodium (Porcine) (Heparin Na) 5,000 unit SC Q8 [facility] Last Admin: 07/18/19 05:12 Dose: 5,000 unit Documented by: Dextrose (Dextrose 10%-Water) 250 mls @ 999 mls/hr IV .Q16M PRN; Protocol PRN Reason: HYPOGLYCEMIA Sodium Chloride () 250 mls @ 15 mls/hr IV .[id number] PRN PRN Reason: Saline Flush Last Infusion: 07/16/19 05:17 Dose: Infused Documented by: Sodium Chloride () 250 mls @ 15 mls/hr IV .[id number] PRN PRN Reason: Additional IVPB Infusion Last Infusion: 07/16/19 18:56 Dose: Infused Documented by: Naloxone HCl 4 mg/ Dextrose 504 mls @ 0 mls/hr IV .Q0M PRN; Protocol PRN Reason: To maintain Resp. rate >10 Piperacillin Sod/Tazobactam (Sod 3.375 gm/ Sodium Chloride) 50 mls @ 12.5 mls/hr IV Q8 [facility] Last Admin: 07/18/19 05:12 Dose: 12.5 mls/hr Documented by: Ibuprofen (Motrin) 800 mg PO Q8H PRN PRN PRN Reason: Pain Score 1-10/10 Last Admin: 07/18/19 00:47 Dose: 800 mg Documented by: Lorazepam (Ativan) 1 mg IV QHS [facility] Last Admin: 07/17/19 21:30 Dose: 1 mg Documented by: Naloxone HCl (Narcan) 0.02 mg IV Q1M PRN PRN Reason: RR <10 and pt unresponsive Nicotine Polacrilex (Rugby Nicotine (Pbkc)) 4 mg PO Q2H PRN PRN PRN Reason: SMOKING CESSATION Last Admin: 07/18/19 06:30 Dose: 4 mg Documented by: Nutritional Formula (Lactose Free) (Ensure Clear) 120 ml PO 4X/DAY [facility] Last Admin: 07/17/19 21:30 Dose: 120 ml Documented by: Ondansetron HCl (Zofran) 4 mg IV Q6H PRN PRN PRN Reason: NAUSEA/VOMITING Last Admin: 07/17/19 21:38 Dose: 4 mg Documented by: Oxycodone HCl (Oxyir) 10 mg PO Q6H PRN PRN PRN Reason: Pain Score 6-10/10 Last Admin: 07/18/19 05:18 Dose: 10 mg Documented by: Pantoprazole Sodium (Protonix) 40 mg PO DAILY [facility] Potassium Chlor[facility] ([facility]Dur[facility] Last Admin: 07/17/19 17:39 Dose: 20 meq Documented by: Prochlorperazine Edisylate (Compazine Iv) 5 mg IV Q6H PRN PRN PRN Reason: NAUSEA/VOMITING Last Admin: 07/13/19 22:54 Dose: 5 mg Documented by: Sodium Chloride () 10 - 40 ml IV UD PRN PRN Reason: SALINE FLUSH Last Admin: 07/16/19 21:28 Dose: 10 ml Documented by: STROKE Vital Signs/Narrative: Vital Signs Temp Pulse Resp BP Pulse Ox 07/18/19 06:18 97.5 F L 86 18 104/67 97 Medical Necessity - Tobacco Use Smoking Status: Former smoker Tobacco Use: Chew Assessment/Plan All Active Problems (Last Reviewed 07/11/19 @ 22:[address] Carlton Frias MD) History of anxiety disorder (Acute) Diverticulitis of colon with perforation (Acute) Ileus (Acute) Patient is a 55-year-old gentleman admitted with abdominal pain diagnosed with acute sigmoid diverticulitis with perforation 1. Acute sigmoid diverticulitis with perforation, ?Patient admitted to regular nursing floor managed conservatively with consultation placed to general surgery. Patient has so far been on ciprofloxacin as well as metronidazole however condition is not improving. Plan therefore is for patient to undergo sigmoid resection, creation of colostomy on 07/13/2019 -Patient underwent sigmoid colectomy and Incidental appendectomy on 07/13/[address] Soto. Patient was found to have intra-abdominal purulent fluid ?07/15/2019; postoperative day 2 patient abdomen remains slightly distended. Patient admitted to passing some gas. ?07/16/2019 Postoperative day 3 following patient's surgery. Yet to have a bowel movement abdomen remains distended. Plan is to encourage ambulation and continue with current conservative management Case discussed with Dr. Soto. ?07/17/2019 postoperative day 4 following sigmoid resection for acute sigmoid diverticulitis. Patient did have some bowel movement started on clear liquids which is currently been advanced. 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 Sepsis ?Secondary to severe peritonitis following patient sigmoid diverticulitis with perforation. Patient underwent above procedure. Was subsequently transferred to the intensive care unit managed with aggressive IV fluids broad-spectrum antibiotic therapy after cultures have been drawn. ?07/15/2019: T-max of approximately 4 hours 104.2. Results of cultures obtained still pending. Patient remains on broad-spectrum antibiotic therapy. ?07/17/2019; cultures have remained negative to date. 3. PTSD ?Treated with valproic acid as well as trazodone 4. Chronic kidney disease stage III ?Kidney function at baseline 5. Tobacco dependence - counseled on cessation, offered nicotine patch for tobacco cravings 6. DVT prophylaxis ?SC heparin 7. Hypokalemia -corrected per protocol
--- NOTE | 2019-07-18 08:00 | DCINST_ITS ---
Discharge Diet: Light diet - advance as tolerated - If you have questions about your diet instructions, please talk to your doctor. Discharge Activity: May Not Drive - for 1 week or while taking narcotic pain medicine. May shower in (days): 1 Lifting Restrictions: 10 pounds Call your doctor if your incision/area has: Continuous Slow Oozing, Sudden Increased Bleeding, Increased Pain/ Swelling, Increased Redness, Foul Smelling Discharge Call your doctor if you observe: Fever of 101 or Higher Suture Line Care: Avoid Pulling/Pushing, Avoid Pinching/Bending Additional Dressing/Incision Instructions:: Change or remove dressing in 4 days. Leave steri-strips in place for 1 week. Allergies/Adverse Reactions: Allergies No Known Allergies Allergy (Verified 07/11/19 18:45) Medications to take at Discharge Divalproex Sodium 500 mg PO BID 07/19/18 Docusate Sodium [Stool Softener] 50 mg PO DAILY PRN 07/19/18 traZODone [Desyrel] 200 mg PO QHS 03/25/19 Oxycodone [Oxyir] 10 mg PO Q6H PRN PRN 6 Days #30 tablet 07/18/19 The following prescriptions were given: Oxycodone [Oxyir] 10 mg PO Q6H PRN PRN 6 Days #30 tablet PRN Reason: Pain Or Fever Transmission Status: Received by [facility]/pharmacy #[id number] Primary Care Physician: Jim Martinez Chi, MD [Primary Care Provider] - Test Results: Test results from this visit will be discussed in further detail at your follow- up appointment, if applicable. Please Follow Up With: Doug Soto MD - [phone] When: Call to make an appointment to be seen in about 10 days.
[2019-07-18 08:20] VITALS: BP 114/65; PULSE 89; RESP 18; TEMP 36.4; O2SAT 96
[2019-07-18] MEDS: Pantoprazole Sodium 40 MG Tablet PO (08:29)
[2019-07-18] MEDS: Divalproex Sodium 250 MG Tablet 500 MG PO (08:30)
--- NOTE | 2019-07-18 08:39 | PCM.DC ---
- Discharge Diagnoses Current Active Problems: Current Active and Chronic Problems (Last Reviewed 07/11/19 @ 22:[address] Carlton Frias MD) Diverticulitis of colon with perforation (Acute) Ileus (Acute) PTSD (post-traumatic stress disorder) (Chronic) You will use the following diet at home:: Other - Light diet-advance as tolerated. Discharge Activity: May Not Drive - for 1 week or while taking narcotic pain medicine. May shower in (days): 1 Call your doctor if your incision/area has: Continuous Slow Oozing, Sudden Increased Bleeding, Increased Pain/ Swelling, Increased Redness, Foul Smelling Discharge Call your doctor if you observe: Fever of 101 or Higher Suture Line Care: Avoid Pulling/Pushing, Avoid Pinching/Bending Additional Dressing/Incision Instructions:: Change or remove dressing in 4 days. Leave steri-strips in place for 1 week. Allergies/Adverse Reactions: Allergies No Known Allergies Allergy (Verified 07/11/19 18:45) Medications to take at Discharge Divalproex Sodium 500 mg PO BID 07/19/18 Docusate Sodium [Stool Softener] 50 mg PO DAILY PRN 07/19/18 traZODone [Desyrel] 200 mg PO QHS 03/25/19 Oxycodone [Oxyir] 10 mg PO Q6H PRN PRN 6 Days #30 tab 07/18/19 The following prescriptions were given: Oxycodone [Oxyir] 10 mg PO Q6H PRN PRN 6 Days #30 tab PRN Reason: Pain Or Fever Transmission Status: Received by [facility]/pharmacy #[id number] Primary Care Physician: Jim Martinez Chi, MD [Primary Care Provider] - Please follow up with your Primary Care Physician in: 1 Week Test Results: Test results from this visit will be discussed in further detail at your follow-up appointment, if applicable. Please Follow Up With: Doug Soto MD - [phone] When: Call to make an appointment to be seen in about 10 days. Proposed Discharge Date: 07/18/19
--- NOTE | 2019-07-18 08:42 | DS.PCM_ITS ---
<Mariam Burden - Last Filed: 07/18/19 09:10> Discharge Date and Diagnosis Date of Admission: 07/11/19 Date of Discharge: 07/18/19 - Primary Discharge Diagnosis Active and Suspected Problems (Last Reviewed 07/11/19 @ 22:[address] Carlton Frias MD) 1. Sepsis secondary to acute sigmoid diverticulitis with perforation resulting in severe peritonitis status post sigmoid colectomy with incidental appendectomy 07/13/2019 2. Chronic kidney disease stage III 3. PTSD 4. Chronic macrocytic anemia 5. Tobacco dependence - Secondary Discharge Diagnosis Chronic Problems (Last Reviewed 07/11/19 @ 22:[address] Carlton Frias MD) PTSD (post-traumatic stress disorder) (Chronic) Hospital Course and Treatment Imaging Results: Diagnostic Data Abdomen/Pelvis CT 07/11/19 18:54 IMPRESSION: Limited non-IV and nonoral contrast study Likely acute sigmoid colon diverticulitis with perforation with extraluminal air within the mesenteric fat, the possibility of ischemic bowel is less likely. No renal or ureteral calculi, no hydronephrosis Mild distended bladder Stable multilevel degenerative changes of the lumbar spine Mild distended loops of small bowel without transition point most likely ileus Electronically Signed: Cristobal Ordonez, at 19:59 EDT Tel , Service support , Chest X-Ray 07/13/19 09:15 IMPRESSION: Questionable density overlying the right first costochondral junction. A lordotic view is recommended for further evaluation. Electronically Signed: Sawyer De La Cruz, at 9:36 EDT , Service support , Dr. Soto- General surgery Dr. Mcmillan- Computer Aided Design Technician Operations: - - Sigmoid colectomy, appendectomy Procedures: None Summary of Care Provided: The patient is a 54 year old M admitted 07/11/2019 due to abdominal pain. 1. Sepsis secondary to acute sigmoid diverticulitis with perforation resulting in severe peritonitis status post sigmoid colectomy and incidental appendectomy 07/13/[address] Soto. Patient treated with IV Zosyn during admission. No further antibiotics at discharge. PRN pain regimen. Advance diet as tolerated. Follow-up with primary care physician in 1 week. Follow-up with Dr. Soto by phone within 10 days. 2. Chronic kidney disease stage III-stable, trend BMP. 3. PTSD/psychosis-continue home medication regimen. 4. Chronic macrocytic anemia- stable. 5. Tobacco dependence- encouraged cessation. Patient seen and examined prior to discharge. Physical assessment as noted below. Patient is stable for discharge with follow up recommendations as noted above. This patient was seen by JAY Galeas under the supervision of Dr. Roca. - Physical Exam Vitals/I&O's: Vital Signs Temp Pulse Resp BP Pulse Ox 97.5 F L 89 18 114/65 96 07/18/19 08:20 07/18/19 08:20 07/18/19 08:20 07/18/19 08:20 07/18/19 08:20 Oxygen Flow Rate (L/min) 2 Oxygen Delivery Method Room Air Weight: 200 lb 2.876 oz Body Mass Index (BMI) 30.0 Intake and Output for Last 24 Hours 07/16/19 07/17/19 07/18/19 23:59 23:59 23:59 Intake Total 2154.25 / 2154.25 1540.0 / 1540.0 85 / 85 Output Total 2565 / 2565 520 / 520 50 / 50 Balance -410.75 / -410.75 1020.0 / 1020.0 35 / 35 General: Alert, Oriented x3, Cooperative HEENT: Atraumatic, PERRLA, EOMI, Normocephalic Neck: Supple, No JVD, Negative Carotid Bruits Lungs: Clear to auscultation, Normal air movement Cardiovascular: Regular rate, Regular Rhythm, Normal S1, Normal S2, No murmurs Abdomen: Bowel Sounds Present, Soft, - - Very mild distention, tender at surgical site Extremities: No clubbing, No cyanosis, No edema, Capillary Refill Less than 3 Seconds Skin: No rashes, No breakdown Musculoskeletal: No Tenderness to Palpation of Joints or Extremities Neurological: Cranial nerves II-XII grossly intact, Neuro grossly intact Psych/Mental Status: Normal Affect, Appropriate Microbiology Past 72 Hours 07/13/19 13:48 Incision/Surgical Site Gram Stain - Final 07/13/19 13:48 Incision/Surgical Site Wound Culture - Final No growth aerobically. 07/13/19 13:48 Incision/Surgical Site Anaerobic Culture - Preliminary No growth in 48 hours. 07/14/19 05:27 Blood Culture (Wb) - Right Forearm Blood Culture - Preliminary No growth in 48 hours. 07/14/19 05:20 Blood Culture (Wb) - Anticubital Right Blood Culture - Preliminary No growth in 48 hours. Laboratory Results 07/18/19 06:50: WBC 6.7, RBC 3.22 L, Hgb 10.5 L, Hct 31.3 L, MCV 97.2 H, MCH 32.6 H, MCHC 33.5, RDW Std Deviation 42.5, RDW Coeff of Igor 12.1, Plt Count 232, MPV 8.8, Immature Gran % (Auto) 4.900 H, Neut % (Auto) 56.1, Lymph % (Auto) 22.3, Stephenson % (Auto) 10.3 H, Eos % (Auto) 5.8 H, Baso % (Auto) 0.6, Absolute Neuts (auto) 3.8, Absolute Lymphs (auto) 1.49, Nucleated RBC % 0 07/18/19 06:50: Sodium 140, Potassium 4.0, Chloride 106, Carbon Dioxide 26.0, Anion Gap 8, BUN 10, Creatinine 1.07, Estim Creat Clear Calc 75.50, Est GFR (MDRD) Af Amer 93, Est GFR (MDRD) Non-Af 77, BUN/Creatinine Ratio 9.3 L, Glucose 98, Calcium 8.5, Magnesium 2.4 Current Medications Acetaminophen (Tylenol) 650 mg RECTAL Q6H PRN PRN PRN Reason: TEMP > 102 Last Admin: 07/14/19 08:21 Dose: 650 mg Documented by: Al Hydroxide/Mg Hydroxide (Mylanta Ii) 30 ml PO Q6H PRN PRN PRN Reason: NAUSEA Diphenhydramine HCl (Benadryl) 12.5 - 25 mg IV Q6H PRN PRN PRN Reason: ITCHING Diphenhydramine HCl (Benadryl) 12.5 - 25 mg PO Q6H PRN PRN PRN Reason: Pruritis Divalproex [facility] (Depakote) [facility] Last Admin: 07/18/19 08:30 Dose: 500 mg Documented by: Glucagon () 1 mg IM .X1 PRN PRN Reason: Hypoglycemia Heparin Sodium (Porcine) (Heparin Na) 5,000 unit SC Q8 [facility] Last Admin: 07/18/19 05:12 Dose: 5,000 unit Documented by: Dextrose (Dextrose 10%-Water) 250 mls @ 999 mls/hr IV .Q16M PRN; Protocol PRN Reason: HYPOGLYCEMIA Sodium Chloride () 250 mls @ 15 mls/hr IV .[id number] PRN PRN Reason: Saline Flush Last Infusion: 07/16/19 05:17 Dose: Infused Documented by: Sodium Chloride () 250 mls @ 15 mls/hr IV .[id number] PRN PRN Reason: Additional IVPB Infusion Last Infusion: 07/16/19 18:56 Dose: Infused Documented by: Naloxone HCl 4 mg/ Dextrose 504 mls @ 0 mls/hr IV .Q0M PRN; Protocol PRN Reason: To maintain Resp. rate >10 Piperacillin Sod/Tazobactam (Sod 3.375 gm/ Sodium Chloride) 50 mls @ 12.5 mls/hr IV Q8 [facility] Last Infusion: 07/18/19 08:00 Dose: 0 mls/hr Documented by: Ibuprofen (Motrin) 800 mg PO Q8H PRN PRN PRN Reason: Pain Score 1-10/10 Last Admin: 07/18/19 00:47 Dose: 800 mg Documented by: Lorazepam (Ativan) 1 mg IV QHS [facility] Last Admin: 07/17/19 21:30 Dose: 1 mg Documented by: Naloxone HCl (Narcan) 0.02 mg IV Q1M PRN PRN Reason: RR <10 and pt unresponsive Nicotine Polacrilex (Rugby Nicotine (Pbkc)) 4 mg PO Q2H PRN PRN PRN Reason: SMOKING CESSATION Last Admin: 07/18/19 08:29 Dose: 4 mg Documented by: Nutritional Formula (Lactose Free) (Ensure Clear) 120 ml PO 4X/DAY [facility] Last Admin: 07/18/19 08:39 Dose: Not Given Documented by: Ondansetron HCl (Zofran) 4 mg IV Q6H PRN PRN PRN Reason: NAUSEA/VOMITING Last Admin: 07/17/19 21:38 Dose: 4 mg Documented by: Oxycodone HCl (Oxyir) 10 mg PO Q6H PRN PRN PRN Reason: Pain Score 6-10/10 Last Admin: 07/18/19 05:18 Dose: 10 mg Documented by: Oxycodone HCl (Oxyir) 10 mg PO Q4H PRN PRN PRN Reason: Pain Score 6-10/10 Pantoprazole Sodium (Protonix) 40 mg PO DAILY [facility] Last Admin: 07/18/19 08:29 Dose: 40 mg Documented by: Potassium Chloride (K-Dur) 20 meq PO BIDCM [facility] Last Admin: 07/18/19 08:29 Dose: 20 meq Documented by: Prochlorperazine Edisylate (Compazine Iv) 5 mg IV Q6H PRN PRN PRN Reason: NAUSEA/VOMITING Last Admin: 07/13/19 22:54 Dose: 5 mg Documented by: Sodium Chloride () 10 - 40 ml IV UD PRN PRN Reason: SALINE FLUSH Last Admin: 07/16/19 21:28 Dose: 10 ml Documented by: Discharge Diet: Light diet - advance as tolerated - If you have questions about your diet instructions, please talk to your doctor. Discharge Activity: May Not Drive - for 1 week or while taking narcotic pain medicine. May shower in (days): 1 Call your doctor if your incision/area has: Continuous Slow Oozing, Sudden Increased Bleeding, Increased Pain/ Swelling, Increased Redness, Foul Smelling Discharge Call your doctor if you observe: Fever of 101 or Higher Suture Line Care: Avoid Pulling/Pushing, Avoid Pinching/Bending Additional Dressing/Incision Instructions:: Change or remove dressing in 4 days. Leave steri-strips in place for 1 week. Home Medications: Medications to take at Discharge Divalproex Sodium 500 mg PO BID 07/19/18 Docusate Sodium [Stool Softener] 50 mg PO DAILY PRN 07/19/18 traZODone [Desyrel] 200 mg PO QHS 03/25/19 Oxycodone [Oxyir] 10 mg PO Q6H PRN PRN 6 Days #30 tab 07/18/19 Following Prescrptions Were Given to Patient: Oxycodone [Oxyir] 10 mg PO Q6H PRN PRN 6 Days #30 tab PRN Reason: Pain Or Fever Transmission Status: Received by [id number] Primary Care Physician: Jim Martinez Chi, MD [Primary Care Provider] - Please follow up with your Primary Care Physician in: 1 Week Please Follow Up With: Doug Soto MD - [phone] When: Call to make an appointment to be seen in about 10 days. Disposition: Home Minutes spent on discharge:: 35 Patient Condition:: Stable Medical Necessity - Tobacco Use Smoking Status: Former smoker Tobacco Use: Chew Meaningful Use Info Meaningful Use Diagnoses (Choose all that apply): None applicable <Isra Roca - Last Filed: 07/18/19 09:53> Discharge Date and Diagnosis - Secondary Discharge Diagnosis Chronic Problems (Last Reviewed 07/11/19 @ 22:[address] Carlton Frias MD) PTSD (post-traumatic stress disorder) (Chronic) Hospital Course and Treatment Summary of Care Provided: This patient was seen in conjunction with JAY Galeas . I have independently interviewed and examined the patient and reviewed pertinent historical, laboratory, and other data. Please refer to JAY Galeas note for details of this patient's presentation, findings, and recommendations. I have reviewed JAY Galeas note and concur with documented findings. Patient is a 55-year-old gentleman admitted with abdominal pain diagnosed with acute sigmoid diverticulitis with perforation patient initially managed with conservative management without much improvement consult placed to general surgery patient underwent sigmoid colectomy and Incidental appendectomy on 07/13/[address] Soto. Patient was found to have intra-abdominal purulent fluid Hospital course course: As documented above - Physical Exam Vitals/I&O's: Vital Signs Temp Pulse Resp BP Pulse Ox 97.5 F L 89 18 114/65 96 07/18/19 08:20 07/18/19 08:20 07/18/19 08:20 07/18/19 08:20 07/18/19 08:20 Oxygen Flow Rate (L/min) 2 Oxygen Delivery Method Room Air Weight: 90.8 kg Body Mass Index (BMI) 30.0 Intake and Output for Last 24 Hours 07/16/19 07/17/19 07/18/19 23:59 23:59 23:59 Intake Total 2154.25 / 2154.25 1540.0 / 1540.0 85 / 85 Output Total 2565 / 2565 520 / 520 50 / 50 Balance -410.75 / -410.75 1020.0 / 1020.0 35 / 35 Microbiology Past 72 Hours 07/13/19 13:48 Incision/Surgical Site Gram Stain - Final 07/13/19 13:48 Incision/Surgical Site Wound Culture - Final No growth aerobically. 07/13/19 13:48 Incision/Surgical Site Anaerobic Culture - Preliminary No growth in 48 hours. 07/14/19 05:27 Blood Culture (Wb) - Right Forearm Blood Culture - Preliminary No growth in 48 hours. 07/14/19 05:20 Blood Culture (Wb) - Anticubital Right Blood Culture - Preliminary No growth in 48 hours. Laboratory Results 07/18/19 06:50: WBC 6.7, RBC 3.22 L, Hgb 10.5 L, Hct 31.3 L, MCV 97.2 H, MCH 32.6 H, MCHC 33.5, RDW Std Deviation 42.5, RDW Coeff of Igor 12.1, Plt Count 232, MPV 8.8, Immature Gran % (Auto) 4.900 H, Neut % (Auto) 56.1, Lymph % (Auto) 22.3, Stephenson % (Auto) 10.3 H, Eos % (Auto) 5.8 H, Baso % (Auto) 0.6, Absolute Neuts (auto) 3.8, Absolute Lymphs (auto) 1.49, Nucleated RBC % 0 07/18/19 06:50: Sodium 140, Potassium 4.0, Chloride 106, Carbon Dioxide 26.0, Anion Gap 8, BUN 10, Creatinine 1.07, Estim Creat Clear Calc 75.50, Est GFR (MDRD) Af Amer 93, Est GFR (MDRD) Non-Af 77, BUN/Creatinine Ratio 9.3 L, Glucose 98, Calcium 8.5, Magnesium 2.4 Inpatient E&M: [id number] Disch Hosp
--- NOTE | 2019-07-20 09:40 | CASEMGMT ---
RN CM Discharge Follow-up Phone Call: ASHER: Aurea Strata: 4 Call Date: 07/20/19 Discharge Date: 07/18/19 Time of Call: 0940 Duration: 1 min Admitting Diagnosis: Acute sigmoid diverticulitis with perforation RN JOB attempted to complete follow-up phone call after recent hospitalization. No answer, voice message left with return contact information.
== END 2019-07-18 09:36 | disposition home or self-care (01) | DRG 329 ==
LOC: ED 19:05 → MS3 07-12 07:06 → ICU 07-15 07:15 → MS3 07-15 12:32 → PCU 07-17 12:25
PROVIDERS: Internal Medicine; Internal Medicine Critical Care Medicine; Surgery; Admitting Provider Hospitalist; Emergency Provider Emergency Medicine; PCP Family Medicine Geriatric Medicine; Visit Provider Internal Medicine
PROC: 0DTN0ZZ Resection of Sigmoid Colon, Open Approach (ICD-10-PCS; principal; 2019-07-13 14:55)
DX: K57.20 Diverticulitis of large intestine with perforation and abscess without bleeding (principal); K65.9 Peritonitis, unspecified; A41.9 Sepsis, unspecified organism; K56.7 Ileus, unspecified; F43.10 Post-traumatic stress disorder, unspecified; F17.220 Nicotine dependence, chewing tobacco, uncomplicated; N18.3 Chronic kidney disease, stage 3 (moderate); E87.6 Hypokalemia; D53.9 Nutritional anemia, unspecified; Z87.442 Personal history of urinary calculi
CPT/HCPCS: 36415; 71045; 74176; 80048; 80053; 80164; 81001; 83690; 83735; 85025; 85610; 85730; 87040; 87070; 87075; 87205; 87641; 88304; 88305; 88307; 97802; 99284; J7030; J7040; J7050; J7120; A4216; J0744; J1170; J2405

== ENCOUNTER → 2019-08-24 11:20 | Outpatient (CLI) | payer MEDICARE, SELFPAY ==
[2019-08-24 11:41] LABS: Absolute Lymphocyte Count 2.38 X10^3/uL (0.83-4.51); Basophil# 0.05 X10^3/uL; Basophil% 0.7 % (0-1); Eosinophil# 0.07 X10^3/uL; Eosinophils% 0.9 % (0-5); Hematocrit 40.4 % (40-54); Hemoglobin 13.6 g/dL (13.0-16.5); Lymphocyte # 2.38 X10^3/ul (4.0); Mean Corp Hgb Conc 33.7 g/dL (32-36); Mean Corpuscular Hgb 32.5 pg (27.0-32.0); Mean Corpuscular Volume 96.4 fL (80-94); Mean Platelet Vol. 9.3 fl (6.2-12.0); Monocyte# 0.71 X10^3/uL; Monocyte% 9.6 % (0-10); NRBC Flagged by Analyzer 0 % (0-5); Neutrophil # 4.02 X10^3/uL (2.7-7.7); Neutrophil % 54.1 % (47-70); Platelet Count 237 K/mm3 (150-450); RBC Distribution Width CV 12.4 % (11.6-14.6); RBC Distribution Width SD 43.7 fl (35.1-43.9); Red Blood Count 4.19 M/mm3 (4.6-6.2); White Blood Count 7.4 K/mm3 (4.4-11.0)
[2019-08-24 12:11] LABS: ALB/GLOB Ratio 1.3 RATIO (0.9-2.4); AST(SGOT) 21 U/L (15-37); Alanine Aminotransfer ALT/SGPT 56 U/L (16-61); Albumin, Serum 3.7 g/dL (3.2-5.0); Alkaline Phosphatase 72 U/L (45-117); Anion Gap 5 (5-15); BUN 18 mg/dL (7-18); BUN/Creat Ratio 11.5 RATIO (10-20); Calcium,Total 9.2 mg/dL (8.5-10.1); Chloride 105 mmol/L (98-107); Cholesterol 229 mg/dL (200); Creatinine, Serum 1.56 mg/dL (0.70-1.30); EST Glomerular Filtration Rate 50 mL/min (>60); Est Glom Filt Rate - Afr Amer 60 mL/min (>60); Globulin 2.9 g/dL (2.2-4.2); Glucose 93 mg/dL (74-106); High Density Lipoprotein 56 mg/dL; Protein, Total 6.6 g/dL (6.4-8.2); Sodium Level 137 mmol/L (136-145); Thyroid Stim Hormone (TSH) 6.11 uIU/mL (0.358-3.74); Triglycerides 338 mg/dL; Very Low Density Lipoprotein 68 mg/dL (5-40)
== END ==
PROVIDERS: PCP Family Medicine Geriatric Medicine; Referring Provider Family Medicine Geriatric Medicine; Visit Provider Family Medicine Geriatric Medicine
DX: E23.6 Other disorders of pituitary gland (principal); E78.5 Hyperlipidemia, unspecified; R53.83 Other fatigue
CPT/HCPCS: 36415; 80053; 80061; 84403; 84443; 85025

== ENCOUNTER → 2019-10-14 09:23 | Outpatient (CLI) | payer MEDICARE, SELFPAY ==
[2019-10-14 11:12] LABS: Thyroid Stim Hormone (TSH) 2.99 uIU/mL (0.358-3.74)
== END ==
PROVIDERS: PCP Family Medicine Geriatric Medicine; Visit Provider Family Medicine Geriatric Medicine
DX: E03.9 Hypothyroidism, unspecified (principal)
CPT/HCPCS: 36415; 84443

== ENCOUNTER 2020-01-27 07:25 | Day surgery (SDC) | payer MEDICARE, SELFPAY ==
[2020-01-27 07:41] VITALS: BP 114/86; PULSE 78; RESP 16; TEMP 36.7; O2SAT 98; BMI 26.6
[2020-01-27] MEDS: Lactated Ringers 1,000 ML 100 ML IV (08:00)
--- NOTE | 2020-01-27 08:28 | HP.PCM_ITS ---
History of Present Illness Date of Admission: 01/27/20 The patient is a 54 year old M I performed an emergent sigmoid colectomy and incidental appendectomy on 07/13/19. Patient tolerated the procedure well. Pathology demonstrated: A. Sigmoid colon, segmental colectomy: Nonruptured diverticular disease of colon. Focal pericolic abscess and associated acute serositis. B. Appendix, appendectomy: Fecal impaction. No evidence of appendicitis. Fibrofatty obliteration of distal appendiceal lumen. She presents today for screening colonoscopy. Past Medical/Surgical History - Planned Operation Planned Operative Procedure/s: colonoscopy Date of Operative Procedure: 01/27/20 Permit Signed: No S.O.S: No Is This Patient Having a Total Joint: No - Previous Hospitalizations/Surgeries HX Hospitalizations: Yes - 06/2019/colectomy in ICU,sepsis HX of Surgeries: KIDNEY STONES 04/2019. open sigmoid colectomy and appendectomy 06/2019 [facility] Any Problems With Anesthesia: No You/Your Family Experience Fever (Hyperthermia) With Anes: No - adopted Cholinesterase deficiency: No - Cardiovascular Hx Chest Pain within Last 2 months: No Hx of Irregular Heartbeat and/or Afib: No Hx Heart Attack: No Hx Congestive Heart Failure: No Hx Rheumatic Fever: No Hx Hypertension: No Hx Internal Defibrillator: No Hx Pacemaker: No Hx Cardiac Catheterization: No Hx Cardiac Surgery/Stents/Etc.: No Hx Stress Test: No - echo over 10 yrs ago HX Edema: No Hx Pain in Legs when Walking/Leg Cramps: No - Respiratory Chronic Cough: No HX of Shortness of Breath: No - denies Hoarseness: No Hx Chronic Obstructive Pulmonary Disease (COPD): Yes - symbicort Hx Asthma: Yes - inhaler Hx Emphysema: No Hx Sleep Apnea: No CPAP: No BIPAP: No Hx Oxygen Use at Home: No Hx Respiratory Tract Infection/Cold (presently): No Do You Snore Loudly (louder than talking or can be heard): No Do You Often Feel Tired/ Fatigued/ Sleepy Dring Daytime?: Yes Has Anyone Observed You Stop Breathing During Sleep?: No Result (for STOP score): Negative Hx Smoking: Yes - quit age 32 Smoking Status: Former smoker - Gastrointestinal Hx Gastroesophageal Reflux: Yes Controlled With Meds: Yes - omeprazole Hx Gastrointestinal Disorders: Yes - DIVERTICULITIS/colectomy Hx Gastrointestinal Bleed: No Hx Ulcer: No Hx Hiatal Hernia: No Difficulty Chewing/Swallowing: No Recent Onset of Swallowing Problems: No Special diet followed at home: Yes - no seeds, no nuts Hx Unplanned Weight Loss of 20#: No HX Unplanned Weight Gain of 20#: No - Neurological Hx Seizures: No HX Syncope/Blackout Spells/Unconsciousness: Yes - during psychotic episode,controlled Hx CVA/Stroke: No Hx Transient Ischemic Attacks (TIA): No Hx Multiple Sclerosis: No Hx Parkinson's Disease: No Hx Head/Neck Injury: No Hx Headaches: Yes - occas Hx Back Injury/Pain: No Recent Onset of Speech Difficulty: No Restless Legs: Yes - not diagnosed Does patient have nerve stimulator: No - Blood Disorder Hx Leukemia: No Bleeding Tendencies: No Hx Deep Vein Thrombosis: No Hx High Cholesterol: No Blood Transmitted Disease: No Hx Hepatitis: No Hx Cirrhosis: No Hx Anemia: No Hx Blood Disorders: No - Genitourinary Hx Renal Disease: No - hx stones Hx Dialysis: No - Musculoskeletal Hx Arthritis: No Hx Rheumatoid Arthritis: No Hx Gout: No Recent Onset of an Orthopedic Problem: No - Endocrine Hx Diabetes: No Thyroid Disease: Yes - on med Hx Steroid Therapy: Yes - injection knee - Psycho/Social Hx Substance Use: No Hx Alcohol Use: Yes - 2-3 beers, every few days Hx Anxiety: Yes - PTSD Hx Depression: Yes - TRAZODONE Mental Illness: Yes - BIPOLAR DISORDER Hx Dementia: No - Miscellaneous Hx Cancer: No Recent Exposure to Contagious Disease: No Active MRSA: No Hx of C-Diff: No Any Loose Teeth: No Additional information pertinent to anesthesia:: had shortness of breath. no other sx. tested at [facility] 01/19/2020. will call for results. Allergies No Known Allergies Allergy (Verified 01/27/20 07:39) Maternal - - Patient was adopted and does not know biological maternal or paternal medical history. Paternal - - Patient was adopted and does not know biological maternal or paternal medical history. - Discharge Is Pt Admitted From a Shelter, or a Fdc: No Who Could Help: After D/C, Where Do you Plan to Go: Return Home - Physical Exam Vitals/I&O's: Vital Signs Temp Pulse Resp BP Pulse Ox 98.1 F 78 16 114/86 H 98 01/27/20 07:41 01/27/20 07:41 01/27/20 07:41 01/27/20 07:41 01/27/20 07:41 Oxygen Delivery Method Room Air Weight: 169 lb 15.622 oz Body Mass Index (BMI) 26.6 General: Alert, Oriented x3 Lungs: Clear to auscultation Cardiovascular: Regular rate, Regular Rhythm, No murmurs Abdomen: Bowel Sounds Present, Soft, Non Tender, Non-Distended Current Medications Lactated Ringer's () 1,000 mls @ 100 mls/hr IV .Q10H GET Last Admin: 01/27/20 08:00 Dose: 100 mls/hr Documented by: Assessment/Plan All Active Problems (Last Reviewed 07/11/19 @ 22:[address] Carlton Frias MD) History of anxiety disorder (Acute) Diverticulitis of colon with perforation (Acute) Ileus (Acute) Plan will be to perform a colonoscopy. Surgery Risks - Colonoscopy Risks Include but are not Limited To: Risks include but are not limited to: Bleeding, perforation requiring further surgery, inability to complete colonoscopy requiring barium enema.
[2020-01-27 08:50] VITALS: BP 106/71; BP 114/86; PULSE 66; RESP 16; TEMP 37.3; O2SAT 96
--- NOTE | 2020-01-27 08:53 | OP.CCLET_ITS ---
01/27/2020 Jim Martinez MD [address] [place] [address] Re : Colonoscopy procedure for Cristobal Orr Dear Dr. Martinez This procedure was performed on Monday, January 27, 2020. My impressions and recommendations are as follows: Impressions : - Patent end-to-end colo-colonic anastomosis, characterized by healthy appearing mucosa. No specimens collected. - The examination was otherwise normal on direct and retroflexion views. Recommendations : - Discharge patient to home. - Resume previous diet. - Continue present medications. - Repeat colonoscopy in 5 years for surveillance. - Return to my office PRN. My findings are described in the full procedure note, which is enclosed. If I can be of further assistance, please feel free to contact me at Doctor phone number(s): , Fax: [phone], Work: . Sincerely, MD Doug Chaidez MD 01/27/2020 8:52:44 AM This report has been signed electronically.
--- NOTE | 2020-01-27 08:53 | OP.COLON_ITS ---
Patient Name: Cristobal Orr Procedure Date: 01/27/2020 8:26 AM Date of : 1965 Age: 54 Procedure: Colonoscopy Indications: Follow-up of diverticulitis, Follow-up of colonic perforation Providers: Doug Soto MD Referring MD: Jim Martinez MD Medicines: See the Anesthesia note for documentation of the administered medications Patient Profile: This is a 54 year old male. Refer to note in patient chart for documentation of history and physical. Last Colonoscopy: 10 years ago. Complications: No immediate complications. Procedure: Pre-Anesthesia Assessment: - Prior to the procedure, a History and Physical was performed, and patient medications and allergies were reviewed. The patient's tolerance of previous anesthesia was also reviewed. The risks and benefits of the procedure and the sedation options and risks were discussed with the patient. All questions were answered, and informed consent was obtained. Prior Anticoagulants: The patient has taken no previous anticoagulant or antiplatelet agents. ASA Grade Assessment: II - A patient with mild systemic disease. After reviewing the risks and benefits, the patient was deemed in satisfactory condition to undergo the procedure. After I obtained informed consent, the scope was passed under direct vision. Throughout the procedure, the patient's blood pressure, pulse, and oxygen saturations were monitored continuously. The colonoscope was introduced through the anus and advanced to the cecum, identified by appendiceal orifice and ileocecal valve. The colonoscopy was performed without difficulty. The patient tolerated the procedure well. The quality of the bowel preparation was adequate to identify polyps 6 mm and larger in size. Scope In: 8:36:37 AM Scope Withdrawal Time 0 hours 7 minutes 43 seconds Scope Out: 8:46:26 AM Total Procedure Duration Time 0 hours 9 minutes 49 seconds Findings: There was evidence of a prior end-to-end colo-colonic anastomosis in the sigmoid colon. This was patent and was characterized by healthy appearing mucosa. The anastomosis was traversed. No biopsies or other specimens were collected for this exam. The exam was otherwise without abnormality on direct and retroflexion views. Impression: - Patent end-to-end colo-colonic anastomosis, characterized by healthy appearing mucosa. No specimens collected. - The examination was otherwise normal on direct and retroflexion views. Recommendation: - Discharge patient to home. - Resume previous diet. - Continue present medications. - Repeat colonoscopy in 5 years for surveillance. - Return to my office PRN. Procedure Code(s): --- Professional --- 22339, Colonoscopy, flexible; diagnostic, including collection of specimen(s) by brushing or washing, when performed (separate procedure) Diagnosis Code(s): --- Professional --- Z98.0, Intestinal bypass and anastomosis status K57.32, Diverticulitis of large intestine without perforation or abscess without bleeding K63.1, Perforation of intestine (nontraumatic) CPT copyright 2017 [employer]. All rights reserved. The codes documented in this report are preliminary and upon labor expediter review may be revised to meet current compliance requirements. MD Doug Chaidez MD 01/27/2020 8:52:44 AM This report has been signed electronically. Number of Addenda: 0 Note Initiated On: 01/27/2020 8:26 AM
[2020-01-27 08:55] VITALS: BP 102/65; BP 114/86; PULSE 63; RESP 16; O2SAT 93
[2020-01-27 09:00] VITALS: BP 114/86; BP 99/63; PULSE 72; RESP 18; O2SAT 94
[2020-01-27 09:05] VITALS: BP 105/69; BP 114/86; PULSE 65; RESP 18; TEMP 36.9; O2SAT 95
[2020-01-27 09:45] VITALS: BP 114/86
== END 2020-01-27 09:54 | disposition home or self-care (01) ==
LOC: EN 07:25 → AC 07:27
PROVIDERS: PCP Family Medicine Geriatric Medicine; Referring Provider Family Medicine Geriatric Medicine; Visit Provider Surgery
PROC: 0DJD8ZZ Inspection of Lower Intestinal Tract, Via Natural or Artificial Opening Endoscopic (ICD-10-PCS; CPT 45378; principal; 2020-01-27 08:25)
CPT/HCPCS: 45378; J7120; J1610; J2405

== ENCOUNTER → 2020-07-13 11:56 | Outpatient (CLI) | payer MEDICARE, SELFPAY ==
[2020-07-13 12:27] LABS: Absolute Lymphocyte Count 1.43 X10^3/uL (0.83-4.51); Absolute Neutrophil Count 3.3 X10^3/uL (2.0-7.7); Basophil# 0.04 X10^3/uL; Basophil% 0.8 % (0-1); Eosinophil# 0.06 X10^3/uL; Eosinophils% 1.2 % (0-5); Hematocrit 41.9 % (40-54); Hemoglobin 14.5 g/dL (13.0-16.5); Lymphocyte # 1.43 X10^3/ul (4.0); Lymphocyte % 27.6 % (19-41); Mean Corp Hgb Conc 34.6 g/dL (32-36); Mean Corpuscular Hgb 33.3 pg (27.0-32.0); Mean Corpuscular Volume 96.1 fL (80-94); Mean Platelet Vol. 11.5 fl (6.2-12.0); Monocyte# 0.34 X10^3/uL; Monocyte% 6.6 % (0-10); NRBC Flagged by Analyzer 0 % (0-5); Neutrophil # 3.27 X10^3/uL (2.7-7.7); Platelet Count 194 K/mm3 (150-450); RBC Distribution Width CV 11.8 % (11.6-14.6); Red Blood Count 4.36 M/mm3 (4.6-6.2); White Blood Count 5.2 K/mm3 (4.4-11.0)
[2020-07-13 12:50] LABS: ALB/GLOB Ratio 1.2 RATIO (0.9-2.4); AST(SGOT) 29 U/L (15-37); Alanine Aminotransfer ALT/SGPT 51 U/L (16-61); Albumin, Serum 3.8 g/dL (3.2-5.0); Alkaline Phosphatase 79 U/L (45-117); Anion Gap 7 (5-15); BUN 13 mg/dL (7-18); BUN/Creat Ratio 9.6 RATIO (10-20); Calcium,Total 9.2 mg/dL (8.5-10.1); Chloride 103 mmol/L (98-107); Cholesterol 253 mg/dL (200); Creatinine, Serum 1.35 mg/dL (0.70-1.30); EST Glomerular Filtration Rate 59 mL/min (>60); Est Glom Filt Rate - Afr Amer 71 mL/min (>60); Globulin 3.2 g/dL (2.2-4.2); Glucose 116 mg/dL (74-106); High Density Lipoprotein 48 mg/dL; Potassium 3.7 mmol/L (3.5-5.1); Sodium Level 137 mmol/L (136-145); Thyroid Stim Hormone (TSH) 2.71 uIU/mL (0.358-3.74); Triglycerides 640 mg/dL
== END ==
LOC: POLAB3 11:57
PROVIDERS: PCP Family Medicine Geriatric Medicine; Visit Provider Family Medicine Geriatric Medicine
DX: E23.6 Other disorders of pituitary gland (principal); E78.5 Hyperlipidemia, unspecified; R53.83 Other fatigue
CPT/HCPCS: 36415; 80053; 80061; 84403; 84443; 85025

== ENCOUNTER → 2020-11-10 11:34 | Outpatient (CLI) | payer MEDICARE, SELFPAY | PROVIDERS: PCP Family Medicine Geriatric Medicine; Referring Provider Family Medicine Geriatric Medicine; Visit Provider Family Medicine Geriatric Medicine | DX: R06.89 Other abnormalities of breathing (principal) | CPT/HCPCS: 87426; C9803 ==

== ENCOUNTER 2020-11-26 13:59 | Emergency (ER) | payer MEDICARE, SELFPAY ==
[2020-11-26 13:59] VITALS: BP 138/89; PULSE 104; RESP 17; TEMP 37.3; O2SAT 97; BMI 27.9
--- NOTE | 2020-11-26 14:08 | EDS_ITS ---
HPI History of Present Illness Chief Complaint: Foreign Body Informant: patient Onset/Context/Timing Onset: Today Context: Sudden Onset Current Severity: Mild Maximum Severity: Mild Narrative Narrative: Odd sensation in his throat. 55-year-old male history of bipolar disorder and hypothyroidism. Was eating steak about an hour before this gill ppened and he said he feels like there is something in his throat. He denies any prior history of the same. He was brought in by squad. Denies any recent illness. No chest pain or shortness of breath. Prior similar symptoms: No Recent Illness/Hospitalization: No PFSH PFSH Medical History Bipolar 1 disorder PTSD (post-traumatic stress disorder) Home Medications divalproex 500 mg PO BID 07/19/18 [History Last Taken 07/11/19] trazodone 200 mg PO QHS 03/25/19 [History Last Taken 07/10/19] albuterol sulfate 1 - 2 puff INHALATION Q6H PRN PRN 01/19/20 [History Last Taken Unknown] budesonide-formoterol 2 puff INHALATION DAILY 01/19/20 [History Last Taken Unknown] levothyroxine 25 mcg PO DAILY 01/19/20 [History Last Taken Unknown] omeprazole 20 mg PO DAILY 01/19/20 [History Last Taken Unknown] Allergy/AdvReac Type Severity Reaction Status Date / Time No Known Allergies Allergy Verified 11/26/20 14:05 Social History Smoking Status: Current every day smoker tobacco type: smokeless tobacco ROS ROS ED ROS Narrative Denies recent illness. Review of Systems ROS Unobtainable: Denies due to encephalopathy Constitutional Constitutional ED: Denies chills or fever(s) Eyes Eyes: Denies change in vision ENT ENT ED: Denies ear pain or sore throat Cardiovascular Cardiovascular: Denies chest pain Respiratory/Chest Respiratory/Chest: Denies cough or dyspnea Gastrointestinal Gastrointestinal: Denies abdominal pain, diarrhea, nausea or vomiting Genitourinary Genitourinary ED: Denies dysuria or hematuria Musculoskeletal Musculoskeletal: Denies arthralgias or myalgias Integumentary Denies abscess or rash Neurologic Neurologic: Denies headache(s) Psychiatric Psychiatric: Denies depression Endocrine Endocrinology: Denies polyuria Allergic/Immunologic Allergic/Immunologic ED: Denies urticaria EXAM Physical Exam Narrative Exam Narrative: Well-appearing middle-aged male. Vital signs stable afebrile. No distress. Pulse is 97% on room air no signs of hypoxia. HEENT exam normal. Posterior pharynx normal. No swelling. No drooling. No stridor. No trouble swallowing or breathing. I gave him a glass of water and drink it without any difficulty. Neck nontender no lymphadenopathy trachea midline. Lungs are clear equal symmetrical heart regular rhythm no murmur. Abdomen soft nontender. Patient moving all 4 extremities. Neurovascularly intact. Back nontender. Skin unremarkable. Neurologically is awake and alert with no focal motor deficits. As I exited the room the patient coughed several times and brought up some phlegm. States he now feels better. Const Vital Signs: 11/26/20 13:59 11/26/20 14:03 Temperature 99.1 F Temperature Source Temporal Pulse Rate 104 H Respiratory Rate 17 Respiratory Effort Normal Non-Labored Respiratory Pattern Normal Blood Pressure 138/89 H Blood Pressure Mean 105 Pulse Ox 97 Oxygen Delivery Method Room Air Positive well nourished and well developed General Appearance ED: well developed and NAD; Negative for pallor HEENT Reports moist mucous membranes Negative for trauma or tenderness Eyes PERRL and EOMs intact bilaterally Neck no lymphadenopathy, supple and no JVD General: Negative for tenderness Chest Wall inspection of chest normal and palpation of chest normal Resp normal respiratory effort and clear to auscultation bilaterally Cardio regular rate, regular rhythm, S1 normal heart sound, S2 normal heart sound and no murmurs GI normal to inspection, nondistended, normoactive bowel sounds, non-tender, non- distended and no masses Inspection: Negative for abdominal distention Auscultation: normoactive bowel sounds Palpation: soft; Negative for tender, guarding or rebound tenderness present Back/Spine no CVA tenderness General Back: Negative for CVA tenderness Extremity normal to inspection General Extremety ED: Negative for edema or tenderness General Extremity: Negative for edema Neuro oriented x3 and CN's II-XII intact bilaterally Sensorium / Orientation: alert; Negative for orientation impaired, lethargic or stuporous Motor Exam: strength 5/5 throughout Psych mental status grossly normal Attitude: No agitated Mood & Affect: Negative for depressed, anxious or tearful Skin no rashes or lesions noted and no wounds General Skin Exam: Negative for jaundice or pallor MDM MDM MDM Narrative Medical decision making narrative: Patient had subjective foreign body sensation in his throat. His exam was unremarkable. He drank water and swallowed it easily. He coughed several times hard brought up of phlegm and states he feels normal again. I do not feel that there is any significant foreign body in his throat. Nor any type of food bolus. I do not think this is allergic reaction or any other atypical presentation. He will be discharged home. Discharge Plan Triage Chief Complaint: Foreign Body ED Provider: Geremias Baca Dx/Rx/DC Orders Clinical Impression: Esophageal foreign body Instructions: ED Esophageal Foreign Body, Resolved Prescriptions: No Action divalproex 500 MG Tablet.Dr 500 mg PO BID RF: 0 trazodone 100 MG tablet 200 mg PO QHS RF: 0 levothyroxine 25 MCG tablet 25 mcg PO DAILY RF: 0 albuterol sulfate 1 INHALER inhaler 1 - 2 puff inhalation Q6H PRN PRN (Reason: breathing) RF: 0 budesonide-formoterol 1 INHALER inhaler 2 puff inhalation DAILY RF: 0 omeprazole 20 MG capsule,delayed release(DR/EC) 20 mg PO DAILY RF: 0 Primary Care Provider: Jim Martinez Chi Referrals: Jim Martinez Chi, MD [Primary Care Provider] - As Needed Activity Restrictions/Additional Instructions: Plenty of fluids and rest. Any problems make us aware. Follow-up with your doctor as needed. Disposition Disposition: Home, Self Care
--- NOTE | 2020-11-26 14:11 | ED.RN ---
Pt calls out saying he coughed up something and now i can swallow Upon assessing patient he states he coughed up some food into the emesis bag and states he feels better and can swallow now. Dr Baca notified.
[2020-11-26 15:29] VITALS: BP 130/80; PULSE 81; RESP 16; O2SAT 95
== END 2020-11-26 15:29 | disposition home or self-care (01) ==
LOC: ED 14:18
PROVIDERS: Emergency Provider Emergency Medicine; PCP Family Medicine Geriatric Medicine
DX: T18.128A Food in esophagus causing other injury, initial encounter (principal); X58.XXXA Exposure to other specified factors, initial encounter; Y93.89 Activity, other specified; Y92.9 Unspecified place or not applicable; Y99.8 Other external cause status; E03.9 Hypothyroidism, unspecified; F31.9 Bipolar disorder, unspecified; F43.10 Post-traumatic stress disorder, unspecified; F17.290 Nicotine dependence, other tobacco product, uncomplicated; Z79.899 Other long term (current) drug therapy
CPT/HCPCS: 99284

== ENCOUNTER → 2020-12-08 08:16 | Outpatient (CLI) | payer MEDICARE, SELFPAY ==
[2020-11-26 13:59] VITALS: BMI 27.9
--- NOTE | 2020-12-08 08:30 | RAD_ITS ---
STUDY: X-RAY - ESOPHAGUS (BARIUM SWALLOW) WITH FLUOROSCOPY REASON FOR EXAM: Male, 55 years old. Dysphagia TECHNIQUE: 14 view(s) of the esophagus were obtained following swallowing of barium. FLUOROSCOPY TIME (if supplied): (30 seconds) minutes/seconds COMPARISON: None. FINDINGS: There is no demonstrated esophageal foreign body. There is no demonstrated stricture or mucosal abnormality. Normal gastroesophageal junction, without a demonstrated hiatal hernia. Patient ingested a 12 mm tablet of barium without any difficulty. Normal visualized aortic arch and descending thoracic aorta. Normal visualized pulmonary parenchyma. Normal visualized osseous structures of the thorax. RAD/Esophagus Dual Contrast IMPRESSION: Normal plain film x-ray examination (barium swallow) of the esophagus. Electronically Signed: Sawyer De La Cruz MD at 9:15 EDT , Service support ,
== END ==
PROVIDERS: PCP Family Medicine Geriatric Medicine; Referring Provider Otolaryngology; Visit Provider Otolaryngology
DX: R13.10 Dysphagia, unspecified (principal)
CPT/HCPCS: 74221

== ENCOUNTER 2020-12-21 11:39 | Emergency (ER) | payer MEDICARE, SELFPAY ==
[2020-12-21 11:41] VITALS: BP 125/81; PULSE 101; RESP 17; TEMP 37.2; O2SAT 97; BMI 26.6
--- NOTE | 2020-12-21 12:05 | ED.RN ---
pt rocking back and forth in bed. pt moaning.
--- NOTE | 2020-12-21 12:10 | EDS_ITS ---
HPI History of Present Illness Chief Complaint: Suicidal Informant: patient and family Narrative Narrative: Patient presents with confusion and headache. He states headache started either last night or early this morning. He seems confused and has difficulty answering questions. He states the headache is over the top of his head. He denies nausea or vomiting. Nursing staff documented he had thoughts of hurting himself and others. When I asked him about this he seemed to not know what I was talking about. Family member sitting at bedside was nodding their head yes as I was asking these questions. [facility] Medical History Bipolar 1 disorder PTSD (post-traumatic stress disorder) Home Medications divalproex 500 mg PO BID 07/19/18 [History Last Taken 07/11/19] trazodone 200 mg PO QHS 03/25/19 [History Last Taken 07/10/19] albuterol sulfate 1 - 2 puff INHALATION Q6H PRN PRN 01/19/20 [History Last Taken Unknown] budesonide-formoterol 2 puff INHALATION DAILY 01/19/20 [History Last Taken Unknown] levothyroxine 25 mcg PO DAILY 01/19/20 [History Last Taken Unknown] omeprazole 40 mg PO DAILY 01/19/20 [History Last Taken Unknown] Allergy/AdvReac Type Severity Reaction Status Date / Time No Known Allergies Allergy Verified 12/21/20 11:40 Social History Smoking Status: Current every day smoker tobacco type: cigarettes and smokeless tobacco ROS ROS ED Review of Systems ROS Unobtainable: due to mental condition EXAM Physical Exam Const Vital Signs: 12/21/20 11:41 12/21/20 14:20 Temperature 99 F Temperature Source Temporal Pulse Rate 101 H 75 Respiratory Rate 17 14 Blood Pressure 125/81 H 137/75 H Blood Pressure Mean 95 95 Pulse Ox 97 96 Oxygen Delivery Method Room Air Room Air Positive well nourished and well developed General Appearance ED: well developed HEENT Reports moist mucous membranes Eyes EOMs intact bilaterally Neck supple Neck Narrative: No meningismus Chest Wall inspection of chest normal and palpation of chest normal Resp normal respiratory effort and clear to auscultation bilaterally Cardio regular rate and regular rhythm GI normal to inspection, nondistended, normoactive bowel sounds Extremity normal to inspection General Extremety ED: Negative for tenderness Neuro Neuro Narrative: No focal neuro deficits. Sensorium / Orientation: alert Psych Psych Narrative: Flat affect. Not answering many questions. Skin no rashes or lesions noted MDM MDM MDM Narrative Medical decision making narrative: Patient was given Toradol, Reglan, Benadryl, IV fluids. Lab work and CT head obtained. Lab Data Attestation: I reviewed the patient's lab results. Labs: Laboratory Results - last 24 hr 12/21/20 12/21/20 12/21/20 12:25 12:25 12:25 WBC 6.3 RBC 5.11 Hgb 17.0 H Hct 48.2 MCV 94.3 H MCH 33.3 H MCHC 35.3 RDW Std Deviation 43.3 RDW Coeff of Igor 12.4 Plt Count 200 MPV 9.2 Immature Gran % (Auto) 1.300 H Neut % (Auto) 62.6 Lymph % (Auto) 28.5 [place] % (Auto) 6.8 Eos % (Auto) 0.2 Baso % (Auto) 0.6 Absolute Neuts (auto) 4.0 Absolute Lymphs (auto) 1.80 Nucleated RBC % 0 Sodium 137 Potassium 4.4 Chloride 102 Carbon Dioxide 26.0 Anion Gap 9 BUN 8 Creatinine 1.26 Estim Creat Clear Calc 63.39 Est GFR (MDRD) Af Amer 77 Est GFR (MDRD) Non-Af 64 BUN/Creatinine Ratio 6.3 L Glucose 78 Calcium 9.5 Total Bilirubin 0.60 Direct Bilirubin 0.19 AST 37 ALT 66 H Alkaline Phosphatase 66 Total Protein 7.4 Albumin 3.9 Globulin 3.5 Urine Opiates Screen Urine Methadone Screen Ur Barbiturates Screen Valproic Acid Ur Phencyclidine Scrn Ur Amphetamines Screen U Methamphetamin-MDMA U Benzodiazepines Scrn Urine Cocaine Screen U Cannabinoids Screen Ur Drug Screen Comment Ethyl Alcohol 74.0 12/21/20 12/21/20 12:25 12:40 WBC RBC Hgb Hct MCV MCH MCHC RDW Std Deviation RDW Coeff of Igor Plt Count MPV Immature Gran % (Auto) Neut % (Auto) Lymph % (Auto) [place] % (Auto) Eos % (Auto) Baso % (Auto) Absolute Neuts (auto) Absolute Lymphs (auto) Nucleated RBC % Sodium Potassium Chloride Carbon Dioxide Anion Gap BUN Creatinine Estim Creat Clear Calc Est GFR (MDRD) Af Amer Est GFR (MDRD) Non-Af BUN/Creatinine Ratio Glucose Calcium Total Bilirubin Direct Bilirubin AST ALT Alkaline Phosphatase Total Protein Albumin Globulin Urine Opiates Screen NEGATIVE Urine Methadone Screen NEGATIVE Ur Barbiturates Screen NEGATIVE Valproic Acid 89 Ur Phencyclidine Scrn NEGATIVE Ur Amphetamines Screen NEGATIVE U Methamphetamin-MDMA POSITIVE H U Benzodiazepines Scrn NEGATIVE Urine Cocaine Screen NEGATIVE U Cannabinoids Screen NEGATIVE Ur Drug Screen Comment Ethyl Alcohol Radiography Diagnostic Testing: Radiology Impression Brain CT 12/21/20 12:57 IMPRESSION: Normal unenhanced CT scan of the brain. Electronically Signed: Valdez Skelton MD at 13:17 EDT , Service support , Treatment and Re-Evaluation Comments:: Repeat evaluation patient reports his headache is much improved. He is alert and talkative. He states he does not remember what happened this morning or how he ended up coming to the hospital. Family member at bedside states that he has been in a dark place the last several days. He has been staying to himself and watching movies. He apparently made statements that he did not want people to get her but was afraid they were going to. He stated that maybe he should hurt himself to prevent others from getting hurt. Patient states he does not remember making any of these statements. Patient is denying suicidal or homicidal ideation at this time. He was seen by social work. Barbie cintron has an intake appointment with the counseling center next Saturday at 1 PM. He will receive phone calls from social work to check on him. Return instructions are provided. Discharge Plan Triage Chief Complaint: Suicidal ED Provider: Zoey Lloyd Dx/Rx/DC Orders Clinical Impression: Migraine, PTSD (post-traumatic stress disorder) Instructions: ED Depression, ED, Migraine (Classical) Prescriptions: No Action divalproex 500 MG tablet,delayed release (DR/EC) 500 mg PO BID RF: 0 trazodone 100 MG tablet 200 mg PO QHS RF: 0 levothyroxine 25 MCG tablet 25 mcg PO DAILY RF: 0 albuterol sulfate 1 INHALER inhaler 1 - 2 puff inhalation Q6H PRN PRN (Reason: breathing) RF: 0 budesonide-formoterol 1 INHALER inhaler 2 puff inhalation DAILY RF: 0 omeprazole 20 MG capsule,delayed release(DR/EC) 40 mg PO DAILY RF: 0 Primary Care Provider: Jim Martinez Chi Referrals: Counseling,Center [GROUP OF PHYSICIANS] - As soon as possible Jim Martinez Chi, MD [Primary Care Provider] - Disposition Disposition: Home, Self Care
[2020-12-21] MEDS: 0.9% Normal Saline 1,000 ML 1000 ML IV (12:22)
[2020-12-21] MEDS: Ketorolac 30 MG/ML Syringe IV (12:23)
[2020-12-21] MEDS: DiphenhydrAMINE 50 MG/ML Syringe 25 MG IV (12:23)
[2020-12-21] MEDS: Metoclopramide 10 MG/2 ML Vial IV (12:23)
--- NOTE | 2020-12-21 12:26 | ED.RN ---
pt alert and oriented at this time, keeps asking why am here? pt does not remember anything from this morning. pt is cooperative but aggitated.
[2020-12-21 12:41] LABS: Basophil# 0.04 X10^3/uL; Basophil% 0.6 % (0-1); Eosinophil# 0.01 X10^3/uL; Eosinophils% 0.2 % (0-5); Hematocrit 48.2 % (40-54); Lymphocyte % 28.5 % (19-41); Mean Corp Hgb Conc 35.3 g/dL (32-36); Mean Corpuscular Hgb 33.3 pg (27.0-32.0); Mean Corpuscular Volume 94.3 fL (80-94); Mean Platelet Vol. 9.2 fl (6.2-12.0); Monocyte# 0.43 X10^3/uL; Monocyte% 6.8 % (0-10); NRBC Flagged by Analyzer 0 % (0-5); Neutrophil # 3.95 X10^3/uL (2.7-7.7); Neutrophil % 62.6 % (47-70); Platelet Count 200 K/mm3 (150-450); RBC Distribution Width CV 12.4 % (11.6-14.6); RBC Distribution Width SD 43.3 fl (35.1-43.9); Red Blood Count 5.11 M/mm3 (4.6-6.2); White Blood Count 6.3 K/mm3 (4.4-11.0)
[2020-12-21 12:55] LABS: AST(SGOT) 37 U/L (15-37); Alanine Aminotransfer ALT/SGPT 66 U/L (16-61); Albumin, Serum 3.9 g/dL (3.2-5.0); Alkaline Phosphatase 66 U/L (45-117); Anion Gap 9 (5-15); BUN 8 mg/dL (7-18); BUN/Creat Ratio 6.3 RATIO (10-20); Bilirubin, Direct 0.19 mg/dL (0.00-0.30); Calcium,Total 9.5 mg/dL (8.5-10.1); Chloride 102 mmol/L (98-107); Creatinine, Serum 1.26 mg/dL (0.70-1.30); EST Glomerular Filtration Rate 64 mL/min (>60); Est Glom Filt Rate - Afr Amer 77 mL/min (>60); Estimated Creatinine Clearance 63.39 ml/min; Globulin 3.5 g/dL (2.2-4.2); Glucose 78 mg/dL (74-106); Potassium 4.4 mmol/L (3.5-5.1); Protein, Total 7.4 g/dL (6.4-8.2); Sodium Level 137 mmol/L (136-145)
--- NOTE | 2020-12-21 12:57 | CT_ITS ---
STUDY: CT BRAIN WITHOUT CONTRAST REASON FOR EXAM: Male, 55 years old. Headache RADIATION DOSAGE (If Supplied By Facility): CTDIvol = ( 44.99 ) mGy, DLP = ( 812.98 ) mGycm TECHNIQUE: Transaxial CT imaging of the brain was performed without administration of intravenous contrast material. Individualized dose optimization techniques were used for this CT. COMPARISON: No relevant priors. FINDINGS: Normal soft tissue structures. Normal calvarium. Normal size ventricles and extra-axial spaces for the patient''s age. Normal white matter tracts of the cerebral hemispheres. Normal basal ganglia and thalami. Normal brainstem. Normal cerebellum. There is no intracranial hemorrhage. There are no findings of an acute ischemic infarction. Normal visualized paranasal sinuses. CT/Brain/Head without Contrast IMPRESSION: Normal unenhanced CT scan of the brain. Electronically Signed: Valdez Seklton MD at 13:17 EDT , Service support ,
[2020-12-21 13:10] LABS: Amphetamine Urine VISTA NEGATIVE (<1000 ng/mL); Barbiturate Urine VISTA NEGATIVE (< 200 ng/mL); Benzodiazepine Urine VISTA NEGATIVE (< 200 ng/mL); Cocaine Urine VISTA NEGATIVE (< 300 ng/mL); Ecstacy Urine VISTA POSITIVE (< 500 ng/mL); Methadone Urine VISTA NEGATIVE (< 300 ng/mL); PCP Urine VISTA NEGATIVE (< 25 ng/mL); THC Urine VISTA NEGATIVE (< 50 ng/mL); Vista UDS pH Range 7
[2020-12-21 13:14] LABS: Valproic Acid (Depakene) Level 89 ug/mL (50-100)
[2020-12-21 14:20] VITALS: BP 137/75; PULSE 75; RESP 14; O2SAT 96
--- NOTE | 2020-12-21 14:20 | ED.RN ---
pt alert and oriented, cooperative.
--- NOTE | 2020-12-21 14:30 | CM.ED ---
SOCIAL WORK ASSESSMENT Referral Source: Dr. Lloyd Reason for Consult: Mental Health Evaluation Chief Compliant: Patient presents to ER by . Patient reports confusion and headache. states patient was stating suicidal and homicidal comments prior to arrival. 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 Patient reports prescribed medications by PCP-Dr. Martinez. Triggers/Stressors: None Coping Skills: watching movies or TV shows Abuse Issues: Patient denies any history of abuse. Substance Abuse History: Alcohol. Patient reports drinks every 3 days to the point of intoxication. 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 Risk to Self/Others: Suicidal- Patient denies any suicidal ideation, plan, or intent. Homicidal- Patient denies any homicidal ideation. Mental Status Exam: Orientation- A&OX3 Memory: fair Appearance/General Behavior: clean/appropriate, calm Mood/Affect: depressed Communication Pattern: responds to questions Thought Process: appropriate, patient reports some paranoia General Intellectual Functioning: Average Judgement: fair Insight: good Assessment: Collaboration with Dr. Lloyd who reports does not feel patient requires inpatient psych hospitalization at this time and would benefit from outpatient services/follow up. Met with patient and patient?s in room. Introduced role and reason for referral. Patient gave permission for this worker to speak openly with present. states patient is doing much better now. Patient states does not remember making suicidal or homicidal comments. Patient reports history of mental health and states is compliant with medications. Patient believes would benefit from seeing a psychiatrist as PCP-Dr. Martinez is currently prescribing medications. Patient states [facility] with [facility]. Education provided on [facility]. Patient concerned about cost and if in network with insurance-[employer]. Patient and feel safe going home. Call to [facility], spoke with Nanette. Informed co-pay through [employer] is costly. Patient updated and requested referral to [facility]. Call to [facility]. Intake appointment scheduled for 12/27/20 at 1pm with Christiano Robbins. Patient updated on appointment time and date. Denies any further needs or concerns. Plan: Home with . Intake appointment scheduled with [facility] for 12/[facility]/20. SW to complete follow up phone call tomorrow, 12/22/20. NAHOMI Palencia, [employer]IN [employer] OPERATOR
--- NOTE | 2020-12-21 16:11 | CHAPLAIN ---
Type of Pastoral Visit ___ Initial Visit ___ Follow-up Visit ___ On-call Visit ___ General Patient Visit ___ Spiritual Assessment ___ Family Conference ___ Bereavement ___ Rapid Response ___ Code Blue _x__ Other (describe below) Pastoral Care Referral From ___ Patient ___ Family ___ Nurse ___ Physician ___ Pacu Nurse ___ Real Property Evaluator _x__ Other (describe below) Sacrament/Intervention _x__ Active listening ___ Anointing ___ Druze ___ Bereavement ___ Communion ___ Lucy exploration ___ ___ Life review ___ Prayer ___ Reconciliation ___ Sacrament of Sick _x__ Supportive presence ___ Wedding ___ Other (describe below) Pastoral Comments 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
--- NOTE | 2020-12-22 14:00 | CM.ED ---
BELKIS Note: BELKIS conducted follow up phone call with Cristobal Orr. He said that he has no energy and slept most of the night. He sad that he adjusted the medication (Depakote ) to what we had talked about. Patient reports that he [facility] and this signwriter encouraged patient to speak to his psychiatrist abut his concerns. Patient denied any SI/HI. Patient said I am good. Patient said that he plans to take it easy this afternoon and then watch the Buckeyes tonight. Patient said that with watching the Buckeyes that is something to look forward. SW advised patient that the hospital is available 12/11 if he has any other issues or concern in the future. Plan: Safety Plan follow up Lynnette HENDRIX
== END 2020-12-21 15:23 | disposition home or self-care (01) ==
PROVIDERS: Emergency Provider Emergency Medicine; PCP Family Medicine Geriatric Medicine
DX: G43.909 Migraine, unspecified, not intractable, without status migrainosus (principal); F43.10 Post-traumatic stress disorder, unspecified; F17.210 Nicotine dependence, cigarettes, uncomplicated; F31.9 Bipolar disorder, unspecified; Z79.899 Other long term (current) drug therapy
CPT/HCPCS: 70450; 80048; 80076; 80164; 80307; 82077; 85025; 87426; 96374; 96375; 99284; J7030

== ENCOUNTER → 2021-01-12 09:13 | Outpatient (CLI) | payer MEDICARE, SELFPAY ==
[2021-01-12 12:18] LABS: Absolute Lymphocyte Count 1.75 X10^3/uL (0.83-4.51); Absolute Neutrophil Count 4.4 X10^3/uL (2.0-7.7); Basophil# 0.06 X10^3/uL; Basophil% 0.9 % (0-1); Eosinophil# 0.12 X10^3/uL; Eosinophils% 1.8 % (0-5); Hematocrit 48.2 % (40-54); Hemoglobin 16.5 g/dL (13.0-16.5); Lymphocyte # 1.75 X10^3/ul (0.83-4.51); Lymphocyte % 25.7 % (19-41); Mean Corp Hgb Conc 34.2 g/dL (32-36); Mean Corpuscular Hgb 32.8 pg (27.0-32.0); Mean Corpuscular Volume 95.8 fL (80-94); Mean Platelet Vol. 11.7 fl (6.2-12.0); Monocyte# 0.45 X10^3/uL; Monocyte% 6.6 % (0-10); NRBC Flagged by Analyzer 0 % (0-5); Neutrophil # 4.38 X10^3/uL (2.7-7.7); Neutrophil % 64.3 % (47-70); Platelet Count 230 K/mm3 (150-450); RBC Distribution Width CV 11.9 % (11.6-14.6); RBC Distribution Width SD 41.9 fl (35.1-43.9); Red Blood Count 5.03 M/mm3 (4.6-6.2); White Blood Count 6.8 K/mm3 (4.4-11.0)
[2021-01-12 13:06] LABS: AST(SGOT) 30 U/L (15-37); Alanine Aminotransfer ALT/SGPT 62 U/L (16-61); Albumin, Serum 3.4 g/dL (3.2-5.0); Alkaline Phosphatase 75 U/L (45-117); Anion Gap 8 (5-15); BUN 11 mg/dL (7-18); BUN/Creat Ratio 7.5 RATIO (10-20); Chloride 103 mmol/L (98-107); Cholesterol 221 mg/dL (200); Creatinine, Serum 1.47 mg/dL (0.70-1.30); EST Glomerular Filtration Rate 53 mL/min (>60); Est Glom Filt Rate - Afr Amer 64 mL/min (>60); Globulin 3.5 g/dL (2.2-4.2); Glucose 101 mg/dL (74-106); High Density Lipoprotein 42 mg/dL; Protein, Total 6.9 g/dL (6.4-8.2); Sodium Level 135 mmol/L (136-145); Thyroid Stim Hormone (TSH) 5.27 uIU/mL (0.358-3.74); Triglycerides 366 mg/dL; Very Low Density Lipoprotein 73 mg/dL (5-40)
== END ==
LOC: POLAB3 09:19
PROVIDERS: PCP Family Medicine Geriatric Medicine; Visit Provider Family Medicine Geriatric Medicine
DX: E23.6 Other disorders of pituitary gland (principal); E78.5 Hyperlipidemia, unspecified; R53.83 Other fatigue
CPT/HCPCS: 36415; 80053; 80061; 84403; 84443; 85025

== ENCOUNTER → 2021-02-24 08:39 | Outpatient (CLI) | payer MEDICARE, SELFPAY ==
[2021-02-24 10:19] LABS: Thyroid Stim Hormone (TSH) 3.29 uIU/mL (0.358-3.74)
== END ==
PROVIDERS: PCP Family Medicine Geriatric Medicine; Referring Provider Family Medicine Geriatric Medicine; Visit Provider Family Medicine Geriatric Medicine
DX: E03.9 Hypothyroidism, unspecified (principal)
CPT/HCPCS: 36415; 84443

== ENCOUNTER 2021-05-11 14:51 | Outpatient (CLI) | payer MEDICARE, SELFPAY ==
[2021-05-11 17:29] LABS: Albumin, Serum 3.8 g/dL (3.2-5.0); BUN 18 mg/dL (7-18); BUN/Creat Ratio 10.9 RATIO (10-20); Calcium,Total 9.2 mg/dL (8.5-10.1); Chloride 105 mmol/L (98-107); Creatinine, Serum 1.65 mg/dL (0.70-1.30); EST Glomerular Filtration Rate 46 mL/min (>60); Est Glom Filt Rate - Afr Amer 56 mL/min (>60); Glucose 103 mg/dL (74-106); Phosphorus 2.5 mg/dL (2.5-4.9); Potassium 4.2 mmol/L (3.5-5.1); Sodium Level 138 mmol/L (136-145)
[2021-05-11 17:33] LABS: Protein, Urine (Random) 10.3 mg/dL (<11.9); Protein:Creat Ratio 53 mg/g CRE (0-200)
== END 2021-05-11 23:59 | disposition short-term general hospital (02) ==
PROVIDERS: PCP Family Medicine Geriatric Medicine; Visit Provider Internal Medicine Nephrology
DX: N18.31 Chronic kidney disease, stage 3a (principal)
CPT/HCPCS: 36415; 80069; 82570; 84156

== ENCOUNTER 2021-05-19 09:56 | Outpatient (CLI) | payer MEDICARE, SELFPAY ==
--- NOTE | 2021-05-19 10:02 | US_ITS ---
STUDY: RENAL ULTRASOUND - COMPLETE REASON FOR EXAM: Male, 56 years old. CKD STAGE 3 TECHNIQUE: Ultrasound evaluation of the kidneys was performed with real-time and static hui-scale imaging. COMPARISON: None. FINDINGS: RIGHT KIDNEY: Normal location of the right kidney, which is normal in size. The right kidney measures 11 cm x 5.4 cm x 5 cm. There is a normal cortex of the right kidney. The renal cortex measures 1.1 cm. There is no right renal mass or cyst. There are no right renal calculi. There is no right hydronephrosis. DISTAL RIGHT URETER: There is non-visualization of the distal right ureter. There is no demonstrated right ureterovesical junction calculus. There is a visualized right ureteral jet. LEFT KIDNEY: Normal location of the left kidney, which is normal in size. The left kidney measures 11.7 cm x 4.6 cm x 5.5 cm. There is a normal cortex of the left kidney. The renal cortex measures 1.5 cm. There is no left renal mass or cyst. There are no left renal calculi. There is no left hydronephrosis. DISTAL LEFT URETER: There is non-visualization of the distal left ureter. There is no demonstrated left ureterovesical junction calculus. There is a visualized left ureteral jet. BLADDER: The distended urinary bladder has a volume of 70 ml. There is a normal wall thickness of the distended urinary bladder. There is no demonstrated mass within the urinary bladder. There are no demonstrated bladder calculi. US/Kidney and Bladder IMPRESSION: Normal ultrasound of the kidneys and urinary bladder. Electronically Signed: Sawyer De La Cruz MD at 12:19 EST ,
--- NOTE | 2021-05-19 14:27 | MDS.RN ---
1030 PT BECAME DIZZY AND WAS SHAKING AND JUST NOT FEELING GOOD, PT LAYED FLAT AND US TECH CALLED FOR A NURSE, VITAL SIGNS WERE OBTAINED 102/68. HEART RATE 104, RESPIRATIONS 28 PO2 AT 100, PT SLIGHTLY DIAPHORETIC, FLUSHED AND SHAKING, US OF THE KIDNEYS IS DONE, PT DID NOT EAT TODAY, OJ AND COOKIES GIVEN, BROUGHT BACK TO ROOM, OBSERVED FOR 20 MINUTES PT FEELING BETTER, REFUSED GOING TO THE EMERGENCY ROOM VS 105/62, HR 98, RESP 20, COLOR LESS RED AND PT IS NO LONGER DIAPHORETIC, STILL SMALL AMOUNT OF SHAKINESS, WAS NOT CONCERN WITH THIS, NOT SURE WHAT BASELINE IS. PT LEFT VIA WHEEL CHAIR WITH OJ AND COOKIES AND ADVISED TO CALL ATTENDING OR RETURN TO ER IF SYMPTONS RETURN OR WORSEN, PT AND VOICED UNDERSTANDING.
== END 2021-05-19 23:59 | disposition short-term general hospital (02) ==
LOC: US 10:01
PROVIDERS: PCP Family Medicine Geriatric Medicine; Referring Provider Internal Medicine Nephrology; Visit Provider Internal Medicine Nephrology
DX: N18.31 Chronic kidney disease, stage 3a (principal)
CPT/HCPCS: 76770

== ENCOUNTER 2021-06-21 13:16 | Outpatient (CLI) | payer MEDICARE, SELFPAY ==
[2021-06-21 14:04] LABS: Albumin, Serum 3.7 g/dL (3.2-5.0); BUN 12 mg/dL (7-18); BUN/Creat Ratio 9.9 RATIO (10-20); Calcium,Total 9.6 mg/dL (8.5-10.1); Chloride 102 mmol/L (98-107); Creatinine, Serum 1.21 mg/dL (0.70-1.30); EST Glomerular Filtration Rate 66 mL/min (>60); Est Glom Filt Rate - Afr Amer 80 mL/min (>60); Glucose 91 mg/dL (74-106); Phosphorus 2.6 mg/dL (2.5-4.9); Potassium 4.3 mmol/L (3.5-5.1); Sodium Level 138 mmol/L (136-145)
== END 2021-06-21 23:59 | disposition home or self-care (01) ==
LOC: LAB 13:18
PROVIDERS: PCP Family Medicine Geriatric Medicine; Referring Provider Internal Medicine Nephrology; Visit Provider Internal Medicine Nephrology
DX: N18.31 Chronic kidney disease, stage 3a (principal)
CPT/HCPCS: 36415; 80069

== ENCOUNTER 2021-07-17 09:30 | Outpatient (CLI) | payer MEDICARE, SELFPAY ==
[2021-07-17 12:27] LABS: Absolute Lymphocyte Count 1.71 X10^3/uL (0.83-4.51); Basophil# 0.05 X10^3/uL; Basophil% 0.9 % (0-1); Eosinophil# 0.15 X10^3/uL; Eosinophils% 2.7 % (0-5); Hematocrit 42.9 % (40-54); Lymphocyte # 1.71 X10^3/ul (0.83-4.51); Mean Corpuscular Hgb 33.8 pg (27.0-32.0); Mean Corpuscular Volume 96.6 fL (80-94); Mean Platelet Vol. 11.4 fl (6.2-12.0); Monocyte# 0.51 X10^3/uL; Monocyte% 9.3 % (0-10); NRBC Flagged by Analyzer 0 % (0-5); Neutrophil # 3.03 X10^3/uL (2.7-7.7); Platelet Count 209 K/mm3 (150-450); RBC Distribution Width CV 11.9 % (11.6-14.6); RBC Distribution Width SD 42.3 fl (35.1-43.9); Red Blood Count 4.44 M/mm3 (4.6-6.2); White Blood Count 5.5 K/mm3 (4.4-11.0)
[2021-07-17 13:11] LABS: ALB/GLOB Ratio 1.1 RATIO (0.9-2.4); AST(SGOT) 47 U/L (15-37); Alanine Aminotransfer ALT/SGPT 109 U/L (16-61); Albumin, Serum 3.8 g/dL (3.2-5.0); Alkaline Phosphatase 82 U/L (45-117); Anion Gap 10 (5-15); BUN 16 mg/dL (7-18); BUN/Creat Ratio 12.3 RATIO (10-20); Calcium,Total 9.6 mg/dL (8.5-10.1); Chloride 100 mmol/L (98-107); Cholesterol 270 mg/dL (200); EST Glomerular Filtration Rate 61 mL/min (>60); Est Glom Filt Rate - Afr Amer 74 mL/min (>60); Globulin 3.4 g/dL (2.2-4.2); Glucose 89 mg/dL (74-106); High Density Lipoprotein 57 mg/dL; Potassium 3.8 mmol/L (3.5-5.1); Protein, Total 7.2 g/dL (6.4-8.2); Sodium Level 135 mmol/L (136-145); Thyroid Stim Hormone (TSH) 3.26 uIU/mL (0.358-3.74); Triglycerides 509 mg/dL
== END 2021-07-17 23:59 | disposition home or self-care (01) ==
LOC: POLAB3 09:31
PROVIDERS: PCP Family Medicine Geriatric Medicine; Visit Provider Family Medicine Geriatric Medicine
DX: E78.5 Hyperlipidemia, unspecified (principal); E23.6 Other disorders of pituitary gland; R53.83 Other fatigue
CPT/HCPCS: 36415; 80053; 80061; 84403; 84443; 85025

== ENCOUNTER → 2021-07-22 | Outpatient (CLI) | payer MEDICARE, SELFPAY ==
[2021-07-23 09:08] LABS: HEPATITIS B SURFACE AG Negative (Negative); Hepatitis A IgM Antibody Negative (Negative); Hepatitis B Core AB IgM Negative (Negative)
[2021-07-23 10:21] LABS: Hep C Antibodies <0.1 s/co ratio (0.0-0.9); Hepatitis A AB, Total Negative (Negative)
[2021-07-24 09:01] LABS: Hepatitis B Surface Antibody Non-Reactive
== END | disposition home or self-care (01) ==
LOC: LAB 09:57
PROVIDERS: PCP Family Medicine Geriatric Medicine; Referring Provider Family Medicine Geriatric Medicine; Visit Provider Family Medicine Geriatric Medicine
DX: R74.8 Abnormal levels of other serum enzymes (principal); K74.69 Other cirrhosis of liver
CPT/HCPCS: 36415; 80074; 86706; 86708

== ENCOUNTER 2021-07-26 08:14 | Outpatient (CLI) | payer MEDICARE, SELFPAY ==
--- NOTE | 2021-07-26 08:32 | US_ITS ---
STUDY: ABDOMINAL ULTRASOUND - RIGHT UPPER QUADRANT REASON FOR VISIT: Male, 56 years old LIVER ENZYMES ABNORMAL TECHNIQUE: Ultrasound evaluation of the right upper quadrant was performed with real-time and static truong-scale imaging. TECHNICAL QUALITY: Adequate. COMPARISON: None. FINDINGS: Liver: The liver measures 15.5 cm. There is increased echogenicity consistent with fatty infiltration. The bile ducts are within normal limits. There is hepatic color flow. The direction of portal flow is hepatopetal. There is no demonstrated mass lesion. Gallbladder: Normal distended gallbladder. The gallbladder wall measures 1.6 mm. There is a negative sonographic Tony''s sign. There is no pericholecystic fluid. There are no gallstones. Common Bile Duct (C.B.D.): The common bile duct measures 2.4 mm. Pancreas: Normal size of the head, body and tail of the pancreas. There is increased echogenicity of the pancreas. There is no demonstrated pancreatic mass or cyst. Right Kidney: Normal size of the right kidney. The right kidney measures 10.9 cm x 3.8 cm x 6.9 cm. Normal renal cortex. The right cortex measures 1.9 cm. There is no demonstrated renal mass or cyst. There is no right hydronephrosis. US/Abdomen Limited IMPRESSION: Fatty infiltration of the liver. Electronically Signed: Sawyer De La Cruz MD at 12:28 EDT ,
== END 2021-07-26 23:59 | disposition home or self-care (01) ==
PROVIDERS: PCP Family Medicine Geriatric Medicine; Referring Provider Family Medicine Geriatric Medicine; Visit Provider Family Medicine Geriatric Medicine
DX: R74.8 Abnormal levels of other serum enzymes (principal)
CPT/HCPCS: 76705

== ENCOUNTER 2021-08-04 09:15 | Outpatient (CLI) | payer MEDICARE, SELFPAY ==
--- NOTE | 2021-08-04 09:17 | US_ITS ---
STUDY: ABDOMINAL ULTRASOUND - ELASTOGRAPHY REASON FOR VISIT: Male, 56 years old. Fatty infiltration of the liver. TECHNIQUE: Liver stiffness measurements were obtained on a CrossLoop RS 85 ultrasound machine using a CA 1-7 probe following the SRU guidelines. 3 measurements were obtained using a 2-D-SWE method. TheIQR/M was 17% suggesting a quality data set. TECHNICAL QUALITY: Adequate. COMPARISON: Comparison is made with prior sonogram dated 07/26/2021. FINDINGS: Liver: Fatty infiltration of the liver. Median liver stiffness measured 4.7 kPa. US/Elastography Parenchyma/Organ IMPRESSION: Liver stiffness measures 4.7 kPa compatible with F0-F1 (Normal to mild liver fibrosis) Metavir score. Electronically Signed: Sawyer De La Cruz MD at 11:17 EDT ,
== END 2021-08-04 23:59 | disposition home or self-care (01) ==
LOC: US 09:16
PROVIDERS: PCP Family Medicine Geriatric Medicine; Referring Provider Family Medicine Geriatric Medicine; Visit Provider Family Medicine Geriatric Medicine
DX: K76.0 Fatty (change of) liver, not elsewhere classified (principal)
CPT/HCPCS: 76981

== ENCOUNTER 2021-09-25 10:30 | Outpatient (RCR) | payer MEDICARE, SELFPAY ==
--- NOTE | 2021-08-30 14:51 | HP.PTEVAL ---
Patient's Visit Information DONG JACKSON is a 56 year old M referred to Physical Therapy by Dr. Jim Martinez MD with a diagnosis of Achilles Tendonosis. Date of Evaluation: 08/30/21 Physical Therapist: Aurelia Bray DPT - Visit Plan Frequency: 2x /Week Duration: 4 Weeks Plan: Focus on LE and core strength/stabilization, proprioception, flexibility- ECCENTRICS. Manual and Ultrasound. HEP Given IE: Ankle ROM, Gastroc Stretch with Towel, Seated HR/TR - Subjective Patient reports right Achilles tendinosis- has been going on at least 6 months. Thinks he jumped out of the trunk and landed on it funny. He has been taking a Medrol Dose Pack and wearing a CAM boot. Has tried stretching it out and walking without the CAM walker. Feels that the steroids decreased the swelling. He is in the boot all day but does not sleep in it. Does not wear a night splint. Sleep: does wake him and throb during the night- if its propped up and then puts it down with the blood flow it throbs. Pain is located along the length of the Achilles- knot and very painful at the top of the Achilles. Has not had an MRI but has had x-rays- plans to have one the 19 of September. MD thinks possible micro tears. Worst: 8/10 Aggravated by: anything Eases: hot bath Best: 3/10. Describes the pain as dull all the time but has had sharp shooting pains. Is not doing any sort of exercises at this time. told him 50/50 chance he will have surgery and only a 50% great recovery rate. 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 No N/T in the toes. He is fully I with all ADL's including driving. He does get some tightness in the arch- has high arches- does not wear orthotics- sticks to memory foam shoes. Has never had foot problems before this. PMHx/Meds: scanned in chart - Objective Posture: FH, RS- can correct with verbal cues but does not maintain. Gait: antalgic- decreased stance on the right LE- poor heel/toe pattern in CAM Walker- without very hesitant to place weight through right LE HR/TR: seated- able slow and cautious reports pull with both. SLS: weight shift but is unable to SLS. Flex: HS: severe, Gastroc: severe, Soleus: severe. ROM: DF: neutral, PF: 50 degrees, Inver: 30 degrees, Ever: 30 degrees- pain with end range inversion. Observation: no swelling to note- dry skin Palpation: medial gastroc throughout, along achilles with knot towards heel. Sensation: WNL to gross touch bilateral. Strength: 4/5 in ankle, Knee: 4+/5, Hip: 4/5 throughout Core: fair - Balance/Special Test Scores Lower Extremity Functional Score: 27 - Goals Goal 1:: Patient will be I with HEP and progression Goal Time Frame: 4-6 Weeks Goal 2:: Patient will ambulate >300 feet with a normalized gait pattern Goal Time Frame: 4-6 Weeks Goal 3:: Patient will SLS for 30 sec without LOB Goal Time Frame: 4-6 Weeks Goal 4:: Patient will report 80% improvement Goal Time Frame: 4-6 Weeks - Rehabilitation Potential Physical Therapy Diagnosis: Patient presents with hypomobility-he has decreased LE and core strength/stabilization, flex Rehabilitation Potential: Good - Anticipated Interventions Patient/Client Instruction: Educate patient on: Benefits of Fitness Program Therapeutic Exercise to Include: Strength training, Endurance training, Balance training, Coordination, Agility training, Body mechanics, Postural training, Flexibilty training, Gait and locomotor training, Neuromotor development, Passive ROM, Active ROM, Dynamic Lumbar Stabilization, Scapular Strength/Stabilization For the Purpose of:: To improve muscle performance and motor function TENS: Yes Cryotherapy (ice pack, ice massage): Yes Thermo therapy (hot pack): Yes Ultrasound (thermal/non thermal): Yes Thank you for the opportunity to evaluate your patient. For Medicare and Medicare HMO plans, please review the plan of care and approve it. It will need to be FAXED BACK to us at [phone] for Medicare purposes. For Medicare only, by signing this I certify the plan of care. Please let me know if there are questions or concerns regarding this plan of care. Physician Signature: Date:
== END 2021-09-25 19:00 | disposition home or self-care (01) ==
LOC: PT 10:30
PROVIDERS: PCP Family Medicine Geriatric Medicine; Referring Provider Podiatrist; Visit Provider Podiatrist
DX: M76.61 Achilles tendinitis, right leg (principal)
CPT/HCPCS: 97035; 97110; 97161

== ENCOUNTER 2022-03-03 10:29 | Emergency (ER) | payer MEDICARE, SELFPAY ==
[2022-03-03 10:30] VITALS: BP 132/108; PULSE 97; RESP 22; TEMP 36.6; O2SAT 100; BMI 25.6
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
[2022-03-03] MEDS: Morphine 4 MG/ML Syringe IV (10:55)
[2022-03-03] MEDS: BACITRACIN 15 GM Tube 1 APPLIC TOPICAL (10:56)
[2022-03-03] MEDS: 0.9% Normal Saline 1,000 ML 1000 ML IV (10:56)
[2022-03-03] MEDS: Diphth,Pertuss(Acell),Tet Vac 0.5 ML Vial IM (10:56)
[2022-03-03 11:29] VITALS: BP 94/68; PULSE 75; RESP 18; O2SAT 94
[2022-03-03 12:00] VITALS: BP 104/86; PULSE 72; RESP 18; O2SAT 95
[2022-03-03 12:01] VITALS: RESP 18
== END 2022-03-03 13:02 | disposition home or self-care (01) ==
PROVIDERS: Emergency Provider Emergency Medicine; PCP Family Medicine Geriatric Medicine; Visit Provider Emergency Medicine
DX: T23.202A Burn of second degree of left hand, unspecified site, initial encounter (principal); F31.9 Bipolar disorder, unspecified; T22.211A Burn of second degree of right forearm, initial encounter; Z87.891 Personal history of nicotine dependence; Z79.899 Other long term (current) drug therapy; Z23 Encounter for immunization; W19.XXXA Unspecified fall, initial encounter
CPT/HCPCS: 90471; 90715; 96361; 96374; 99284; J7030; A4216

== ENCOUNTER → 2022-03-21 | Outpatient (CLI) | payer MEDICARE, SELFPAY ==
[2022-03-21 17:02] LABS: Absolute Neutrophil Count 3.5 X10^3/uL (2.0-7.7); Basophil# 0.03 X10^3/uL; Basophil% 0.5 % (0-1); Eosinophil# 0.09 X10^3/uL; Eosinophils% 1.6 % (0-5); Hematocrit 42.1 % (40-54); Hemoglobin 13.9 g/dL (13.0-16.5); Lymphocyte % 29.7 % (19-41); Mean Corpuscular Hgb 31.9 pg (27.0-32.0); Mean Corpuscular Volume 96.6 fL (80-94); Mean Platelet Vol. 10.9 fl (6.2-12.0); Monocyte# 0.43 X10^3/uL; Monocyte% 7.5 % (0-10); NRBC Flagged by Analyzer 0 % (0-5); Neutrophil # 3.45 X10^3/uL (2.7-7.7); Neutrophil % 60.4 % (47-70); Platelet Count 225 K/mm3 (150-450); RBC Distribution Width CV 11.6 % (11.6-14.6); RBC Distribution Width SD 40.7 fl (35.1-43.9); Red Blood Count 4.36 M/mm3 (4.6-6.2); White Blood Count 5.7 K/mm3 (4.4-11.0)
[2022-03-21 17:43] LABS: ALB/GLOB Ratio 1.3 RATIO (0.9-2.4); AST(SGOT) 23 U/L (15-37); Alanine Aminotransfer ALT/SGPT 88 U/L (16-61); Albumin, Serum 3.8 g/dL (3.2-5.0); Alkaline Phosphatase 85 U/L (45-117); Anion Gap 7 (5-15); BUN 21 mg/dL (7-18); BUN/Creat Ratio 15.3 RATIO (10-20); Chloride 104 mmol/L (98-107); Cholesterol 223 mg/dL (200); Creatinine, Serum 1.37 mg/dL (0.70-1.30); EST Glomerular Filtration Rate 57 mL/min (>60); Est Glom Filt Rate - Afr Amer 69 mL/min (>60); Globulin 2.9 g/dL (2.2-4.2); Glucose 98 mg/dL (74-106); High Density Lipoprotein 53 mg/dL; Potassium 3.8 mmol/L (3.5-5.1); Protein, Total 6.7 g/dL (6.4-8.2); Sodium Level 138 mmol/L (136-145); Thyroid Stim Hormone (TSH) 2.94 uIU/mL (0.358-3.74); Triglycerides 333 mg/dL; Very Low Density Lipoprotein 67 mg/dL (5-40)
== END | disposition home or self-care (01) ==
LOC: POLAB3 15:19
PROVIDERS: PCP Family Medicine Geriatric Medicine; Visit Provider Family Medicine Geriatric Medicine
DX: E78.5 Hyperlipidemia, unspecified (principal); R53.83 Other fatigue
CPT/HCPCS: 36415; 80053; 80061; 84443; 85025

== ENCOUNTER 2022-06-18 19:33 | Emergency (ER) | payer MEDICARE, SELFPAY ==
[2022-06-18 19:34] VITALS: BP 105/64; PULSE 91; RESP 15; TEMP 36.6; O2SAT 97; BMI 25.9
[2022-06-18 19:52] VITALS: O2SAT 93
[2022-06-18 20:39] VITALS: O2SAT 98
--- NOTE | 2022-06-18 20:57 | EX.ED.DYSGE1 ---
HPI History of Present Illness Chief Complaint: Shortness of Breath Informant: patient Narrative Narrative: 3 weeks worsening sinus congestion no fevers or headaches. Has a weak nonproductive cough. No wheezing. History of asthma. Denies any dyspnea. Denies vomiting diarrhea. Denies any allergies. [facility] Medical History Bipolar 1 disorder PTSD (post-traumatic stress disorder) Home Medications divalproex 500 mg tablet,delayed release 500 mg PO BID psychosis/bipolar 07/19/18 [History Last Taken 07/11/19] trazodone 100 mg tablet 200 mg PO QHS sleep 03/25/19 [History Last Taken 07/10/19] albuterol sulfate 90 mcg/actuation aerosol inhaler 1 - 2 puff inhalation Q6H PRN PRN breathing 01/19/20 [History Last Taken Unknown] budesonide-formoterol HFA 160 mcg-4.5 mcg/actuation aerosol inhaler 2 puff inhalation DAILY asthma 01/19/20 [History Last Taken Unknown] levothyroxine 25 mcg tablet 25 mcg PO DAILY thyroid 01/19/20 [History Last Taken Unknown] omeprazole 20 mg capsule,delayed release 40 mg PO DAILY reflux 01/19/20 [History Last Taken Unknown] hydrocodone-acetaminophen 5-325mg 5mg-325mg 1 tab PO Q6H PRN PRN Pain 3 days #10 TABLETS 03/03/22 [Rx Last Taken Unknown] amoxicillin 875 mg-potassium clavulanate 125 mg tablet 875 mg PO Q12H #20 TABLETS 06/18/22 [Rx Last Taken Unknown] Allergy/AdvReac Type Severity Reaction Status Date / Time No Known Allergies Allergy Verified 06/18/22 19:40 Social History Smoking Status: Former smoker ROS ROS ED Constitutional Constitutional ED: Denies chills, fever(s) or sweats Eyes Eyes: Denies change in vision ENT ENT ED: Reports other Details: Sinus congestion ; Denies dysphagia or sore throat Cardiovascular Cardiovascular: Denies chest pain, leg edema, palpitations or racing heartbeat Respiratory/Chest Respiratory/Chest: Reports cough; Denies dyspnea or dyspnea on exertion Gastrointestinal Gastrointestinal: Denies abdominal pain, diarrhea, nausea or vomiting Genitourinary Genitourinary ED: Denies dysuria, hematuria or urinary frequency Musculoskeletal Musculoskeletal: Denies back pain, extremity pain or neck pain Integumentary Denies rash or wounds Neurologic Neurologic: Denies headache(s), paresthesias or weakness EXAM Physical Exam Const Vital Signs: 06/18/22 19:34 06/18/22 19:52 06/18/22 20:39 Temperature 97.8 F Temperature Source Temporal Pulse Rate 91 Respiratory Rate 15 Respiratory Effort Non-Labored Short of Breath Respiratory Depth Normal Respiratory Pattern Normal Blood Pressure 105/64 Blood Pressure Mean 77 Pulse Ox 97 93 Oxygen Delivery Method Room Air Nasal Cannula Room Air Oxygen Flow Rate (L/min) 3 Positive well nourished and well developed General Appearance ED: well developed and NAD HEENT Reports TM's clear and moist mucous membranes HEENT Narrative: TMs normal bilaterally. No swelling of turbinates however tender maxillary sinus bilaterally. No posterior pharyngeal erythema. normocephalic and atraumatic Tympanic Membrane ED: Yes TM's clear Eyes PERRL, EOMs intact bilaterally and conjunctivae normal General Eye ED: Yes normal appearance of both eyes Neck no lymphadenopathy and supple General: Negative for tenderness Chest Wall Chest: Negative for tenderness Resp normal respiratory effort and normal air movement Effort and Inspection: symmetric chest movement; Negative for respiratory distress Cardio regular rate, regular rhythm and no murmurs Peripheral Pulses: pulses 2+ throughout GI normal to inspection, nondistended, normoactive bowel sounds and non-tender Palpation: Negative for guarding or rebound tenderness present Back/Spine no CVA tenderness and no thoracic nor lumbar tenderness Extremity normal to inspection General Extremety ED: Negative for edema or tenderness General Extremity: Negative for edema Neuro oriented x3 and no sensory deficits noted Sensorium / Orientation: awake and alert Skin no rashes or lesions noted and no wounds MDM MDM MDM Narrative Medical decision making narrative: Interventions / MDM: Differential diagnosis: Sinusitis, bronchitis Diagnosis considered but do not suspect: N/A My EKG interpretation: N/A Imaging independently reviewed and interpreted by myself: N/A External documents reviewed: N/A Test considered but not ordered:N/A ED course: Patient vital stable. Of note patient documentation on 3 L oxygen however patient was never put on oxygen. Sinus congestion for 3 weeks that is worsening. No fevers. However due to extent of time will place on antibiotics of Augmentin for coverage. Bronchitis symptoms with no productive sputum. No respiratory distress. He will take and finish antibiotics follow-up with PCP peer return precautions. All questions were answered. Re-evaluation: stable Disposition discussed with patient/family/significant other: Case discussed with consulting clinician: N/A Discharge Plan Triage Chief Complaint: Shortness of Breath ED Provider: Shine Castro Dx/Rx/DC Orders Clinical Impression: Sinusitis, Bronchitis Instructions: ED Upper Resp Infec Abx Tx, ED Sinusitis (Antibiotic Treatment) Prescriptions: New amoxicillin-pot clavulanate [amoxicillin-pot clavulanate] 875-125 mg tablet 875 mg PO Q12H Qty: 20 0RF No Action divalproex 500 MG tablet,delayed release (DR/EC) 500 mg PO BID trazodone 100 MG tablet 200 mg PO QHS levothyroxine 25 MCG tablet 25 mcg PO DAILY albuterol sulfate 1 INHALER inhaler 1 - 2 puff inhalation Q6H PRN PRN (Reason: breathing) budesonide-formoterol 1 INHALER inhaler 2 puff inhalation DAILY omeprazole 20 MG capsule,delayed release(DR/EC) 40 mg PO DAILY hydrocodone-acetaminophen [hydrocodone-acetaminophen] 1 TABLET tablet 1 tab PO Q6H PRN PRN (Reason: Pain) 3 Days Qty: 10 0RF Primary Care Provider: Jim Martinez Chi Referrals: Jim Martinez Chi, MD [Primary Care Provider] - 1 Week if not improving Activity Restrictions/Additional Instructions: Take antibiotic as prescribed. Follow-up with your doctor. Disposition Disposition: Home, Self Care Discharge Date/Time: 06/18/22 21:08
[2022-06-18] MEDS: Amox/Clavulanate 875 MG Tablet PO (21:05)
== END 2022-06-18 21:08 | disposition home or self-care (01) ==
PROVIDERS: Emergency Provider Emergency Medicine; PCP Family Medicine Geriatric Medicine; Visit Provider Emergency Medicine
DX: J32.9 Chronic sinusitis, unspecified (principal); J40 Bronchitis, not specified as acute or chronic; Z87.891 Personal history of nicotine dependence; Z79.899 Other long term (current) drug therapy
CPT/HCPCS: 99284

== ENCOUNTER → 2022-06-28 | Outpatient (CLI) | payer MEDICARE, SELFPAY ==
[2022-06-28 12:52] LABS: Absolute Lymphocyte Count 1.34 X10^3/uL (0.83-4.51); Absolute Neutrophil Count 3.6 X10^3/uL (2.0-7.7); Basophil# 0.05 X10^3/uL; Basophil% 0.9 % (0-1); Eosinophil# 0.07 X10^3/uL; Eosinophils% 1.3 % (0-5); Hematocrit 45.3 % (40-54); Hemoglobin 15.3 g/dL (13.0-16.5); Lymphocyte # 1.34 X10^3/ul (0.83-4.51); Lymphocyte % 24.3 % (19-41); Mean Corp Hgb Conc 33.8 g/dL (32-36); Mean Corpuscular Hgb 32.4 pg (27.0-32.0); Mean Platelet Vol. 10.5 fl (6.2-12.0); Monocyte# 0.42 X10^3/uL; Monocyte% 7.6 % (0-10); NRBC Flagged by Analyzer 0 % (0-5); Neutrophil # 3.57 X10^3/uL (2.7-7.7); Neutrophil % 64.8 % (47-70); Platelet Count 212 K/mm3 (150-450); RBC Distribution Width CV 11.9 % (11.6-14.6); RBC Distribution Width SD 41.5 fl (35.1-43.9); Red Blood Count 4.72 M/mm3 (4.6-6.2); White Blood Count 5.5 K/mm3 (4.4-11.0)
[2022-06-28 13:13] LABS: Albumin, Serum 3.8 g/dL (3.2-5.0); BUN 19 mg/dL (7-18); BUN/Creat Ratio 15.6 RATIO (10-20); Creatinine, Serum 1.22 mg/dL (0.70-1.30); EST Glomerular Filtration Rate 66 mL/min (>60); Est Glom Filt Rate - Afr Amer 79 mL/min (>60); Glucose 94 mg/dL (74-106); Protein, Total 7.2 g/dL (6.4-8.2)
[2022-06-28 13:14] LABS: ALB/GLOB Ratio 1.1 RATIO (0.9-2.4); AST(SGOT) 28 U/L (15-37); Alanine Aminotransfer ALT/SGPT 55 U/L (16-61); Alkaline Phosphatase 82 U/L (45-117); Anion Gap 12 (5-15); Calcium,Total 9.7 mg/dL (8.5-10.1); Chloride 101 mmol/L (98-107); Cholesterol 252 mg/dL (200); Globulin 3.4 g/dL (2.2-4.2); High Density Lipoprotein 61 mg/dL; PSA,Total - Annual Screen 0.55 ng/mL (0.00-4.00); Phosphorus 2.6 mg/dL (2.5-4.9); Potassium 3.9 mmol/L (3.5-5.1); Sodium Level 136 mmol/L (136-145); Triglycerides 379 mg/dL; Very Low Density Lipoprotein 76 mg/dL (5-40)
== END | disposition home or self-care (01) ==
LOC: POLAB3 11:32
PROVIDERS: PCP Family Medicine Geriatric Medicine; Visit Provider Family Medicine Geriatric Medicine
DX: Z12.5 Encounter for screening for malignant neoplasm of prostate (principal); N18.2 Chronic kidney disease, stage 2 (mild); E78.5 Hyperlipidemia, unspecified; E55.9 Vitamin D deficiency, unspecified; R53.83 Other fatigue
CPT/HCPCS: 36415; 80053; 80061; 84100; 84153; 84403; 84443; 85025; G0103

== ENCOUNTER → 2023-01-01 | Outpatient (CLI) | payer MEDICARE, SELFPAY ==
[2023-01-01 15:11] LABS: Absolute Lymphocyte Count 1.66 X10^3/uL (0.83-4.51); Absolute Neutrophil Count 2.7 X10^3/uL (2.0-7.7); Basophil# 0.04 X10^3/uL; Basophil% 0.8 % (0-1); Eosinophil# 0.13 X10^3/uL; Eosinophils% 2.7 % (0-5); Hematocrit 45.1 % (40-54); Hemoglobin 15.3 g/dL (13.0-16.5); Lymphocyte # 1.66 X10^3/ul (0.83-4.51); Lymphocyte % 34.3 % (19-41); Mean Corp Hgb Conc 33.9 g/dL (32-36); Mean Corpuscular Hgb 32.3 pg (27.0-32.0); Mean Corpuscular Volume 95.3 fL (80-94); Monocyte# 0.29 X10^3/uL; NRBC Flagged by Analyzer 0 % (0-5); Neutrophil # 2.69 X10^3/uL (2.7-7.7); Neutrophil % 55.6 % (47-70); Platelet Count 236 K/mm3 (150-450); RBC Distribution Width CV 11.8 % (11.6-14.6); RBC Distribution Width SD 41.3 fl (35.1-43.9); Red Blood Count 4.73 M/mm3 (4.6-6.2); White Blood Count 4.8 K/mm3 (4.4-11.0)
[2023-01-01 16:34] LABS: ALB/GLOB Ratio 1.2 RATIO (0.9-2.4); AST(SGOT) 22 U/L (15-37); Alanine Aminotransfer ALT/SGPT 45 U/L (16-61); Albumin, Serum 3.8 g/dL (3.2-5.0); Alkaline Phosphatase 82 U/L (45-117); Anion Gap 8 (5-15); BUN 16 mg/dL (7-18); Calcium,Total 8.9 mg/dL (8.5-10.1); Chloride 104 mmol/L (98-107); Cholesterol 240 mg/dL (200); Creatinine, Serum 1.07 mg/dL (0.70-1.30); EST Glomerular Filtration Rate 76 mL/min (>60); Est Glom Filt Rate - Afr Amer 92 mL/min (>60); Globulin 3.3 g/dL (2.2-4.2); Glucose 95 mg/dL (74-106); High Density Lipoprotein 59 mg/dL; Potassium 3.9 mmol/L (3.5-5.1); Protein, Total 7.1 g/dL (6.4-8.2); Sodium Level 139 mmol/L (136-145); Thyroid Stim Hormone (TSH) 2.13 uIU/mL (0.358-3.74); Triglycerides 538 mg/dL
== END | disposition home or self-care (01) ==
LOC: POLAB3 13:52
PROVIDERS: PCP Family Medicine Geriatric Medicine; Visit Provider Family Medicine Geriatric Medicine
DX: R53.83 Other fatigue (principal); E78.5 Hyperlipidemia, unspecified; Z12.5 Encounter for screening for malignant neoplasm of prostate
CPT/HCPCS: 36415; 80053; 80061; 84443; 85025

== ENCOUNTER 2023-04-25 12:09 | Observation (INO) | payer MEDICARE, SELFPAY ==
[2023-04-25] VITALS (14 sets, daily range): BP systolic 94–158; BP diastolic 59–92; PULSE 67–85; RESP 12–19; TEMP 36.2–36.7; O2SAT 97–100; BMI 26.6; BMI 25.0
--- NOTE | 2023-04-25 12:33 | RAD_ITS ---
HISTORY: Neuro deficit, acute, stroke suspected. TECHNIQUE: XR Chest 1 View. COMPARISON: 07/13/2019. FINDINGS: CARDIOMEDIASTINAL BORDERS: Cardiac silhouette within normal limits in size. Mediastinal contour unremarkable. LUNGS: Radiographically clear. PLEURA: No pleural effusion or pneumothorax seen. OSSEOUS STRUCTURES: Unremarkable. RAD/Chest 1 View IMPRESSION: No acute cardiopulmonary process identified. Electronically Signed: Digna Martin MD at 13:31 EST ,
--- NOTE | 2023-04-25 12:33 | CT_ITS ---
HISTORY: Neuro deficit, acute, stroke suspected. TECHNIQUE: [place] [facility] [place]/head and carotid CT angiogram protocol was performed after the intravenous administration of 100 mL Isovue 370. NASCET criteria using the distal ICAs for comparison were used for evaluation of stenoses. 3D reconstructions were reviewed. A radiation dose optimization technique was used for this scan. 1351 images. COMPARISON: CT head same day. FINDINGS: AORTIC ARCH AND BRANCHES: No significant stenosis. RIGHT CCA: No occlusion, significant stenosis or dissection. RIGHT ICA: No occlusion, significant stenosis or dissection. LEFT CCA: No occlusion, significant stenosis or dissection. LEFT ICA: No occlusion, significant stenosis or dissection. RIGHT VERTEBRAL ARTERY: Dominant and patent. LEFT VERTEBRAL ARTERY: Hypoplastic. Patent proximal to mid. Narrowing and diminished flow distally. ICAs: No significant stenosis at the intracranial/visualized segments. ACAs: No significant stenosis at the visualized segments. Fenestration incidentally noted. MCAs: No significant stenosis at the visualized segments. road mender: No significant stenosis at the visualized segments. Mild stenosis of the left posterior cerebral artery. BASILAR ARTERY: No significant stenosis. 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 No evidence of intracranial aneurysm or vascular malformation. 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 No evidence for significant stenosis or occlusion in the carotid arteries of the neck. No evidence for large vessel occlusion in the intracranial anterior circulation. N.B. : The above Results were Read Back by Digna Martin MD to Lorelei Springer DO, and understanding confirmed on 04/25/2023 12:58:32 (ET). Electronically Signed: Digna Martin MD at 12:59 EST ,
--- NOTE | 2023-04-25 12:33 | CT_ITS ---
We are attempting to reach an attending provider to discuss findings. An addendum with communication details will be sent when the communication is complete. HISTORY: Neuro deficit, acute, stroke suspected. TECHNIQUE: Multiple axial images were obtained of the head without intravenous contrast. A radiation dose optimization technique was used for this scan. 245 images. COMPARISON: 12/21/2020. FINDINGS: BRAIN PARENCHYMA: Multiple foci and zones of low attenuation in the bilateral cerebral white matter compatible with chronic small vessel ischemic gliosis. No acute intra-axial hemorrhage identified. CSF SPACES: Generalized volume loss. No midline shift or other significant mass effect. No acute extra-axial hemorrhage seen. OTHER: Intact calvarium. No significant air fluid levels in the paranasal sinuses or mastoid air cells. Unremarkable orbits. ASPECTS Score for Acute Strokes: 10 CT/STROKE Brain/Head without Cont IMPRESSION: No acute intracranial process identified. Mild chronic involutional and white matter changes. Electronically Signed: Digna Martin MD at 12:49 EST ,
[2023-04-25 12:51] LABS: Absolute Lymphocyte Count 1.43 X10^3/uL (0.83-4.51); Absolute Neutrophil Count 3.2 X10^3/uL (2.0-7.7); Basophil# 0.03 X10^3/uL; Basophil% 0.6 % (0-1); Eosinophil# 0.08 X10^3/uL; Eosinophils% 1.5 % (0-5); Hematocrit 38.7 % (40-54); Hemoglobin 13.5 g/dL (13.0-16.5); Lymphocyte # 1.43 X10^3/ul (0.83-4.51); Lymphocyte % 26.6 % (19-41); Mean Corp Hgb Conc 34.9 g/dL (32-36); Mean Corpuscular Hgb 32.3 pg (27.0-32.0); Mean Corpuscular Volume 92.6 fL (80-94); Mean Platelet Vol. 9.3 fl (6.2-12.0); Monocyte# 0.63 X10^3/uL; Monocyte% 11.7 % (0-10); NRBC Flagged by Analyzer 0 % (0-5); Neutrophil # 3.19 X10^3/uL (2.7-7.7); Neutrophil % 59.2 % (47-70); Platelet Count 187 K/mm3 (150-450); RBC Distribution Width CV 11.3 % (11.6-14.6); RBC Distribution Width SD 38.5 fl (35.1-43.9); Red Blood Count 4.18 M/mm3 (4.6-6.2); White Blood Count 5.4 K/mm3 (4.4-11.0)
[2023-04-25 12:55] LABS: Alcohol, Blood (Medical)-Serum < 3.0 mg/dL; Valproic Acid (Depakene) Level 80 ug/mL (50-100)
[2023-04-25 12:58] LABS: Anion Gap 8 (5-15); BUN 14 mg/dL (7-18); BUN/Creat Ratio 10.5 RATIO (10-20); Chloride 105 mmol/L (98-107); Creatinine, Serum 1.33 mg/dL (0.70-1.30); EST Glomerular Filtration Rate 59 mL/min (>60); Est Glom Filt Rate - Afr Amer 72 mL/min (>60); Estimated Creatinine Clearance 57.98 ml/min; Glucose 99 mg/dL (74-106); Potassium 3.8 mmol/L (3.5-5.1); Sodium Level 139 mmol/L (136-145); Troponin-I HS 5 pg/mL (3.0-78.0)
[2023-04-25 13:07] LABS: Prothrombin Time (Protime)PT. 12.8 SECONDS (11.7-14.9)
[2023-04-25 13:08] LABS: Partial Thromboplast Time 25.7 Seconds (24.1-36.2)
[2023-04-25 13:09] LABS: Ammonia < 10.0 umol/L (11-32)
--- NOTE | 2023-04-25 13:14 | CHAPLAIN ---
Type of Pastoral Visit ___ Initial Visit ___ Follow-up Visit ___ On-call Visit ___ General Patient Visit ___ Spiritual Assessment ___ Family Conference ___ Bereavement _x__ Rapid Response ___ Code Blue ___ Other (describe below) Pastoral Care Referral From ___ Patient ___ Family ___ Nurse ___ Physician ___ Almond Blancher Operator ___ Stock Supervisor _x__ Other (describe below) Sacrament/Intervention ___ Active listening ___ Anointing ___ Anabaptism ___ Bereavement ___ Communion ___ Lucy exploration ___ ___ Life review ___ Prayer ___ Reconciliation ___ Sacrament of Sick _x__ Supportive presence ___ Wedding ___ Other (describe below) Pastoral Comments responded to the stroke alert in ED; patient had already been taken to CT; spouse was in the room and she was offered presence and support; spouse denied any needs for herself; spouse stated pt may have taken too much medicine and I just hope that is it ; offer of future support given as desired
[2023-04-25 13:36] LABS: Amphetamine Urine VISTA NEGATIVE (<1000 ng/mL); Barbiturate Urine VISTA NEGATIVE (< 200 ng/mL); Benzodiazepine Urine VISTA NEGATIVE (< 200 ng/mL); Cocaine Urine VISTA NEGATIVE (< 300 ng/mL); Ecstacy Urine VISTA NEGATIVE (< 500 ng/mL); Methadone Urine VISTA NEGATIVE (< 300 ng/mL); PCP Urine VISTA NEGATIVE (< 25 ng/mL); THC Urine VISTA NEGATIVE (< 50 ng/mL); Vista UDS pH Range 6
[2023-04-25] MEDS: Aspirin 81 MG TAB.CHEW 324 MG PO (13:47)
[2023-04-25] MEDS: Acetaminophen 325 MG Tablet 650 MG PO (13:48)
--- NOTE | 2023-04-25 14:46 | EX.ED.DYSGE1 ---
HPI History of Present Illness Chief Complaint: Overdose Informant: patient, spouse/S.O. and EMS Narrative Narrative: Patient 58-year-old male with history of PTSD, anxiety and bipolar disorder which he takes Depakote for as well as hypothyroid on levothyroxine presenting for altered mental status. Apparently patient left for work at 730 this morning and was at his baseline/normal. This is per . When patient got to work he was acting abnormal. states he called around 8 asked if he taken his Depakote this morning and thinks that he took an extra dose of it. Patient became more somnolent and EMS was called and he was transferred to the ED. Is complaining of a right-sided headache, ringing in his right ear and double vision when he looks up. He thinks all of this started today. Nursing reported that when he first arrived he was placed on him and then he woke up and was confused about where he was. No report of any head injury or falls. Patient is complaining of some intermittent tingling in his left hand for me. Prior similar symptoms: No PFSH PFS Medical History (Updated 04/25/23 @ 15:[address] Lorelei Springer, DO) Asthma Bipolar 1 disorder Kidney disease PTSD (post-traumatic stress disorder) Home Medications divalproex 500 mg tablet,delayed release 500 mg PO BID psychosis/bipolar 07/19/18 [History Last Taken 04/25/23] trazodone 100 mg tablet 200 mg PO QHS sleep 03/25/19 [History Last Taken 04/24/23] albuterol sulfate 90 mcg/actuation aerosol inhaler 1 - 2 puff inhalation Q6H PRN PRN breathing 01/19/20 [History Last Taken 04/24/23] levothyroxine 25 mcg tablet 50 mcg PO DAILY thyroid 01/19/20 [History Last Taken 04/25/23] mecobalamin (vitamin B12) 1,000 mcg chewable tablet 1,000 mcg PO DAILY 04/25/23 [History Last Taken 04/25/23] pantoprazole 40 mg tablet,delayed release 40 mg PO DAILY 04/25/23 [History Last Taken 04/25/23] Allergy/AdvReac Type Severity Reaction Status Date / Time No Known Allergies Allergy Verified 04/25/23 12:10 Social History Smoking Status: Former smoker ROS ROS ED Review of Systems ROS Unobtainable: due to mental status Eyes Eyes: Reports blurry vision EXAM Physical Exam Const Vital Signs: 04/25/23 12:10 04/25/23 12:27 04/25/23 12:40 Temperature 97.6 F L 97.5 F L Temperature Source Oral Oral Pulse Rate 82 80 71 Respiratory Rate 16 18 16 Blood Pressure 158/92 H 158/92 H 142/78 H Blood Pressure Mean 114 114 99 Pulse Ox 100 100 100 Oxygen Delivery Method Room Air Room Air Room Air 04/25/23 12:33 04/25/23 13:03 04/25/23 13:30 Temperature 97.5 F L 97.4 F L 98.1 F Temperature Source Oral Oral Oral Pulse Rate 81 67 68 Respiratory Rate 19 H 14 18 Blood Pressure 142/78 H 124/83 H 119/79 Blood Pressure Mean 99 96 92 Pulse Ox 97 100 100 Oxygen Delivery Method Room Air Room Air Room Air 04/25/23 13:34 04/25/23 13:36 Temperature 98.1 F 98.1 F Temperature Source Oral Pulse Rate 68 70 Respiratory Rate 13 12 Blood Pressure 119/79 119/79 Blood Pressure Mean 92 92 Pulse Ox 100 100 Oxygen Delivery Method Room Air Positive well nourished and well developed General Appearance ED: well developed and NAD HEENT Reports TM's clear and moist mucous membranes Tympanic Membrane ED: Yes TM's clear Eyes PERRL and EOMs intact bilaterally Eyes Narrative: Patient reports double vision with upward and leftward gaze. No nystagmus appreciated Neck supple and no JVD Chest Wall inspection of chest normal and palpation of chest normal Resp normal respiratory effort and clear to auscultation bilaterally Cardio regular rate and regular rhythm GI normal to inspection, nondistended, normoactive bowel sounds and non-tender Extremity normal to inspection General Extremety ED: Negative for edema or tenderness General Extremity: Negative for edema Neuro oriented x3 Neuro Narrative: Slightly somnolent but answers questions appropriately. No slurred speech/dysarthria. NIH equals 5, see below however it is 1.4 subjective paresthesias of the left upper extremity, 2 for weakness of the left lower extremity and 2 for weakness of the right lower extremity. Is intermittently tremulous but no seizure activity is appreciated. Sensorium / Orientation: alert Motor Exam: general weakness Psych Psych Narrative: Somnolent flynn acting appropriately in the emergency room. Skin no rashes or lesions noted and no wounds MDM MDM MDM Narrative Medical decision making narrative: Patient is evaluated for mental status change. Differential includes encephalopathy, stroke, intracranial hemorrhage as well as medication toxicity/polypharmacy and overdose. Taking 1 extra dose of his valproic acid did not think should cause this presentation. His valproic acid level is therapeutic at 80. Because of his focal paresthesia of the left hand/LUE stroke alert is called. Brain does not show an acute intracranial process/bleed. CTA does show left vertebral artery hypoplastic changes with an occlusion distally of uncertain chronicity. There is some mild reconstituted distal flow. This is discussed with radiology and then I did discuss it with [facility] teleneurology, Dr. Watts. He feels that the patient is not a TNK candidate and this would not be a candidate for clot retrieval so he does not require transfer to [facility] for higher level of care/neurosurgery consult. Patient is given aspirin per neurology recommendation as well as Tylenol for his headache. Remainder of workup is largely negative the patient will be admitted for further neurologic evaluation. Patient and agreeable with plan of care. Because of the many physician, Dr. Em. Lab Data Attestation: I reviewed the patient's lab results. Labs: Laboratory Results - last 24 hr 04/25/23 04/25/23 04/25/23 12:32 12:40 13:12 WBC 5.4 RBC 4.18 L Hgb 13.5 Hct 38.7 L MCV 92.6 MCH 32.3 H MCHC 34.9 RDW Std Deviation 38.5 RDW Coeff of Igor 11.3 L Plt Count 187 MPV 9.3 Immature Gran % (Auto) 0.400 Neut % (Auto) 59.2 Lymph % (Auto) 26.6 [place] % (Auto) 11.7 H Eos % (Auto) 1.5 Baso % (Auto) 0.6 Absolute Neuts (auto) 3.2 Absolute Lymphs (auto) 1.43 Nucleated RBC % 0 PT 12.8 INR 1.0 APTT 25.7 Sodium 139 Potassium 3.8 Chloride 105 Carbon Dioxide 26.0 Anion Gap 8 BUN 14 Creatinine 1.33 H Estim Creat Clear Calc 57.98 Est GFR (MDRD) Af Amer 72 Est GFR (MDRD) Non-Af 59 L BUN/Creatinine Ratio 10.5 Glucose 99 Calcium 9.0 Ammonia < 10.0 L Troponin I High Sens 5 Urine Opiates Screen NEGATIVE Urine Methadone Screen NEGATIVE Ur Barbiturates Screen NEGATIVE Valproic Acid 80 Ur Phencyclidine Scrn NEGATIVE Ur Amphetamines Screen NEGATIVE MDMA (Ecstasy) Screen NEGATIVE U Benzodiazepines Scrn NEGATIVE Urine Cocaine Screen NEGATIVE U Cannabinoids Screen NEGATIVE Ur Drug Screen Comment Ethyl Alcohol < 3.0 Radiography Chest X-Ray - ED: 1 View, Read by ED Physician, Read by Radiologist and No Acute Disease Diagnostic Testing: Clinical Impression(s) from Imaging Studies Brain CT 04/25/23 12:33 IMPRESSION: No acute intracranial process identified. Mild chronic involutional and white matter changes. Electronically Signed: Digna Martin MD at 12:49 EST Reading Location ID and State: [facility] / [place] Tel , Service support , ADDENDUM: 04/25/23 1259 IMPRESSION: No acute intracranial process identified. Mild chronic involutional and white matter changes. N.B. : The above Results were Read Back by Digna Martin MD to Lorelei Springer DO, and understanding confirmed on 04/25/2023 12:52:23 (ET). Electronically Signed: Digna Martin MD at 12:49 EST Reading Location ID and State: [facility] / [place] Tel , Service support , Chest X-Ray 04/25/23 12:33 IMPRESSION: No acute cardiopulmonary process identified. 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 No evidence for significant stenosis or occlusion in the carotid arteries of the neck. No evidence for large vessel occlusion in the intracranial anterior circulation. N.B. : The above Results were Read Back by Digna Martin MD to Lorelei Springer DO, and understanding confirmed on 04/25/2023 12:58:32 (ET). 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 No evidence for significant stenosis or occlusion in the carotid arteries of the neck. No evidence for large vessel occlusion in the intracranial anterior circulation. N.B. : The above Results were Read Back by Digna Martin MD to Loreeli Springer DO, and understanding confirmed on 04/25/2023 12:58:32 (ET). Electronically Signed: Digna Martin MD at 12:59 EST , Rhythm Strip Rhythm Strip: Sinus Rhythm Rate: 65 Ectopy: None EKG Initial EKG: Attestation: I personally reviewed and interpreted this EKG as follows: Interpretation: Sinus Rhythm Comments: Normal sinus rhythm at a rate of 65 bpm Normal axis Normal intervals Normal ST segments Prior EKG tracings: available for review Prior: Unchanged Management Discussion w/another healthcare provider: Hospitalist, Road Mixer Operator (Neurology) and Radiologist Discharge Plan Dx/Rx/DC Orders Clinical Impression: [facility] current use of antipsychotic medication, Acute alteration in mental status, Double vision, Stroke-like symptom Disposition Disposition: Acute Care Hospital [facility] Discharge Date/Time: 04/25/23 14:31
--- NOTE | 2023-04-25 15:27 | HP.PCM.HOS_ITS ---
HPI - General General Date of Admission: 04/25/23 Date of Service: 04/25/23 Chief Complaint: AMS, hand sensory changes HPI Narrative ODNG JACKSON, is a 58-year-old male history of anxiety, migraines, GERD, hypothyroidism, asthma, mood disorder who presented to [facility] 04/25/2023 with altered mental status and vague neurological complaints. 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 Per patient had reported he took 1 extra dose of Depakote because he forgot he had taken it in the morning patient only takes 500 mg twice daily. Neurology recommended admission for further workup/stroke workup. Hospitalist contacted for admission. Patient evaluated bedside. He reports he does not really remember what happened leading up to coming to the hospital but that his left hand feels slightly numb up to his wrist and his right hand is 2 but less so than left hand and also feels like his legs feel weird and somewhat weak also has some right-sided facial sensory changes that appear to be the whole right side of face in various patches, slight right-sided headache, some chronic neck pain, double vision when he looks all the way up that is improving, possibly had some alterations in speech when he first came in but this is also improving. Possibly had some dizziness earlier as well. Patient also reports long history of intermittent shaking spells not accompanied with any other symptoms. Also of note during episode earlier patient denies any loss of bowel or bladder. [facility] Medical History (Updated 04/25/23 @ 15:[address] Lorelei Springer, DO) Asthma Bipolar 1 disorder Kidney disease PTSD (post-traumatic stress disorder) Home Medications divalproex 500 mg tablet,delayed release 500 mg PO BID psychosis/bipolar 07/19/18 [History Last Taken 04/25/23] trazodone 100 mg tablet 200 mg PO QHS sleep 03/25/19 [History Last Taken 04/24/23] albuterol sulfate 90 mcg/actuation aerosol inhaler 1 - 2 puff inhalation Q6H PRN PRN breathing 01/19/20 [History Last Taken 04/24/23] levothyroxine 25 mcg tablet 50 mcg PO DAILY thyroid 01/19/20 [History Last Taken 04/25/23] mecobalamin (vitamin B12) 1,000 mcg chewable tablet 1,000 mcg PO DAILY 04/25/23 [History Last Taken 04/25/23] pantoprazole 40 mg tablet,delayed release 40 mg PO DAILY 04/25/23 [History Last Taken 04/25/23] Allergy/AdvReac Type Severity Reaction Status Date / Time No Known Allergies Allergy Verified 04/25/23 12:10 Social History Smoking Status: Former smoker ROS ROS Narrative General: Denies fever/chills HENT: Somewhat of a right-sided headache, denies stuffy nose, denies sore throat EYES: Feels he has some double vision when glancing on the way up Resp: Denies cough, denies shortness of breath Cardiac: Denies chest pain GI: Denies abdominal pain, denies changes in bowel, denies nausea/vomiting : Denies changes in urination Extremity: Denies swelling MSK: Feels like his legs are somewhat weak Neuro: Feels like both hands and legs have sensory changes, left hand greater than right and legs symmetrically, also feels right side of face feels different Heme: Denies any bleeding or bruising Skin: Denies rashes Psychiatric: Somewhat distressed about his current situation Vital Signs Vital Signs Vital Signs: 04/25/23 12:10 04/25/23 12:27 04/25/23 12:40 Temperature 97.6 F L 97.5 F L Temperature Source Oral Oral Pulse Rate 82 80 71 Respiratory Rate 16 18 16 Blood Pressure 158/92 H 158/92 H 142/78 H Blood Pressure Mean 114 114 99 Blood Pressure Source Blood Pressure Position Blood Pressure Location Pulse Ox 100 100 100 Oxygen Delivery Method Room Air Room Air Room Air 04/25/23 12:33 04/25/23 13:03 04/25/23 13:30 Temperature 97.5 F L 97.4 F L 98.1 F Temperature Source Oral Oral Oral Pulse Rate 81 67 68 Respiratory Rate 19 H 14 18 Blood Pressure 142/78 H 124/83 H 119/79 Blood Pressure Mean 99 96 92 Blood Pressure Source Blood Pressure Position Blood Pressure Location Pulse Ox 97 100 100 Oxygen Delivery Method Room Air Room Air Room Air 04/25/23 13:34 04/25/23 13:36 04/25/23 14:00 Temperature 98.1 F 98.1 F 97.4 F L Temperature Source Oral Oral Pulse Rate 68 70 69 Respiratory Rate 13 12 18 Blood Pressure 119/79 119/79 114/87 H Blood Pressure Mean 92 92 96 Blood Pressure Source Blood Pressure Position Blood Pressure Location Pulse Ox 100 100 98 Oxygen Delivery Method Room Air Room Air 04/25/23 14:00 04/25/23 14:30 04/25/23 14:50 Temperature 97.5 F L 98.1 F 98.0 F Temperature Source Oral Oral Oral Pulse Rate 69 85 68 Respiratory Rate 13 16 16 Blood Pressure 114/87 H 118/76 125/67 H Blood Pressure Mean 96 90 86 Blood Pressure Source Monitor Blood Pressure Position Semi-Fowlers Blood Pressure Location Right Arm Pulse Ox 100 99 100 Oxygen Delivery Method Room Air Room Air Room Air Weight Weight: 72.4 kg Body Mass Index (BMI) 25.0 Physical Exam Narrative General: Alert, oriented, no apparent distress HEENT: Atraumatic, normocephalic Eyes: Anicteric, normal conjunctiva, extraocular movements intact, pupils equal Neck: Supple Respiratory: Clear to auscultation bilaterally, normal respiratory effort Cardiovascular: Regular rate and rhythm GI: Soft, nontender, nondistended Extremities: No edema Musculoskeletal: Strength 5 out of 5 in right upper extremity, 5 out of 5 left upper extremity, 5 out of 5 right lower extremity, 5 out of 5 left lower extremity, seemed initially to have decreased state federal relations deputy director strength on left however when asked to push and pull strength was seemingly symmetric, also seems to have weakness pushing both legs up off bed however when asked to hold them against resistance patient able to do so Neuro: No overt focal neurological deficits, cranial nerves II through XII intact, [id number] without significant difficulty bilaterally Skin: No rashes appreciated Psych: Cooperative Results Lab / Micro Data 04/25/23 12:32 04/25/23 12:32 Labs: Laboratory Results - last 24 hr 04/25/23 12:32: WBC 5.4, RBC 4.18 L, Hgb 13.5, Hct 38.7 L, MCV 92.6, MCH 32.3 H, MCHC 34.9, RDW Std Deviation 38.5, RDW Coeff of Igor 11.3 L, Plt Count 187, MPV 9.3, Immature Gran % (Auto) 0.400, Neut % (Auto) 59.2, Lymph % (Auto) 26.6, Walker % (Auto) 11.7 H, Eos % (Auto) 1.5, Baso % (Auto) 0.6, Absolute Neuts (auto) 3.2, Absolute Lymphs (auto) 1.43, Nucleated RBC % 0, PT 12.8, INR 1.0, APTT 25.7, Sodium 139, Potassium 3.8, Chloride 105, Carbon Dioxide 26.0, Anion Gap 8, BUN 14, Creatinine 1.33 H, Estim Creat Clear Calc 57.98, Est GFR (MDRD) Af Amer 72, Est GFR (MDRD) Non-Af 59 L, BUN/Creatinine Ratio 10.5, Glucose 99, Calcium 9.0, Troponin I High Sens 5, Valproic Acid 80, Ethyl Alcohol < 3.0 04/25/23 12:40: Ammonia < 10.0 L 04/25/23 13:12: Urine Opiates Screen NEGATIVE, Urine Methadone Screen NEGATIVE, Ur Barbiturates Screen NEGATIVE, Ur Phencyclidine Scrn NEGATIVE, Ur Amphetamines Screen NEGATIVE, MDMA (Ecstasy) Screen NEGATIVE, U Benzodiazepines Scrn NEGATIVE, Urine Cocaine Screen NEGATIVE, U Cannabinoids Screen NEGATIVE, Ur Drug Screen Comment Rhythm Strip Rhythm Strip: Sinus Rhythm Rate: 65 Ectopy: None Imagaing Radiology Impression Brain CT 04/25/23 12:33 IMPRESSION: No acute intracranial process identified. Mild chronic involutional and white matter changes. Electronically Signed: Digna Martin MD at 12:49 EST , ADDENDUM: 04/25/23 1259 IMPRESSION: No acute intracranial process identified. Mild chronic involutional and white matter changes. N.B. : The above Results were Read Back by Digna Martin MD to Lorelei Springer DO, and understanding confirmed on 04/25/2023 12:52:23 (ET). Electronically Signed: Digna Martin MD at 12:49 EST , Chest X-Ray 04/25/23 12:33 IMPRESSION: No acute cardiopulmonary process identified. 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 No evidence for significant stenosis or occlusion in the carotid arteries of the neck. No evidence for large vessel occlusion in the intracranial anterior circulation. N.B. : The above Results were Read Back by Digna Martin MD to Lorelei Springer DO, and understanding confirmed on 04/25/2023 12:58:32 (ET). 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 No evidence for significant stenosis or occlusion in the carotid arteries of the neck. No evidence for large vessel occlusion in the intracranial anterior circulation. N.B. : The above Results were Read Back by Digna Martin MD to Lorelei Springer DO, and understanding confirmed on 04/25/2023 12:58:32 (ET). Electronically Signed: Digna Martin MD at 12:59 EST Reading Location ID and State: [facility] / [place] Tel , Service support , Assessment & Plan Assessment/Plan (1) Acute alteration in mental status: (2) Stroke-like symptom: (3) PTSD (post-traumatic stress disorder): (4) History of anxiety disorder: PLAN: Plan #Neurological abnormality -Patient with vague wandering neurological symptoms, doubt that this was from 1 extra dose of Depakote, Depakote level 80, ammonia within normal limits -Patient with some reported alteration sensation in both hands and legs and almost a glove stocking distribution but possibly left hand more so than right, symptoms vague and different for different providers -Will check B12, folate, HIV, syphilis, mag and Phos, liver panel, tsh -UDS -Admit to tele -CT head w/ chronic changes in ED -CTA head and neck with hypoplastic left vertebral artery and diminished flow in distal portion and occlusion intracranial portion of unclear chronicity, telemetry stroke/neurology aware but did not think patient needed transferred or further intervention advised admission here and further workup -MRI head and neck with and without contrast will be ordered -NIH q4hr -asa, statin -Echo w/ bubble study -PT/OT/Speech eval -Hold BP medications to allow for permissive hypertension for 24 hours unless SBP greater than 220 or DBP greater than 120 or until stroke is ruled out # History of mood disorder -Continue Depakote -Depakote level within normal limits -Ammonia within normal limits #GERD -Continue PPI #Hypothyroidism -Continue Synthroid # Asthma -Continue inhalers #DVT ppx: Lovenox subcu Elif Em MD Time spent in the patient's overall evaluation,decision-making process, review of diagnostic data, adjustment of management, discussion with other providers, nursing nursing and ancillary staff involved in patient's care documentation, 55 minutes Charges/Coding Visit Charges Inpatient E&M: 26925 Init Hosp L2
--- NOTE | 2023-04-25 15:39 | ECHOD_ITS ---
Reason For Study: TIA/CVA Procedure This was a 2D Doppler, Color Flow transthoracic echocardiogram. Exam performed portable in patient room. Left Ventricle Normal size and thickness. The left ventricular ejection fraction is 65 %. Normal diastology for age. Right Ventricle Normal right ventricle. Atria The left and right atria are normal. Bubble contrast study is negative for PFO/ASD. Mitral Valve Trivial mitral valve insufficiency. Tricuspid Valve Trivial tricuspid valve insufficiency. Unable to estimate RV systolic pressure due to insufficient tricuspid regurgitant envelope. Aortic Valve Trisinus/trileaflet aortic valve. Pulmonic Valve The pulmonic valve is not well visualized. Great Vessels Normal sized aortic root. Pericardium/Pleural No pericardial effusion. Medication Performed a rapid injection of agitated mix of 9 cc saline and 1cc air to assess for atrial septal defect. MMode/2D Measurements & Calculations LVIDd: 4.8 cm IVSd: 0.78 cm Ao root diam: 3.3 cm LVIDs: 2.7 cm LVPWd: 0.71 cm RVDd: 2.8 cm FS: 43.8 % LAV(MOD-bp): 34.6 ml LVAd ap4: 24.1 cm2 LVAd ap2: 21.0 cm2 LAV(MOD-bp) Indexed: 18.9 ml/m2 LVLd ap4: 8.0 cm LVLd ap2: 7.8 cm LAV(MOD-sp2): 32.4 ml EDV(MOD-sp4): 60.7 ml EDV(MOD-sp2): 47.1 ml LAV(MOD-sp4): 31.4 ml EDV(sp4-el): 61.3 ml EDV(sp2-el): 48.4 ml LVAs ap4: 12.5 cm2 LVAs ap2: 9.7 cm2 LVLs ap4: 6.3 cm LVLs ap2: 5.7 cm ESV(MOD-sp4): 21.7 ml ESV(MOD-sp2): 14.5 ml ESV(sp4-el): 21.3 ml ESV(sp2-el): 14.2 ml EF(MOD-sp4): 64.2 % EF(MOD-sp2): 69.2 % EF(sp4-el): 65.2 % SV(MOD-sp4): 39.0 ml SV(MOD-sp2): 32.6 ml SV(sp4-el): 40.0 ml LA A4 area: 12.4 cm2 LA dimension(2D): 3.2 cm TAPSE: 2.7 cm Time Measurements MV dec time: 0.21 sec Doppler Measurements & Calculations MV E max cole: 71.9 cm/sec Lat Peak E' Cole: 12.5 cm/sec Med Peak E' Cole: 14.9 cm/sec MV A max cole: 75.1 cm/sec E/E' lat: 5.7 E/E' med: 4.8 MV E/A: 0.96 MV V2 max: 100.0 cm/sec MV P1/2t max cole: 74.5 cm/sec Ao V2 max: 107.4 cm/sec MV max P.0 mmHg MV P1/2t: 62.7 msec Ao max P.6 mmHg MV V2 mean: 64.3 cm/sec Ao V2 mean: 74.6 cm/sec MV mean P.8 mmHg MV dec slope: 347.9 cm/sec2 Ao mean P.5 mmHg MV V2 VTI: 20.8 cm MVA(P1/2t): 3.5 cm2 Ao V2 VTI: 23.6 cm AV (velocity ratio): 0.78 LV V1 max: 87.6 cm/sec PA V2 max: 106.6 cm/sec LV V1 max P.1 mmHg PA V2 mean: 76.4 cm/sec LV V1 mean P.8 mmHg LV V1 mean: 64.7 cm/sec LV V1 VTI: 18.5 cm ECHO/Echo Complete Interpretation Summary The left ventricular ejection fraction is 65 %. Bubble contrast study is negative for PFO/ASD. Ordering Physician: Elif Em Referring Physician: Jim Martinez Chi Performed By: Jadyn Abbott, ESTEFANY, RVT
--- NOTE | 2023-04-25 15:39 | MRI_ITS ---
STUDY: MRI BRAIN WITH AND WITHOUT CONTRAST REASON FOR EXAM: Male, 58 years old. AMS, alteration in sensation, neuro symptoms TECHNIQUE: Standardized multiplanar fat and water weighted pulse sequences were obtained. IV Yes YES was administered for the contrast portion of the examination. COMPARISON: CT earlier today FINDINGS: Normal size of the ventricles and extra-axial spaces for the patient''s age. Normal white matter tracts of the supratentorial brain. There is no evidence for recent intracranial ischemia or other cause of cytotoxic edema on diffusion weighted imaging (DWI). Normal T2* images of the brain without demonstrated susceptibility artifact. There is no demonstrated hemosiderin stain. Normal bilateral basal ganglia. Normal thalami. There is no extra-axial fluid accumulation. Normal flow voids within the major intracranial circulation suggesting patency by spin echo criteria. Normal venous enhancement. There is no enhancing intra-axial or extra-axial abnormality. Normal sella turcica, pituitary gland, infundibular stalk, optic chiasm and hypothalamus. Normal tectal plate and pineal gland. Normal midbrain, landon and medulla. Normal cerebellum. Normal basal cisterns. Normal bilateral temporal bones. Normal bilateral internal auditory canals. No demonstrated orbital abnormality, within the constraints of a routine brain study. Air-fluid level in the left maxillary sinus consistent with acute sinusitis. Normal calvarium and skull base. Normal visualized soft tissue structures. Normal visualized upper cervical spine. MRI/Brain W/WO Contrast IMPRESSION: Normal unenhanced and enhanced MRI of the brain. Electronically Signed: Jay Hamilton MD at 20:21 EST ,
--- NOTE | 2023-04-25 15:48 | MRI_ITS ---
STUDY: MRI CERVICAL SPINE WITH AND WITHOUT CONTRAST REASON FOR EXAM: Male, 58 years old. alteration in sensation of hands, L and gt;R, weakness TECHNIQUE: Standardized fat and water weighted pulse sequences were obtained in the sagittal and axial following administration of IV Yes YES. COMPARISON: None FINDINGS: Normal foramen magnum and brainstem-cervical cord junction. Normal craniovertebral junction. Normal anterior atlantoaxial articulation. Normal odontoid process. Normal cervical lordosis. Normal vertebral bodies and posterior osseous elements. C2-3: Normal endplates. Normal disc height, signal and morphology. Normal central canal and intervertebral neural foramina. C3-4: Normal endplates. Normal disc height, signal and morphology. Normal central canal and intervertebral neural foramina. C4-5: Normal endplates. Normal disc height, signal and morphology. Normal central canal and intervertebral neural foramina. C5-6: Mild broad disc osteophyte complex asymmetric to the right produces mild spinal stenosis and mild right neural foraminal stenosis. C6-7: Mild broad disc osteophyte complex produces mild spinal stenosis and mild bilateral neural foraminal stenosis. Associated Modic type I endplate changes. C7-T1: Normal endplates. Normal disc height, signal and morphology. Normal central canal and intervertebral neural foramina. Normal cervical cord. Normal visualized soft tissue structures. MRI/Spine Cervical W/WO Contrast IMPRESSION: Multilevel degenerative changes, as described above. Electronically Signed: Jay Hamilton MD at 20:29 EST ,
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
[2023-04-25] MEDS: LORazepam 1 MG Tablet PO (17:14)
[2023-04-25 17:22] LABS: HIV - WCH Non-Reactive (Nonreactive); Syphilis Antibodies Non-reactive; Vitamin B12 823 pg/mL (211-911)
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
[2023-04-25] MEDS: traZODone 100 MG Tablet 200 MG PO (21:30)
[2023-04-25] MEDS: Divalproex Sodium 250 MG Tablet 500 MG PO (21:31)
[2023-04-25] MEDS: Atorvastatin Calcium 80 MG Tablet PO (21:31)
[2023-04-26 01:24] VITALS: BP 104/67; PULSE 76; RESP 18; TEMP 36.6; O2SAT 95
[2023-04-26 05:25] VITALS: BP 114/70; PULSE 65; RESP 18; TEMP 36.2; O2SAT 98
[2023-04-26 05:29] LABS: Absolute Lymphocyte Count 1.23 X10^3/uL (0.83-4.51); Absolute Neutrophil Count 2.9 X10^3/uL (2.0-7.7); Basophil# 0.03 X10^3/uL; Basophil% 0.6 % (0-1); Eosinophils% 2.1 % (0-5); Hematocrit 38.7 % (40-54); Hemoglobin 13.4 g/dL (13.0-16.5); Lymphocyte # 1.23 X10^3/ul (0.83-4.51); Lymphocyte % 25.7 % (19-41); Mean Corp Hgb Conc 34.6 g/dL (32-36); Mean Corpuscular Hgb 32.9 pg (27.0-32.0); Mean Corpuscular Volume 95.1 fL (80-94); Mean Platelet Vol. 9.3 fl (6.2-12.0); Monocyte# 0.49 X10^3/uL; Monocyte% 10.2 % (0-10); NRBC Flagged by Analyzer 0 % (0-5); Neutrophil # 2.92 X10^3/uL (2.7-7.7); Platelet Count 170 K/mm3 (150-450); RBC Distribution Width CV 11.4 % (11.6-14.6); RBC Distribution Width SD 39.5 fl (35.1-43.9); Red Blood Count 4.07 M/mm3 (4.6-6.2); White Blood Count 4.8 K/mm3 (4.4-11.0)
[2023-04-26] MEDS: Levothyroxine 50 MCG Tablet PO (05:51)
[2023-04-26 05:53] LABS: ALB/GLOB Ratio 1.2 RATIO (0.9-2.4); AST(SGOT) 18 U/L (15-37); Alanine Aminotransfer ALT/SGPT 32 U/L (16-61); Albumin, Serum 3.2 g/dL (3.2-5.0); Alkaline Phosphatase 74 U/L (45-117); Anion Gap 6 (5-15); BUN 19 mg/dL (7-18); Bilirubin, Direct 0.06 mg/dL (0.00-0.30); Calcium,Total 8.7 mg/dL (8.5-10.1); Chloride 107 mmol/L (98-107); Cholesterol 177 mg/dL (200); Creatinine, Serum 1.12 mg/dL (0.70-1.30); EST Glomerular Filtration Rate 72 mL/min (>60); Est Glom Filt Rate - Afr Amer 87 mL/min (>60); Estimated Creatinine Clearance 68.85 ml/min; Globulin 2.6 g/dL (2.2-4.2); Glucose 116 mg/dL (74-106); High Density Lipoprotein 41 mg/dL; Magnesium 2.2 mg/dL (1.6-2.6); Potassium 4.2 mmol/L (3.5-5.1); Protein, Total 5.8 g/dL (6.4-8.2); Sodium Level 140 mmol/L (136-145); Thyroid Stim Hormone (TSH) 2.92 uIU/mL (0.358-3.74); Triglycerides 235 mg/dL; Very Low Density Lipoprotein 47 mg/dL (5-40)
[2023-04-26 05:57] VITALS: BMI 25.0
--- NOTE | 2023-04-26 08:32 | PCM.PN.HOSP ---
Reason for Visit Reason for Visit: Diagnoses Post-traumatic stress disorder, unspecified (04/25/23) Unspecified symptoms and signs involving the nervous system (04/25/23) Altered mental status, unspecified (04/25/23) Personal history of other mental and behavioral disorders (04/25/23) Subjective Subjective Patient is a 58-year-old gentleman with history of mood disorder currently on Depakote who presented with vague neurological symptoms including reported altered sensations in both hands and legs. Admitted to monitored bed for subsequent workup Objective Data Objective Data Vital Signs: Vital Signs Temp Pulse Resp BP Pulse Ox O2 Del Method 97.2 F L 65 18 114/70 98 Room Air 04/26/23 05:25 04/26/23 05:25 04/26/23 05:25 04/26/23 05:25 04/26/23 05:25 04/26/23 05:25 Oxygen Delivery Method Room Air Weight: 72.4 kg Body Mass Index (BMI) 25.0 Intake & Output: Intake and Output for Last 24 Hours 04/24/23 04/25/23 04/26/23 23:59 23:59 23:59 Intake Total 240 / 240 Output Total 320 / 320 Balance 240 / 240 -320 / -320 Lab / Micro Data 04/26/23 05:15 04/26/23 05:15 Labs: Laboratory Results - last 24 hr 04/25/23 12:32: WBC 5.4, RBC 4.18 L, Hgb 13.5, Hct 38.7 L, MCV 92.6, MCH 32.3 H, MCHC 34.9, RDW Std Deviation 38.5, RDW Coeff of Igor 11.3 L, Plt Count 187, MPV 9.3, Immature Gran % (Auto) 0.400, Neut % (Auto) 59.2, Lymph % (Auto) 26.6, Banner % (Auto) 11.7 H, Eos % (Auto) 1.5, Baso % (Auto) 0.6, Absolute Neuts (auto) 3.2, Absolute Lymphs (auto) 1.43, Nucleated RBC % 0, PT 12.8, INR 1.0, APTT 25.7, Sodium 139, Potassium 3.8, Chloride 105, Carbon Dioxide 26.0, Anion Gap 8, BUN 14, Creatinine 1.33 H, Estim Creat Clear Calc 57.98, Est GFR (MDRD) Af Amer 72, Est GFR (MDRD) Non-Af 59 L, BUN/Creatinine Ratio 10.5, Glucose 99, Calcium 9.0, Troponin I High Sens 5, Vitamin B12 823, Folate 16.90, Valproic Acid 80, Ethyl Alcohol < 3.0, Syphilis Total Ab Non-reactive, HIV 1&2 Antibody Non-Reactive 04/25/23 12:40: Ammonia < 10.0 L 04/25/23 13:12: Urine Opiates Screen NEGATIVE, Urine Methadone Screen NEGATIVE, Ur Barbiturates Screen NEGATIVE, Ur Phencyclidine Scrn NEGATIVE, Ur Amphetamines Screen NEGATIVE, MDMA (Ecstasy) Screen NEGATIVE, U Benzodiazepines Scrn NEGATIVE, Urine Cocaine Screen NEGATIVE, U Cannabinoids Screen NEGATIVE, Ur Drug Screen Comment 04/26/23 05:15: WBC 4.8, RBC 4.07 L, Hgb 13.4, Hct 38.7 L, MCV 95.1 H, MCH 32.9 H, MCHC 34.6, RDW Std Deviation 39.5, RDW Coeff of Igor 11.4 L, Plt Count 170, MPV 9.3, Immature Gran % (Auto) 0.400, Neut % (Auto) 61.0, Lymph % (Auto) 25.7, Banner % (Auto) 10.2 H, Eos % (Auto) 2.1, Baso % (Auto) 0.6, Absolute Neuts (auto) 2.9, Absolute Lymphs (auto) 1.23, Nucleated RBC % 0, Sodium 140, Potassium 4.2, Chloride 107, Carbon Dioxide 27.0, Anion Gap 6, BUN 19 H, Creatinine 1.12, Estim Creat Clear Calc 68.85, Est GFR (MDRD) Af Amer 87, Est GFR (MDRD) Non-Af 72, BUN/Creatinine Ratio 17.0, Glucose 116 H, Calcium 8.7, Phosphorus 4.0, Magnesium 2.2, Total Bilirubin 0.30, Direct Bilirubin 0.06, AST 18, ALT 32, Alkaline Phosphatase 74, Total Protein 5.8 L, Albumin 3.2, Globulin 2.6, Albumin/Globulin Ratio 1.2, Triglycerides 235 H, Cholesterol 177, LDL Cholesterol 89, VLDL Cholesterol 47 H, HDL Cholesterol 41, TSH 2.92 Radiography Diagnostic Testing: Radiology Impression Brain CT 04/25/23 12:33 IMPRESSION: No acute intracranial process identified. Mild chronic involutional and white matter changes. Electronically Signed: Digna Martin MD at 12:49 EST , ADDENDUM: 04/25/23 1259 IMPRESSION: No acute intracranial process identified. Mild chronic involutional and white matter changes. N.B. : The above Results were Read Back by Digna Martin MD to Lorelei Springer DO, and understanding confirmed on 04/25/2023 12:52:23 (ET). Electronically Signed: Digna Martin MD at 12:49 EST , Chest X-Ray 04/25/23 12:33 IMPRESSION: No acute cardiopulmonary process identified. 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 No evidence for significant stenosis or occlusion in the carotid arteries of the neck. No evidence for large vessel occlusion in the intracranial anterior circulation. N.B. : The above Results were Read Back by Digna Martin MD to Lorelei Springer DO, and understanding confirmed on 04/25/2023 12:58:32 (ET). 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 No evidence for significant stenosis or occlusion in the carotid arteries of the neck. No evidence for large vessel occlusion in the intracranial anterior circulation. N.B. : The above Results were Read Back by Digna Martin MD to Lorelei Springer DO, and understanding confirmed on 04/25/2023 12:58:32 (ET). Electronically Signed: Digna Martin MD at 12:59 EST , Brain MRI 04/25/23 15:39 IMPRESSION: Normal unenhanced and enhanced MRI of the brain. Electronically Signed: Jay Hamilton MD at 20:21 EST , Cervical Spine MRI 04/25/23 15:48 IMPRESSION: Multilevel degenerative changes, as described above. Electronically Signed: Jay Hamilton MD at 20:29 EST , Rhythm Strip Rhythm Strip: Sinus Rhythm Rate: 65 Ectopy: None Physical Exam Narrative GENERAL: cooperative HEENT: Atraumatic; normocephalic EYES; Anicteric, Normal Conjunctiva NECK; supple, normal thyroid, RESPIRATORY: Diminished to auscultation CARDIOVASCULAR: Regular S1 S2, GI: soft, normoactive bowel sounds, : No Renal angle tenderness; EXTREMITIES: No edema, no clubbing, MUSCULOSKELETAL: no muscle wasting NEURO: Awake; no lateralizing signs. SKIN: No Rash PSYCH; Flat affect Assessment & Plan Assessment/Plan (1) Acute alteration in mental status: (2) Stroke-like symptom: (3) PTSD (post-traumatic stress disorder): (4) History of anxiety disorder: PLAN: Plan Patient is a 58-year-old gentleman with history of mood disorder currently on Depakote who presented with vague neurological symptoms including reported altered sensations in both hands and legs. Admitted to monitored bed for subsequent workup 1. Paresthesias Unknown etiology, admitted to monitored bed as part of patient's evaluation he had CT as well as CTA of the head and neck in the ED CT demonstrated chronic changes and CTA of the head and neck demonstrated hypoplastic left vertebral artery and diminished flow in distal portion and occlusion intracranial portion of unclear chronicity, telemetry stroke/neurology aware but did not think patient needed transferred or further intervention advised admission here and further workup subsequent evaluation with MRI of the head as well as cervical spine demonstrated degenerative changes in the cervical spine and Normal unenhanced and enhanced MRI of the brain. Vitamin B12 level, folic acid, HIV also ordered results pending 2. History of mood disorder ? Patient is on Depakote continue 3. Hypothyroidism - Patient is on levothyroxine home dose continued 4. GERD ? On PPI 5. Mild intermittent asthma ? Bronchodilator treatment as needed 6. DVT prophylaxis ? SC Lovenox Time spent in the patient's overall evaluation,decision-making process, review of diagnostic data, adjustment of management, discussion with other providers, nursing nursing and ancillary staff involved in patient's care documentation, 50 minutes Charges/Coding Visit Charges Inpatient E&M: [address] [facility] L3
[2023-04-26 08:41] VITALS: BP 113/81; PULSE 82; RESP 18; TEMP 36.2; O2SAT 97
[2023-04-26] MEDS: Cyanocobalamin 500 MCG Tablet 1000 MCG PO (08:45)
[2023-04-26] MEDS: Divalproex Sodium 250 MG Tablet 500 MG PO (08:45)
[2023-04-26] MEDS: Pantoprazole Sodium 40 MG Tablet PO (08:46)
[2023-04-26] MEDS: Aspirin 81 MG TAB.CHEW PO (08:46)
[2023-04-26] MEDS: Enoxaparin 40 MG/0.4 ML Syringe SC (08:46)
[2023-04-26] MEDS: Acetaminophen 325 MG Tablet 650 MG PO (08:51)
[2023-04-26 11:28] VITALS: BMI 25.0
--- NOTE | 2023-04-26 12:37 | NEURO.CONS ---
Assessment and Plan: Neuro Assessment/Plan DONG JACKSON is a 58 M with a past medical history of depression, PTSD, anxiety, being evaluated by Teleneurology for altered mental status and headache. MRI is normal. Labs including B12, Folate, HIV, syphilis, UDS unremarkable. Exam today with reduced sensation in the right cheek, but otherwise normal. Mental status is now near baseline, although still feels subjectively foggy. Headache is consistent with migraine and has significantly improved since admission. Suspect his neurologic symptoms are complex migraine, stroke/neurovascular etiology has been ruled out. Diagnosis: Complex Migraine Plan: No further work up required. For migraine treatment can trial 2mg IV Mag, 10 mg IV Compazine and 25 mg IV Benedryl. Discuss with patient that goal is improvement but will likely not have full resolution of migraine while admitted. I personally attended this patient and spent a total time of 47 minutes evaluating this patient including clinical assessment, review of chart, medical history imaging, and determining appropriate treatment and workup. HPI Consult Data Date of Consult: 04/26/23 HPI Narrative HPI Narrative: DONG JACKSON, is a 58 M who presents history of anxiety, migraines, GERD, hypothyroidism, asthma, mood disorder who presented to [facility] 04/25/2023 with altered mental status. He was in his usual state of health when he awoke yesterday. Got up and went to work, but at work was reportedly acting off . Reported vague and fluctuating neurologic symptoms which was at first left arm tingling and diploipia which then progressed to right arm tingling. There was also question of bilateral leg weakness. He was seen by telestroke in the ED - NIHSS was 3 for sensation changes in the left hemibody and bilateral lower extremity drift(this appeared effort dependant). Imaging has been negative including MRI/CTH/CTA. He reports a right sided headache that began at the same time as his symptoms. He describes as throbbing and severe (10/10). Reports nausea but no photo/phonophoia. At the onset he did have some flashing lights which have now resolved. Today it has improved to 4/10. His altered mental status has improved, he still feels a little foggy but is otherwise back to normal. Reports he does have a history of headaches although they have never had associated neurologic symptoms before. Per he did take extra dose of VPA 500 mg accidentally yesterday morning. [facility] Medical History Asthma Bipolar 1 disorder Kidney disease PTSD (post-traumatic stress disorder) Home Medications divalproex 500 mg tablet,delayed release 500 mg PO BID psychosis/bipolar 07/19/18 [History Last Taken 04/25/23] trazodone 100 mg tablet 200 mg PO QHS sleep 03/25/19 [History Last Taken 04/24/23] albuterol sulfate 90 mcg/actuation aerosol inhaler 1 - 2 puff inhalation Q6H PRN PRN breathing 01/19/20 [History Last Taken 04/24/23] levothyroxine 25 mcg tablet 50 mcg PO DAILY thyroid 01/19/20 [History Last Taken 04/25/23] mecobalamin (vitamin B12) 1,000 mcg chewable tablet 1,000 mcg PO DAILY 04/25/23 [History Last Taken 04/25/23] pantoprazole 40 mg tablet,delayed release 40 mg PO DAILY 04/25/23 [History Last Taken 04/25/23] Allergy/AdvReac Type Severity Reaction Status Date / Time No Known Allergies Allergy Verified 04/25/23 12:10 Social History Smoking Status: Former smoker Vital Signs Vital Signs Vital Signs: 04/25/23 12:40 04/25/23 13:03 04/25/23 13:30 Temperature 97.5 F L 97.4 F L 98.1 F Temperature Source Oral Oral Oral Pulse Rate 71 67 68 Pulse Strength Respiratory Rate 16 14 18 Respiratory Effort Respiratory Depth Respiratory Pattern Blood Pressure 142/78 H 124/83 H 119/79 Blood Pressure Mean 99 96 92 Blood Pressure Source Blood Pressure Position Blood Pressure Location Pulse Ox 100 100 100 Oxygen Delivery Method Room Air Room Air Room Air 04/25/23 13:34 04/25/23 13:36 04/25/23 14:00 Temperature 98.1 F 98.1 F 97.4 F L Temperature Source Oral Oral Pulse Rate 68 70 69 Pulse Strength Respiratory Rate 13 12 18 Respiratory Effort Respiratory Depth Respiratory Pattern Blood Pressure 119/79 119/79 114/87 H Blood Pressure Mean 92 92 96 Blood Pressure Source Blood Pressure Position Blood Pressure Location Pulse Ox 100 100 98 Oxygen Delivery Method Room Air Room Air 04/25/23 14:00 04/25/23 14:30 04/25/23 14:50 Temperature 97.5 F L 98.1 F 98.0 F Temperature Source Oral Oral Oral Pulse Rate 69 85 68 Pulse Strength Respiratory Rate 13 16 16 Respiratory Effort Respiratory Depth Respiratory Pattern Blood Pressure 114/87 H 118/76 125/67 H Blood Pressure Mean 96 90 86 Blood Pressure Source Monitor Blood Pressure Position Semi-Fowlers Blood Pressure Location Right Arm Pulse Ox 100 99 100 Oxygen Delivery Method Room Air Room Air Room Air 04/25/23 17:25 04/25/23 17:20 04/25/23 15:00 Temperature 97.9 F Temperature Source Oral Pulse Rate 70 Pulse Strength Respiratory Rate 16 Respiratory Effort Respiratory Depth Respiratory Pattern Blood Pressure 108/73 Blood Pressure Mean 84 Blood Pressure Source Monitor Blood Pressure Position Semi-Fowlers Blood Pressure Location Right Arm Pulse Ox 99 98 Oxygen Delivery Method Room Air Room Air Room Air 04/25/23 20:30 04/25/23 21:23 04/25/23 19:29 Temperature 97.2 F L Temperature Source Temporal Pulse Rate 77 Pulse Strength Respiratory Rate 18 Respiratory Effort Normal Non-Labored Respiratory Depth Normal Respiratory Pattern Normal Blood Pressure 94/59 L Blood Pressure Mean 70 Blood Pressure Source Monitor Blood Pressure Position Semi-Fowlers Blood Pressure Location Right Arm Pulse Ox 98 Oxygen Delivery Method Room Air Room Air Room Air 04/25/23 22:00 04/26/23 01:24 04/26/23 01:30 Temperature 97.8 F Temperature Source Temporal Pulse Rate 76 Pulse Strength Normal (2+) Respiratory Rate 18 Respiratory Effort Normal Non-Labored Respiratory Depth Normal Respiratory Pattern Normal Blood Pressure 104/67 Blood Pressure Mean 79 Blood Pressure Source Monitor Blood Pressure Position Semi-Fowlers Blood Pressure Location Right Arm Pulse Ox 95 Oxygen Delivery Method Room Air Room Air 04/26/23 05:25 04/26/23 08:34 04/26/23 08:41 Temperature 97.2 F L 97.1 F L Temperature Source Temporal Temporal Pulse Rate 65 82 Pulse Strength Normal (2+) Respiratory Rate 18 18 Respiratory Effort Respiratory Depth Respiratory Pattern Blood Pressure 114/70 113/81 H Blood Pressure Mean 84 91 Blood Pressure Source Monitor Monitor Blood Pressure Position Semi-Fowlers Semi-Fowlers Blood Pressure Location Right Arm Right Arm Pulse Ox 98 97 Oxygen Delivery Method Room Air Room Air 04/26/23 08:42 Temperature Temperature Source Pulse Rate Pulse Strength Respiratory Rate Respiratory Effort Normal Non-Labored Respiratory Depth Normal Respiratory Pattern Normal Blood Pressure Blood Pressure Mean Blood Pressure Source Blood Pressure Position Blood Pressure Location Pulse Ox Oxygen Delivery Method Room Air Weight Weight: 72.4 kg Body Mass Index (BMI) 25.0 EEG Results Procedure Details EEG Procedure Details: DOGN JACKSON is a 58 year old M with a past medical history of , who presents for evaluation of Electroencephalogram on DATE at TIME NIHSS NIHSS Nursing Documentation NIHSS Nursing Documentation: NIHSS: Ischemic Stroke/TIA Start: 04/25/23 15:48 Text: For PCU Patients: NIH and Neuro Check every 4 Status: Active hours and PRN Freq: [id number] Protocol: Activity Type Activity Date Activity User E-sign Co-sign Detail Recorded Client Recorded Date Recorded By Document 04/26/23 08:38 KS Desktop 04/26/23 08:38 KS 04/26/23 08:38 NIH Stroke Scale [NIHSS] A score of 0 is normal or asymptomatic . Total possible score is 42. Inpatient: RN or Physician to activate a stroke alert for onset of new stroke symptoms or with NIHSS increase >/= 3 points. Following change in neurological status, NIHSS will be performed per physician order or more frequently PRN. -1a. Level of Consciousness Alert; keenly responsive -1b. LOC Questions Answers BOTH questions correctly. -1c. LOC Commands Performs both tasks correctly . -2. Best Gaze Normal -3. Visual No visual loss -4. Facial Palsy Normal symmetrical movements -5a. Left Arm No drift; arm holds 90 (or 45 ) degrees for full 10 seconds -5b. Right Arm No drift; arm holds 90 (or 45 ) degrees for full 10 seconds -6a. Left Leg No drift; leg holds 30-degree position for full 5 seconds -6b. Right Leg No drift; leg holds 30-degree position for full 5 seconds -7. Limb Ataxia Absent -8. Sensory Mild-to- moderate sensory loss; -9. Best Language No aphasia; normal -10. Dysarthria Normal -11. Extinction and Inattention No abnormality -Total 1 Query Text:A score of 0 is normal or asymptomatic. Total possible score is 42 . ED: Notify Physician for NIHSS increase by > / = 3 points. Inpatient: RN or Physician to activate a stroke alert for NIHSS increase of > / = 3 points. Coma Scale [Assess] -Eye Opening Spontaneous -Motor Obeys Commands -Verbal Oriented [Total] -Coma Scale Total 15 Physical Exam Narrative Neurologic Examination. -? General: Laying comfortably in bed; in no acute distress. -? HENT: Normal oropharynx and mucosa. Normal external appearance of ears and nose. Exophthalmos. -? Neck: Supple, no pain or tenderness -? CV:? No peripheral edema. -? Pulmonary:? Normal respiratory effort. -? Ext: No cyanosis, edema, or deformity -? Skin: No rash. Normal palpation of skin.? -? Musculoskeletal: full range of motion; no joint tenderness. Normal digits and nails by inspection. No clubbing. -? NEURO: -? Mental Status: The patient was alert and oriented to time, place, and person. Normal recent/remote memory, concentration, and general fund of knowledge. -? Language: speech is normal.? Fluency and comprehension intact. -? Cranial Nerves: PERRL. EOMI, visual dupree full, no facial asymmetry, facial sensation slightly reduced on the right cheek, hearing intact, tongue midline Sternocleidomastoid and trapezius were equally strong. Soft palate raises equally, no uvular deviations -? Motor: normal bulk, tone, and strength throughout. No pronator drift. Upper and lower extremities equal bilaterally. -? Detailed strength exam as performed by the nurse/JASVIR and witnessed by the physician: R L SA 5 5 EE 5 5 EF 5 5 WE WF Drawing In Hand 5 5 HF 5 5 KE 5 5 KF DF 5 5 PF 5 5 -? Tone: is normal and bulk is normal -? Sensation- Intact to light touch bilaterally -? Coordination: No dysmetria on [id number] or heel to lopez -? Gait- Gait initiation was normal. Narrow base with good heel strike and stride length - walking with assistance of a walker. Patient was able to walk on toes. Romberg was normal. Lab / Micro Data Lab results narrative: I personally reviewed the following labs. 04/26/23 05:15 04/26/23 05:15 Labs: Laboratory Results - last 24 hr 04/25/23 12:32: WBC 5.4, RBC 4.18 L, Hgb 13.5, Hct 38.7 L, MCV 92.6, MCH 32.3 H, MCHC 34.9, RDW Std Deviation 38.5, RDW Coeff of Igor 11.3 L, Plt Count 187, MPV 9.3, Immature Gran % (Auto) 0.400, Neut % (Auto) 59.2, Lymph % (Auto) 26.6, Holt % (Auto) 11.7 H, Eos % (Auto) 1.5, Baso % (Auto) 0.6, Absolute Neuts (auto) 3.2, Absolute Lymphs (auto) 1.43, Nucleated RBC % 0, PT 12.8, INR 1.0, APTT 25.7, Sodium 139, Potassium 3.8, Chloride 105, Carbon Dioxide 26.0, Anion Gap 8, BUN 14, Creatinine 1.33 H, Estim Creat Clear Calc 57.98, Est GFR (MDRD) Af Amer 72, Est GFR (MDRD) Non-Af 59 L, BUN/Creatinine Ratio 10.5, Glucose 99, Calcium 9.0, Troponin I High Sens 5, Vitamin B12 823, Folate 16.90, Valproic Acid 80, Ethyl Alcohol < 3.0, Syphilis Total Ab Non-reactive, HIV 1&2 Antibody Non-Reactive 04/25/23 12:40: Ammonia < 10.0 L 04/25/23 13:12: Urine Opiates Screen NEGATIVE, Urine Methadone Screen NEGATIVE, Ur Barbiturates Screen NEGATIVE, Ur Phencyclidine Scrn NEGATIVE, Ur Amphetamines Screen NEGATIVE, MDMA (Ecstasy) Screen NEGATIVE, U Benzodiazepines Scrn NEGATIVE, Urine Cocaine Screen NEGATIVE, U Cannabinoids Screen NEGATIVE, Ur Drug Screen Comment 04/26/23 05:15: WBC 4.8, RBC 4.07 L, Hgb 13.4, Hct 38.7 L, MCV 95.1 H, MCH 32.9 H, MCHC 34.6, RDW Std Deviation 39.5, RDW Coeff of Igor 11.4 L, Plt Count 170, MPV 9.3, Immature Gran % (Auto) 0.400, Neut % (Auto) 61.0, Lymph % (Auto) 25.7, Holt % (Auto) 10.2 H, Eos % (Auto) 2.1, Baso % (Auto) 0.6, Absolute Neuts (auto) 2.9, Absolute Lymphs (auto) 1.23, Nucleated RBC % 0, Sodium 140, Potassium 4.2, Chloride 107, Carbon Dioxide 27.0, Anion Gap 6, BUN 19 H, Creatinine 1.12, Estim Creat Clear Calc 68.85, Est GFR (MDRD) Af Amer 87, Est GFR (MDRD) Non-Af 72, BUN/Creatinine Ratio 17.0, Glucose 116 H, Calcium 8.7, Phosphorus 4.0, Magnesium 2.2, Total Bilirubin 0.30, Direct Bilirubin 0.06, AST 18, ALT 32, Alkaline Phosphatase 74, Total Protein 5.8 L, Albumin 3.2, Globulin 2.6, Albumin/Globulin Ratio 1.2, Triglycerides 235 H, Cholesterol 177, LDL Cholesterol 89, VLDL Cholesterol 47 H, HDL Cholesterol 41, TSH 2.92 Rhythm Strip Rhythm Strip: Sinus Rhythm Rate: 65 Ectopy: None Imagaing Radiology Impression Brain CT 04/25/23 12:33 IMPRESSION: No acute intracranial process identified. Mild chronic involutional and white matter changes. Electronically Signed: Digna Martin MD at 12:49 EST Reading Location ID and State: [facility] / [place] Tel , Service support , ADDENDUM: 04/25/23 7933 IMPRESSION: No acute intracranial process identified. Mild chronic involutional and white matter changes. N.B. : The above Results were Read Back by Digna Martin MD to Lorelei Springer DO, and understanding confirmed on 04/25/2023 12:52:23 (ET). Electronically Signed: Digna Martin MD at 12:49 EST , Chest X-Ray 04/25/23 12:33 IMPRESSION: No acute cardiopulmonary process identified. 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 No evidence for significant stenosis or occlusion in the carotid arteries of the neck. No evidence for large vessel occlusion in the intracranial anterior circulation. N.B. : The above Results were Read Back by Digna Martin MD to Lorelei Springer DO, and understanding confirmed on 04/25/2023 12:58:32 (ET). 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 No evidence for significant stenosis or occlusion in the carotid arteries of the neck. No evidence for large vessel occlusion in the intracranial anterior circulation. N.B. : The above Results were Read Back by Digna Martin MD to Lorelei Springer DO, and understanding confirmed on 04/25/2023 12:58:32 (ET). Electronically Signed: Digna Martin MD at 12:59 EST , Brain MRI 04/25/23 15:39 IMPRESSION: Normal unenhanced and enhanced MRI of the brain. Electronically Signed: Jay Hamilton MD at 20:21 EST , Echocardiogram 04/25/23 15:39 Interpretation Summary The left ventricular ejection fraction is 65 %. Bubble contrast study is negative for PFO/ASD. Ordering Physician: Elif Em Referring Physician: Jim Martinez Chi Performed By: Jadyn Abbott, ANGELESCS, RVT Cervical Spine MRI 04/25/23 15:48 IMPRESSION: Multilevel degenerative changes, as described above. Electronically Signed: Jay Hamilton MD at 20:29 EST , Active Medications Active Medications Active Medications: Current Medications Generic Name Dose Route Start Last Admin Trade Name Freq PRN Reason Stop Dose Admin Acetaminophen 650 mg 04/25/23 15:48 04/26/23 08:51 Acetaminophen 325 Mg Tablet PO 650 mg Q6H PRN PRN Administration Pain 1-10 Or Fever >100.7 Albuterol Sulfate 2.5 mg 04/25/23 15:48 Albuterol 2.5 Mg/3 Ml Vial.Neb. INHALATION Q2H PRN PRN SOB/Wheezing Aspirin 81 mg 04/26/23 08:00 04/26/23 08:46 Aspirin 81 Mg Tab.Chew PO 81 mg BREAKFAST GET Administration Atorvastatin Calcium 80 mg 04/25/23 22:00 04/25/23 21:31 Atorvastatin Calcium 80 Mg Tablet PO 80 mg QHS GET Administration Cyanocobalamin 1,000 mcg 04/26/23 10:00 04/26/23 08:45 Cyanocobalamin 500 Mcg Tablet PO 1,000 mcg DAILY GET Administration Divalproex Sodium 500 mg 04/25/23 22:00 04/26/23 08:45 Divalproex Sodium 250 Mg Tablet PO 500 mg BID GET Administration Enoxaparin Sodium 40 mg 04/26/23 10:00 04/26/23 08:46 Enoxaparin 40 Mg/0.4 Ml Syringe SC 40 mg DAILY GET Administration Hydralazine HCl 5 mg 04/25/23 15:48 Hydralazine 20 Mg/Ml Vial IV Q30M PRN to maintain BP goals Iopamidol 0 ml 04/25/23 12:45 04/25/23 13:12 Contrast Allergy Safety Check IV Not Given X1 [facility] Iopamidol 0 ml 04/25/23 15:48 04/25/23 18:25 Contrast Allergy Safety Check IV Not Given X1 [facility] Labetalol HCl 20 mg 04/25/23 12:33 Labetalol (Prefilled) 20 Mg/4 Ml IV X1 PRN Blood Pressure Labetalol HCl 10 - 20 mg 04/25/23 15:48 Labetalol (Prefilled) 20 Mg/4 Ml IV Q10M PRN PRN to Maintain BP Goals Levothyroxine Sodium 50 mcg 04/26/23 06:00 04/26/23 05:51 Levothyroxine 50 Mcg Tablet PO 50 mcg DAILY@0600 [facility] Administration Melatonin 3 mg 04/25/23 15:48 Melatonin 3 Mg Tablet PO QHS PRN PRN INSOMNIA Ondansetron HCl 4 mg 04/25/23 15:48 Ondansetron 4 Mg/2 Ml Vial IV Q8H PRN PRN NAUSEA/VOMITING Pantoprazole Sodium 40 mg 04/26/23 10:00 04/26/23 08:46 Pantoprazole Sodium 40 Mg Tablet PO 40 mg DAILY GET Administration Senna/Docusate Sodium 2 tablet 04/25/23 15:48 Senna/Docusate Sodium 1 Tablet PO BID PRN PRN Constipation Sodium Chloride 10 - 40 ml 04/25/23 14:53 0.9% Saline Lock 10 Ml Syringe IV UD PRN SALINE FLUSH Trazodone HCl 200 mg 04/25/23 22:00 04/25/23 21:30 Trazodone 100 Mg Tablet PO 200 mg QHS GET Administration
--- NOTE | 2023-04-26 13:15 | CHAPLAIN ---
Type of Pastoral Visit _x__ Initial Visit ___ Follow-up Visit ___ On-call Visit ___ General Patient Visit ___ Spiritual Assessment ___ Family Conference ___ Bereavement ___ Rapid Response ___ Code Blue ___ Other (describe below) Pastoral Care Referral From _x__ Patient ___ Family ___ Nurse ___ Physician ___ Residential Worker ___ Hot Dip Tinning Supervisor ___ Other (describe below) Sacrament/Intervention _x__ Active listening ___ Anointing ___ Religious ___ Bereavement ___ Communion _x__ Lucy exploration ___ _x__ Life review _x__ Prayer ___ Reconciliation ___ Sacrament of Sick ___ Supportive presence ___ Wedding ___ Other (describe below) Pastoral Comments patient is welcoming and reviews his health issue and his current status; pt is hoping for discharge today and a return to work next week; pt is waiting on spouse to come to visit; pt is welcoming and appreciative of the support; pt speaks of his own lucy and how I am ready to go and I know the Lord ; pt talks about his work and the great support he has from employers; pt given time to talk about his life and his pets; pt welcomes prayer and expresses 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
[2023-04-26 14:41] VITALS: BP 114/68; PULSE 77; RESP 18; TEMP 36.2; O2SAT 98
--- NOTE | 2023-04-26 14:43 | DS.PCM_ITS ---
Providers Date of Admission: 04/25/23 Date of Discharge: 04/26/23 Primary Care Physician: Dr. Jim Martinez MD Consultations 04/25/23 15:48 Consult: Tele-Neurology Routine Consulting Provider: [facility] Reason for Consult: Acute Ischemic Stroke/TIA EMERGENT Consult: No MD Notified: Yes Date Notified: 04/25/23 Time Notified: 16:29 Method of Notification: Answering Service Comments:: was seen as stroke r/o in ED Nursing Unit Staff Notify [facility] of Tele-Neurology Consult: Yes Reason For Visit: CVA R/O Diagnosis Discharge Diagnosis (1) Acute alteration in mental status: Status: Acute Code(s): R41.82 - Altered mental status, unspecified (2) Stroke-like symptom: Status: Acute Code(s): R29.90 - Unspecified symptoms and signs involving the nervous system (3) PTSD (post-traumatic stress disorder): Status: Chronic Code(s): F43.10 - Post-traumatic stress disorder, unspecified (4) History of anxiety disorder: Status: Acute Code(s): Z86.59 - Personal history of other mental and behavioral disorders Plan Patient is a 58-year-old gentleman with history of mood disorder currently on Depakote who presented with vague neurological symptoms including reported altered sensations in both hands and legs. Admitted to monitored bed for subsequent workup 1. Paresthesias Unknown etiology, admitted to monitored bed as part of patient's evaluation he had CT as well as CTA of the head and neck in the ED CT demonstrated chronic changes and CTA of the head and neck demonstrated hypoplastic left vertebral artery and diminished flow in distal portion and occlusion intracranial portion of unclear chronicity, telemetry stroke/neurology aware but did not think patient needed transferred or further intervention advised admission here and further workup subsequent evaluation with MRI of the head as well as cervical spine demonstrated degenerative changes in the cervical spine and Normal unenhan glenn and enhanced MRI of the brain. Vitamin B12 level, folic acid, HIV also ordered results pending ? Patient was reevaluated by neurology was felt patient had complex migraine. Decision was therefore made to discharge patient home 2. History of mood disorder ? Patient is on Depakote continue 3. Hypothyroidism - Patient is on levothyroxine home dose continued 4. GERD ? On PPI 5. Mild intermittent asthma ? Bronchodilator treatment as needed 6. DVT prophylaxis ? SC Lovenox Time spent in the patient's overall evaluation,decision-making process, review of diagnostic data, adjustment of management, discussion with other providers, nursing nursing and ancillary staff involved in patient's care documentation, 50 minutes Medications at Discharge Home Medications divalproex 500 mg tablet,delayed release 500 mg PO BID psychosis/bipolar 07/19/18 trazodone 100 mg tablet 200 mg PO QHS sleep 03/25/19 albuterol sulfate 90 mcg/actuation aerosol inhaler 1 - 2 puff inhalation Q6H PRN PRN breathing 01/19/20 levothyroxine 25 mcg tablet 50 mcg PO DAILY thyroid 01/19/20 mecobalamin (vitamin B12) 1,000 mcg chewable tablet 1,000 mcg PO DAILY 04/25/23 pantoprazole 40 mg tablet,delayed release 40 mg PO DAILY 04/25/23 Hospital Course Summary of Care Provided Minutes Spent on Discharge: 50 Physical Exam Narrative GENERAL: cooperative HEENT: Atraumatic; normocephalic EYES; Anicteric, Normal Conjunctiva NECK; supple, normal thyroid, RESPIRATORY: Diminished to auscultation CARDIOVASCULAR: Regular S1 S2, GI: soft, normoactive bowel sounds, : No Renal angle tenderness; EXTREMITIES: No edema, no clubbing, MUSCULOSKELETAL: no muscle wasting NEURO: Awake; no lateralizing signs. SKIN: No Rash PSYCH; Flat affect Weight / BMI Weight Weight: 72.4 kg Body Mass Index (BMI) 25.0 ABG / Lab / Microbiology Data 04/26/23 05:15 04/26/23 05:15 Laboratory: Laboratory Results - last 24 hr 04/25/23 12:32: Vitamin B12 823, Folate 16.90, Syphilis Total Ab Non-reactive, HIV 1&2 Antibody Non-Reactive 04/26/23 05:15: WBC 4.8, RBC 4.07 L, Hgb 13.4, Hct 38.7 L, MCV 95.1 H, MCH 32.9 H, MCHC 34.6, RDW Std Deviation 39.5, RDW Coeff of Igor 11.4 L, Plt Count 170, MPV 9.3, Immature Gran % (Auto) 0.400, Neut % (Auto) 61.0, Lymph % (Auto) 25.7, [place] % (Auto) 10.2 H, Eos % (Auto) 2.1, Baso % (Auto) 0.6, Absolute Neuts (auto) 2.9, Absolute Lymphs (auto) 1.23, Nucleated RBC % 0, Sodium 140, Potassium 4.2, Chloride 107, Carbon Dioxide 27.0, Anion Gap 6, BUN 19 H, Creatinine 1.12, Estim Creat Clear Calc 68.85, Est GFR (MDRD) Af Amer 87, Est GFR (MDRD) Non-Af 72, BUN/Creatinine Ratio 17.0, Glucose 116 H, Calcium 8.7, Phosphorus 4.0, Magnesium 2.2, Total Bilirubin 0.30, Direct Bilirubin 0.06, AST 18, ALT 32, Alkaline Phosphatase 74, Total Protein 5.8 L, Albumin 3.2, Globulin 2.6, Albumin/Globulin Ratio 1.2, Triglycerides 235 H, Cholesterol 177, LDL Cholesterol 89, VLDL Cholesterol 47 H, HDL Cholesterol 41, TSH 2.92 Radiography Diagnostic Testing: Radiology Impression Brain MRI 04/25/23 15:39 IMPRESSION: Normal unenhanced and enhanced MRI of the brain. Electronically Signed: Jay Hamilton MD at 20:21 EST , Echocardiogram 04/25/23 15:39 Interpretation Summary The left ventricular ejection fraction is 65 %. Bubble contrast study is negative for PFO/ASD. Ordering Physician: Elif Em Referring Physician: Jim Martinez Chi Performed By: Jadyn Abbott, ESTEFANY, RVT Cervical Spine MRI 04/25/23 15:48 IMPRESSION: Multilevel degenerative changes, as described above. Electronically Signed: Jay Hamilton MD at 20:29 EST , D/C Instructions Discharge Diet: No restrictions Discharge Activity: Return to Normal Activity Call your doctor if you observe: Fever of 101 or Higher, Shortness of breath, Fainting spells and Chest pain Meaningful Use Info Meaningful Use Diagnoses (Choose all that apply): None applicable Discharge Plan Admission Admit Date/Time: 04/25/23 15:27 Attending Provider: Isra Roca Primary Care Provider: Jim Martinez Chi Consulting Providers: Talha Abdullahi; Moe Caballero; Sherice Conklin; Sandhya Patel; Christina Mcfarland; Daren Watts; Geovanna Crawford; Al Stephens; Alfred Cruz; Dean Owusu; Greyson Meeks; Coni Villa; Jorge Menendez; Teresa Leyva; Ld Hernandez; Cuong Davis; oJn Harman; Yuli Piña; Angie Jeronimo; Elif Em Instructions Forms: Work / School Excuse Discharge Orders/Prescriptions Prescriptions: Continued divalproex 500 MG tablet,delayed release (DR/EC) 500 mg PO BID trazodone 100 MG tablet 200 mg PO QHS levothyroxine 25 MCG tablet 50 mcg PO DAILY albuterol sulfate 1 INHALER inhaler 1 - 2 puff inhalation Q6H PRN PRN (Reason: breathing) pantoprazole 40 mg tablet,delayed release (DR/EC) 40 mg PO DAILY mecobalamin (vitamin B12) 1,000 mcg tablet,chewable 1,000 mcg PO DAILY Referrals / Follow Up: Jim Martinez Chi, MD [Primary Care Provider] - Within 1 Week Disposition Disposition (needs filled in before D/C Order can be placed): Home, Self Care Charges/Coding Visit Charges Inpatient E&M: 66680 Disch Hosp >30min
--- NOTE | 2023-04-26 15:38 | PHA.DC.MR.R ---
Pharmacy [place] Med Reconciliation Pharmacy Service has performed discharge medication reconciliation for this patient. The patient's discharge medication list was reviewed for discrepancies and discrepancies were resolved. Medications at Discharge Home Medications divalproex 500 mg tablet,delayed release 500 mg PO BID psychosis/bipolar 07/19/18 trazodone 100 mg tablet 200 mg PO QHS sleep 03/25/19 albuterol sulfate 90 mcg/actuation aerosol inhaler 1 - 2 puff inhalation Q6H PRN PRN breathing 01/19/20 levothyroxine 25 mcg tablet 50 mcg PO DAILY thyroid 01/19/20 mecobalamin (vitamin B12) 1,000 mcg chewable tablet 1,000 mcg PO DAILY 04/25/23 pantoprazole 40 mg tablet,delayed release 40 mg PO DAILY 04/25/23
--- NOTE | 2023-04-26 16:05 | CASEMGMT ---
RN JOB NOTE: Discharge order is in. Therapy notes reviewed. PT states no therapy recommended. OT does recommend OP therapy for UE strengthening. RN CM to room. Pt resting in bed, sleeping, but did awaken when RN JOB spoke to him. @ bedside. Discussed discharge planning and made aware OT recommending OP therapy. Pt denies wanting script for same, stating he has a complete weight room @ home and states he knows what exercises to do. Made aware if he changes his mind once he returns home, to discuss this with Dr Martinez. He voices understanding. He denies having other discharge needs. Brandon ANGELES RN CM
== END 2023-04-26 14:57 | disposition home or self-care (01) ==
LOC: ED 13:44 → PCU 14:00
PROVIDERS: Admitting Provider Internal Medicine; Emergency Provider Emergency Medicine; PCP Family Medicine Geriatric Medicine; Visit Provider Internal Medicine
DX: R41.82 Altered mental status, unspecified (principal); F31.9 Bipolar disorder, unspecified; Z87.891 Personal history of nicotine dependence; F41.9 Anxiety disorder, unspecified; F43.10 Post-traumatic stress disorder, unspecified; H93.11 Tinnitus, right ear; J45.20 Mild intermittent asthma, uncomplicated; E03.9 Hypothyroidism, unspecified; Z79.890 Hormone replacement therapy; Z79.899 Other long term (current) drug therapy; K21.9 Gastro-esophageal reflux disease without esophagitis; H53.2 Diplopia; R20.2 Paresthesia of skin; R53.1 Weakness; R51.9 Headache, unspecified; R20.0 Anesthesia of skin
CPT/HCPCS: 36415; 70450; 70496; 70498; 70553; 71045; 72156; 80048; 80053; 80061; 80164; 80307; 80320; 82140; 82248; 82607; 82746; 83735; 84100; 84443; 84484; 85025; 85610; 85730; 86703; 86780; 93005; 93306; 94762; 96372; 97162; 97166; 99221; 99285; A9575; Q9967; A4216; G0378; G0480

== ENCOUNTER → 2024-01-23 | Outpatient (CLI) | payer MEDICARE, SELFPAY ==
[2024-01-23 14:38] LABS: Absolute Lymphocyte Count 1.73 X10^3/uL (0.83-4.51); Absolute Neutrophil Count 3.4 X10^3/uL (2.0-7.7); Basophil# 0.03 X10^3/uL; Basophil% 0.5 % (0-1); Eosinophil# 0.13 X10^3/uL; Eosinophils% 2.3 % (0-5); Hematocrit 39.4 % (40-54); Hemoglobin 13.2 g/dL (13.0-16.5); Lymphocyte # 1.73 X10^3/ul (0.83-4.51); Lymphocyte % 30.3 % (19-41); Mean Corp Hgb Conc 33.5 g/dL (32-36); Mean Corpuscular Hgb 31.9 pg (27.0-32.0); Mean Corpuscular Volume 95.2 fL (80-94); Mean Platelet Vol. 9.3 fl (6.2-12.0); Monocyte# 0.44 X10^3/uL; Monocyte% 7.7 % (0-10); NRBC Flagged by Analyzer 0 % (0-5); Neutrophil # 3.35 X10^3/uL (2.7-7.7); Neutrophil % 58.7 % (47-70); Platelet Count 211 K/mm3 (150-450); RBC Distribution Width CV 11.6 % (11.6-14.6); Red Blood Count 4.14 M/mm3 (4.6-6.2); White Blood Count 5.7 K/mm3 (4.4-11.0)
[2024-01-23 15:19] LABS: ALB/GLOB Ratio 1.3 RATIO (0.9-2.4); AST(SGOT) 32 U/L (15-37); Alanine Aminotransfer ALT/SGPT 44 U/L (16-61); Albumin, Serum 3.6 g/dL (3.2-5.0); Alkaline Phosphatase 101 U/L (45-117); Anion Gap 4 (5-15); BUN 23 mg/dL (7-18); BUN/Creat Ratio 15.4 RATIO (10-20); Calcium,Total 9.3 mg/dL (8.5-10.1); Chloride 108 mmol/L (98-107); Cholesterol 218 mg/dL (200); Creatinine, Serum 1.49 mg/dL (0.70-1.30); EST Glomerular Filtration Rate 52 mL/min (>60); Est Glom Filt Rate - Afr Amer 63 mL/min (>60); Globulin 2.8 g/dL (2.2-4.2); Glucose 93 mg/dL (74-106); High Density Lipoprotein 50 mg/dL; Potassium 4.7 mmol/L (3.5-5.1); Protein, Total 6.4 g/dL (6.4-8.2); Sodium Level 139 mmol/L (136-145); Triglycerides 495 mg/dL
== END | disposition home or self-care (01) ==
LOC: POLAB3 14:19
PROVIDERS: Internal Medicine Nephrology; PCP Family Medicine Geriatric Medicine; Visit Provider Family Medicine Geriatric Medicine
DX: R53.83 Other fatigue (principal); R68.83 Chills (without fever); E78.5 Hyperlipidemia, unspecified; N18.2 Chronic kidney disease, stage 2 (mild); Z12.5 Encounter for screening for malignant neoplasm of prostate
CPT/HCPCS: 36415; 80053; 80061; 84100; 84153; 84443; 85025; 87631; G0103

== ENCOUNTER 2024-04-02 19:57 | Emergency (ER) | payer MEDICARE, SELFPAY ==
[2024-04-02 19:58] VITALS: BP 122/63; PULSE 85; RESP 18; TEMP 36.7; O2SAT 100; BMI 27.8
[2024-04-02] MEDS: HYDROcodone Bitartrate/Apap 5/325 Tablet PO (21:01)
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
== END 2024-04-02 21:57 | disposition home or self-care (01) ==
PROVIDERS: Emergency Provider Surgery; PCP Family Medicine Geriatric Medicine; Visit Provider Surgery
DX: T23.251A Burn of second degree of right palm, initial encounter (principal); T23.241A Burn of second degree of multiple right fingers (nail), including thumb, initial encounter; X15.3XXA Contact with hot saucepan or skillet, initial encounter; Z87.891 Personal history of nicotine dependence
CPT/HCPCS: 99282

== ENCOUNTER 2024-05-25 11:22 | Emergency (ER) | payer MEDICARE, SELFPAY ==
[2024-05-25 11:23] VITALS: BP 128/95; PULSE 96; RESP 15; TEMP 36.1; O2SAT 97
[2024-05-25 11:38] VITALS: BMI 26.4
--- NOTE | 2024-05-25 11:39 | ED.RN ---
Pt does not want to file worker's comp
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
[2024-05-25] MEDS: diazePAM 5 MG Tablet PO (11:48)
[2024-05-25] MEDS: Ketorolac 30 MG/ML Syringe IM (11:48)
== END 2024-05-25 13:18 | disposition home or self-care (01) ==
PROVIDERS: Emergency Provider Emergency Medicine; PCP Family Medicine Geriatric Medicine; Visit Provider Emergency Medicine
DX: M62.838 Other muscle spasm (principal); X58.XXXA Exposure to other specified factors, initial encounter; Z87.891 Personal history of nicotine dependence
CPT/HCPCS: 96372; 99282

== ENCOUNTER → 2024-07-10 | Outpatient (CLI) | payer MEDICARE, SELFPAY ==
[2024-07-10 11:52] LABS: Anion Gap 13 (5-15); BUN 16 mg/dL (4-19); Calcium,Total 9.6 mg/dL (7.6-11.0); Carbon Dioxide 22.7 mmol/L (21.0-32.0); Chloride 100 mmol/L (98-108); Creatinine, Serum 1.09 mg/dL (0.70-1.20); EST Glomerular Filtration Rate 79 (>60); Glucose 129 mg/dL (70-99); Potassium 3.7 mmol/L (3.3-5.1); Sodium Level 136 mmol/L (133-145)
== END | disposition home or self-care (01) ==
LOC: LAB 10:00
PROVIDERS: PCP Family Medicine Geriatric Medicine; Referring Provider Internal Medicine Nephrology; Visit Provider Internal Medicine Nephrology
DX: R68.83 Chills (without fever) (principal); N18.2 Chronic kidney disease, stage 2 (mild)
CPT/HCPCS: 36415; 80048; 87631

== ENCOUNTER → 2024-07-11 | Outpatient (CLI) | payer MEDICARE, SELFPAY | END | disposition home or self-care (01) | LOC: LABSPEC 08:11 | PROVIDERS: PCP Family Medicine Geriatric Medicine; Referring Provider Family Medicine Geriatric Medicine; Visit Provider Family Medicine Geriatric Medicine | DX: R19.7 Diarrhea, unspecified (principal) | CPT/HCPCS: 83630 ==

== ENCOUNTER → 2024-07-30 | Outpatient (CLI) | payer MEDICARE, SELFPAY ==
[2024-07-30 17:12] LABS: Absolute Lymphocyte Count 1.99 X10^3/uL (0.83-4.51); Absolute Neutrophil Count 3.9 X10^3/uL (2.0-7.7); Basophil# 0.03 X10^3/uL; Basophil% 0.5 % (0-1); Eosinophil# 0.09 X10^3/uL; Eosinophils% 1.4 % (0-5); Hematocrit 38.5 % (40-54); Hemoglobin 13.1 g/dL (13.0-16.5); Lymphocyte # 1.99 X10^3/ul (0.83-4.51); Mean Corpuscular Hgb 32.4 pg (27.0-32.0); Mean Corpuscular Volume 95.3 fL (80-94); Mean Platelet Vol. 9.8 fl (6.2-12.0); Monocyte# 0.55 X10^3/uL; Monocyte% 8.3 % (0-10); NRBC Flagged by Analyzer 0 % (0-5); Neutrophil # 3.93 X10^3/uL (2.7-7.7); Neutrophil % 59.2 % (47-70); Platelet Count 184 K/mm3 (150-450); RBC Distribution Width CV 11.5 % (11.6-14.6); RBC Distribution Width SD 40.2 fl (35.1-43.9); Red Blood Count 4.04 M/mm3 (4.6-6.2); White Blood Count 6.6 K/mm3 (4.4-11.0)
[2024-07-30 17:48] LABS: Cholesterol 220 mg/dL (<=200); High Density Lipoprotein 54 mg/dL; Low Density Lipoprotein Calc. 90 mg/dL; Triglycerides 380 mg/dL; Very Low Density Lipoprotein 76 mg/dL (5-40)
[2024-07-30 17:51] LABS: ALB/GLOB Ratio 1.9 RATIO (0.9-2.4); AST(SGOT) 36 U/L (<=37); Alanine Aminotransfer ALT/SGPT 40 U/L (<=46); Albumin, Serum 4.3 g/dL (3.5-5.0); Alkaline Phosphatase 106 U/L (40-129); Anion Gap 12 (5-15); BUN 16 mg/dL (4-19); BUN/Creat Ratio 13.1 RATIO (10-20); Calcium,Total 9.2 mg/dL (7.6-11.0); Carbon Dioxide 24.2 mmol/L (21.0-32.0); Chloride 104 mmol/L (98-108); Creatinine, Serum 1.24 mg/dL (0.70-1.20); EST Glomerular Filtration Rate 68 (>60); Globulin 2.3 g/dL (2.2-4.2); Glucose 95 mg/dL (70-99); Potassium 4.2 mmol/L (3.3-5.1); Protein, Total 6.5 g/dL (5.9-8.4); Sodium Level 140 mmol/L (133-145); Total Bilirubin 0.21 mg/dL (0.00-1.30)
== END | disposition home or self-care (01) ==
LOC: LAB 16:20
PROVIDERS: PCP Family Medicine Geriatric Medicine; Referring Provider Family Medicine Geriatric Medicine; Visit Provider Family Medicine Geriatric Medicine
DX: E78.5 Hyperlipidemia, unspecified (principal); R53.83 Other fatigue
CPT/HCPCS: 36415; 80053; 80061; 84443; 85025

== ENCOUNTER 2024-11-20 12:25 | Emergency (ER) | payer MEDICARE, SELFPAY ==
[2024-11-20 12:29] VITALS: BP 115/82; PULSE 81; RESP 18; TEMP 37; O2SAT 98
== END 2024-11-20 12:58 | disposition left against medical advice (07) ==
LOC: ED 13:17
PROVIDERS: PCP Family Medicine Geriatric Medicine
DX: Z53.21 Procedure and treatment not carried out due to patient leaving prior to being seen by health care provider (principal)
CPT/HCPCS: 99281

== ENCOUNTER → 2025-02-02 | Outpatient (CLI) | payer MEDICARE, SELFPAY ==
[2025-02-02 16:35] LABS: Hematocrit 42.1 % (40-54); Hemoglobin 14.5 g/dL (13.0-16.5); Immature Granulocytes Count 0.030 X10^3/uL (0.0-0.0); Mean Corp Hgb Conc 34.4 g/dL (32-36); Mean Corpuscular Volume 95.5 fL (80-94); Mean Platelet Vol. 9.4 fl (6.2-12.0); NRBC Flagged by Analyzer 0 % (0-5); Platelet Count 212 K/mm3 (150-450); RBC Distribution Width CV 11.6 % (11.6-14.6); RBC Distribution Width SD 40.6 fl (35.1-43.9); Red Blood Count 4.41 M/mm3 (4.6-6.2); White Blood Count 7.1 K/mm3 (4.4-11.0)
[2025-02-02 17:12] LABS: Cholesterol 242 mg/dL (<=200); Low Density Lipoprotein Calc. 106 mg/dL; PSA,Total - Annual Screen 0.98 ng/mL (0.02-4.00); Triglycerides 353 mg/dL; Very Low Density Lipoprotein 71 mg/dL (5-40); cholesterol:hdl ratio screen 3.72
[2025-02-02 17:13] LABS: AST(SGOT) 32 U/L (<=37); Alanine Aminotransfer ALT/SGPT 38 U/L (<=46); Albumin, Serum 4.4 g/dL (3.5-5.0); Alkaline Phosphatase 92 U/L (40-129); Anion Gap 10 (5-15); BUN 20 mg/dL (4-19); BUN/Creat Ratio 17.2 RATIO (10-20); Calcium,Total 9.7 mg/dL (7.6-11.0); Carbon Dioxide 26.3 mmol/L (21.0-32.0); Chloride 103 mmol/L (98-108); Globulin 2.2 g/dL (2.2-4.2); Glucose 139 mg/dL (70-99); Potassium 4.5 mmol/L (3.3-5.1)
[2025-02-03 00:18] LABS: Xtra Tube Kwok EXTRA TUBE
== END | disposition home or self-care (01) ==
LOC: POLAB3 16:17
PROVIDERS: PCP Family Medicine Geriatric Medicine; Visit Provider Family Medicine Geriatric Medicine
DX: E78.5 Hyperlipidemia, unspecified (principal); E03.9 Hypothyroidism, unspecified; R53.83 Other fatigue; Z12.5 Encounter for screening for malignant neoplasm of prostate
CPT/HCPCS: 36415; 80053; 80061; 84153; 84443; 85025; G0103